=== PATIENT | male | born 1965 | race Caucasian/White ===

== ENCOUNTER 2023-06-19 05:18 | Inpatient (IN) | payer OTHER ==
[2023-06-19 06:19] LABS: Basophils # (A) 0.1 k/uL (0-0.2); Basophils % (A) 1 %; Eosinophils # (A) 0.1 k/uL (0-0.7); Eosinophils % (A) 1 %; HCT 43.7 % (39.0-53.0); HGB 14.2 gm/dL (13.0-17.5); Lymphocytes # (A) 1.7 k/uL (1.0-4.8); Lymphocytes % (A) 19 %; MCH 30.6 pg (25.0-35.0); MCHC 32.6 g/dL (31.0-37.0); MCV 93.9 fL (80.0-100.0); Mean Platelet Volume 7.1; Monocytes # (A) 0.6 k/uL (0-1.0); Monocytes % (A) 6 %; Neutrophils # (A) 6.3 k/uL (1.3-7.7); Neutrophils % (A) 71 %; Platelet Count 381 k/uL (150-450); RBC 4.66 m/uL (4.30-5.90); RDW 14.1 % (11.5-15.5); WBC 8.9 k/uL (3.8-10.6)
[2023-06-19 06:34] LABS: ALT 24 U/L (4-49); AST 30 U/L (17-59); African American GFR (CKD) >90 (>60 ml/min/1.73 sqM); Albumin 4.6 g/dL (3.5-5.0); Alkaline Phosphatase 67 U/L (38-126); Anion Gap 10 mmol/L; Blood Urea Nitrogen 15 mg/dL (9-20); Calcium 9.3 mg/dL (8.4-10.2); Carbon Dioxide 24 mmol/L (22-30); Chloride 105 mmol/L (98-107); Glucose 98 mg/dL (74-99); Non-African American GFR(CKD) >90 (>60 ml/min/1.73 sqM); Sodium 139 mmol/L (137-145); Total Bilirubin 0.5 mg/dL (0.2-1.3); Total Protein 7.9 g/dL (6.3-8.2)
--- NOTE | 2023-06-19 07:33 | ED ---
Chest Pain HPI - General Chief Complaint: Chest Pain Stated Complaint: N Stemy Time Seen by Provider: 06/19/23 05:25 Source: patient, EMS Mode of arrival: EMS Limitations: no limitations - History of Present Illness Initial Comments: 58-year-old male who presents emergency department as a transfer from [facility]. He originally went in there for chest pain which has been going on for greater than a week. EKG was performed which demonstrated Q waves in the inferior leads. Troponin level was elevated. Patient was given a dose of Lovenox and transferred to our facility for cardiology evaluation. Troponin went from 76 to 172. D-dimer was normal. BNP was 1449. Patient was given a dose of Lovenox 120 mg and 40 mg of Lasix. They then wanted to transfer the patient to our facility - Related Data Home Medications Medication Instructions Recorded Confirmed Pvobbol-Xbsd-Dleh [id number] 2 tab PO Q4H PRN 06/19/23 06/19/23 [Excedrin] Ibuprofen [Motrin Ib] 400 mg PO Q4H PRN 06/19/23 06/19/23 Allergies Allergy/AdvReac Type Severity Reaction Status Date / Time No Known Allergies Allergy Verified 06/19/23 08:27 Review of Systems ROS Statement: Those systems with pertinent positive or pertinent negative responses have been documented in the HPI. ROS Other: All systems not noted in ROS Statement are negative. Past Medical History Past Medical History: Hypertension Additional Past Medical History / Comment(s): kidney stones History of Any Multi-Drug Resistant Organisms: None Reported Past Surgical History: Cholecystectomy Past Psychological History: Anxiety Smoking Status: Never smoker Past Alcohol Use History: None Reported Past Drug Use History: Marijuana - Past Family History Mother Family Medical History: Cancer, Coronary Artery Disease (CAD) Additional Family Medical History / Comment(s): Breast CA Father Family Medical History: Cancer Additional Family Medical History / Comment(s): Leukemia General Exam Limitations: no limitations General appearance: alert, in no apparent distress Head exam: Present: atraumatic, normocephalic, normal inspection Eye exam: Present: normal appearance, PERRL, EOMI. Absent: scleral icterus, conjunctival injection, periorbital swelling ENT exam: Present: normal exam, mucous membranes moist Neck exam: Present: normal inspection. Absent: tenderness, meningismus, lymphadenopathy Respiratory exam: Present: normal lung sounds bilaterally. Absent: respiratory distress, wheezes, rales, rhonchi, stridor Cardiovascular Exam: Present: regular rate, normal rhythm, normal heart sounds. Absent: systolic murmur, diastolic murmur, rubs, gallop, clicks GI/Abdominal exam: Present: soft, normal bowel sounds. Absent: distended, tenderness, guarding, rebound, rigid Extremities exam: Present: normal inspection, full ROM, normal capillary refill. Absent: tenderness, pedal edema, joint swelling, calf tenderness Back exam: Present: normal inspection Neurological exam: Present: alert, oriented X3, CN II-XII intact Psychiatric exam: Present: normal affect, normal mood Skin exam: Present: warm, dry, intact, normal color. Absent: rash Course Vital Signs 06/19/23 06/19/23 06/19/23 05:20 07:18 09:13 Temperature 98.1 F Pulse Rate 101 H 99 103 H Respiratory 20 18 18 Rate Blood Pressure 160/95 154/104 154/103 O2 Sat by Pulse 93 L 97 91 L Oximetry 06/19/23 06/19/23 06/19/23 11:00 14:00 15:00 Temperature Pulse Rate 80 88 90 Respiratory 16 20 20 Rate Blood Pressure 120/78 101/62 110/60 O2 Sat by Pulse 94 L 90 L 98 Oximetry 06/19/23 06/19/23 16:00 17:59 Temperature Pulse Rate 86 65 Respiratory 20 16 Rate Blood Pressure 106/60 125/68 O2 Sat by Pulse 98 98 Oximetry Chest Pain MDM - MDM Was pt. sent in by a medical professional or institution (, PA, [employer], urgent care, hospital, or chcf...) When possible be specific @ -[facility] Did you speak to anyone other than the patient for history (EMS, parent, family, police, friend...)? What history was obtained from this source @ -Spoke with EMS and the transferring physician for history Did you review nursing and triage notes (agree or disagree)? Why? @ -I reviewed and agree with nursing and triage notes Were old charts reviewed (outside hosp., previous admission, EMS record, old EKG, old radiological studies, urgent care reports/EKG's, chcf records)? Report findings @ -I reviewed the patient's transfer paperwork from [facility] Differential Diagnosis (chest pain, altered mental status, abdominal pain women, abdominal pain men, vaginal bleeding, weakness, fever, dyspnea, syncope, headache, dizziness, GI bleed, back pain, seizure, CVA, palpatations, mental health, musculoskeletal)? @ -Differential Chest Pain: Stable Angina, Unstable Angina, STEMI, NSTEMI Aortic Dissection, Pneumothorax, Musculoskeletal, Esophageal Spasm GERD, Cholecystitis, Pancreatitis, Zoster, this is not meant to be an all-inclusive list. EKG interpreted by me (3pts min.). @ -Yes and demonstrates sinus rhythm with a rate of 94. IA interval 175. QRS 113. QTc of 419. Q wave in leads III and aVF. No acute ST segment elevation X-rays interpreted by me (1pt min.). @ -Not done CT interpreted by me (1pt min.). @ -None done U/S interpreted by me (1pt. min.). @ -None done What testing was considered but not performed or refused? (CT, X-rays, U/S, labs)? Why? @ -None What meds were considered but not given or refused? Why? @ -None Did you discuss the management of the patient with other professionals (professionals i.e. DrPatrice, PA, [employer], lab, RT, psych nurse, protective services social worker, anthropology department chair, teacher, promotions officer, hospice case manager)? Give summary @ -Spoke with Dr. Hunter for admission Was smoking cessation discussed for >3mins.? @ -No Was critical care preformed (if so, how long)? @ -Yes, for NSTEMI management Were there social determinants of health that impacted care today? How? (Homelessness, low income, unemployed, alcoholism, drug addiction, transport ation, low edu. Level, literacy, decrease access to med. care, fpc, rehab)? @ -No Was there de-escalation of care discussed even if they declined (Discuss DNR or withdrawal of care, Hospice)? DNR status @ -No What co-morbidities impacted this encounter? (DM, HTN, Smoking, COPD, CAD, Cancer, CVA, ARF, Chemo, Hep., AIDS, mental health diagnosis, sleep apnea, morbid obesity)? @ -None Was patient admitted / discharged? Hospital course, mention meds given and route, prescriptions, significant lab abnormalities, going to OR and other pertinent info. @ -Upon arrival patient was placed into room 27. Thorough history and physical exam was performed. Patient was a transfer from [facility]. He did receive a dose of Lovenox for treatment of NSTEMI. I did continue this. Patient was admitted to Dr. Brown with cardiology to consult Undiagnosed new problem with uncertain prognosis? @ -Yes Drug Therapy requiring intensive monitoring for toxicity (Heparin, Nitro, Insulin, Cardizem)? @ -No Were any procedures done? @ -No Diagnosis/symptom? @ -Acute chest pain, NSTEMI Acute, or Chronic, or Acute on Chronic? @ -Acute Uncomplicated (without systemic symptoms) or Complicated (systemic symptoms)? @ -Complicated Side effects of treatment? @ -Bleeding Exacerbation, Progression, or Severe Exacerbation? @ -No Poses a threat to life or bodily function? How? (Chest pain, [place], [place], pneumonia, PE, COPD, DKA, ARF, appy, cholecystitis, CVA, Diverticulitis, Homicidal, Suicidal, threat to staff... and all critical care pts) @ -Yes as patient has NSTEMI Disposition Clinical Impression: Chest pain, NSTEMI (non-ST elevated myocardial infarction) Disposition: ADMITTED IP TO THIS [facility] Condition: Serious Is patient prescribed a controlled substance at d/c from ED?: No Time of Disposition: 07:40 Decision to Admit Reason: Admit from EC Decision Date: 06/19/23 Decision Time: 07:40
[2023-06-19] MEDS: MORPHINE SULFATE 4 MG/ML SYRINGE IVP STA (07:37)
[2023-06-19] MEDS ORDERED: NALOXONE 0.4 MG/ML 1 ML VIAL IV PRN (07:40)
[2023-06-19] MEDS: LOSARTAN 25 MG TAB PO SCH (09:45)
[2023-06-19] MEDS: ASPIRIN 81 MG PO SCH (09:45)
[2023-06-19] MEDS: METOPROLOL SUCCINATE (ER) 25 MG TAB.ER.24H PO SCH (09:45)
[2023-06-19] MEDS: ATORVASTATIN 80 MG TAB PO SCH (09:45)
[2023-06-19] MEDS: HEPARIN SOD,PORK IN 0.45% NACL 25,000 UNIT in 0.45% NACL 1 250ML.BAG IV SCH (09:47)
[2023-06-19] MEDS: HEPARIN SODIUM 1,000 UN/ML (10ML VL) IV ONE (09:48)
[2023-06-19] MEDS: amLODIPine 5 MG TAB PO STA (09:54)
[2023-06-19] MEDS: LOSARTAN 25 MG TAB PO STA (09:54)
--- NOTE | 2023-06-19 11:18 | CT ---
EXAMINATION TYPE: CT angio chest CT DLP: 1375.9 mGycm, Automated exposure control for dose reduction was used. DATE OF EXAM: 06/19/2023 10:19 AM COMPARISON: Chest radiograph from same day. Multiple CTs of the chest with most recent on . CLINICAL INDICATION:Male, 58 years old with history of AORTIC aneurysm/dissection, PE; aorta aneurysm /dissection/PE TECHNIQUE/CONTRAST: CTA scan of the thorax is performed without and with IV Contrast, patient injected with 100ML mL of I sovue 370, MIP images are created and reviewed these are created on a separate workstation.. FINDINGS: Pulmonary Artery: There is no evidence for a filling defect within the pulmonary vasculature to sugge st acute pulmonary embolism. The pulmonary artery is of normal size. Lungs/Pleura: No evidence of focal consolidation, pleural effusion or pneumothorax. Airway: Large airways are patent. Heart: Heart is within normal limits for size. Vasculature: No evidence of aortic aneurysm. Mediastinum: No gross evidence of adenopathy. Musculoskeletal: No acute osseous abnormalities Soft Tissues: Unremarkable. Lower neck: No significant findings. Upper Abdomen: No significant findings. IMPRESSION: 1. No evidence of pulmonary embolism. 2. Peripheral , dependent groundglass pulmonary opacities consistent with atypical pulmonary infectio n such as COVID-19, other viral, or pulmonary venous congestion
[2023-06-19] MEDS: NITROGLYCERIN OINT 1 INCH/GM PACKET TOPICAL SCH (11:38)
[2023-06-19] MEDS: SODIUM CHLORIDE 0.9% 1,000 ML IV SCH (11:39)
[2023-06-19 13:08] LABS: Basophils # (A) 0.1 k/uL (0-0.2); Basophils % (A) 1 %; Eosinophils # (A) 0.2 k/uL (0-0.7); Eosinophils % (A) 2 %; HCT 43.9 % (39.0-53.0); HGB 13.9 gm/dL (13.0-17.5); Lymphocytes # (A) 1.6 k/uL (1.0-4.8); Lymphocytes % (A) 20 %; MCH 30.1 pg (25.0-35.0); MCHC 31.6 g/dL (31.0-37.0); MCV 95.3 fL (80.0-100.0); Mean Platelet Volume 6.9; Monocytes # (A) 0.6 k/uL (0-1.0); Monocytes % (A) 8 %; Neutrophils # (A) 5.3 k/uL (1.3-7.7); Neutrophils % (A) 66 %; Platelet Count 376 k/uL (150-450); RBC 4.61 m/uL (4.30-5.90); WBC 7.9 k/uL (3.8-10.6)
--- NOTE | 2023-06-19 13:08 | P.CRDCN ---
History of Present Illness Consult date: 06/19/23 Consult reason: chest pain (Non-ST elevated [place]) History of present illness: History of present illness: This is a 58-year-old male does not follow with a PCP. Patient has a known history of hypertension since 2020 but has not sought treatment for this. He underwent cholecystectomy at that time found to have high blood pressure and was given medications for short time and never had these refilled. We have been asked to evaluate the patient for acute chest pain and non-ST elevated myocardial infarction. Patient gives history that he has had pain starting in his mid upper back with any exertion is a pressure type that goes down into the chest area all across his chest with left arm pain that is sharp. No radiation to his neck or jaw. He also experiences shortness of breath with this. He usually sits down for about 15 to 20 minutes and he did see it and then he feels better. He states he is unable to walk over 100 feet and has symptomatic dyspnea on exertion and the chest pain/back pain. This has been going on since he had his gallbladder out in 2020. He states he is unable to rake leaves or go grocery shopping. Patient states that he quit smoking in 2020 but on further questioning he is still smoking. He denies any alcohol use. He uses marijuana weekly for anxiety. Patient initially presented to [facility] by EMS due to nosebleed. He did not present for chest pain. Due to concern for coronary artery disease, patient was transferred from the ER at [facility] to [facility]. He did receive IV Lasix 40 mg at [facility] and he thinks his breathing is a bit better today. His initial blood pressure at [facility] was 159/100. Troponin was elevated. D-di jami was normal. Chest x-ray revealed CHF. Patient now has a blood pressure 154/101 and heart rate of 101. He denies having any chest pain at this time. EKG sinus rhythm with none specific ST changes. CTA of the chest reveals no evidence of pulmonary embolism. Peripheral, dependent ground glass pulmonary opacities consistent with atypical pulmonary infection such as COVID-19 or other viral or pulmonary venous congestion. CBC and CMP normal. Troponins 0.485 and 0.743. Home cardiac medications: None Review Of Systems: At the time of my exam: CONSTITUTIONAL: Denies fever or chills. HEENT: Denies blurred vision, vision changes, or eye pain. Denies hemoptysis CARDIOVASCULAR: Denies chest pain. Denies orthopnea. Denies PND. Denies palpitations RESPIRATORY: Denies shortness of breath. GASTROINTESTINAL: Denies abdominal pain. Denies nausea or vomiting. HEMATOLOGIC: Denies bleeding disorders. GENITOURINARY: Denies any blood in urine. SKIN: Denies pruitis. Denies rash. Physical examination: Gen: This is a 58-year-old male appears to be in no acute distress. VS: reviewed HEENT: Head is atraumatic, normocephalic. Pupils equal, round. Sclerae is anicteric. NECK: Supple. No JVD. LUNGS: A few scattered rhonchi with mild end expiratory wheeze. No intercostal retractions. HEART: Regular rate and rhythm. No murmur. ABDOMEN: Soft No tenderness. EXTREMITIES: No pedal edema. No calf tenderness. NEUROLOGICAL: Patient is awake, alert and oriented x3. Assessment: Non-ST elevated myocardial infarction Accelerated hypertension Tobacco use Marijuana use Plan: Start patient on aspirin 81 mg daily, Lipitor 80 mg daily, losartan 100 mg daily, Lopressor 50 mg twice daily 1 dose of amlodipine 5 mg today Start patient on heparin drip per protocol Start patient on IV fluids 0.9 normal saline at 75 cc/h Possible cardiac catheterization on Thursday or earlier depending on results of e chocardiogram Obtain 2-D echocardiogram and Doppler study to assess cardiac structure and function Further recommendations to follow based upon clinical course Thank you kindly for this consultation. Nurse practitioner note has been reviewed, I agree with documented findings and plan of care. Patient was seen and examined. Past Medical History Past Medical History: Hypertension Additional Past Medical History / Comment(s): kidney stones History of Any Multi-Drug Resistant Organisms: None Reported Past Surgical History: Cholecystectomy Past Psychological History: Anxiety Smoking Status: Never smoker Past Alcohol Use History: None Reported Past Drug Use History: Marijuana Medications and Allergies Home Medications Medication Instructions Recorded Confirmed Type Lbzppto-Khzq-Bgbk [id number] 2 tab PO Q4H PRN 06/19/23 06/19/23 History [Excedrin] Ibuprofen [Motrin Ib] 400 mg PO Q4H PRN 06/19/23 06/19/23 History Allergies Allergy/AdvReac Type Severity Reaction Status Date / Time No Known Allergies Allergy Verified 06/19/23 08:27 Physical Exam Vitals: Vital Signs Temp Pulse Resp BP Pulse Ox 06/19/23 07:18 98.1 F 99 18 154/104 97 06/19/23 05:20 101 H 20 160/95 93 L Intake and Output 06/18/23 06/19/23 06/19/23 22:59 06:59 14:59 Other: Weight 120.202 kg Results 06/19/23 06:01 06/19/23 06:01 Cardiac Enzymes 06/19/23 06/19/23 Range/Units 06:01 06:01 AST 30 (17-59) U/L Troponin I 0.485 H* (0.000-0.034) ng/mL CBC 06/19/23 Range/Units 06:01 WBC 8.9 (3.8-10.6) k/uL RBC 4.66 (4.30-5.90) m/uL Hgb 14.2 (13.0-17.5) gm/dL Hct 43.7 (39.0-53.0) % Plt Count 381 (150-450) k/uL Comprehensive Metabolic Panel 06/19/23 Range/Units 06:01 Sodium 139 (137-145) mmol/L Potassium 4.0 (3.5-5.1) mmol/L Chloride 105 (98-107) mmol/L Carbon Dioxide 24 (22-30) mmol/L BUN 15 (9-20) mg/dL Creatinine 0.90 (0.66-1.25) mg/dL Glucose 98 (74-99) mg/dL Calcium 9.3 (8.4-10.2) mg/dL AST 30 (17-59) U/L ALT 24 (4-49) U/L Alkaline Phosphatase 67 (38-126) U/L Total Protein 7.9 (6.3-8.2) g/dL Albumin 4.6 (3.5-5.0) g/dL Current Medications Generic Name Dose Route Start Last Admin Trade Name Freq PRN Reason Stop Dose Admin Enoxaparin Sodium 120 mg 06/19/23 15:00 Enoxaparin 120 Mg/0.8 Ml Syringe SQ Q12H [facility] Morphine Sulfate 4 mg 06/19/23 07:40 Morphine Sulfate 4 Mg/Ml Syringe IV Q4HR PRN Severe Pain (Scale 7 to 10) Naloxone HCl 0.2 mg 06/19/23 07:40 Naloxone 0.4 Mg/Ml 1 Ml Vial IV Q2M PRN Opioid Reversal Intake and Output 06/18/23 06/19/23 06/19/23 22:59 06:59 14:59 Other: Weight 120.202 kg 06/19/23 06:01 06/19/23 06:01
[2023-06-19 13:14] LABS: Partial Thromboplastin Time 39.6 sec (22.0-30.0); Prothrombin Time 10.8 sec (10.0-12.5)
[2023-06-19] MEDS ORDERED: ENOXAPARIN 120 MG/0.8 ML SYRINGE SQ SCH (15:00)
[2023-06-19] MEDS: MORPHINE SULFATE 4 MG/ML SYRINGE IV PRN (16:17)
[2023-06-19 16:44] LABS: Partial Thromboplastin Time 37.7 sec (22.0-30.0); Prothrombin Time 10.7 sec (10.0-12.5)
--- NOTE | 2023-06-19 17:19 | P.HPIM ---
History of Present Illness H&P Date: 06/19/23 Chief Complaint: Chest pain 58-year-old male who presents emergency department as a transfer from [facility]. He originally went in there for chest pain which has been going on for greater than a week. EKG was performed which demonstrated Q waves in the inferior leads. Troponin level was elevated. Patient was given a dose of Lovenox and transferred to our facility for cardiology evaluation. Troponin went from 76 to 172. D-dimer was normal. BNP was 1449. Patient was given a dose of Lovenox 120 mg and 40 mg of Lasix. Patient initially presented to [facility] by EMS due to nosebleed. He did not present for chest pain. Due to concern for coronary artery disease, patient was transferred from the ER at [facility] to [facility]. He did receive IV Lasix 40 mg at [facility] and he thinks his breathing is a bit better today. His initial blood pressure at [facility] was 159/100. Troponin was elevated. D-dimer was normal. Chest x-ray revealed CHF. Patient now has a blood pressure 154/101 and heart rate of 101. He denies having any chest pain at this time. EKG sinus rhythm with none specific ST changes. CTA of the chest reveals no evidence of pulmonary embolism. Peripheral, dependent ground glass pulmonary opacities consistent with atypical pulmonary infection such as COVID-19 or other viral or pulmonary venous congestion. CBC and CMP normal. Troponins 0.485 and 0.743. Review of Systems REVIEW OF SYSTEMS: CONSTITUTIONAL: No fever, no malaise, no fatigue. HEENT: No recent visual problems or hearing problems. Denied any sore throat. CARDIOVASCULAR: No chest pain, orthopnea, PND, no palpitations, no syncope. PULMONARY: No shortness of breath, no cough, no hemoptysis. GASTROINTESTINAL: No diarrhea, no nausea, no vomiting, no abdominal pain. NEUROLOGICAL: No headaches, no weakness, no numbness. HEMATOLOGICAL: Denies any bleeding or petechiae. GENITOURINARY: Denies any burning micturition, frequency, or urgency. MUSCULOSKELETAL/RHEUMATOLOGICAL: Denies any joint pain, swelling, or any muscle pain. ENDOCRINE: Denies any polyuria or polydipsia. The rest of the 14-point review of systems is negative. Past Medical History Past Medical History: Hypertension Additional Past Medical History / Comment(s): kidney stones History of Any Multi-Drug Resistant Organisms: None Reported Past Surgical History: Cholecystectomy Past Psychological History: Anxiety Smoking Status: Never smoker Past Alcohol Use History: None Reported Past Drug Use History: Marijuana Medications and Allergies Home Medications Medication Instructions Recorded Confirmed Type Anchdlz-Rjat-Lpiv [id number] 2 tab PO Q4H PRN 06/19/23 06/19/23 History [Excedrin] Ibuprofen [Motrin Ib] 400 mg PO Q4H PRN 06/19/23 06/19/23 History Allergies Allergy/AdvReac Type Severity Reaction Status Date / Time No Known Allergies Allergy Verified 06/19/23 08:27 Physical Exam Vitals: Vital Signs Temp Pulse Resp BP Pulse Ox 06/19/23 11:00 80 16 120/78 94 L 06/19/23 09:13 103 H 18 154/103 91 L 06/19/23 07:18 98.1 F 99 18 154/104 97 06/19/23 05:20 101 H 20 160/95 93 L Intake and Output 06/18/23 06/19/23 06/19/23 22:59 06:59 14:59 Other: Weight 120.202 kg HEENT: Head is atraumatic, normocephalic. Pupils equal, round. Sclerae is anicteric. NECK: Supple. No JVD. LUNGS: A few scattered rhonchi with mild end expiratory wheeze. No intercostal retractions. HEART: Regular rate and rhythm. No murmur. ABDOMEN: Soft No tenderness. EXTREMITIES: No pedal edema. No calf tenderness. NEUROLOGICAL: Patient is awake, alert and oriented x3. Results CBC & Chem 7: 06/19/23 12:29 06/19/23 06:01 Labs: Abnormal Lab Results - Last 24 Hours (Table) 06/19/23 06/19/23 Range/Units 06:01 08:49 Troponin I 0.485 H* 0.743 H* (0.000-0.034) ng/mL Assessment and Plan Assessment: 1. Non-ST elevation MS -- Patient is admitted to telemetry; monitor EKG and trend troponin -- Cardiology has evaluated patient and recommending to start patient on aspirin 81 mg daily, Lipitor 80 mg daily, Lopressor 50 mg twice daily and losartan 100 mg daily -- Patient remains on IV heparin infusion per protocol -- Obtain 2D echo to further assess cardiac structure and function -- Possible cardiac catheterization on Thursday 2. Accelerated hypertension; patient has been placed on losartan 100 mg daily, Lopressor 50 mg twice daily and Norvasc 5 mg daily -We will monitor blood pressure closely and make further adjustments as needed 3. Substance abuse; patient has longstanding history of tobacco and marijuana use; counseling done for cessation DVT prophylaxis; SCDs/IV heparin CODE STATUS; full code
[2023-06-19] MEDS: HEPARIN SODIUM 1,000 UN/ML (10ML VL) IV PRN (17:58)
[2023-06-19] MEDS: METOPROLOL TARTRATE 50 MG TAB PO SCH (21:16)
[2023-06-20] MEDS: LOSARTAN 50 MG TAB PO SCH (08:18)
[2023-06-20 11:37] LABS: Basophils # (A) 0.1 k/uL (0-0.2); Basophils % (A) 2 %; Eosinophils # (A) 0.2 k/uL (0-0.7); Eosinophils % (A) 3 %; HGB 13.2 gm/dL (13.0-17.5); Lymphocytes % (A) 27 %; MCH 30.5 pg (25.0-35.0); MCHC 31.4 g/dL (31.0-37.0); Monocytes # (A) 0.6 k/uL (0-1.0); Monocytes % (A) 9 %; Neutrophils # (A) 4.4 k/uL (1.3-7.7); Neutrophils % (A) 58 %; Platelet Count 336 k/uL (150-450); RBC 4.33 m/uL (4.30-5.90); RDW 13.9 % (11.5-15.5); WBC 7.6 k/uL (3.8-10.6)
[2023-06-20 11:43] LABS: INR 0.9 (<1.2); Partial Thromboplastin Time 38.6 sec (22.0-30.0); Prothrombin Time 10.5 sec (10.0-12.5)
[2023-06-20 11:56] LABS: African American GFR (CKD) >90 (>60 ml/min/1.73 sqM); Anion Gap 8 mmol/L; Blood Urea Nitrogen 18 mg/dL (9-20); Carbon Dioxide 28 mmol/L (22-30); Chloride 104 mmol/L (98-107); Glucose 95 mg/dL (74-99); Non-African American GFR(CKD) 81 (>60 ml/min/1.73 sqM); Potassium 4.5 mmol/L (3.5-5.1); Sodium 140 mmol/L (137-145)
[2023-06-20] MEDS: HEPARIN SODIUM 1,000 UN/ML (10ML VL) IV PRN (12:49)
--- NOTE | 2023-06-20 16:42 | P.PN ---
Subjective Progress Note Date: 06/20/23 58-year-old male who presents emergency department as a transfer from [facility]. He originally went in there for chest pain which has been going on for greater than a week. EKG was performed which demonstrated Q waves in the inferior leads. Troponin level was elevated. Patient was given a dose of Lovenox and transferred to our facility for cardiology evaluation. Troponin went from 76 to 172. D-dimer was normal. BNP was 1449. Patient was given a dose of Lovenox 120 mg and 40 mg of Lasix. Patient initially presented to [facility] by EMS due to nosebleed. He did not present for chest pain. Due to concern for coronary artery disease, patient was transferred from the ER at [facility] to [facility]. He did receive IV Lasix 40 mg at [facility] and he thinks his breathing is a bit better today. His initial blood pressure at [facility] was 159/100. Troponin was elevated. D-dimer was normal. Chest x-ray revealed CHF. Patient now has a blood pressure 154/101 and heart rate of 101. He denies having any chest pain at this time. EKG sinus rhythm with none specific ST changes. CTA of the chest reveals no evidence of pulmonary embolism. Peripheral, dependent ground glass pulmonary opacities consistent with atypical pulmonary infection such as COVID-19 or other viral or pulmonary venous congestion. CBC and CMP normal. Troponins 0.485 and 0.743. Objective - Vital Signs Vital signs: Vital Signs Temp 97.7 F 06/20/23 08:00 Pulse 89 06/20/23 08:00 Resp 16 06/20/23 08:00 BP 123/74 06/20/23 08:00 Pulse Ox 95 06/20/23 08:00 FiO2 Intake & Output 06/19/23 06/20/23 06/20/23 18:59 06:59 18:59 Intake Total 81 169.000 Balance 81 169.000 Weight 120.202 kg Intake: Intake, IV Titration 81 169.000 Amount Heparin Sod,Pork in 0.45% 81 169.000 NaCl 25,000 unit In 0.45 % NaCl 1 250ml.bag @ 8. 319 UNITS/KG/HR 10 mls/hr IV .Q24H [facility] Rx#: [id number] Other: Voiding Method Toilet Toilet # Voids 2 1 - Exam HEENT: Head is atraumatic, normocephalic. Pupils equal, round. Sclerae is anicteric. NECK: Supple. No JVD. LUNGS: A few scattered rhonchi with mild end expiratory wheeze. No intercostal retractions. HEART: Regular rate and rhythm. No murmur. ABDOMEN: Soft No tenderness. EXTREMITIES: No pedal edema. No calf tenderness. NEUROLOGICAL: Patient is awake, alert and oriented x3. - Labs CBC & Chem 7: 06/20/23 11:05 06/20/23 11:05 Labs: Abnormal Lab Results - Last 24 Hours (Table) 06/19/23 06/19/23 06/19/23 Range/Units 12:29 12:29 15:01 APTT 39.6 H 38.0 H (22.0-30.0) sec Troponin I 0.475 H* (0.000-0.034) ng/mL 06/19/23 06/19/23 Range/Units 16:22 23:55 APTT 37.7 H 39.2 H (22.0-30.0) sec Troponin I (0.000-0.034) ng/mL Assessment and Plan Assessment: 1. Non-ST elevation AR -- Patient is admitted to telemetry; monitor EKG and trend troponin -- Cardiology has evaluated patient and recommending to start patient on aspirin 81 mg daily, Lipitor 80 mg daily, Lopressor 50 mg twice daily and losartan 100 mg daily -- Patient remains on IV heparin infusion per protocol -- Obtain 2D echo to further assess cardiac structure and function -- Possible cardiac catheterization on Thursday 2. Accelerated hypertension; patient has been placed on losartan 100 mg daily, Lopressor 50 mg twice daily and Norvasc 5 mg daily -We will monitor blood pressure closely and make further adjustments as needed 3. Substance abuse; patient has longstanding history of tobacco and marijuana use; counseling done for cessation DVT prophylaxis; SCDs/IV heparin CODE STATUS; full code
--- NOTE | 2023-06-20 19:06 | P.PN ---
Subjective Progress Note Date: 06/20/23 History of present illness: This is a 58-year-old male does not follow with a PCP. Patient has a known hi story of hypertension since 2020 but has not sought treatment for this. He underwent cholecystectomy at that time found to have high blood pressure and was given medications for short time and never had these refilled. We have been asked to evaluate the patient for acute chest pain and non-ST elevated myocardial infarction. Patient gives history that he has had pain starting in his mid upper back with any exertion is a pressure type that goes down into the chest area all across his chest with left arm pain that is sharp. No radiation to his neck or jaw. He also experiences shortness of breath with this. He usually sits down for about 15 to 20 minutes and he did see it and then he feels better. He states he is unable to walk over 100 feet and has symptomatic dyspnea on exertion and the chest pain/back pain. This has been going on since he had his gallbladder out in 2020. He states he is unable to rake leaves or go grocery shopping. Patient states that he quit smoking in 2020 but on further questioning he is still smoking. He denies any alcohol use. He uses marijuana weekly for anxiety. Patient initially presented to [facility] by EMS due to nosebleed. He did not present for chest pain. Due to concern for coronary artery disease, patient was transferred from the ER at [facility] to [facility]. He did receive IV Lasix 40 mg at [facility] and he thinks his breathing is a bit better today. His initial blood pressure at [facility] was 159/100. Troponin was elevated. D- dimer was normal. Chest x-ray revealed CHF. Patient now has a blood pressure 154/101 and heart rate of 101. He denies having any chest pain at this time. EKG sinus rhythm with none specific ST changes. CTA of the chest reveals no evidence of pulmonary embolism. Peripheral, dependent ground glass pulmonary opacities consistent with atypical pulmonary infection such as COVID-19 or other viral or pulmonary venous congestion. CBC and CMP normal. Troponins 0.485 and 0.743. Home cardiac medications: None Progress note June 20, 2023 Seen and examined at bedside this a.m. Plan discussed with patient's son sitting at bedside. Patient does not have any active chest pain chest pressure or shortness of breath. His blood pressure is better controlled today. Physical examination: Gen: This is a 58-year-old male appears to be in no acute distress. VS: reviewed HEENT: Head is atraumatic, normocephalic. Pupils equal, round. Sclerae is anicteric. NECK: Supple. No JVD. LUNGS: A few scattered rhonchi with mild end expiratory wheeze. No intercostal retractions. HEART: Regular rate and rhythm. No murmur. ABDOMEN: Soft No tenderness. EXTREMITIES: No pedal edema. No calf tenderness. NEUROLOGICAL: Patient is awake, alert and oriented x3. Assessment: Non-ST elevated myocardial infarction Accelerated hypertension Tobacco use Marijuana use Plan: Start patient on aspirin 81 mg daily, Lipitor 80 mg daily, losartan 100 mg da ash, Lopressor 50 mg twice daily Start patient on heparin drip per protocol Discontinue IV fluids Plan for cardiac catheterization on Thursday Objective - Vital Signs Vital signs: Vital Signs Temp 97.7 F 06/20/23 08:00 Pulse 83 06/20/23 16:00 Resp 16 06/20/23 16:00 BP 120/75 06/20/23 16:00 Pulse Ox 95 06/20/23 16:00 FiO2 Intake & Output 06/20/23 06/20/23 06/21/23 06:59 18:59 06:59 Intake Total 169.000 443.393 Balance 169.000 443.393 Intake: Intake, IV Titration 169.000 85.393 Amount Heparin Sod,Pork in 0.45% 169.000 85.393 NaCl 25,000 unit In 0.45 % NaCl 1 250ml.bag @ 8. 319 UNITS/KG/HR 10 mls/hr IV .Q24H [facility] Rx#: [id number] Oral 358 Other: Voiding Method Toilet Toilet # Voids 2 2 - Labs CBC & Chem 7: 06/20/23 11:05 06/20/23 11:05 Labs: Abnormal Lab Results - Last 24 Hours (Table) 06/19/23 06/20/23 Range/Units 23:55 11:05 APTT 39.2 H 38.6 H (22.0-30.0) sec
--- NOTE | 2023-06-20 19:33 | CA ---
Transthoracic Echo Report Name: Phoebe Martinez Age: 58 Gender: M : 1965 Exam Date: 06/19/2023 11:17 Exam Location: [place] [facility] Ht (in): 71 Wt (lb): 265 Ordering Physician: Cyndee Lay Attending/Referring Phys: [id number], Alireza [employer] Professional Natalie Reyes, LOGAN Procedure CPT: Indications: LVF Cardiac Hx: Technical Quality: Technically difficult study Contrast 1: Definity Total Dose (mL): 2 Contrast 2: Total Dose (mL): MEASUREMENTS (Male / Female) Normal Values 2D ECHO LV Diastolic Diameter PLAX 5.8 cm 4.2 - 5.9 / 3.9 - 5.3 cm LV Systolic Diameter PLAX 4.9 cm IVS Diastolic Thickness 1.5 cm 0.6 - 1.0 / 0.6 - 0.9 cm LVPW Diastolic Thickness 1.5 cm 0.6 - 1.0 / 0.6 - 0.9 cm LV Relative Wall Thickness 0.5 RV Internal Dim ED PLAX 3.9 cm LA Systolic Diameter LX 5.2 cm 3.0 - 4.0 / 2.7 - 3.8 cm LA Volume 90.2 cm??? 18 - 58 / 22 - 52 cm??? LA Volume Index 36.1 cm???/m??? 16 - 28 cm???/m??? M-MODE Aortic Root Diameter MM 3.7 cm MV E Point Septal Separation 1.6 cm DOPPLER AV Peak Velocity 167.4 cm/s AV Peak Gradient 11.2 mmHg MV Area PHT 5.5 cm??? Mitral E Point Velocity 107.9 cm/s Mitral A Point Velocity 75.5 cm/s Mitral E to A Ratio 1.4 MV Deceleration Time 137.7 ms LV E' Lateral Velocity 8.2 cm/s Mitral E to LV E' Lateral Ratio 13.1 LV E' Septal Velocity 3.8 cm/s Mitral E to LV E' Septal Ratio 28.5 TR Peak Velocity 265.8 cm/s TR Peak Gradient 28.3 mmHg Right Ventricular Systolic Press 33.3 mmHg FINDINGS Left Ventricle Left ventricular ejection fraction is estimated at 35-40 %. Left ventricular cavity size normal. Moderate concentric left ventricular hypertrophy. Moderately reduced global left ventricular systolic function. Right Ventricle Moderate right ventricular dilatation. Right ventricular systolic pressure within normal limits. Right Atrium Mild right atrial dilatation. Left Atrium Moderate LA dilatation Mitral Valve Structurally normal mitral valve. Trace to mild mitral regurgitation. Aortic Valve Trileaflet aortic valve. Thickened aortic valve without stenosis. Tricuspid Valve Structurally normal tricuspid valve. Mild tricuspid regurgitation. Pulmonic Valve Structurally normal pulmonic valve. No pulmonic regurgitation. Pericardium No pericardial effusion. Aorta Normal size aortic root and proximal ascending aorta. CONCLUSIONS Left ventricular ejection fraction is estimated at 35-40 %. Moderate concentric left ventricular hypertrophy. Globally reduced LVEF. No obvious regional wall motion abnormality Moderate LA dilatation. Previewed by: Dr Andrew Wooten (Electronically Signed) Final Date: 20 June 2023 19:33
--- NOTE | 2023-06-21 10:34 | P.PN ---
Subjective Progress Note Date: 06/21/23 History of present illness: This is a 58-year-old male does not follow with a PCP. Patient has a known hi story of hypertension since 2020 but has not sought treatment for this. He underwent cholecystectomy at that time found to have high blood pressure and was given medications for short time and never had these refilled. We have been asked to evaluate the patient for acute chest pain and non-ST elevated myocardial infarction. Patient gives history that he has had pain starting in his mid upper back with any exertion is a pressure type that goes down into the chest area all across his chest with left arm pain that is sharp. No radiation to his neck or jaw. He also experiences shortness of breath with this. He usually sits down for about 15 to 20 minutes and he did see it and then he feels better. He states he is unable to walk over 100 feet and has symptomatic dyspnea on exertion and the chest pain/back pain. This has been going on since he had his gallbladder out in 2020. He states he is unable to rake leaves or go grocery shopping. Patient states that he quit smoking in 2020 but on further questioning he is still smoking. He denies any alcohol use. He uses marijuana weekly for anxiety. Patient initially presented to [facility] by EMS due to nosebleed. He did not present for chest pain. Due to concern for coronary artery disease, patient was transferred from the ER at [facility] to [facility]. He did receive IV Lasix 40 mg at [facility] and he thinks his breathing is a bit better today. His initial blood pressure at [facility] was 159/100. Troponin was elevated. D- dimer was normal. Chest x-ray revealed CHF. Patient now has a blood pressure 154/101 and heart rate of 101. He denies having any chest pain at this time. EKG sinus rhythm with none specific ST changes. CTA of the chest reveals no evidence of pulmonary embolism. Peripheral, dependent ground glass pulmonary opacities consistent with atypical pulmonary infection such as COVID-19 or other viral or pulmonary venous congestion. CBC and CMP normal. Troponins 0.485 and 0.743. Home cardiac medications: None Progress note June 20, 2023 Seen and examined at bedside this a.m. Plan discussed with patient's son sitting at bedside. Patient does not have any active chest pain chest pressure or shortness of breath. His blood pressure is better controlled today. June 21 2023 Seen and examined at bedside this a.m. Still complaining of back pain between the mid shoulders. I will prescribe a lidocaine patch for this to him. His bl ood pressure is well-controlled on current regimen. No reported lightheadedness or dizziness. Tolerating IV heparin with no concerns of bleeding. Physical examination: Gen: This is a 58-year-old male appears to be in no acute distress. VS: reviewed HEENT: Head is atraumatic, normocephalic. Pupils equal, round. Sclerae is anicteric. NECK: Supple. No JVD. LUNGS: A few scattered rhonchi with mild end expiratory wheeze. No intercostal retractions. HEART: Regular rate and rhythm. No murmur. ABDOMEN: Soft No tenderness. EXTREMITIES: No pedal edema. No calf tenderness. NEUROLOGICAL: Patient is awake, alert and oriented x3. Assessment: Non-ST elevated myocardial infarction Accelerated hypertension, controlled now Tobacco use Marijuana use Morbid obesity Negative CTA for aortic dissection. Is a good right radial pulse. No reported allergies to IV contrast. No prior strokes or cancers or bleeding diathesis Plan: aspirin 81 mg daily, Lipitor 80 mg daily, losartan 100 mg daily, Lopressor 50 mg twice daily heparin drip per protocol Plan for cardiac catheterization on Thursday Lidocaine patch for back pain Objective - Vital Signs Vital signs: Vital Signs Temp 98.1 F 06/20/23 20:00 Pulse 83 06/21/23 04:00 Resp 18 06/21/23 04:00 BP 134/83 06/21/23 04:00 Pulse Ox 95 06/21/23 04:00 FiO2 Intake & Output 06/20/23 06/21/23 06/21/23 18:59 06:59 18:59 Intake Total 443.393 127.943 240 Output Total 0 Balance 443.393 127.943 240 Intake: Intake, IV Titration 85.393 127.943 Amount Heparin Sod,Pork in 0.45% 85.393 127.943 NaCl 25,000 unit In 0.45 % NaCl 1 250ml.bag @ 8. 319 UNITS/KG/HR 10 mls/hr IV .Q24H [facility] Rx#: [id number] Oral 358 240 Output: Gastric Drainage 0 Urine 0 Stool 0 Urine/Stool Mix 0 Emesis 0 Oral Regurgitation 0 Other 0 Other: Voiding Method Toilet Toilet # Voids 2 1 0 # Bowel Movements 0 - Labs CBC & Chem 7: 06/20/23 11:05 06/20/23 11:05 Labs: Abnormal Lab Results - Last 24 Hours (Table) 06/20/23 06/20/23 Range/Units 11:05 18:53 APTT 38.6 H 53.0 H (22.0-30.0) sec
[2023-06-21] MEDS: LIDOCAINE 4% PATCH TOPICAL ONE (12:36)
[2023-06-21 12:43] LABS: African American GFR (CKD) >90 (>60 ml/min/1.73 sqM); Anion Gap 7 mmol/L; Blood Urea Nitrogen 15 mg/dL (9-20); Carbon Dioxide 26 mmol/L (22-30); Chloride 106 mmol/L (98-107); Glucose 100 mg/dL (74-99); Non-African American GFR(CKD) >90 (>60 ml/min/1.73 sqM); Sodium 139 mmol/L (137-145)
--- NOTE | 2023-06-21 15:13 | P.PN ---
Subjective Progress Note Date: 06/21/23 58-year-old male who presents emergency department as a transfer from [facility]. He originally went in there for chest pain which has been going on for greater than a week. EKG was performed which demonstrated Q waves in the inferior leads. Troponin level was elevated. Patient was given a dose of Lovenox and transferred to our facility for cardiology evaluation. Troponin went from 76 to 172. D-dimer was normal. BNP was 1449. Patient was given a dose of Lovenox 120 mg and 40 mg of Lasix. Patient initially presented to [facility] by EMS due to nosebleed. He did not present for chest pain. Due to concern for coronary artery disease, patient was transferred from the ER at [facility] to [facility]. He did receive IV Lasix 40 mg at [facility] and he thinks his breathing is a bit better today. His initial blood pressure at [facility] was 159/100. Troponin was elevated. D-dimer was normal. Chest x-ray revealed CHF. Patient now has a blood pressure 154/101 and heart rate of 101. He denies having any chest pain at this time. EKG sinus rhythm with none specific ST changes. CTA of the chest reveals no evidence of pulmonary embolism. Peripheral, dependent ground glass pulmonary opacities consistent with atypical pulmonary infection such as COVID-19 or other viral or pulmonary venous congestion. CBC and CMP normal. Troponins 0.485 and 0.743. 06/21/2023 Patient is seen and evaluated sitting up in bed; no complaint of chest pain or shortness of breath; anxious to go home Vital signs are reviewed and remained stable Patient is currently on IV heparin per protocol, aspirin 81 mg daily, Lipitor 80 mg daily and Lopressor 50 mg twice daily Cardiology on board with plans for cardiac catheterization tomorrow morning Objective - Vital Signs Vital signs: Vital Signs Temp 97.5 F L 06/21/23 09:45 Pulse 94 06/21/23 09:45 Resp 18 06/21/23 09:45 BP 132/85 06/21/23 09:45 Pulse Ox 96 06/21/23 09:45 FiO2 Intake & Output 06/20/23 06/21/23 06/21/23 18:59 06:59 18:59 Intake Total 443.393 127.943 240 Output Total 0 Balance 443.393 127.943 240 Intake: Intake, IV Titration 85.393 127.943 Amount Heparin Sod,Pork in 0.45% 85.393 127.943 NaCl 25,000 unit In 0.45 % NaCl 1 250ml.bag @ 8. 319 UNITS/KG/HR 10 mls/hr IV .Q24H [facility] Rx#: [id number] Oral 358 240 Output: Gastric Drainage 0 Urine 0 Stool 0 Urine/Stool Mix 0 Emesis 0 Oral Regurgitation 0 Other 0 Other: Voiding Method Toilet Toilet Toilet # Voids 2 1 0 # Bowel Movements 0 - Exam HEENT: Head is atraumatic, normocephalic. Pupils equal, round. Sclerae is anic teric. NECK: Supple. No JVD. LUNGS: A few scattered rhonchi with mild end expiratory wheeze. No intercostal retractions. HEART: Regular rate and rhythm. No murmur. ABDOMEN: Soft No tenderness. EXTREMITIES: No pedal edema. No calf tenderness. NEUROLOGICAL: Patient is awake, alert and oriented x3. - Labs CBC & Chem 7: 06/20/23 11:05 06/21/23 09:14 Labs: Abnormal Lab Results - Last 24 Hours (Table) 06/20/23 06/20/23 06/21/23 Range/Units 11:05 18:53 09:14 APTT 38.6 H 53.0 H 43.5 H (22.0-30.0) sec Assessment and Plan Assessment: 1. Non-ST elevation OR -- Patient is admitted to telemetry; monitor EKG and trend troponin -- Cardiology has evaluated patient and recommending to start patient on aspirin 81 mg daily, Lipitor 80 mg daily, Lopressor 50 mg twice daily and losartan 100 mg daily -- Patient remains on IV heparin infusion per protocol -- Obtain 2D echo to further assess cardiac structure and function -- Possible cardiac catheterization on Thursday 2. Accelerated hypertension; patient has been placed on losartan 100 mg daily, Lopressor 50 mg twice daily and Norvasc 5 mg daily -We will monitor blood pressure closely and make further adjustments as needed 3. Substance abuse; patient has longstanding history of tobacco and marijuana use; counseling done for cessation DVT prophylaxis; SCDs/IV heparin CODE STATUS; full code
[2023-06-21] MEDS: ALPRAZolam 0.25 MG TAB PO PRN (21:01)
[2023-06-22] MEDS ORDERED: VERAPAMIL 2.5 MG/ML 2 ML AMP ONE ×3 (08:16→09:28)
[2023-06-22] MEDS ORDERED: LIDOCAINE 1% INJ 10MG/ML (20 ML MDV) ONE (08:16)
[2023-06-22] MEDS: ASPIRIN 81 MG PO STA (08:19)
[2023-06-22] MEDS ORDERED: fentaNYL (PF) 50 MCG/ML 2 ML AMP ONE (08:35)
[2023-06-22] MEDS ORDERED: HEPARIN SODIUM 1,000 UN/ML (10ML VL) ONE (08:35)
[2023-06-22] MEDS: IV FLUID CONTINUATION 1,000 ML IV ONE (08:55)
[2023-06-22] MEDS: fentaNYL (PF) 50 MCG/ML 2 ML AMP IVP ONE (08:58)
[2023-06-22] MEDS: MIDAZOLAM 2 MG/2 ML VIAL IVP ONE ×2 (08:58)
[2023-06-22] MEDS: LIDOCAINE 1% INJ 10MG/ML (20 ML MDV) SQ ONE (08:59)
[2023-06-22] MEDS: VERAPAMIL 2.5 MG/ML 2 ML AMP INTRAARTER ONE ×3 (09:00→09:37)
[2023-06-22] MEDS: HEPARIN SODIUM 1,000 UN/ML (10ML VL) IV ONE (09:11)
[2023-06-22] MEDS: IOPAMIDOL-370 100ML BTL INJ ONE (09:51)
[2023-06-22] MEDS ORDERED: RX INFO: IV CONTRAST WAS GIVEN 1 EACH MISC MISCELLANE PRN (10:04)
--- NOTE | 2023-06-22 10:12 | P.CARDCATH ---
Date of Procedure: 06/22/23 Description of Procedure: DIAGNOSTIC CORONARY ANGIOGRAPHY and LEFT HEART CATH REPORT PROCEDURES PERFORMED: Left heart catheterization Selective coronary angiography Moderate conscious sedation 51 mins [Ultrasound assisted] Right radial access Ultrasound assisted left radial access INDICATION: Cardiomyopathy, NSTEMI 58-year-old presented to [facility] with elevated blood pressure back pain. CTA chest was negative for any dissections. He also had elevated troponins and echo showed cardiomyopathy with a EF 35%. For this he was scheduled for a heart catheterization procedure. CONSENT: I have explained the procedural steps of above-mentioned procedures in layman's terms to the patient. I discussed the risks (including but not limited to stroke, emergent vascular or cardiac surgery or ), benefits and alternative therapies for the above-mentioned procedure. I discussed the risks of sedation/analgesia and blood product administration (if indicated). The patient has indicated understanding and acceptance of these risks. Conscious Sedation: Patient's ECG, heart rate, blood pressure, pulse oximetry were monitored throughout the duration of procedure under my direct supervision. 2 mg Versed and 75 mg Fentanyl were used for induction of moderate conscious sedation. Total duration of moderate concious sedation 51 minutes. PROCEDURE: After explaining the risks, benefits and alternatives of the above mentioned procedures in detail to the patient, informed consent was obtained. Patient was taken to the catheterization lab, prepped and draped in usual sterile fashion using universal precuations. Barbow and james test were performed to confirm adequate perfusion to fingers. Ultrasound was used to identify the radial artery. 1% lidocaine was infiltrated over the right radial artery. A 6-Tajik sheath was placed and secured in the right radial artery using modified Seldinger technique. The sheath was flushed and 5 mg verapamil was administered intra-arterially. J tipped wire was advanced under fluoroscopic guidance. Once the wire tip reached aortic root [5000] units of IV heparin was given. Over the wire JR4 diagnostic catheter was advanced. The wire in place the catheter was manipulated to cross the aortic valve and entered into LV under fluoroscopy guidance. The wire was removed and the catheter was flushed. LV pressures were obtained and pullback was performed under fluoroscopy. Catheter was manipulated to selectively engage the right coronary ostium but was unsuccessful because the catheter could not be torqued because of tortuosity in the right subclavian artery. This catheter was exchanged for a 6 Tajik JR4 diagnostic catheter which could not be advanced in the ascending aorta from the right subclavian artery. The JR4 diagnostic catheter was exchanged for a JL 4 diagnostic catheter over the J-wire. The wire was removed, catheter was flushed and manipulated under fluoroscopy to selectively engaged the left coronary ostium. Left coronary angioplasty was performed in different angiographic projections. Left radial artery was prepped. Under ultrasound guidance and using modified Seldinger technique, left radial access was obtained. A wire was advanced through the sheath and over the wire JR4 diagnostic catheter 5 Tajik was advanced and right coronary angiogram was performed. Catheter was removed over the wire. Both radial sheath was flushed. The right radial sheath was removed and a TR band was placed with excellent patent hemostasis was achieved. The patient tolerated the procedure well. Patient was transported back to the post catheterization holding area in stable condition. Angiographic images were reviewed in detail. HEMODYNAMICS: Aortic Pressure: 140/80 mmHg. LV pressure: 150/15 mmHg. LVEDP 30 mmHg. There was no significant gradient across the aortic valve. SELECTIVE CORONARY ARTERIOGRAPHY: LEFT MAIN: The left main is a large caliber vessel which tribifurcates into the LAD, Ramus and circumflex. Distal left main has 40% disease. LEFT ANTERIOR DESCENDING CORONARY ARTERY: LAD is a large caliber vessel which wraps around to the apex. Proximal LAD is diffusely diseased 40%. After giving diagonal 1 branch before giving septal branch, it has 90% calcific diffuse diseased. RAMUS: Ramus is medium caliber vessel, diffusely diseased 90% calcific. LEFT CIRCUMFLEX CORONARY ARTERY: LCx appears to be the dominant vessel. In the proximal portion LCx is 100% occluded and then through bridging collaterals reconstitutes in the distal midportion supplying the PDA and PL branches. RIGHT CORONARY ARTERY: Seems like nondominant. Proximal RCA appears to have 100% chronic total occlusion. 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 Uptitrate if needed. Add Imdur 30 mg daily. Uptitrate if needed Continue losartan 100 mg daily Aspirin, high intensity statin Start Lasix 40 mg p.o. daily from tonight 75 cc/h for 4 hours normal saline Optimize heart failure and blood pressure Cardiothoracic surgery consult for CABG evaluation Performing Physician Andrew Wooten MD, FACC, RPVI Thank you for allowing [facility] to participate in this patient's care. Feel free to reach out in case of any followup questions.
[2023-06-22] MEDS: SODIUM CHLORIDE 0.9% 1,000 ML IV SCH (12:05)
[2023-06-22] MEDS: ISOSORBIDE MONONITRATE ER 30 MG TAB.ER.24H PO SCH (12:05)
--- NOTE | 2023-06-22 12:50 | P.GSCN ---
History of Present Illness Consult date: 06/22/23 Reason for Consult: Triple-vessel coronary artery disease Requesting physician: Andrew Wooten History of present illness: This is a 58-year-old obese gentleman who does not follow with a primary care physician on a regular basis. He has a previous medical history of hypertension, previous tobacco dependence, previous EtOH use, occasional marijuana use, kidney stones, and family history of cancer. He does not take any medications at home. This gentleman states he has had intermittent chest pain and progressive shortness of breath over the previous few months. He endorses the symptoms mostly with activity however he has not sought medical attention. He states he is having a harder time being able to do what he wants to do and is considering applying for Social Security. He developed a significant nosebleed a few days ago and so he presented to [facility] for evaluation and treatment. He was found to be hypertensive with a blood pressure of 159/100. Troponins and BNP were elevated, he was given IV Lasix and transferred to [facility] for further evaluation and treatment. EKG demonstrated sinus rhythm nonspecific ST changes. Chest CTA demonstrated no pulmonary embolism, however there were groundglass pulmonary opacities consistent with atypical pulmonary infection. Lab work was unremarkable except for elevated troponins. The patient was admitted for evaluation and treatment. Echocardiogram was completed demonstrating moderately reduced global left ventricular systolic function with EF 35 to 40%, trace to mild mitral regurgitation, and mild tricuspid regurgitation. He was recommended to undergo heart catheterization which was completed today and which demonstr ated significant triple-vessel coronary artery disease with VOICE TEACHER of the proximal RCA, VOICE TEACHER of the proximal left circumflex with collaterals feeding the left PDA and PL branches, 90% proximal LAD disease, and 90% diffuse ramus disease. Due to these findings consultation was placed to cardiothoracic surgery for surgical revascularization recommendations. Review of Systems Review of systems was completed and was negative except as noted - EENT EENT Comment(s): Nosebleed - Cardiovascular Reports as per HPI, Reports chest pain, Reports leg edema, Reports shortness of breath Past Medical History Past Medical History: Coronary Artery Disease (CAD), Hypertension, Myocardial Infarction ([place]) Additional Past Medical History / Comment(s): kidney stones History of Any Multi-Drug Resistant Organisms: None Reported Past Surgical History: Cholecystectomy Past Anesthesia/Blood Transfusion Reactions: No Reported Reaction Past Psychological History: Anxiety Smoking Status: Former smoker Past Alcohol Use History: None Reported Additional Past Alcohol Use History / Comment(s): Quit drinking in 2020 Past Drug Use History: Marijuana - Past Family History Mother Family Medical History: Cancer, Coronary Artery Disease (CAD) Additional Family Medical History / Comment(s): Breast CA Father Family Medical History: Cancer Additional Family Medical History / Comment(s): Leukemia Medications and Allergies Home Medications Medication Instructions Recorded Confirmed Type [id number] 2 tab PO Q4H PRN 06/19/23 06/19/23 History [Excedrin] Ibuprofen [Motrin Ib] 400 mg PO Q4H PRN 06/19/23 06/19/23 History Allergies Allergy/AdvReac Type Severity Reaction Status Date / Time No Known Allergies Allergy Verified 06/19/23 08:27 Surgical - Exam Vital Signs Pulse Resp BP Pulse Ox 101 H 20 160/95 93 L 06/19/23 05:20 06/19/23 05:20 06/19/23 05:20 06/19/23 05:20 CONSTITUTIONAL: Awake and alert, appears comfortable, cooperative, well-developed, well-nourished, no pain, no acute distress EYES: Pupils equal, round, reactive to light, normal ocular movement ENT: Moist mucous membranes without oral lesions present NECK: No masses, no bruits, trachea midline RESPIRATORY: Lungs sounds diminished in the bases. Respirations even, nonlabored. Currently on room air with oxygen saturation 96%. Strong cough. No chest wall deformities. No clubbing or cyanosis present CARDIOVASCULAR: S1, S2 present. Regular rate and rhythm, sinus rhythm on telemetry. Palpable peripheral pulses bilaterally. Trace bilateral lower extremity edema present. No calf pain or tenderness noted. Tiny spider veins present to lower extremities. GASTROINTESTINAL: Abdomen soft, nontender, nondistended, obese without masses or organomegaly noted. There is no rebound or guarding present. Active bowel sounds present 4 quadrants. GENITOURINARY: Deferred INTEGUMENTARY: Skin is warm and dry, bilateral radial artery heart catheter sites with T band's in place NEUROLOGIC: Cranial nerves II through XII intact, normal coordination, no obvious motor or sensory deficits, speech is normal MUSKULOSKELETAL: Able to move all extremities, strength equal bilaterally, normal posture PSYCHIATRIC: Alert and oriented to person place and time, appropriate affect, intact judgment and insight Results - Labs 06/22/23 14:35 06/22/23 14:35 Abnormal Lab Results - Last 24 Hours (Table) 06/21/23 06/21/23 Range/Units 09:14 16:54 APTT 54.3 H (22.0-30.0) sec Glucose 100 H (74-99) mg/dL Diabetes panel 06/21/23 Range/Units 09:14 Sodium 139 (137-145) mmol/L Potassium 4.0 (3.5-5.1) mmol/L Chloride 106 (98-107) mmol/L Carbon Dioxide 26 (22-30) mmol/L BUN 15 (9-20) mg/dL Creatinine 0.93 (0.66-1.25) mg/dL Glucose 100 H (74-99) mg/dL Calcium 9.0 (8.4-10.2) mg/dL Calcium panel 06/21/23 Range/Units 09:14 Calcium 9.0 (8.4-10.2) mg/dL Pituitary panel 06/21/23 Range/Units 09:14 Sodium 139 (137-145) mmol/L Potassium 4.0 (3.5-5.1) mmol/L Chloride 106 (98-107) mmol/L Carbon Dioxide 26 (22-30) mmol/L BUN 15 (9-20) mg/dL Creatinine 0.93 (0.66-1.25) mg/dL Glucose 100 H (74-99) mg/dL Calcium 9.0 (8.4-10.2) mg/dL Adrenal panel 06/21/23 Range/Units 09:14 Sodium 139 (137-145) mmol/L Potassium 4.0 (3.5-5.1) mmol/L Chloride 106 (98-107) mmol/L Carbon Dioxide 26 (22-30) mmol/L BUN 15 (9-20) mg/dL Creatinine 0.93 (0.66-1.25) mg/dL Glucose 100 H (74-99) mg/dL Calcium 9.0 (8.4-10.2) mg/dL - Imaging CT scan - chest: report reviewed, image reviewed EKG: image reviewed Assessment and Plan Assessment: Triple-vessel coronary artery disease, non-STEMI this admission Acute heart failure with reduced ejection fraction Epistaxis Shortness of breath, chest pain secondary to above Hypertension Previous tobacco dependence Previous EtOH use Occasional marijuana use History of kidney stones Obesity Family history of cancer Plan: The patient was seen and examined sitting up in bed on the cardiac stepdown unit in no acute distress. Son was present. Chart/diagnostics reviewed. The case to be discussed in detail with Dr. Aly. The usual perioperative course of open-heart surgery was discussed in detail with the patient and his son, risks and benefits were reviewed, all questions were answered. The patient states he is willing to consider surgery although he would prefer to go home and think about it first. Preoperative testing was initiated, once completed we will calculate STS risk score and discuss with the patient. Clinical Frailty Score 5, mildly frail. Recommend continuing to maximize medical therapy with aspirin, statin, beta-mari therapy. Discussed risk factor management. Increase activity as tolerated. Counseled regarding compliance with medications. Medical management of other comorbidities per internal medicine, cardiology. Thank you Dr. Wooten for this consult, more recommendations forthcoming. I have personally seen and examined the patient, performed the documentation and the assessment and plan as written. Number of minutes spent on the visit: 30. ZUNILDA Colon Attending Addendum: Pt seen and evaluated with BUSINESS DEAN above. Agree with her assessment and plan. This is a 58 y/o M who presents with NSTEMI and CHF. Angio reveals CAD. Will plan for CABG. Timing to surgery to be determined. I spent 45 minutes reviewing the data and discussing plan of care with the team and patient. Time with Patient: Greater than 30
--- NOTE | 2023-06-22 14:35 | US ---
EXAMINATION TYPE: US carotid duplex BILAT DATE OF EXAM: 06/22/2023 COMPARISON: NONE CLINICAL INDICATION: Male, 58 years old with history of preop cardiac surgery; Open Heart Patient TECHNIQUE: Carotid duplex ultrasound examination. Indirect Doppler criteria was utilized. FINDINGS: EXAM MEASUREMENTS: RIGHT: Peak Systolic Velocity (PSV) cm/sec ----- Right CCA: 87.1 ----- Right ICA: 95.6 ----- Right ECA: 133.8 ICA/CCA ratio: 1.1 RIGHT: End Diastole cm/sec ----- Right CCA: 9.5 ----- Right ICA: 19.3 ----- Right ECA: 0.0 LEFT: Peak Systolic Velocity (PSV) cm/sec ----- Left CCA: 83.8 ----- Left ICA: 129.1 ----- Left ECA: 106.4 ICA/CCA ratio: 1.5 LEFT: End Diastole cm/sec ----- Left CCA: 17.6 ----- Left ICA: 38.6 ----- Left ECA: 6.3 VERTEBRALS (direction of flow): Right Vertebral: Antegrade Left Vertebral: Antegrade Rhythm: Normal AUTOMOTIVE WINDOW TINTER NOTES: Slightly limited due to high bifurcation and tortuosity of vessels. Mildly felisha vated velocities right ECA and left ICA. Mild levels of plaque seen in bilateral bulbs. IMPRESSION: 1. Intimal thickening with mild plaquing. Moderate narrowing between 50 and 69% of the left internal carotid artery is present. Correlate with the patient's symptoms Criteria for Assigning % of Stenosis / Diameter reduction (Estimation based on the indirect measurements of the internal carotid artery velocities (ICA PSV). 1. Normal (no stenosis)=ICA PSV < 125 cm/s: ratio < 2.0: ICA EDV<40 cm/s. 2. Less than 50% stenosis=ICA PSV < 125 cm/s: ratio < 2.0: ICA EDV<40 cm/s. 3. 50 to 69% stenosis=ICA PSV of 125 to 230 cm/s: ration 2.0 ? 4.0: ICA EDV 40-100 cm/s. 4. Greater than 70% stenosis to near occlusion= ICA PSV > 230 cm/s: ratio > 4.0: ICA EDV > 100 cm/s. 5. Near occlusion= ICA PSV velocities may be low or undetectable: variable ratio and ICA EDV. 6. Total occlusion=unable to detect flow.
[2023-06-22 15:01] LABS: Basophils # (A) 0.1 k/uL (0-0.2); Basophils % (A) 1 %; Eosinophils # (A) 0.2 k/uL (0-0.7); Eosinophils % (A) 2 %; HCT 41.4 % (39.0-53.0); HGB 13.1 gm/dL (13.0-17.5); Lymphocytes # (A) 1.5 k/uL (1.0-4.8); Lymphocytes % (A) 18 %; MCH 30.5 pg (25.0-35.0); MCHC 31.7 g/dL (31.0-37.0); MCV 96.2 fL (80.0-100.0); Mean Platelet Volume 7.3; Monocytes # (A) 0.6 k/uL (0-1.0); Monocytes % (A) 7 %; Neutrophils # (A) 5.9 k/uL (1.3-7.7); Neutrophils % (A) 70 %; Platelet Count 349 k/uL (150-450); RBC 4.31 m/uL (4.30-5.90); WBC 8.4 k/uL (3.8-10.6)
[2023-06-22 15:11] LABS: African American GFR (CKD) >90 (>60 ml/min/1.73 sqM); Anion Gap 11 mmol/L; Blood Urea Nitrogen 12 mg/dL (9-20); Calcium 8.9 mg/dL (8.4-10.2); Carbon Dioxide 21 mmol/L (22-30); Chloride 109 mmol/L (98-107); Glucose 110 mg/dL (74-99); Non-African American GFR(CKD) >90 (>60 ml/min/1.73 sqM); Potassium 4.2 mmol/L (3.5-5.1); Sodium 141 mmol/L (137-145)
--- NOTE | 2023-06-22 15:17 | US ---
EXAMINATION TYPE: US vein mapping BILAT DATE OF EXAM: 06/22/2023 1:52 PM COMPARISON: NONE CLINICAL INDICATION: Male, 58 years old with history of preop cardiac surgery; PREOP open heart SIDE PERFORMED: Bilateral TECHNIQUE: Lower extremity saphenous vein is examined and measured utilizing real time linear array sonography. DUPLEX FINDINGS: Greater Saphenous: Color flow seen Measurements in mm: Right Greater Saphenous: Groin: 8.1 x 8.4 mm High Thigh: 6.9 x 5.8 mm Mid Thigh: 6.0 x 5.8 mm Above Knee: 6.8 x 5.3 mm Knee: 7.6 x 5.7 mm Below Knee: 6.3 x 5.8 mm Mid Calf: 6.0 x 5.1 mm At Ankle: 6.4 x 6.5 mm Left Greater Saphenous: Groin: 7.0 x 6.9 mm High Thigh: 7.3 x 6.6 mm Mid Thigh: 5.4 x 4.9 mm Above Knee: 5.9 x 4.4 mm Knee: 4.8 x 5.0 mm Below Knee: 5.7 x 4.4 mm Mid Calf: 5.1 x 3.2 mm At Ankle: 6.3 x 5.2 mm IMPRESSION: 1. Bilateral GSV measurements listed above. 2. Performing surgeon to determine viability as conduit.
--- NOTE | 2023-06-22 15:42 | US ---
EXAMINATION TYPE: Pre-Operative Non-Invasive Evaluation of the hand for Potential Radial Artery Tabitha , Measurements only DATE OF EXAM: 06/22/2023 1:52 PM CLINICAL INDICATION: Male, 58 years old with history of measurements only; OPEN HEART PREOP SIDE PERFORMED: Left TECHNIQUE: Radial artery is measured utilizing real time linear array sonography. Duplex Findings: Radial Artery: Color flow seen Measurements in mm, transverse view: Left Radial: Proximal: 3.9 x 3.7 mm Mid: 3.8 x 4.1 mm Distal: 3.4 x 3.2 Slightly limited due to IV site pressure bandage at wrist from recent heart cath. IMPRESSION: 1. Left radial measurements listed above. 2. Performing surgeon to determine viability as conduit.
[2023-06-22] MEDS: FUROSEMIDE 40 MG TAB PO SCH (15:48)
[2023-06-22] MEDS: carvediloL 12.5 MG TAB PO SCH (17:53)
[2023-06-22 18:37] LABS: Hepatitis A Antibody IgM Nonreactive (Nonreactive); Hepatitis B Core IgM Nonreactive (Nonreactive); Hepatitis B Surface Antigen Nonreactive (Nonreactive); Hepatitis C IgG Antibody Nonreactive (Nonreactive)
--- NOTE | 2023-06-22 22:46 | P.PN ---
Subjective 58-year-old male who presents emergency department as a transfer from [facility]. He originally went in there for chest pain which has been going on for greater than a week. EKG was performed which demonstrated Q waves in the inferior leads. Troponin level was elevated. Patient was given a dose of Lovenox and transferred to our facility for cardiology evaluation. Troponin went from 76 to 172. D-dimer was normal. BNP was 1449. Patient was given a dose of Lovenox 120 mg and 40 mg of Lasix. Patient initially presented to [facility] by EMS due to nosebleed. He did not present for chest pain. Due to concern for coronary artery disease, patient was transferred from the ER at [facility] to [facility]. He did receive IV Lasix 40 mg at [facility] and he thinks his breathing is a bit better today. His initial blood pressure at [facility] was 159/100. Troponin was elevated. D-dimer was normal. Chest x-ray revealed CHF. Patient now has a blood pressure 154/101 and heart rate of 101. He denies having any chest pain at this time. EKG sinus rhythm with none specific ST changes. CTA of the chest reveals no evidence of pulmonary embolism. Peripheral, dependent ground glass pulmonary opacities consistent with atypical pulmonary infection such as COVID-19 or other viral or pulmonary venous congestion. CBC and CMP normal. Troponins 0.485 and 0.743. 06/21/2023 Patient is seen and evaluated sitting up in bed; no complaint of chest pain or shortness of breath; anxious to go home Vital signs are reviewed and remained stable Patient is currently on IV heparin per protocol, aspirin 81 mg daily, Lipitor 80 mg daily and Lopressor 50 mg twice daily Cardiology on board with plans for cardiac catheterization tomorrow morning 06/22/2023 Patient s/p cardiac cath showing severe triple-vessel coronary artery disease. Showing 100% occluded RCA and left circumflex artery and 90% left coronary anterior descending coronary artery After cardiac cath patient was walking in the room with no difficulty. Patient wants to be discharged Cardiothoracic surgery team evaluated the patient however patient wants to follow-up as an outpatient Currently denies chest pain or dyspnea or any other complaint Patient remains on aspirin statin metoprolol switched to Coreg, and Imdur Echocardiogram showing ejection fraction 35 to 40% Objective - Vital Signs Vital signs: Vital Signs Temp 97.9 F 06/22/23 16:00 Pulse 82 06/22/23 16:00 Resp 18 06/22/23 16:00 BP 132/79 06/22/23 16:00 Pulse Ox 95 06/22/23 16:00 FiO2 Intake & Output 06/22/23 06/22/23 06/23/23 06:59 18:59 06:59 Intake Total 1020 Output Total 0 Balance 1020 Intake: IV 600 Oral 420 Output: Stool 0 Other: Voiding Method Toilet Toilet Urinal # Voids 4 1 - Exam GENERAL: The patient is alert and oriented x3, not in any acute distress. Well developed, well nourished. HEENT: Pupils are round and equally reacting to light. EOMI. No scleral icterus. No conjunctival pallor. Normocephalic, atraumatic. No pharyngeal erythema. No thyromegaly. CARDIOVASCULAR: S1 and S2 present. No murmurs, rubs, or gallops. PULMONARY: Chest is clear to auscultation, no wheezing , no crackles. ABDOMEN: Soft, nontender, nondistended, normoactive bowel sounds. No palpable organomegaly. MUSCULOSKELETAL: No joint swelling or deformity. EXTREMITIES: No cyanosis, clubbing, or pedal edema. NEUROLOGICAL: Gross neurological examination did not reveal any focal deficits. SKIN: No rashes. no petechiae. - Labs CBC & Chem 7: 06/22/23 14:35 06/22/23 14:35 Labs: Abnormal Lab Results - Last 24 Hours (Table) 06/22/23 Range/Units 14:35 Chloride 109 H (98-107) mmol/L Carbon Dioxide 21 L (22-30) mmol/L Glucose 110 H (74-99) mg/dL Assessment and Plan Assessment: Non-STEMI with cardiac cath Showing 100% occluded RCA and left circumflex artery and 90% left coronary anterior descending coronary artery Ischemic cardiomyopathy with ejection fraction 35 to 40% Hypertension Obesity with BMI of 37 Hyperlipidemia Plan: Continue with aspirin Continue the statin Continue with Coreg and Imdur Cardiology team on the case Cardiothoracic surgery recommending bypass procedure however patient wants to go home and follow-up outpatient for the procedure DVT prophylaxis: Subcutaneous heparin GI prophylaxis Prognosis guarded
[2023-06-23 01:59] LABS: Chol/HDL Ratio 3.61 Ratio; LDL Cholesterol,Calculated 36.7 mg/dL (0.0-131.0)
--- NOTE | 2023-06-23 10:14 | P.PN ---
Subjective 58-year-old male who presents emergency department as a transfer from [facility]. He originally went in there for chest pain which has been going on for greater than a week. EKG was performed which demonstrated Q waves in the inferior leads. Troponin level was elevated. Patient was given a dose of Lovenox and transferred to our facility for cardiology evaluation. Troponin went from 76 to 172. D-dimer was normal. BNP was 1449. Patient was given a dose of Lovenox 120 mg and 40 mg of Lasix. Patient initially presented to [facility] by EMS due to nosebleed. He did not present for chest pain. Due to concern for coronary artery disease, patient was transferred from the ER at [facility] to [facility]. He did receive IV Lasix 40 mg at [facility] and he thinks his breathing is a bit better today. His initial blood pressure at [facility] was 159/100. Troponin was elevated. D-dimer was normal. Chest x-ray revealed CHF. Patient now has a blood pressure 154/101 and heart rate of 101. He denies having any chest pain at this time. EKG sinus rhythm with none specific ST changes. CTA of the chest reveals no evidence of pulmonary embolism. Peripheral, dependent ground glass pulmonary opacities consistent with atypical pulmonary infection such as COVID-19 or other viral or pulmonary venous congestion. CBC and CMP normal. Troponins 0.485 and 0.743. 06/21/2023 Patient is seen and evaluated sitting up in bed; no complaint of chest pain or shortness of breath; anxious to go home Vital signs are reviewed and remained stable Patient is currently on IV heparin per protocol, aspirin 81 mg daily, Lipitor 80 mg daily and Lopressor 50 mg twice daily Cardiology on board with plans for cardiac catheterization tomorrow morning 06/22/2023 Patient s/p cardiac cath showing severe triple-vessel coronary artery disease. Showing 100% occluded RCA and left circumflex artery and 90% left coronary anterior descending coronary artery After cardiac cath patient was walking in the room with no difficulty. Patient wants to be discharged Cardiothoracic surgery team evaluated the patient however patient wants to follow-up as an outpatient Currently denies chest pain or dyspnea or any other complaint Patient remains on aspirin statin metoprolol switched to Coreg, and Imdur Echocardiogram showing ejection fraction 35 to 40% 06/23/2023 pt is with No chest pain no dyspnea No other new complaints Hemodynamically stable He finished his heparin drip treatment. Currently his Aspirin 81 Mg and Coreg 25 Mg Also He Is on Losartan 100 Mg and Lasix Once Daily Patient Is Aware about the Result of Severe Triple-Vessel Coronary Artery Disease and His Been Followed by Cardiothoracic Surgery Team for Possible Bypass Procedure, patient is considering inpatient versus outpatient management for now Objective - Vital Signs Vital signs: Vital Signs Temp 98.4 F 06/23/23 08:00 Pulse 78 06/23/23 08:00 Resp 18 06/23/23 08:00 BP 116/69 06/23/23 08:00 Pulse Ox 96 06/23/23 04:00 FiO2 Intake & Output 06/22/23 06/23/23 06/23/23 18:59 06:59 18:59 Intake Total 1020 1298 Output Total 0 0 Balance 1020 0 1298 Intake: IV 600 Oral 420 1298 Output: Stool 0 0 Other: Voiding Method Toilet Toilet Urinal Urinal # Voids 1 - Exam GENERAL: The patient is alert and oriented x3, not in any acute distress. Well developed, well nourished. HEENT: Pupils are round and equally reacting to light. EOMI. No scleral icterus. No conjunctival pallor. Normocephalic, atraumatic. No pharyngeal erythema. No thyromegaly. CARDIOVASCULAR: S1 and S2 present. No murmurs, rubs, or gallops. PULMONARY: Chest is clear to auscultation, no wheezing , no crackles. ABDOMEN: Soft, nontender, nondistended, normoactive bowel sounds. No palpable organomegaly. MUSCULOSKELETAL: No joint swelling or deformity. EXTREMITIES: No cyanosis, clubbing, or pedal edema. NEUROLOGICAL: Gross neurological examination did not reveal any focal deficits. SKIN: No rashes. no petechiae. - Labs CBC & Chem 7: 06/22/23 14:35 06/22/23 14:35 Labs: Abnormal Lab Results - Last 24 Hours (Table) 06/22/23 Range/Units 14:35 Chloride 109 H (98-107) mmol/L Carbon Dioxide 21 L (22-30) mmol/L Glucose 110 H (74-99) mg/dL Triglycerides 196.00 H (0.00-149.00) mg/dL HDL Cholesterol 29.10 L (40.00-60.00) mg/dL Assessment and Plan Assessment: Non-STEMI with cardiac cath Showing 100% occluded RCA and left circumflex artery and 90% left coronary anterior descending coronary artery Ischemic cardiomyopathy with ejection fraction 35 to 40% Hypertension Obesity with BMI of 37 Hyperlipidemia Plan: Continue with aspirin Continue the statin Continue with Coreg and Imdur Cardiology team on the case Cardiothoracic surgery recommending bypass procedure however patient wants to go home and follow-up outpatient for the procedure. DVT prophylaxis: Subcutaneous heparin GI prophylaxis Prognosis guarded
--- NOTE | 2023-06-23 10:23 | P.PN ---
Subjective Progress Note Date: 06/23/23 Principal diagnosis: Triple-vessel coronary artery disease, non-STEMI this admission, acute heart failure with reduced ejection fraction, epistaxis. History of hypertension with noncompliance with treatment, previous tobacco dependence, previous EtOH use, occasional marijuana use, history of kidney stones, obesity, and family history of cancer The patient was seen and examined this morning with Dr. Aly. He was sitting up in bed in no acute distress on the cardiac stepdown unit. Denies any current pain or shortness of breath. This gentleman underwent heart catheterization yesterday revealing triple-vessel coronary artery disease, we were consulted for open heart surgery. Our recommendation is for coronary artery bypass surgery this admission. We did discuss this with the patient, he did express concerns that he is not sure he wants to have surgery this admission versus going home to think about it and coming back. We did impress upon him that due to the degree of his coronary artery disease our recommendation would be for surgery this admission, we will tentatively plan for Thursday assuming the patient will agree. Preoperative testing has been completed, bedside spirometry not optimal as patient gave poor effort and wouldn't try more than 3 times. Preoperative teaching continues. Objective - Vital Signs Vital signs: Vital Signs Temp 98.4 F 06/23/23 08:00 Pulse 78 06/23/23 08:00 Resp 18 06/23/23 08:00 BP 116/69 06/23/23 08:00 Pulse Ox 96 06/23/23 04:00 FiO2 Intake & Output 06/22/23 06/23/23 06/23/23 18:59 06:59 18:59 Intake Total 1020 1298 Output Total 0 0 Balance 1020 0 1298 Intake: IV 600 Oral 420 1298 Output: Stool 0 0 Other: Voiding Method Toilet Toilet Urinal Urinal # Voids 1 - Exam CONSTITUTIONAL: Appears comfortable, cooperative, no acute distress RESPIRATORY: Lungs sounds diminished bilaterally. Respirations even, nonlabored. Currently on room air with oxygen saturation 96%. Strong cough. CARDIOVASCULAR: S1, S2 present. Regular rate and rhythm, sinus rhythm on telemetry. Palpable peripheral pulses bilaterally. Trace bilateral lower extremity edema present. No calf pain or tenderness noted GASTROINTESTINAL: Abdomen soft, nontender, nondistended. Active bowel sounds present 4 quadrants. Tolerating diet. GENITOURINARY: Continues to void INTEGUMENTARY: Skin is warm and dry NEUROLOGIC: Cranial nerves II through XII intact MUSKULOSKELETAL: Able to move all extremities, strength equal bilaterally, gait normal PSYCHIATRIC: Alert and oriented to person place and time, appropriate affect, intact judgment and insight - Allied health notes Allied health notes reviewed: nursing - Labs CBC & Chem 7: 06/22/23 14:35 06/22/23 14:35 Labs: Abnormal Lab Results - Last 24 Hours (Table) 06/22/23 Range/Units 14:35 Chloride 109 H (98-107) mmol/L Carbon Dioxide 21 L (22-30) mmol/L Glucose 110 H (74-99) mg/dL Triglycerides 196.00 H (0.00-149.00) mg/dL HDL Cholesterol 29.10 L (40.00-60.00) mg/dL Assessment and Plan Assessment: Triple-vessel coronary artery disease, non-STEMI this admission Acute heart failure with reduced ejection fraction 35-40%, mild MR and TR Epistaxis Shortness of breath, chest pain secondary to above Hypertension Left internal carotid artery stenosis 50 to 69% Previous tobacco dependence Previous EtOH use Occasional marijuana use History of kidney stones Obesity Family history of cancer Plan: Continue to maximize medical therapy with aspirin, statin, beta-mari, ARB Increase activity, ambulate as tolerated Encourage incentive spirometry use Will calculate STS risk were discussed with the patient, will perform 5 m walk test Pulmonology consulted for clearance Tentatively we are planning on surgical myocardial revascularization with bilateral internal mammary artery and left radial artery harvest, ligation of the left atrial appendage by Dr. Aly on Monday, June 26, 2023 assuming patient is agreeable Continue preoperative teaching Encourage risk factor modification Counseled regarding compliance with medications Medical management of other comorbidities per internal medicine, cardiology. More recommendations to follow
--- NOTE | 2023-06-23 11:25 | US ---
EXAMINATION TYPE: US arterial LE single level DATE OF EXAM: 06/23/2023 10:59 AM CLINICAL INDICATION: Male, 58 years old with history of Ankle Brachial Index (FADY); pre op cardiac luu rgery History of: Smoker: previous Hypertension: no Diabetic: no Hyperlipidemia: no TIA/CVA: no Previous Vascular Surgery: no WA: no Vascular Ulcers: no Claudication: no Gangrene: no Doppler Waveforms: Right: Multiphasic Left: Multiphasic Pulse Volume Recording: Pressure Gradients: Right Brachial Pressure: 147 Left Brachial Pressure: 144 Ankle-Brachial Indices: Right: 1.18 Left: 1.25 (Vessel hardening > 1.4; Normal 0.9 - 1.4, Moderate 0.7 - 0.9, Severe 0.5-0.7) IMPRESSION: Normal ankle-brachial indices bilaterally.
--- NOTE | 2023-06-23 12:55 | P.PN ---
Subjective HISTORY OF PRESENT ILLNESS: This is a 58-year-old male does not follow with a PCP. Patient has a known history of hypertension since 2020 but has not sought treatment for this. He underwent cholecystectomy at that time found to have high blood pressure and was given medications for short time and never had these refilled. We have been asked to evaluate the patient for acute chest pain and non-ST elevated myocardial infarction. Patient gives history that he has had pain starting in his mid upper back with any exertion is a pressure type that goes down into the chest area all across his chest with left arm pain that is sharp. No radiation to his neck or jaw. He also experiences shortness of breath with this. He usually sits down for about 15 to 20 minutes and he did see it and then he feels better. He states he is unable to walk over 100 feet and has symptomatic dyspnea on exertion and the chest pain/back pain. This has been going on since he had his gallbladder out in 2020. He states he is unable to rake leaves or go grocery shopping. Patient states that he quit smoking in 2020 but on further questioning he is still smoking. He denies any alcohol use. He uses marijuana weekly for anxiety. Patient initially presented to [facility] by EMS due to nosebleed. He did not present for chest pain. Due to concern for coronary artery disease, patient was transferred from the ER at [facility] to [facility]. He did receive IV Lasix 40 mg at [facility] and he thinks his breathing is a bit better today. His initial blood pressure at [facility] was 159/100. Troponin was elevated. D- dimer was normal. Chest x-ray revealed CHF. Patient now has a blood pressure 154/101 and heart rate of 101. He denies having any chest pain at this time. EKG sinus rhythm with none specific ST changes. CTA of the chest reveals no evidence of pulmonary embolism. Peripheral, dependent ground glass pulmonary opacities consistent with atypical pulmonary infection such as COVID-19 or other viral or pulmonary venous congestion. CBC and CMP normal. Troponins 0.485 and 0.743. Home cardiac medications: None Progress note June 20, 2023 Seen and examined at bedside this a.m. Plan discussed with patient's son sitting at bedside. Patient does not have any active chest pain chest pressure or shortness of breath. His blood pressure is better controlled today. June 21 2023 Seen and examined at bedside this a.m. Still complaining of back pain between the mid shoulders. I will prescribe a lidocaine patch for this to him. His blood pressure is well-controlled on current regimen. No reported lightheadedness or dizziness. Tolerating IV heparin with no concerns of bl eeding. 06/23/2023 Patient examined this morning at the bedside. Patient is status postcardiac catheterization revealing LABOR AND DELIVERY NURSE of the proximal RCA, LABOR AND DELIVERY NURSE of the left circumflex which reconstitutes distally to left PDA and PLV branches, 90% proximal LAD, 90% diffuse ramus disease, and severely elevated LVEDP of 30 mmHg. Patient currently denies any chest pain or pressure. He denies any shortness of breath. Vital signs are stable. PHYSICAL EXAM: VITAL SIGNS: Reviewed. GENERAL: Well-developed in no acute distress. NECK: Supple. No JVD or thyromegaly LUNGS: Respirations even and unlabored. Lungs essentially clear to auscultation bilaterally. HEART: Regular rate and rhythm. S1 and S2 heard. EXTREMITIES: Normal range of motion. No clubbing or cyanosis. Peripheral pulses intact. No lower extremity edema ASSESSMENT: Non-STEMI Triple-vessel coronary artery disease Elevated LVEDP on cardiac catheterization, on oral diuretics Accelerated hypertension, controlled now Left internal carotid artery stenosis, 50 to 69% Nicotine dependence Marijuana use Morbid obesity PLAN: Continue current cardiac medications CT surgery consulted. Patient is tentatively scheduled for surgery on Monday, June 26, 2023 However, patient states he is still thinking about surgery and if he wishes to proceed with CABG this week Continue telemetry monitoring Continue to monitor blood pressure Further recommendations pending patient course Nurse practitioner note has been reviewed by physician. Signing provider agrees with the documented findings, assessment, and plan of care documented by [employer] SAL[employer]OCIATE as a scribe. Objective - Vital Signs Vital signs: Vital Signs Temp 97.8 F 06/23/23 11:26 Pulse 79 06/23/23 11:26 Resp 18 06/23/23 11:26 BP 145/81 06/23/23 11:26 Pulse Ox 96 06/23/23 04:00 FiO2 Intake & Output 06/22/23 06/23/23 06/23/23 18:59 06:59 18:59 Intake Total 1020 1298 Output Total 0 0 300 Balance 1020 0 998 Intake: IV 600 Oral 420 1298 Output: Urine 300 Stool 0 0 0 Other: Voiding Method Toilet Toilet Toilet Urinal Urinal Urinal # Voids 1 - Labs CBC & Chem 7: 06/22/23 14:35 06/22/23 14:35 Labs: Abnormal Lab Results - Last 24 Hours (Table) 06/22/23 Range/Units 14:35 Chloride 109 H (98-107) mmol/L Carbon Dioxide 21 L (22-30) mmol/L Glucose 110 H (74-99) mg/dL Triglycerides 196.00 H (0.00-149.00) mg/dL HDL Cholesterol 29.10 L (40.00-60.00) mg/dL
[2023-06-24] MEDS ORDERED: IPRATROPIUM-ALBUTEROL 3 ML NEB INHALATION PRN (01:16)
--- NOTE | 2023-06-24 01:51 | P.CNPUL ---
History of Present Illness Consult date: 06/24/23 Requesting physician: Abril Shepherd Reason for consult: other (Preoperative pulmonary clearance) Chief complaint: Chest pain History of present illness: Patient is a 58-year-old white male with past medical history significant for hypertension, coronary artery disease, previous tobacco dependence and current marijuana use, alcoholism, and anxiety. He does not currently follow with a primary care provider. Over the last couple months, the patient has had intermittent chest pain that radiates to his back and is associated with some left arm numbness. There is associated shortness of breath. His usually last for 15 minutes, and subsides with rest. The symptoms have significantly limited his activity level, he can no longer do activities such as go to the grocery store without symptoms. He went to [facility] earlier in the week, actually for a nosebleed. He was found to be hypertensive. He had some abnormal labs including an elevated troponins. He was diagnosed with a non-ST elevation WA. For this reason he was transferred to [facility] for further evaluation and treatment on 06/19/2023. He did have a heart catheterization on 06/22/2023 which showed severe multivessel coronary artery disease including 100% proximal RCA stenosis, 100% LCx stenosis, 90% proximal LAD stenosis, and 90% diffuse ramus disease. There was recommendation for surgical revascularization, and cardiothoracic services were consulted. He is currently undergoing an extensive preoperative workup. Echocardiogram done this admission shows a reduced left ventricular ejection fraction of 35 to 40% along with some moderate concentric LVH. No observed significant valvular disease. He did have a preoperative bedside spirometry, at that time he had just learned some test results, he was anxious and uncooperative. His FEV1 was 1.58 L or 41%. Likely not best result and of limited value. He does have a significant smoking history, smoking 1.5 packs/day for many years. Quit smoking in 2020. Continues to recreationally smoke marijuana weekly. He denies ever being diagnosed with any kind of lung disease such as COPD or asthma. He is currently sitting up in bed, on room air, in no acute distress. We are asked to see this patient for preoperative pulmonary clearance for possible surgical revascularization. Chest CTA done at our facility did not show any evidence of pulmonary embolism. There was peripheral dependent groundglass opacities concerning for pulmonary venous congestion, atypical pneumonia was an alternative differential. Most recent CBC and BMP from 2 days ago were unremarkable. He was previously on a heparin drip, which has since been discontinued. Patient currently denies any chest pain. Denies any shortness of breath, coughing, sputum production. Afebrile. Incentive spirometer is at bedside. Patient was initially hesitant to undergo o pen heart, however, is leaning towards surgery. Patient continues to undergo extensive preoperative workup. STS score is being calculated. Review of Systems REVIEW OF SYSTEMS: CONSTITUTIONAL: Denies any recent significant weight loss or weight gain. EYES: Denies change in vision. EARS, NOSE, MOUTH, THROAT: Denies headaches, denies sore throat. Admits epistaxis, resolved CARDIOVASCULAR: Admits chest pain as described in HPI. Denies palpitations, syncopal episodes, or lower extremity swelling. RESPIRATORY: See HPI GASTROINTESTINAL: Denies change in appetite, abdominal pain, nausea and vomiting, or diarrhea GENITOURINARY: Denies hematuria, denies infections. MUSKULOSKELETAL: Denies pain, denies swelling. INTEGUMENTARY: Denies rash, denies eczema. NEUROLOGICAL: Denies recent memory loss, no recent seizure activity. PSYCHIATRIC: Denies anxiety, denies depression. HEMATOLOGIC/LYMPHATIC: Denies anemia, denies enlarged lymph node Past Medical History Past Medical History: Coronary Artery Disease (CAD), Hypertension, Myocardial Infarction (WA) Additional Past Medical History / Comment(s): kidney stones History of Any Multi-Drug Resistant Organisms: None Reported Past Surgical History: Cholecystectomy Past Anesthesia/Blood Transfusion Reactions: No Reported Reaction Past Psychological History: Anxiety Smoking Status: Former smoker Past Alcohol Use History: None Reported Additional Past Alcohol Use History / Comment(s): Quit drinking in 2020 Past Drug Use History: Marijuana - Past Family History Mother Family Medical History: Cancer, Coronary Artery Disease (CAD) Additional Family Medical History / Comment(s): Breast CA Father Family Medical History: Cancer Additional Family Medical History / Comment(s): Leukemia Medications and Allergies Home Medications Medication Instructions Recorded Confirmed Type [id number] 2 tab PO Q4H PRN 06/19/23 06/19/23 History [Excedrin] Ibuprofen [Motrin Ib] 400 mg PO Q4H PRN 06/19/23 06/19/23 History Allergies Allergy/AdvReac Type Severity Reaction Status Date / Time No Known Allergies Allergy Verified 06/19/23 08:27 Physical Exam Vitals: Vital Signs Temp Pulse Resp BP Pulse Ox 06/23/23 23:33 98.4 F 82 18 133/80 94 L 06/23/23 20:00 98.3 F 76 16 113/63 96 06/23/23 16:24 17 06/23/23 16:00 98.0 F 74 17 129/67 96 06/23/23 14:00 79 18 06/23/23 11:26 97.8 F 79 18 145/81 06/23/23 08:10 18 06/23/23 08:00 98.4 F 78 18 116/69 06/23/23 04:00 97.8 F 105 H 18 159/89 96 06/23/23 02:00 80 18 Intake and Output 06/23/23 06/23/23 06/24/23 14:59 22:59 06:59 Intake Total 1298 236 Output Total 300 Balance 998 236 Intake: Oral 1298 236 Output: Urine 300 Stool 0 Other: Voiding Method Toilet Toilet Urinal Urinal GENERAL EXAM: Alert, 58-year-old white male, comfortable in no apparent distr ess. HEAD: Normocephalic and atraumatic EYES: Normal reaction of pupils, equal size. NOSE: Clear with pink turbinates. THROAT: No erythema or exudates. NECK: No masses, no JVD. CHEST: No chest wall deformity. LUNGS: Equal air entry with no crackles, wheeze, rhonchi or dullness. On room air. No conversational dyspnea or accessory muscle use.. CVS: S1 and S2 normal with no audible murmur, regular rhythm. No extra heart sounds ABDOMEN: No hepatosplenomegaly, active bowel sounds, no guarding or rigidity. SPINE: No scoliosis or deformity SKIN: No rashes CENTRAL NERVOUS SYSTEM: No focal deficits, tone is normal in all 4 extremities. EXTREMITIES: There is no peripheral edema, clubbing, or cyanosis. Peripheral pulses are intact. Results - Laboratory Findings CBC and BMP: 06/22/23 14:35 06/22/23 14:35 PT/INR, D-dimer PT 10.5 sec (10.0-12.5) 06/20/23 11:05 INR 0.9 (<1.2) 06/20/23 11:05 Abnormal lab findings: Abnormal Labs 06/19/23 06/19/23 06/19/23 06:01 08:49 12:29 APTT Chloride Carbon Dioxide Glucose Troponin I 0.485 H* 0.743 H* 0.475 H* Triglycerides HDL Cholesterol 06/19/23 06/19/23 06/19/23 12:29 15:01 16:22 APTT 39.6 H 38.0 H 37.7 H Chloride Carbon Dioxide Glucose Troponin I Triglycerides HDL Cholesterol 06/19/23 06/20/23 06/20/23 23:55 11:05 18:53 APTT 39.2 H 38.6 H 53.0 H Chloride Carbon Dioxide Glucose Troponin I Triglycerides HDL Cholesterol 06/21/23 06/21/23 06/21/23 09:14 09:14 16:54 APTT 43.5 H 54.3 H Chloride Carbon Dioxide Glucose 100 H Troponin I Triglycerides HDL Cholesterol 06/22/23 14:35 APTT Chloride 109 H Carbon Dioxide 21 L Glucose 110 H Troponin I Triglycerides 196.00 H HDL Cholesterol 29.10 L - Diagnostic Findings CT scan - chest: image reviewed Assessment and Plan Assessment: Non-ST elevation WA Severe multivessel coronary artery disease, heart catheterization on 06/22/2023 which showed severe multivessel coronary artery disease including 100% proximal RCA stenosis, 100% LCx stenosis, 90% LAD stenosis, and 90% diffuse ramus disease. There was recommendation for surgical revascularization, and the patient is currently undergoing an extensive preoperative workup Acute dyspnea, likely secondary to above Possible underlying chronic obstructive pulmonary disease, patient has an extensive smoking history. Bedside spirometry was technically a poor study, as the patient was anxious and uncooperative at that time. Likely not good effort. FEV1 was 1.58 L or 41% of predicted. Former tobacco dependence, over [id number] history, quitting in 2020 Current marijuana use, weekly Left internal carotid artery stenosis, estimated at 50 to 69% Epistaxis, resolved Anxiety History of alcoholism Hypertension Obesity, with a BMI of 37 kg/m Plan: Patient's medications, labs, imaging reviewed Currently on room air As needed bronchodilators added Incentive spirometer is at bedside Patient may have some underlying undiagnosed COPD. Bedside spirometry results are of limited value, as the patient was uncooperative and anxious at that time, likely not good effort. FEV1 1.58 L or 41% of predicted. ARISCAT score would place the patient at intermediate to high risk for postoperative pulmonary complications including postoperative atelectasis, pulmonary infections, pleural effusion, pneumothorax, bronchospasms, exacerbation of chronic lung disease, among other things. Patient was initially hesitant undergo surgery, however, is leaning toward surgery this hospital admission. If patient is discharged, however, would consider follow-up in the pulmonary office for full PFT. Otherwise, will clear patient for surgery from a pulmonary standpoint. Dr. Emilie ramirez follow up with this patient later today with additional recommendations. Patient is currently asymptomatic and on room air. STS score is being calculated. I have personally seen and examined the patient, performed the documentation and the assessment and plan as written. Number of minutes spent on the visit:20 Time with Patient: Greater than 30
--- NOTE | 2023-06-24 09:39 | P.PN ---
Subjective 58-year-old male who presents emergency department as a transfer from [facility]. He originally went in there for chest pain which has been going on for greater than a week. EKG was performed which demonstrated Q waves in the inferior leads. Troponin level was elevated. Patient was given a dose of Lovenox and transferred to our facility for cardiology evaluation. Troponin went from 76 to 172. D-dimer was normal. BNP was 1449. Patient was given a dose of Lovenox 120 mg and 40 mg of Lasix. Patient initially presented to [facility] [place] by EMS due to nosebleed. He did not present for chest pain. Due to concern for coronary artery disease, patient was transferred from the ER at [facility] to [facility]. He did receive IV Lasix 40 mg at [facility] and he thinks his breathing is a bit better today. His initial blood pressure at [facility] was 159/100. Troponin was elevated. D-dimer was normal. Chest x-ray revealed CHF. Patient now has a blood pressure 154/101 and heart rate of 101. He denies having any chest pain at this time. EKG sinus rhythm with none specific ST changes. CTA of the chest reveals no evidence of pulmonary embolism. Peripheral, dependent ground glass pulmonary opacities consistent with atypical pulmonary infection such as COVID-19 or other viral or pulmonary venous congestion. CBC and CMP normal. Troponins 0.485 and 0.743. 06/21/2023 Patient is seen and evaluated sitting up in bed; no complaint of chest pain or shortness of breath; anxious to go home Vital signs are reviewed and remained stable Patient is currently on IV heparin per protocol, aspirin 81 mg daily, Lipitor 80 mg daily and Lopressor 50 mg twice daily Cardiology on board with plans for cardiac catheterization tomorrow morning 06/22/2023 Patient s/p cardiac cath showing severe triple-vessel coronary artery disease. Showing 100% occluded RCA and left circumflex artery and 90% left coronary anterior descending coronary artery After cardiac cath patient was walking in the room with no difficulty. Patient wants to be discharged Cardiothoracic surgery team evaluated the patient however patient wants to follow-up as an outpatient Currently denies chest pain or dyspnea or any other complaint Patient remains on aspirin statin metoprolol switched to Coreg, and Imdur Echocardiogram showing ejection fraction 35 to 40% 06/23/2023 pt is with No chest pain no dyspnea No other new complaints Hemodynamically stable He finished his heparin drip treatment. Currently his Aspirin 81 Mg and Coreg 25 Mg Also He Is on Losartan 100 Mg and Lasix Once Daily Patient Is Aware about the Result of Severe Triple-Vessel Coronary Artery Disease and His Been Followed by Cardiothoracic Surgery Team for Possible Bypass Procedure, patient is considering inpatient versus outpatient management for now 06/24/2023 Patient awake alert No chest pain or dyspnea Patient currently on aspirin 81 mg Patient planned to undergo cardiac bypass procedure on Sunday 06/25. Patient looks agreeable to this plan. Objective - Vital Signs Vital signs: Vital Signs Temp 98.5 F 06/24/23 08:35 Pulse 81 06/24/23 08:35 Resp 16 06/24/23 08:35 BP 100/64 06/24/23 08:35 Pulse Ox 97 06/24/23 08:35 FiO2 Intake & Output 06/23/23 06/24/23 06/24/23 18:59 06:59 18:59 Intake Total 1534 458 Output Total 300 Balance 1234 458 Intake: Oral 1534 458 Output: Urine 300 Stool 0 Other: Voiding Method Toilet Urinal - Exam GENERAL: The patient is alert and oriented x3, not in any acute distress. Well developed, well nourished. HEENT: Pupils are round and equally reacting to light. EOMI. No scleral icterus. No conjunctival pallor. Normocephalic, atraumatic. No pharyngeal erythema. No thyromegaly. CARDIOVASCULAR: S1 and S2 present. No murmurs, rubs, or gallops. PULMONARY: Chest is clear to auscultation, no wheezing , no crackles. ABDOMEN: Soft, nontender, nondistended, normoactive bowel sounds. No palpable organomegaly. MUSCULOSKELETAL: No joint swelling or deformity. EXTREMITIES: No cyanosis, clubbing, or pedal edema. NEUROLOGICAL: Gross neurological examination did not reveal any focal deficits. SKIN: No rashes. no petechiae. - Labs CBC & Chem 7: 06/22/23 14:35 06/22/23 14:35 Assessment and Plan Assessment: Non-STEMI with cardiac cath Showing 100% occluded RCA and left circumflex artery and 90% left coronary anterior descending coronary artery Ischemic cardiomyopathy with ejection fraction 35 to 40% Hypertension Obesity with BMI of 37 Hyperlipidemia Plan: Continue with aspirin Continue the statin Continue with Coreg and Imdur Cardiology team on the case Cardiothoracic surgery recommending bypass procedure however patient wants to go home and follow-up outpatient for the procedure. DVT prophylaxis: Subcutaneous heparin GI prophylaxis Prognosis guarded
--- NOTE | 2023-06-24 11:59 | P.PN ---
Subjective Progress Note Date: 06/24/23 Principal diagnosis: Triple-vessel coronary artery disease, non-STEMI this admission, acute heart failure with reduced ejection fraction, epistaxis. History of hypertension with noncompliance with treatment, previous tobacco dependence, previous EtOH use, occasional marijuana use, history of kidney stones, obesity, and family history of cancer The patient was seen and examined this morning sitting up in bed in no acute distress on the cardiac stepdown unit. Denies any current pain or shortness of breath. Remains in sinus rhythm, hemodynamically stable. Preoperative teaching continues, patient is agreeable to surgery Thursday. Preoperative testing has been completed and STS risk score was calculated and discussed with the patient. 5 m walk test was completed,#1 4.38 sec, #2 4.32 sec, #3 4.23 sec. No other new concerns. Objective - Vital Signs Vital signs: Vital Signs Temp 98.5 F 06/24/23 08:35 Pulse 81 06/24/23 08:35 Resp 16 06/24/23 08:35 BP 100/64 06/24/23 08:35 Pulse Ox 97 06/24/23 08:35 FiO2 Intake & Output 06/23/23 06/24/23 06/24/23 18:59 06:59 18:59 Intake Total 1534 458 Output Total 300 Balance 1234 458 Intake: Oral 1534 458 Output: Urine 300 Stool 0 Other: Voiding Method Toilet Urinal - Exam CONSTITUTIONAL: Appears comfortable, cooperative, no acute distress RESPIRATORY: Lungs sounds diminished bilaterally. Respirations even, nonlabored. Currently on room air with oxygen saturation 97%. Strong cough. CARDIOVASCULAR: S1, S2 present. Regular rate and rhythm, sinus rhythm on telemetry. Palpable peripheral pulses bilaterally. Trace bilateral lower extremity edema present. No calf pain or tenderness noted GASTROINTESTINAL: Abdomen soft, nontender, nondistended. Active bowel sounds present 4 quadrants. Tolerating diet. GENITOURINARY: Continues to void INTEGUMENTARY: Skin is warm and dry NEUROLOGIC: Cranial nerves II through XII intact MUSKULOSKELETAL: Able to move all extremities, strength equal bilaterally, gait normal PSYCHIATRIC: Alert and oriented to person place and time, appropriate affect, intact judgment and insight - Allied health notes Allied health notes reviewed: nursing - Labs CBC & Chem 7: 06/22/23 14:35 06/22/23 14:35 Assessment and Plan Assessment: Triple-vessel coronary artery disease, non-STEMI this admission Acute heart failure with reduced ejection fraction 35-40%, mild MR and TR Epistaxis Shortness of breath, chest pain secondary to above Hypertension Left internal carotid artery stenosis 50 to 69% Previous tobacco dependence Severe COPD with preoperative FEV1 41% of predicted although not the best effort Previous EtOH use Occasional marijuana use History of kidney stones Obesity Family history of cancer Plan: Continue to maximize medical therapy with aspirin, statin, beta-mari, ARB Increase activity, ambulate as tolerated Encourage incentive spirometry use Pulmonology consulted for clearance We are planning on surgical myocardial revascularization with bilateral internal mammary artery and left radial artery harvest, ligation of the left atrial appendage by Dr. Aly on Monday, June 26, 2023 Continue preoperative teaching Encourage risk factor modification Counseled regarding compliance with medications Medical management of other comorbidities per internal medicine, cardiology. More recommendations to follow
--- NOTE | 2023-06-24 12:01 | P.PN ---
Subjective HISTORY OF PRESENT ILLNESS: This is a 58-year-old male does not follow with a PCP. Patient has a known history of hypertension since 2020 but has not sought treatment for this. He underwent cholecystectomy at that time found to have high blood pressure and was given medications for short time and never had these refilled. We have been asked to evaluate the patient for acute chest pain and non-ST elevated myocardial infarction. Patient gives history that he has had pain starting in his mid upper back with any exertion is a pressure type that goes down into the chest area all across his chest with left arm pain that is sharp. No radiation to his neck or jaw. He also experiences shortness of breath with this. He usually sits down for about 15 to 20 minutes and he did see it and then he feels better. He states he is unable to walk over 100 feet and has symptomatic dyspnea on exertion and the chest pain/back pain. This has been going on since he had his gallbladder out in 2020. He states he is unable to rake leaves or go grocery shopping. Patient states that he quit smoking in 2020 but on further questioning he is still smoking. He denies any alcohol use. He uses marijuana weekly for anxiety. Patient initially presented to [facility] by EMS due to nosebleed. He did not present for chest pain. Due to concern for coronary artery disease, patient was transferred from the ER at [facility] to [facility]. He did receive IV Lasix 40 mg at [facility] and he thinks his breathing is a bit better today. His initial blood pressure at [facility] was 159/100. Troponin was elevated. D- dimer was normal. Chest x-ray revealed CHF. Patient now has a blood pressure 154/101 and heart rate of 101. He denies having any chest pain at this time. EKG sinus rhythm with none specific ST changes. CTA of the chest reveals no evidence of pulmonary embolism. Peripheral, dependent ground glass pulmonary opacities consistent with atypical pulmonary infection such as COVID-19 or other viral or pulmonary venous congestion. CBC and CMP normal. Troponins 0.485 and 0.743. Home cardiac medications: None Progress note June 20, 2023 Seen and examined at bedside this a.m. Plan discussed with patient's son sitting at bedside. Patient does not have any active chest pain chest pressure or shortness of breath. His blood pressure is better controlled today. June 21 2023 Seen and examined at bedside this a.m. Still complaining of back pain between the mid shoulders. I will prescribe a lidocaine patch for this to him. His blood pressure is well-controlled on current regimen. No reported lightheadedness or dizziness. Tolerating IV heparin with no concerns of bl eeding. 06/23/2023 Patient examined this morning at the bedside. Patient is status postcardiac catheterization revealing ATTORNEY [employer]YER of the proximal RCA, ATTORNEY LAWYER of the left circumflex which reconstitutes distally to left PDA and PLV branches, 90% proximal LAD, 90% diffuse ramus disease, and severely elevated LVEDP of 30 mmHg. Patient currently denies any chest pain or pressure. He denies any shortness of breath. Vital signs are stable. 06/24/2023 Patient examined this morning at the bedside. Patient denies any chest pain or pressure. He denies any shortness of breath. Vital signs are stable. Patient has made the decision to proceed with CABG which will be performed on Thursday. PHYSICAL EXAM: VITAL SIGNS: Reviewed. GENERAL: Well-developed in no acute distress. NECK: Supple. No JVD or thyromegaly LUNGS: Respirations even and unlabored. Lungs essentially clear to auscultation bilaterally. HEART: Regular rate and rhythm. S1 and S2 heard. EXTREMITIES: Normal range of motion. No clubbing or cyanosis. Peripheral pulses intact. No lower extremity edema ASSESSMENT: Non-STEMI Triple-vessel coronary artery disease Elevated LVEDP on cardiac catheterization, on oral diuretics Accelerated hypertension, controlled now Left internal carotid artery stenosis, 50 to 69% Nicotine dependence Marijuana use Morbid obesity PLAN: Continue current cardiac medications CT surgery following. Patient is tentatively scheduled for surgery on Thursday, June 26, 2023 Continue telemetry monitoring Continue to monitor blood pressure Further recommendations pending patient course Nurse practitioner note has been reviewed by physician. Signing provider agrees with the documented findings, assessment, and plan of care documented by [employer] EXEC[employer] as a scribe. Objective - Vital Signs Vital signs: Vital Signs Temp 98.5 F 06/24/23 08:35 Pulse 81 06/24/23 08:35 Resp 16 06/24/23 08:35 BP 100/64 06/24/23 08:35 Pulse Ox 97 06/24/23 08:35 FiO2 Intake & Output 06/23/23 06/24/2324 18:59 06:59 18:59 Intake Total 1534 458 Output Total 300 Balance 1234 458 Weight 120.202 kg Intake: Oral 1534 458 Output: Urine 300 Stool 0 Other: Voiding Method Toilet Urinal - Labs CBC & Chem 7: 06/22/23 14:35 06/22/23 14:35
[2023-06-24] MEDS: MUPIROCIN 2% OINT 22 GM TUBE NASAL SCH (21:33)
[2023-06-25] MEDS ORDERED: CLEVIDIPINE BUTYRATE 25 MG in EMPTY BAG 1 BAG IV ONE (05:00)
[2023-06-25] MEDS ORDERED: DILTIAZEM 125 MG in SODIUM CHLORIDE 0.9% 100 ML IV ONE (05:00)
[2023-06-25] MEDS ORDERED: INSULIN REGULAR 100 UNIT in SODIUM CHLORIDE 0.9% 100 ML IV ONE (06:00)
--- NOTE | 2023-06-25 08:38 | P.PN ---
Subjective 58-year-old male who presents emergency department as a transfer from [facility]. He originally went in there for chest pain which has been going on for greater than a week. EKG was performed which demonstrated Q waves in the inferior leads. Troponin level was elevated. Patient was given a dose of Lovenox and transferred to our facility for cardiology evaluation. Troponin went from 76 to 172. D-dimer was normal. BNP was 1449. Patient was given a dose of Lovenox 120 mg and 40 mg of Lasix. Patient initially presented to [facility] by EMS due to nosebleed. He did not present for chest pain. Due to concern for coronary artery disease, patient was transferred from the ER at [facility] to [facility]. He did receive IV Lasix 40 mg at [facility] and he thinks his breathing is a bit better today. His initial blood pressure at [facility] was 159/100. Troponin was elevated. D-dimer was normal. Chest x-ray revealed CHF. Patient now has a blood pressure 154/101 and heart rate of 101. He denies having any chest pain at this time. EKG sinus rhythm with none specific ST changes. CTA of the chest reveals no evidence of pulmonary embolism. Peripheral, dependent ground glass pulmonary opacities consistent with atypical pulmonary infection such as COVID-19 or other viral or pulmonary venous congestion. CBC and CMP normal. Troponins 0.485 and 0.743. 06/21/2023 Patient is seen and evaluated sitting up in bed; no complaint of chest pain or shortness of breath; anxious to go home Vital signs are reviewed and remained stable Patient is currently on IV heparin per protocol, aspirin 81 mg daily, Lipitor 80 mg daily and Lopressor 50 mg twice daily Cardiology on board with plans for cardiac catheterization tomorrow morning 06/22/2023 Patient s/p cardiac cath showing severe triple-vessel coronary artery disease. Showing 100% occluded RCA and left circumflex artery and 90% left coronary anterior descending coronary artery After cardiac cath patient was walking in the room with no difficulty. Patient wants to be discharged Cardiothoracic surgery team evaluated the patient however patient wants to follow-up as an outpatient Currently denies chest pain or dyspnea or any other complaint Patient remains on aspirin statin metoprolol switched to Coreg, and Imdur Echocardiogram showing ejection fraction 35 to 40% 06/23/2023 pt is with No chest pain no dyspnea No other new complaints Hemodynamically stable He finished his heparin drip treatment. Currently his Aspirin 81 Mg and Coreg 25 Mg Also He Is on Losartan 100 Mg and Lasix Once Daily Patient Is Aware about the Result of Severe Triple-Vessel Coronary Artery Disease and His Been Followed by Cardiothoracic Surgery Team for Possible Bypass Procedure, patient is considering inpatient versus outpatient management for now 06/24/2023 Patient awake alert No chest pain or dyspnea Patient currently on aspirin 81 mg Patient planned to undergo cardiac bypass procedure on Sunday 06/25. Patient looks agreeable to this plan. 06/25/2023 Patient awake alert looks comfortable No chest pain, no dyspnea No other new complaint Patient feels motivated to go for bypass surgery tomorrow with cardiothoracic surgery team Hemodynamically stable, labs reviewed, WBC is 8.4, hemoglobin 13.1, platelet count 349 Electrolytes are normal, creatinine 0.9, hemoglobin A1c 5.1%, TSH is 2.6. He has positive MRSA test and his nasal sample. Patient on aspirin 81 mg From medical perspective there is no contraindication to proceed with surgery Review of systems CONSTITUTIONAL: No fever, no malaise, no fatigue. HEENT: No recent visual problems or hearing problems. Denied any sore throat. CARDIOVASCULAR: No orthopnea, PND, no palpitations, no syncope. PULMONARY: No shortness of breath, no cough, no hemoptysis. GASTROINTESTINAL: No diarrhea, no nausea, no vomiting, no abdominal pain. Normoactive bowel sounds. NEUROLOGICAL: No headaches, no weakness, no numbness. HEMATOLOGICAL: Denies any bleeding or petechiae. GENITOURINARY: Denies any burning micturition, frequency, or urgency. MUSCULOSKELETAL/RHEUMATOLOGICAL: Denies any joint pain, swelling, or any muscle pain. ENDOCRINE: Denies any polyuria or polydipsia. Active Medications Generic Name Dose Route Start Last Admin Trade Name Freq PRN Reason Stop Dose Admin Albuterol/Ipratropium 3 ml 06/24/23 01:16 Ipratropium-Albuterol 3 Ml Neb INHALATION RT-QID PRN Shortness Of Breath Or Wheezing Alprazolam 0.25 mg 06/21/23 12:41 06/22/23 22:59 Alprazolam 0.25 Mg Tab PO 0.25 mg Q6HR PRN Administration Mild Anxiety Aspirin 81 mg 06/19/23 09:30 06/24/23 08:37 Aspirin 81 Mg PO 81 mg DAILY GERTRUDIS Administration Atorvastatin Calcium 80 mg 06/19/23 09:30 06/24/23 08:37 Atorvastatin 80 Mg Tab PO 80 mg DAILY GERTRUDIS Administration Carvedilol 25 mg 06/22/23 17:30 06/25/23 07:01 Carvedilol 12.5 Mg Tab PO 25 mg BID-W/MEALS GERTRUDIS Administration Furosemide 40 mg 06/22/23 16:15 06/24/23 08:37 Furosemide 40 Mg Tab PO 40 mg DAILY GERTRUDIS Administration Isosorbide Mononitrate 30 mg 06/22/23 10:15 06/24/23 08:37 Isosorbide Mononitrate Er 30 Mg Tab.Er.24h PO 30 mg DAILY GERTRUDIS Administration Losartan Potassium 100 mg 06/20/23 09:00 06/24/23 08:37 Losartan 50 Mg Tab PO 100 mg DAILY GERTRUDIS Administration Morphine Sulfate 4 mg 06/19/23 07:40 06/25/23 04:15 Morphine Sulfate 4 Mg/Ml Syringe IV 4 mg Q4HR PRN Administration Severe Pain (Scale 7 to 10) Mupirocin 1 applic 06/24/23 21:00 06/24/23 21:33 Mupirocin 2% Oint 22 Gm Tube NASAL 1 applic BID GERTRUDIS Administration Protocol Naloxone HCl 0.2 mg 06/19/23 07:40 Naloxone 0.4 Mg/Ml 1 Ml Vial IV Q2M PRN Opioid Reversal Objective - Vital Signs Vital signs: Vital Signs Temp 98.0 F 06/25/23 04:00 Pulse 79 06/25/23 04:00 Resp 18 06/25/23 04:00 BP 142/86 06/25/23 04:00 Pulse Ox 94 L 06/25/23 04:00 FiO2 Intake & Output 06/24/23 06/25/23 06/25/23 18:59 06:59 18:59 Intake Total 1137 Balance 1137 Weight 120.202 kg 122.8 kg Intake: Oral 1137 Other: Voiding Method Toilet - Exam GENERAL: The patient is alert and oriented x3, not in any acute distress. Well developed, well nourished. HEENT: Pupils are round and equally reacting to light. EOMI. No scleral icterus. No conjunctival pallor. Normocephalic, atraumatic. No pharyngeal erythema. No thyromegaly. CARDIOVASCULAR: S1 and S2 present. No murmurs, rubs, or gallops. PULMONARY: Chest is clear to auscultation, no wheezing , no crackles. ABDOMEN: Soft, nontender, nondistended, normoactive bowel sounds. No palpable organomegaly. MUSCULOSKELETAL: No joint swelling or deformity. EXTREMITIES: No cyanosis, clubbing, or pedal edema. NEUROLOGICAL: Gross neurological examination did not reveal any focal deficits. SKIN: No rashes. no petechiae. - Labs CBC & Chem 7: 06/22/23 14:35 06/22/23 14:35 Labs: Microbiology - Last 24 Hours (Table) 06/22/23 17:50 Nasal Screen MRSA/MSSA - Final Nasopharyngeal Swab Staphylococcus aureus,Not MRSA Assessment and Plan Assessment: Non-STEMI with cardiac cath Showing 100% occluded RCA and left circumflex artery and 90% left coronary anterior descending coronary artery Ischemic cardiomyopathy with ejection fraction 35 to 40% Hypertension Obesity with BMI of 37 Hyperlipidemia Plan: Continue with aspirin Continue the statin Continue with Coreg and Imdur Cardiology team on the case From medical perspective there is no contraindication to proceed with cardiac surgery, although there is risk but benefits more than the risk Cardiothoracic surgery recommending bypass procedure however patient wants to go home and follow-up outpatient for the procedure. DVT prophylaxis: Subcutaneous heparin GI prophylaxis Prognosis guarded
[2023-06-25 11:16] LABS: HCT 40.3 % (39.0-53.0); HGB 12.7 gm/dL (13.0-17.5); MCHC 31.5 g/dL (31.0-37.0); MCV 95.3 fL (80.0-100.0); Mean Platelet Volume 7.3; Platelet Count 305 k/uL (150-450); RBC 4.23 m/uL (4.30-5.90); RDW 13.9 % (11.5-15.5); WBC 10.3 k/uL (3.8-10.6)
[2023-06-25 11:30] LABS: Partial Thromboplastin Time 24.9 sec (22.0-30.0); Prothrombin Time 10.7 sec (10.0-12.5)
[2023-06-25 11:36] LABS: African American GFR (CKD) >90 (>60 ml/min/1.73 sqM); Anion Gap 9 mmol/L; Blood Urea Nitrogen 10 mg/dL (9-20); Calcium 9.4 mg/dL (8.4-10.2); Carbon Dioxide 25 mmol/L (22-30); Chloride 103 mmol/L (98-107); Glucose 95 mg/dL (74-99); Non-African American GFR(CKD) >90 (>60 ml/min/1.73 sqM); Potassium 4.1 mmol/L (3.5-5.1); Sodium 137 mmol/L (137-145)
--- NOTE | 2023-06-25 11:52 | P.PN ---
Subjective Progress Note Date: 06/25/23 Principal diagnosis: Coronary disease. Patient is a 58-year-old white male with past medical history significant for hypertension, coronary artery disease, previous tobacco dependence and current marijuana use, alcoholism, and anxiety. He does not currently follow with a primary care provider. Over the last couple months, the patient has had intermittent chest pain that radiates to his back and is associated with some left arm numbness. There is associated shortness of breath. His usually last for 15 minutes, and subsides with rest. The symptoms have significantly limited his activity level, he can no longer do activities such as go to the grocery store without symptoms. He went to [facility] earlier in the week, actually for a nosebleed. He was found to be hypertensive. He had some abnormal labs including an elevated troponins. He was diagnosed with a non-ST elevation HI. For this reason he was transferred to [facility] for further evaluation and treatment on 06/19/2023. He did have a heart catheterization on 06/22/2023 which showed severe multivessel coronary artery disease including 100% proximal RCA stenosis, 100% LCx stenosis, 90% proximal LAD stenosis, and 90% diffuse ramus disease. There was recommendation for surgical revascularization, and cardiothoracic services were consulted. He is currently undergoing an extensive preoperative workup. Echocardiogram done this admission shows a reduced left ventricular ejection fraction of 35 to 40% along with some moderate concentric LVH. No observed significant valvular disease. He did have a preoperative bedside spirometry, at that time he had just learned some test results, he was anxious and uncooperative. His FEV1 was 1.58 L or 41%. Likely not best result and of limited value. He does have a significant smoking history, smoking 1.5 packs/day for many years. Quit smoking in 2020. Continues to recreationally smoke marijuana weekly. He denies ever being diagnosed with any kind of lung disease such as COPD or asthma. He is currently sitting up in bed, on room air, in no acute distress. We are asked to see this patient for preoperative pulmonary clearance for possible surgical revascularization. Chest CTA done at our facility did not show any evidence of pulmonary embolism. There was peripheral dependent groundglass opacities concerning for pulmonary venous congestion, atypical pneumonia was an alternative differential. Most recent CBC and BMP from 2 days ago were unremarkable. He was previously on a heparin drip, which has since been discontinued. Patient currently denies any chest pain. Denies any shortness of breath, coughing, sputum production. Afebrile. Incentive spirometer is at bedside. Patient was initially hesitant to undergo open heart, however, is leaning towards surgery. Patient continues to undergo extensive preoperative workup. STS score is being calculated. There is note dated June 25, 2023. The patient was seen yesterday in consultation. He has a history of hypertension, coronary artery disease, previous tobacco dependence, alcoholism, anxiety, and marijuana use. The patient was recently evaluated, and found to have multivessel coronary disease, and is scheduled to have revascularization surgery tomorrow. The patient is practicing with his incentive spirometer. He is currently on room air. No IV fluids. Laboratory data includes a white count 10.3, hemoglobin 12.7, hematocrit 40.3, and a normal platelet count. Coagulation studies are normal. Sodium 137, potassium 4.1, chlorides 103, CO2 25, BUN 10, creatinine 0.83. Glucose is 95. Calcium is 9.4. Nasal screen was positive for Staph aureus, not MRSA. Objective - Vital Signs Vital signs: Vital Signs Temp 96.3 F L 06/25/23 08:20 Pulse 77 06/25/23 08:20 Resp 18 06/25/23 08:20 BP 116/66 06/25/23 08:20 Pulse Ox 94 L 06/25/23 08:20 FiO2 Intake & Output 06/24/23 06/25/23 06/25/23 18:59 06:59 18:59 Intake Total 1137 118 Output Total 0 Balance 1137 118 Weight 120.202 kg 122.8 kg Intake: Oral 1137 118 Output: Stool 0 Other: Voiding Method Toilet Toilet - Exam No acute distress, oriented 3. Room air saturation is 94%. HEENT examination is grossly unremarkable. Mucous membranes are moist. No oral lesions. Neck supple. Full range of motion. No adenopathy thyromegaly or neck vein distention. Cardiovascular examination reveals regular rhythm rate. S1-S2 normal. No S3 or S4. No discernible murmur noted. Heart rate is 77 bpm. Lungs reveal clear breath sounds. Breath sounds are equal bilaterally. No adventitious lung sounds including wheezes rhonchi or crackles. Abdomen soft bowel sounds are heard. No masses or tenderness. Extremities are intact. No cyanosis clubbing or edema. Skin is without rash or lesion. Neurologic examination is brief but nonfocal. - Labs CBC & Chem 7: 06/25/23 10:27 06/25/23 10:27 Labs: Abnormal Lab Results - Last 24 Hours (Table) 06/25/23 Range/Units 10:27 RBC 4.23 L (4.30-5.90) m/uL Hgb 12.7 L (13.0-17.5) gm/dL Microbiology - Last 24 Hours (Table) 06/22/23 17:50 Nasal Screen MRSA/MSSA - Final Nasopharyngeal Swab Staphylococcus aureus,Not MRSA Assessment and Plan Assessment: Non-ST elevation HI Severe multivessel coronary artery disease, heart catheterization on 06/22/2023 which showed severe multivessel coronary artery disease including 100% proximal RCA stenosis, 100% LCx stenosis, 90% LAD stenosis, and 90% diffuse ramus disease. Acute dyspnea, likely secondary to above. Possible underlying chronic obstructive pulmonary disease, patient has an extensive smoking history. Bedside spirometry was technically a poor study, as the patient was anxious and uncooperative at that time. Likely not good effort. FEV1 was 1.58 L or 41% of predicted. Former tobacco dependence, over 47-kpxt-naen history, quitting in 2020. Current marijuana use, weekly. Left internal carotid artery stenosis, estimated at 50 to 69%. Epistaxis, resolved. Anxiety . History of alcoholism. Hypertension. Obesity, with a BMI of 37 kg/m. Plan: Plan dated June 25, 2023. The patient is scheduled to have surgery, tomorrow. Our role in the process, was explained to the patient. The first thing, that we will attempt to do, is get the patient extubated as soon as possible. Next, we will see the patient on a daily basis, to encourage him to have excellent lung health, with deep b reathing, coughing, clearing of secretions, and hourly use of the incentive spirometer. Labs, x-rays, medications are reviewed. We will continue to follow. The patient is currently on room air. He is currently not receiving any IV fluids. Time with Patient: Less than 30
--- NOTE | 2023-06-25 11:53 | P.PN ---
Subjective Progress Note Date: 06/25/23 Principal diagnosis: Triple-vessel coronary artery disease, non-STEMI this admission, acute systolic heart failure with reduced ejection fraction 35 to 40%, epistaxis. Past medical history significant for hypertension with noncompliance with treatment, remote history of tobacco dependence, previous EtOH use, occasional marijuana use, history of kidney stones, obesity with a BMI of 37.8 kg/m, and family history of cancer. The patient was seen and examined in follow-up today June 25, 2023 at his bedside on the third floor cardiac stepdown unit. He is currently laying in b ed, is awake, alert, oriented x 3 and is in no acute apparent distress. Denies any complaints of pain or shortness of breath at this time. Remote telemetry is showing normal sinus rhythm heart rate 79 bpm. He has been afebrile in the last 24 hours. Oxygen saturations are 94% on room air and he is achieving 2250 mL on his incentive spirometry with encouragement. Preoperative teaching has been reinforced with the patient as he is scheduled for myocardial vascularization surgery tomorrow June 26, 2023 to be performed by Dr. Aly. His STS risk or has been calculated and discussed with the patient. A 5 m walk test was completed with him yesterday June 24, 2023. Laboratory results were reviewed. Objective - Vital Signs Vital signs: Vital Signs Temp 96.3 F L 06/25/23 08:20 Pulse 77 06/25/23 08:20 Resp 18 06/25/23 08:20 BP 116/66 06/25/23 08:20 Pulse Ox 94 L 06/25/23 08:20 FiO2 Intake & Output 06/24/23 06/25/23 06/25/23 18:59 06:59 18:59 Intake Total 1137 118 Output Total 0 Balance 1137 118 Weight 120.202 kg 122.8 kg Intake: Oral 1137 118 Output: Stool 0 Other: Voiding Method Toilet Toilet - Exam CONSTITUTIONAL: Appears comfortable, cooperative, no acute distress. RESPIRATORY: Lungs sounds diminished bilaterally. Respirations are symmetrical and nonlabored. Currently on room air with oxygen saturation 94% and he is achieving 2250 mL on his incentive spirometry with encouragement. Strong cough. CARDIOVASCULAR: S1, S2 present. Regular rate and rhythm, sinus rhythm on telemetry, heart rate 79 bpm. Palpable peripheral pulses bilaterally. Trace bilateral lower extremity edema present. No calf pain or tenderness noted GASTROINTESTINAL: Abdomen soft, nontender, nondistended. Active bowel sounds present 4 quadrants. Tolerating diet. No guarding or rigidity. GENITOURINARY: Continues to void. INTEGUMENTARY: Skin is warm and dry, no clubbing or cyanosis is present. NEUROLOGIC: Cranial nerves II through XII intact, no focal deficits. MUSKULOSKELETAL: Able to move all extremities, strength equal bilaterally, gait normal. PSYCHIATRIC: Alert and oriented to person place and time, appropriate affect, intact judgment and insight. - Allied health notes Allied health notes reviewed: nursing - Labs CBC & Chem 7: 06/25/23 10:27 06/25/23 10:27 Labs: Abnormal Lab Results - Last 24 Hours (Table) 06/25/23 Range/Units 10:27 RBC 4.23 L (4.30-5.90) m/uL Hgb 12.7 L (13.0-17.5) gm/dL Microbiology - Last 24 Hours (Table) 06/22/23 17:50 Nasal Screen MRSA/MSSA - Final Nasopharyngeal Swab Staphylococcus aureus,Not MRSA Assessment and Plan Assessment: Triple-vessel coronary artery disease, non-STEMI this admission Acute systolic heart failure with reduced ejection fraction 35-40%, mild mitral valve regurgitation and tricuspid valve regurgitation Epistaxis Shortness of breath, chest pain secondary to above Hypertension Left internal carotid artery stenosis 50 to 69% Remote history of tobacco dependence Severe COPD with preoperative FEV1 41% of predicted although not the best effort Previous EtOH use Occasional marijuana use History of kidney stones Obesity with BMI of 37.8 kg/m Family history of cancer Plan: Continue to maximize medical therapy with aspirin, statin, beta-mari, and ARB. Increase activity, ambulate as tolerated. Encourage incentive spirometry use 10 times every hour while awake. Pulmonology consult noted and appreciated. Patient is scheduled for surgical myocardial revascularization with bilateral internal mammary artery and left radial artery harvest, ligation of the left atrial appendage by Dr. Misbah Aly on Monday, June 26, 2023. Continue preoperative teaching. Encourage risk factor modification. Reinforced with the patient the importance of compliance with medications. Medical management of other comorbidities per internal medicine, cardiology. N.p.o. after midnight. More recommendations to follow based on patient's clinical course. Time with Patient: Greater than 30
--- NOTE | 2023-06-25 12:22 | P.PN ---
Subjective HISTORY OF PRESENT ILLNESS: This is a 58-year-old male does not follow with a PCP. Patient has a known history of hypertension since 2020 but has not sought treatment for this. He underwent cholecystectomy at that time found to have high blood pressure and was given medications for short time and never had these refilled. We have been asked to evaluate the patient for acute chest pain and non-ST elevated myocardial infarction. Patient gives history that he has had pain starting in his mid upper back with any exertion is a pressure type that goes down into the chest area all across his chest with left arm pain that is sharp. No radiation to his neck or jaw. He also experiences shortness of breath with this. He usually sits down for about 15 to 20 minutes and he did see it and then he feels better. He states he is unable to walk over 100 feet and has symptomatic dyspnea on exertion and the chest pain/back pain. This has been going on since he had his gallbladder out in 2020. He states he is unable to rake leaves or go grocery shopping. Patient states that he quit smoking in 2020 but on further questioning he is still smoking. He denies any alcohol use. He uses marijuana weekly for anxiety. Patient initially presented to [facility] by EMS due to nosebleed. He did not present for chest pain. Due to concern for coronary artery disease, patient was transferred from the ER at [facility] to [facility]. He did receive IV Lasix 40 mg at [facility] and he thinks his breathing is a bit better today. His initial blood pressure at [facility] was 159/100. Troponin was elevated. D- dimer was normal. Chest x-ray revealed CHF. Patient now has a blood pressure 154/101 and heart rate of 101. He denies having any chest pain at this time. EKG sinus rhythm with none specific ST changes. CTA of the chest reveals no evidence of pulmonary embolism. Peripheral, dependent ground glass pulmonary opacities consistent with atypical pulmonary infection such as COVID-19 or other viral or pulmonary venous congestion. CBC and CMP normal. Troponins 0.485 and 0.743. Home cardiac medications: None Progress note June 20, 2023 Seen and examined at bedside this a.m. Plan discussed with patient's son sitting at bedside. Patient does not have any active chest pain chest pressure or shortness of breath. His blood pressure is better controlled today. June 21 2023 Seen and examined at bedside this a.m. Still complaining of back pain between the mid shoulders. I will prescribe a lidocaine patch for this to him. His blood pressure is well-controlled on current regimen. No reported lightheadedness or dizziness. Tolerating IV heparin with no concerns of bl eeding. 06/23/2023 Patient examined this morning at the bedside. 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 Patient currently denies any chest pain or pressure. He denies any shortness of breath. Vital signs are stable. 06/24/2023 Patient examined this morning at the bedside. Patient denies any chest pain or pressure. He denies any shortness of breath. Vital signs are stable. Patient has made the decision to proceed with CABG which will be performed on Thursday. 06/25/2023 Patient examined this morning at bedside. Patient denies chest pain or pressure. He denies shortness of breath. Patient is anticipating CABG tomorrow. He has no questions or concerns at this time. PHYSICAL EXAM: VITAL SIGNS: Reviewed. GENERAL: Well-developed in no acute distress. NECK: Supple. No JVD or thyromegaly LUNGS: Respirations even and unlabored. Lungs essentially clear to auscultation bilaterally. HEART: Regular rate and rhythm. S1 and S2 heard. EXTREMITIES: Normal range of motion. No clubbing or cyanosis. Peripheral pulses intact. No lower extremity edema ASSESSMENT: Non-STEMI Triple-vessel coronary artery disease Elevated LVEDP on cardiac catheterization, on oral diuretics Accelerated hypertension, controlled now Left internal carotid artery stenosis, 50 to 69% Nicotine dependence Marijuana use Morbid obesity PLAN: Continue current cardiac medications CT surgery following. Patient is tentatively scheduled for surgery on Monday, June 26, 2023 Continue telemetry monitoring Continue to monitor blood pressure Further recommendations pending patient course Nurse practitioner note has been reviewed by physician. Signing provider agrees with the documented findings, assessment, and plan of care documented by MOTOR TRANSPORT INSPECTOR as a scribe. Objective - Vital Signs Vital signs: Vital Signs Temp 96.3 F L 06/25/23 08:20 Pulse 77 06/25/23 08:20 Resp 18 06/25/23 08:20 BP 116/66 06/25/23 08:20 Pulse Ox 94 L 06/25/23 08:20 FiO2 Intake & Output 06/24/23 06/25/23 06/25/23 18:59 06:59 18:59 Intake Total 1137 118 Output Total 0 Balance 1137 118 Weight 120.202 kg 122.8 kg Intake: Oral 1137 118 Output: Stool 0 Other: Voiding Method Toilet Toilet - Labs CBC & Chem 7: 06/25/23 10:27 06/25/23 10:27 Labs: Abnormal Lab Results - Last 24 Hours (Table) 06/25/23 Range/Units 10:27 RBC 4.23 L (4.30-5.90) m/uL Hgb 12.7 L (13.0-17.5) gm/dL Microbiology - Last 24 Hours (Table) 06/22/23 17:50 Nasal Screen MRSA/MSSA - Final Nasopharyngeal Swab Staphylococcus aureus,Not MRSA
[2023-06-26 04:31] LABS: Glucose,Whole Blood 101 mg/dL (70-110)
[2023-06-26] MEDS: ATORVASTATIN 10 MG TAB PO ONE (04:39)
[2023-06-26] MEDS: ASPIRIN 325 MG TAB PO ONE (04:39)
[2023-06-26] MEDS: METOPROLOL TARTRATE 12.5 MG TAB PO ONE (04:39)
[2023-06-26] MEDS ORDERED: HEPARIN SODIUM 1,000 UN/ML (10ML VL) IV ONE (05:00)
[2023-06-26] MEDS ORDERED: CLEVIDIPINE BUTYRATE 25 MG in EMPTY BAG 1 BAG IV ONE (05:00)
[2023-06-26] MEDS ORDERED: MANNITOL 25% 12.5 GM/50 ML VIAL IV ONE ×2 (05:00)
[2023-06-26] MEDS ORDERED: NITROGLYCERIN-D5W PMX 50 MG in DEXTROSE/WATER 1 250ML.BAG IV ONE (05:00)
[2023-06-26] MEDS ORDERED: CALCIUM CHLORIDE 100 MG/ML 10 ML SYRINGE IVP ONE (05:00)
[2023-06-26] MEDS ORDERED: PROTAMINE SULFATE 250 MG in EMPTY BAG 1 BAG IV ONE (05:00)
[2023-06-26] MEDS ORDERED: NITROGLYCERIN-D5W PMX 25 MG/250 ML BTL IV ONE (05:00)
[2023-06-26] MEDS ORDERED: TRANEXAMIC ACID 2,000 MG in SODIUM CHLORIDE 0.9% 80 ML IV ONE (05:00)
[2023-06-26] MEDS ORDERED: DILTIAZEM 125 MG in SODIUM CHLORIDE 0.9% 100 ML IV ONE (05:00)
[2023-06-26] MEDS ORDERED: NOREPINEPHRINE 4 MG in SODIUM CHLORIDE 0.9% 250 ML IV ONE (05:00)
[2023-06-26] MEDS ORDERED: INSULIN REGULAR 100 UNIT in SODIUM CHLORIDE 0.9% 100 ML IV ONE (05:00)
[2023-06-26] MEDS ORDERED: ALBUMIN HUMAN 25% 50 ML in EMPTY BAG 1 BAG IVPB ONE (05:00)
[2023-06-26] MEDS ORDERED: ALBUMIN HUMAN 5% 500 ML in EMPTY BAG 1 BAG IVPB ONE ×6 (05:00)
[2023-06-26] MEDS ORDERED: HEPARIN SODIUM,PORCINE (1 ML) 5,000 UNIT in SODIUM CHLORIDE 0.9% 500 ML 500 ML IV ONE (05:00)
[2023-06-26] MEDS ORDERED: MAGNESIUM SULFATE 16.24 MEQ in EMPTY SYRINGE 1 SYR IV ONE (05:00)
[2023-06-26] MEDS ORDERED: SODIUM BICARB 8.4% 50 ML SYR (1 MEQ/ML) IV ONE (05:00)
[2023-06-26] MEDS ORDERED: ceFAZolin 1,000 MG in SODIUM CHLORIDE 0.9% IRRIGATIO 1,000 ML IRRIGATION ONE (05:00)
[2023-06-26] MEDS ORDERED: PHENYLEPHRINE 40 MG in SODIUM CHLORIDE 0.9% 250 ML IV ONE (05:00)
[2023-06-26] MEDS ORDERED: PROTAMINE SULFATE 10 MG/ML 25 ML VIAL IV ONE ×2 (05:00→07:46)
[2023-06-26] MEDS ORDERED: PAPAVERINE 360 MG in SODIUM CHLORIDE 0.9% 90 ML IV ONE (05:00)
[2023-06-26] MEDS ORDERED: ceFAZolin 3 GM in SODIUM CHLORIDE 0.9% 100 ML IVPB ONE (05:00)
[2023-06-26] MEDS ORDERED: ELECTROLYTE-A SOLUTION 1,000 ML with POTASSIUM CHLORIDE 100 MEQ, MAGNESIUM SULFATE 16 M... IV ONE (06:00)
[2023-06-26] MEDS ORDERED: PHENYLEPHRINE 10 MG/ML VIAL IV ONE (06:00)
[2023-06-26] MEDS ORDERED: ELECTROLYTE-A SOLUTION 1,000 ML with POTASSIUM CHLORIDE 40 MEQ, MAGNESIUM SULFATE 16 ME... IV ONE (06:00)
[2023-06-26] MEDS: LACTATED RINGERS 1,000 ML IV ONE (06:21)
[2023-06-26] MEDS: CHLORHEXIDINE GLUCONATE 15 ML CUP MUCOUS MEM ONE (06:44)
[2023-06-26] MEDS ORDERED: MIDAZOLAM HCL 10 MG/10 ML VIAL ONE (07:46)
[2023-06-26] MEDS ORDERED: fentaNYL (PF) 50 MCG/ML 50 ML VIAL ONE (07:46)
[2023-06-26] MEDS ORDERED: SUCCINYLCHOLINE CHLORIDE 200 MG/10 ML VIAL IV ONE (07:46)
[2023-06-26] MEDS ORDERED: TRANEXAMIC 1,000 MG/100ML-NACL PREMIX BAG ONE (07:46)
[2023-06-26] MEDS ORDERED: HEPARIN SODIUM,PORCINE 10,000 UNIT/ML 1 ML VIAL ONE (07:46)
[2023-06-26] MEDS ORDERED: NOREPINEPHRINE 1 MG/ML 4 ML VIAL IV ONE (07:46)
[2023-06-26] MEDS ORDERED: VECURONIUM 10 MG VIAL IV ONE (07:46)
[2023-06-26] MEDS ORDERED: PROPOFOL 10 MG/ML 20 ML VIAL IV ONE (07:46)
[2023-06-26 09:07] LABS: ABG Base Excess -0.2 mmol/L; ABG Glucose Whole Blood 78 mg/dL (75-99); ABG HCO3 26 mmol/L (21-25); ABG Hematocrit 32 % (34.0-46.0); ABG Ionized Calcium 4.6 mg/dL (4.5-5.3); ABG Oxygen Saturation 64.7 % (94-97); ABG PCO2 45 mmHg (35-45); ABG PH 7.36 (7.35-7.45); ABG Potassium Whole Blood 3.9 mmol/L (3.4-4.5); ABG Sodium Whole Blood 136 mmol/L (135-146); Allen Test Performed? Yes
[2023-06-26 09:22] LABS: ABG Base Excess 0.8 mmol/L; ABG Glucose Whole Blood 106 mg/dL (75-99); ABG HCO3 26 mmol/L (21-25); ABG Hematocrit 36 % (34.0-46.0); ABG Ionized Calcium 4.7 mg/dL (4.5-5.3); ABG Lactic Acid Whole Blood 0.5 mmol/L (0.5-1.6); ABG Oxygen Saturation >99.4 % (94-97); ABG PCO2 41 mmHg (35-45); ABG PH 7.41 (7.35-7.45); ABG PO2 354 mmHg (83-108); ABG Potassium Whole Blood 4.1 mmol/L (3.4-4.5); ABG Sodium Whole Blood 138 mmol/L (135-146); Allen Test Performed? Yes
[2023-06-26] MEDS: SODIUM CHLORIDE 0.9% 500 ML 500 ML with HEPARIN SODIUM,PORCINE (1 ML) 5,000 UNIT IV ONE (09:59)
[2023-06-26] MEDS: PAPAVERINE 360 MG in SODIUM CHLORIDE 0.9% 90 ML IV ONE ×2 (09:59→14:36)
[2023-06-26] MEDS: ceFAZolin 1,000 MG in SODIUM CHLORIDE 0.9% 1,000 ML IRRIGATION ONE (09:59)
[2023-06-26 11:10] LABS: ABG Glucose Whole Blood 118 mg/dL (75-99); ABG HCO3 25 mmol/L (21-25); ABG Hematocrit 36 % (34.0-46.0); ABG Ionized Calcium 4.7 mg/dL (4.5-5.3); ABG Lactic Acid Whole Blood 0.6 mmol/L (0.5-1.6); ABG Oxygen Saturation 98.9 % (94-97); ABG PCO2 43 mmHg (35-45); ABG PH 7.38 (7.35-7.45); ABG PO2 137 mmHg (83-108); ABG Sodium Whole Blood 138 mmol/L (135-146); Allen Test Performed? Yes
[2023-06-26 11:45] LABS: ABG Base Excess 2.6 mmol/L; ABG Glucose Whole Blood 105 mg/dL (75-99); ABG HCO3 27 mmol/L (21-25); ABG Hematocrit 30 % (34.0-46.0); ABG Ionized Calcium 3.8 mg/dL (4.5-5.3); ABG Lactic Acid Whole Blood 0.7 mmol/L (0.5-1.6); ABG Oxygen Saturation >99.4 % (94-97); ABG PCO2 38 mmHg (35-45); ABG PH 7.45 (7.35-7.45); ABG PO2 395 mmHg (83-108); ABG Potassium Whole Blood 3.9 mmol/L (3.4-4.5); ABG Sodium Whole Blood 140 mmol/L (135-146); Allen Test Performed? Yes
[2023-06-26 12:19] LABS: ABG Base Excess 1.8 mmol/L; ABG Glucose Whole Blood 142 mg/dL (75-99); ABG HCO3 26 mmol/L (21-25); ABG Hematocrit 30 % (34.0-46.0); ABG Ionized Calcium 4.1 mg/dL (4.5-5.3); ABG Lactic Acid Whole Blood 0.9 mmol/L (0.5-1.6); ABG Oxygen Saturation >99.4 % (94-97); ABG PCO2 37 mmHg (35-45); ABG PH 7.45 (7.35-7.45); ABG Potassium Whole Blood 4.8 mmol/L (3.4-4.5); ABG Sodium Whole Blood 138 mmol/L (135-146); Allen Test Performed? Yes
[2023-06-26 12:50] LABS: ABG Base Excess 0.3 mmol/L; ABG Glucose Whole Blood 164 mg/dL (75-99); ABG HCO3 25 mmol/L (21-25); ABG Hematocrit 30 % (34.0-46.0); ABG Ionized Calcium 4.2 mg/dL (4.5-5.3); ABG Lactic Acid Whole Blood 0.9 mmol/L (0.5-1.6); ABG Oxygen Saturation >99.4 % (94-97); ABG PCO2 39 mmHg (35-45); ABG PH 7.42 (7.35-7.45); ABG Potassium Whole Blood 5.3 mmol/L (3.4-4.5); ABG Sodium Whole Blood 138 mmol/L (135-146); Allen Test Performed? Yes
[2023-06-26] MEDS: MD COMMUNICATION TO PHARMACY 1 EACH MISC PO ONE ×5 (13:12)
[2023-06-26] MEDS: ALBUMIN HUMAN 25% 50 ML in EMPTY BAG 1 BAG IVPB ONE (13:12)
[2023-06-26 13:19] LABS: ABG Base Excess -1.5 mmol/L; ABG Glucose Whole Blood 167 mg/dL (75-99); ABG HCO3 24 mmol/L (21-25); ABG Hematocrit 28 % (34.0-46.0); ABG Oxygen Saturation >99.4 % (94-97); ABG PCO2 42 mmHg (35-45); ABG PH 7.37 (7.35-7.45); ABG PO2 354 mmHg (83-108); ABG Potassium Whole Blood 5.4 mmol/L (3.4-4.5); ABG Sodium Whole Blood 137 mmol/L (135-146); Allen Test Performed? Yes
[2023-06-26 13:38] LABS: ABG Base Excess -0.7 mmol/L; ABG Glucose Whole Blood 168 mg/dL (75-99); ABG HCO3 23 mmol/L (21-25); ABG Hematocrit 28 % (34.0-46.0); ABG Ionized Calcium 4.1 mg/dL (4.5-5.3); ABG Lactic Acid Whole Blood 1.2 mmol/L (0.5-1.6); ABG Oxygen Saturation >99.4 % (94-97); ABG PCO2 34 mmHg (35-45); ABG PH 7.44 (7.35-7.45); ABG Potassium Whole Blood 5.2 mmol/L (3.4-4.5); ABG Sodium Whole Blood 137 mmol/L (135-146); Allen Test Performed? Yes
[2023-06-26 14:13] LABS: ABG PO2 35 mmHg (83-108)
[2023-06-26 14:16] LABS: ABG PO2 >420 mmHg (83-108)
[2023-06-26 14:17] LABS: ABG PO2 >420 mmHg (83-108)
[2023-06-26 14:18] LABS: ABG PO2 >420 mmHg (83-108)
[2023-06-26] MEDS ORDERED: CALCIUM GLUCONATE IN NACL 2 GM in SALINE 1 100ML.BAG IVPB PRN (14:47)
[2023-06-26] MEDS ORDERED: METOCLOPRAMIDE 5 MG/ML 2 ML VIAL IVP PRN (14:47)
[2023-06-26] MEDS ORDERED: DEXTROSE 50% SYRINGE 50 ML IVP PRN ×2 (14:47)
[2023-06-26] MEDS ORDERED: Magnesium Replacement Protocol 1 EACH MISC MISCELLANE PRN (14:47)
[2023-06-26] MEDS ORDERED: ONDANSETRON 4 MG/2 ML VIAL IVP PRN (14:47)
[2023-06-26] MEDS ORDERED: Potassium Replacement Protocol 1 EACH MISC MISCELLANE PRN (14:47)
[2023-06-26] MEDS ORDERED: hydrALAZINE HCL 20 MG/ML 1 ML VIAL IVP PRN (14:47)
[2023-06-26] MEDS ORDERED: IPRATROPIUM-ALBUTEROL 3 ML NEB INHALATION PRN (14:47)
[2023-06-26] MEDS ORDERED: BENZOCAINE/MENTHOL LOZENG 1 EACH LOZENGE MUCOUS MEM PRN (14:47)
[2023-06-26] MEDS: NITROGLYCERIN-D5W PMX 50 MG in DEXTROSE/WATER 1 250ML.BAG IV SCH (15:15)
[2023-06-26] MEDS: LACTATED RINGERS 1,000 ML IV SCH (15:15)
[2023-06-26 15:45] LABS: Glucose,Whole Blood 148 mg/dL (70-110)
[2023-06-26 15:55] LABS: ABG Base Excess 1.2 mmol/L; ABG HCO3 27 mmol/L (21-25); ABG Oxygen Saturation 94.7 % (94-97); ABG PCO2 54 mmHg (35-45); ABG PH 7.31 (7.35-7.45); ABG PO2 78 mmHg (83-108); ABG TCO2 29 mmol/L (19-24); Allen Test Performed? Yes
[2023-06-26] MEDS: HEPARIN SODIUM,PORCINE 5,000 UNIT/ML 1 ML VIAL SQ SCH (16:00)
[2023-06-26] MEDS: IPRATROPIUM-ALBUTEROL 3 ML NEB INHALATION SCH ×2 (16:00→20:04)
[2023-06-26 16:06] LABS: Basophils # (A) 0.1 k/uL (0-0.2); Basophils % (A) 1 %; Eosinophils # (A) 0.1 k/uL (0-0.7); Eosinophils % (A) 0 %; HCT 36.8 % (39.0-53.0); HGB 11.8 gm/dL (13.0-17.5); Lymphocytes % (A) 6 %; MCH 30.7 pg (25.0-35.0); MCHC 32.2 g/dL (31.0-37.0); MCV 95.3 fL (80.0-100.0); Mean Platelet Volume 7.3; Monocytes # (A) 0.8 k/uL (0-1.0); Monocytes % (A) 5 %; Neutrophils # (A) 14.4 k/uL (1.3-7.7); Neutrophils % (A) 87 %; Platelet Count 220 k/uL (150-450); RBC 3.86 m/uL (4.30-5.90); RDW 13.8 % (11.5-15.5); WBC 16.5 k/uL (3.8-10.6)
[2023-06-26 16:16] LABS: Ionized Calcium 4.6 mg/dL (4.5-5.3)
[2023-06-26] MEDS: MILRINONE-D5W PMX 20 MG in DEXTROSE/WATER 1 100ML.BAG IV SCH (16:22)
[2023-06-26] MEDS: INSULIN REGULAR 100 UNIT in SODIUM CHLORIDE 0.9% 100 ML IV SCH (16:23)
[2023-06-26 16:31] LABS: Glucose,Whole Blood 149 mg/dL (70-110)
--- NOTE | 2023-06-26 16:31 | XR ---
EXAMINATION TYPE: XR chest 1V portable DATE OF EXAM: 06/26/2023 HISTORY: Post Op CABG COMPARISON: NONE TECHNIQUE: Single view of the chest is submitted. FINDINGS: Endotracheal tube, NG tube, SG catheter, mediastianal drains and chest tubes are appropriately placed . Post operative changes of CABG. No sizeable pneumothorax. Scattered Pleural-parenchymal opacities may reflect atelectasis. The heart is not enlarged. IMPRESSION: 1. Post operative changes of CABG.
[2023-06-26 16:33] LABS: ABG Base Excess 0.3 mmol/L; ABG HCO3 27 mmol/L (21-25); ABG Oxygen Saturation 97.8 % (94-97); ABG PCO2 52 mmHg (35-45); ABG PH 7.32 (7.35-7.45); ABG PO2 99 mmHg (83-108); ABG TCO2 28 mmol/L (19-24); Allen Test Performed? Yes
[2023-06-26 16:38] LABS: INR 1.1 (<1.2); Partial Thromboplastin Time 25.9 sec (22.0-30.0); Prothrombin Time 11.5 sec (10.0-12.5)
[2023-06-26 16:40] LABS: ALT 26 U/L (4-49); AST 67 U/L (17-59); African American GFR (CKD) >90 (>60 ml/min/1.73 sqM); Albumin 2.9 g/dL (3.5-5.0); Alkaline Phosphatase 53 U/L (38-126); Anion Gap 5 mmol/L; Blood Urea Nitrogen 13 mg/dL (9-20); Calcium 7.6 mg/dL (8.4-10.2); Carbon Dioxide 23 mmol/L (22-30); Chloride 108 mmol/L (98-107); Glucose 145 mg/dL (74-99); Magnesium 2.4 mg/dL (1.6-2.3); Non-African American GFR(CKD) >90 (>60 ml/min/1.73 sqM); Sodium 136 mmol/L (137-145); Total Bilirubin 1.3 mg/dL (0.2-1.3); Total Protein 5.5 g/dL (6.3-8.2)
[2023-06-26 16:41] LABS: Potassium 4.5 mmol/L (3.5-5.1)
[2023-06-26] MEDS: ceFAZolin 3 GM in SODIUM CHLORIDE 0.9% 100 ML IVPB SCH (16:48)
[2023-06-26 17:26] LABS: Glucose,Whole Blood 140 mg/dL (70-110)
[2023-06-26 18:29] LABS: Glucose,Whole Blood 144 mg/dL (70-110)
[2023-06-26] MEDS: ACETAMINOPHEN IV (For NPO) 1,000 MG in EMPTY BAG 1 BAG IVPB SCH (18:33)
[2023-06-26] MEDS: KETOROLAC 15 MG/ML 1 ML VIAL IVP SCH (18:34)
[2023-06-26 18:40] LABS: Basophils # (A) 0.1 k/uL (0-0.2); Basophils % (A) 0 %; Eosinophils % (A) 0 %; HCT 38.7 % (39.0-53.0); HGB 12.4 gm/dL (13.0-17.5); Lymphocytes # (A) 0.7 k/uL (1.0-4.8); Lymphocytes % (A) 5 %; MCH 30.2 pg (25.0-35.0); MCHC 31.9 g/dL (31.0-37.0); MCV 94.5 fL (80.0-100.0); Mean Platelet Volume 7.3; Monocytes # (A) 0.9 k/uL (0-1.0); Monocytes % (A) 5 %; Neutrophils # (A) 13.8 k/uL (1.3-7.7); Neutrophils % (A) 88 %; Platelet Count 251 k/uL (150-450); RDW 13.8 % (11.5-15.5); WBC 15.7 k/uL (3.8-10.6)
[2023-06-26] MEDS: CLEVIDIPINE BUTYRATE 25 MG in EMPTY BAG 1 BAG IV SCH (19:00)
[2023-06-26] MEDS: DEXMEDETOMIDINE/0.9% NACL(PMX) 400 MCG in EMPTY BAG 1 BAG IV SCH (19:40)
[2023-06-26 20:10] LABS: Glucose,Whole Blood 130 mg/dL (70-110)
[2023-06-26] MEDS: NOREPINEPHRINE 4 MG in SODIUM CHLORIDE 0.9% 250 ML IV SCH (20:18)
[2023-06-26 20:52] LABS: Glucose,Whole Blood 132 mg/dL (70-110)
--- NOTE | 2023-06-26 21:01 | P.OP ---
Date of Procedure: 06/26/23 Preoperative Diagnosis: NSTEMI, 3v CAD HTN Postoperative Diagnosis: Same Procedure(s) Performed: 1. On Pump All Arterial Coronary Artery Bypass Grafting x 3. Left internal thoracic artery (in-situ) sequential to first diagonal artery and left anterior descending coronary artery. Free right internal thoracic artery from aorta to ramus intermedius coronary artery. 2. Left atrial appendage ligation using #35 AtriClip 3. Endoscopic left radial artery harvest 4. Graft flow measurements using the Medi-Stim Flow Meter System 5. Trans-esophageal echo 6. Insertion of right common femoral arterial line using ultrasound guided micropuncture technique. Implants: #35 AtriClip Anesthesia: GETA Surgeon: Misbah Aly Progress Worker #1: Juanjose Matos Progress Worker #2: Abril Shepherd Estimated Blood Loss (ml): 500 Urine output (ml): 600 Pathology: none sent Condition: critical Disposition: ICU Indications for Procedure: This patient is a 58 year-old M with a hx of HTN who presented to the hospital with chest pain. He was diagnosed with NSTEMI and coronary angiography revealed significant 3v CAD. His STS risk of morbidity and mortality was discussed with the patient and CABG was recommended. He was in agreement to proceed. Given paucity of conduit the decision was made to utilize bilateral mammary arteries and possibly left radial artery if necessary given that it had been instrumented for cardiac cath. Operative Findings: TIMMONS 1.75mm great conduit. 1st Diagonal 1.5mm good target. TIMMONS-DIAG Flow 28ml/min, P.I. 2.3 LAD diffusely diseased. Good target mid to distally measuring 1.5mm. UQXA-OBMI-CSR Flow 16ml/min, P.I. 3.0 RICK 1.75mm great conduit. Ramus 1.75mm good target. RICK-RAMUS Flow 35ml/min, P.I. 3.2 Description of Procedure: The patient underwent central line, arterial line, and [place] Chau catheter placement in the pre-operative suite by the anesthesia team. The patient was then brought to the operating room and placed in the supine position. General anesthesia was induced and the patient was prepped from the chin to the ankles in the usual sterile fashion. A time-out was performed and antibiotics were given. Ultrasound guided micro puncture was used to place a 5Fr arterial sheath in the right common femoral artery. A midline incision was made on the chest and carried down to bone. A median sternotomy was performed. Hemostasis on the bone was achieved using electrocautery.. The left pleura was entered and the left internal thoracic artery was harvested in a skeletonized fashion. Simultaneously a physician physical therapy assistant harvested the left radial artery in an endoscopic fashion. 3000 Units of heparin was given, and the TIMMONS was transected and placed in a papaverine jacuzzi. Next, the right pleura was opened, and the right internal mammary artery was harvested in a skeletonized fashion. It was doubly clipped and transected proximally and distally. The patient was systemically heparinized and bilateral chest tubes were placed. The pericardium was incised in a reverse T-fashion and a pericardial cradle was created. The patients aortic arch and right atrial appendage were cannulated for arterial and venous cannulation. Pledgets were used on the arch cannulation site. Antegrade and retrograde cannulas were placed. The conduit was examined, and they were excellent. Of note, bilateral radial arteries were recently instrumented for cardiac cath. Cardiopulmonary bypass was instituted once ACT >480. The targets were examined and the heart was arrested using 1L antegrade and 500cc retrograde cardioplegia. Retrograde cardioplegia was re-dosed every 15 minutes. Then, a 35mm AtriClip was placed on the left atrial appendage effectively ligating it. The ramus was exposed and arteriotomy was made. It was a good target. An end to side anastomosis between the free RICK and Ramus was sewn using a running 7-0 prolene suture. Next the first diagonal artery was exposed and arteriotomy was made. It was 1.5mm and a good target. A side to side anastomosis between the TIMMONS and the diagonal artery was constructed using a running 7-0 prolene. The second diagonal was too small for bypass. At this time, a soft area on the match-e-be-nash-she-wish band was identified and arteriotomy was made. It was 1.5mm and a good target here. It was diffusely calcified proximally. An end to side anastomosis between the TIMMONS and LAD was sewn using a running 7-0 prolene. The patient was placed in the Trendelenburg position and the clamp was removed. Graft flow measurements were taken using the Medi-Stim device and they were excellent. Ventricular wires were placed and all of the distals were checked for hemostasis. The patient was weaned off cardiopulmonary bypass and decannulated requiring mild pressors and inotropes. The pericardium was partially closed. A 32F chest tube was placed in the mediastinum and the sternum was re-approximated using cables. The fascia was closed with Ethibond and the subcutaneous tissues and skin, the sternum, and arm were closed in Vicryl layers. The patient was transported to the CICU in critical but stable condition. Post bypass JANIS revealed EF of about 45%. .
[2023-06-26 21:08] LABS: Basophils # (A) 0.1 k/uL (0-0.2); Basophils % (A) 0 %; Eosinophils % (A) 0 %; HCT 37.9 % (39.0-53.0); HGB 12.2 gm/dL (13.0-17.5); Lymphocytes # (A) 0.9 k/uL (1.0-4.8); Lymphocytes % (A) 6 %; MCH 30.5 pg (25.0-35.0); MCHC 32.2 g/dL (31.0-37.0); MCV 94.7 fL (80.0-100.0); Mean Platelet Volume 7.3; Monocytes # (A) 0.8 k/uL (0-1.0); Monocytes % (A) 6 %; Neutrophils # (A) 12.3 k/uL (1.3-7.7); Neutrophils % (A) 87 %; Platelet Count 275 k/uL (150-450); RDW 13.8 % (11.5-15.5); WBC 14.2 k/uL (3.8-10.6)
[2023-06-26] MEDS: SENNOSIDES-DOCUSATE SODIUM 1 EACH TAB PO SCH (21:35)
[2023-06-26 21:56] LABS: Glucose,Whole Blood 132 mg/dL (70-110)
[2023-06-26 21:57] LABS: ABG Base Excess 1.7 mmol/L; ABG HCO3 26 mmol/L (21-25); ABG PCO2 41 mmHg (35-45); ABG PH 7.41 (7.35-7.45); ABG PO2 100 mmHg (83-108); ABG TCO2 28 mmol/L (19-24); Allen Test Performed? Yes
[2023-06-26] MEDS: MUPIROCIN 2% OINT 22 GM TUBE NASAL SCH (22:31)
--- NOTE | 2023-06-26 22:45 | PN ---
PROGRESS NOTE SUBJECTIVE: This is a 58-year-old gentleman, who is admitted to hospital with non ST-segment elevation PR, underwent cardiac catheterization and was found to have severe three- vessel coronary artery disease and underwent bypass surgery today. He had a TIMMONS to diagonal LAD and a RICK. At the time of my evaluation, the patient just returned from surgery, intubated on vent and sedated. He is on a small dose of Milrinone. Remains in sinus rhythm and blood pressures are marginal. OBJECTIVE: CHEST: Reveals good air entry bilaterally. HEART: Reveals first and second heart sounds. No gallop. ABDOMEN: Soft. EXTREMITIES: Did not reveal any edema. Peripheral pulses are palpable. ASSESSMENT AND PLAN: Coronary artery disease, status post bypass surgery. PLAN: Continue with supportive care. BLAZE / VERONCIAN: [id number] /
[2023-06-26 22:52] LABS: Glucose,Whole Blood 136 mg/dL (70-110)
[2023-06-26 23:50] LABS: Glucose,Whole Blood 134 mg/dL (70-110)
[2023-06-27 00:51] LABS: Glucose,Whole Blood 130 mg/dL (70-110)
[2023-06-27 02:04] LABS: Glucose,Whole Blood 128 mg/dL (70-110)
[2023-06-27 02:56] LABS: Glucose,Whole Blood 122 mg/dL (70-110)
[2023-06-27 04:17] LABS: Glucose,Whole Blood 123 mg/dL (70-110)
[2023-06-27 04:57] LABS: Basophils # (A) 0.1 k/uL (0-0.2); Basophils % (A) 0 %; Eosinophils % (A) 0 %; HCT 35.5 % (39.0-53.0); HGB 11.4 gm/dL (13.0-17.5); Lymphocytes # (A) 1.1 k/uL (1.0-4.8); Lymphocytes % (A) 8 %; MCH 30.4 pg (25.0-35.0); MCV 95.1 fL (80.0-100.0); Monocytes % (A) 7 %; Neutrophils # (A) 11.3 k/uL (1.3-7.7); Neutrophils % (A) 83 %; Platelet Count 253 k/uL (150-450); RBC 3.73 m/uL (4.30-5.90); RDW 13.8 % (11.5-15.5); WBC 13.7 k/uL (3.8-10.6)
[2023-06-27 05:18] LABS: Ionized Calcium 4.6 mg/dL (4.5-5.3)
[2023-06-27 05:22] LABS: Glucose,Whole Blood 132 mg/dL (70-110)
[2023-06-27 05:36] LABS: ALT 25 U/L (4-49); AST 73 U/L (17-59); African American GFR (CKD) >90 (>60 ml/min/1.73 sqM); Albumin 2.9 g/dL (3.5-5.0); Alkaline Phosphatase 52 U/L (38-126); Anion Gap 4 mmol/L; Blood Urea Nitrogen 14 mg/dL (9-20); Calcium 7.8 mg/dL (8.4-10.2); Carbon Dioxide 26 mmol/L (22-30); Chloride 107 mmol/L (98-107); Glucose 116 mg/dL (74-99); Magnesium 2.3 mg/dL (1.6-2.3); Non-African American GFR(CKD) >90 (>60 ml/min/1.73 sqM); Potassium 4.4 mmol/L (3.5-5.1); Sodium 137 mmol/L (137-145); Total Bilirubin 0.6 mg/dL (0.2-1.3); Total Protein 5.5 g/dL (6.3-8.2)
[2023-06-27 06:18] LABS: Glucose,Whole Blood 129 mg/dL (70-110)
[2023-06-27] MEDS: ALBUMIN HUMAN 5% 250 ML in EMPTY BAG 1 BAG IVPB PRN (06:25)
[2023-06-27] MEDS: fentaNYL (PF) 50 MCG/ML 2 ML AMP IVP PRN (06:48)
[2023-06-27 06:56] LABS: Glucose,Whole Blood 117 mg/dL (70-110)
--- NOTE | 2023-06-27 07:45 | XR ---
EXAMINATION TYPE: XR chest 1V portable DATE OF EXAM: 06/27/2023 COMPARISON: 06/26/2023 HISTORY: post cardiac surgery FINDINGS: Endotracheal tube and NG tube been removed. [place]-Chau catheter remains in place as do the bilateral c hest tubes and mediastinal drains. No evidence for sizable pneumothorax. Scattered pleural parenchymal opacities persist but the perihilar and basilar regions. Stable appearance of the cardio-mediastinal structures at this time. Pleural effusion unchanged. IMPRESSION: 1. Stable portable chest. Clinical correlation and follow up until resolution is recommended.
[2023-06-27 07:55] LABS: Glucose,Whole Blood 127 mg/dL (70-110)
--- NOTE | 2023-06-27 08:31 | P.PN ---
Subjective Progress Note Date: 06/27/23 Principal diagnosis: Triple-vessel coronary artery disease, non-STEMI this admission, acute systolic heart failure with reduced ejection fraction 35 to 40%, epistaxis. Past medical history significant for hypertension with noncompliance with treatment, remote history of tobacco dependence, previous EtOH use, occasional marijuana use, history of kidney stones, obesity with a BMI of 37.8 kg/m, and family history of cancer. POD #1 On Pump All Arterial Coronary Artery Bypass Grafting x 3. Left internal thoracic artery (in-situ) sequential to first diagonal artery and left anterior descending coronary artery. Free right internal thoracic artery from aorta to ramus intermedius coronary artery, Left atrial appendage ligation using #35 AtriClip, Endoscopic left radial artery harvest, Graft flow measurements using the [employer] Flow Meter System, intraoperative transesophageal echocardiogram performed by anesthesia, insertion of right common femoral arterial line using ultrasound-guided micropuncture technique. Postoperative acute blood loss anemia, expected given hemodilution and cardiopulmonary bypass. The patient was seen and examined in follow-up today June 27, 2023 at his bedside in the intensive care unit. He was successfully extubated at 10:15 PM last evening, he is awake, alert, oriented x 3 and is in no acute apparent distress. He is sitting up to the bedside chair, is currently on 8 L high flow oxygen with oxygen saturations 95% and he is achieving 500 mL on his incentive spirometry with much encouragement. He denies any complaints of shortness of breath at this time, although is complaining of some surgical type pain, currently rating his pain 7 out of 10 on the pain scale. Bedside telemetry is showing normal sinus rhythm heart rate 91 bpm. He remains hemodynamically stable, is currently on Primacor drip at 0.25 mcg/kg/min. Right IJ cordis and [place]-Chau catheter remains in place with current hemodynamic showing a cardiac output of 7.6, cardiac index of 3.2, PA pressures 36/12 and a CVP of 8 mmHg. Mediastinal, left and right pleural chest tubes remain in place to low continuous wall suction -20 cm H2O. No air leak is present. Mediastinal chest tube drained 80 mL output in the last 8 hours and 280 mL output since surgery. Right/left pleural chest tubes remain in place draining thin serosanguineous drainage with 80 mL output in the last 8 hours and 360 mL output since surgery. Chest x-ray and laboratory results reviewed. Objective - Vital Signs Vital signs: Vital Signs Temp 99.0 F 06/27/23 04:00 Pulse 93 06/27/23 07:00 Resp 25 H 06/27/23 07:00 BP 73/38 06/27/23 01:45 Pulse Ox 95 06/27/23 07:00 FiO2 50 06/27/23 00:00 Intake & Output 06/26/23 06/27/23 06/27/23 18:59 06:59 18:59 Intake Total 310.443 991.925 111.65 Output Total 1690 1115 30 Balance -1379.557 -123.075 81.65 Weight 125.2 kg Intake: IV 91 678 59 0.9 pressure bag 27 108 9 0.9ns for CO/CI 60 570 50 Intake, IV Titration 219.443 158.925 2.65 Amount Clevidipine Butyrate 25 0.8 mg In Empty Bag 1 bag @ 1 MG/HR 2 mls/hr IV .Q24H [facility] Rx#:[id number] Dexmedetomidine/0.9% NaCl 10.722 (Pmx) 400 mcg In Empty Bag 1 bag @ Titrate IV . Q0M [facility] Rx#:[id number] Insulin Regular 100 unit 4.2 17.217 2.65 In Sodium Chloride 0.9% 100 ml @ Per Protocol IV .Q0M [facility] Rx#:[id number] Lactated Ringers 1,000 ml 150 50 @ 20 mls/hr IV .Q24H [facility] Rx#:[id number] Milrinone-D5w Pmx 20 mg 29.005 In Dextrose/Water 1 100ml .bag @ 0.25 MCG/KG/MIN 9. 233 mls/hr IV .[id number] [facility] Rx#:[id number] Nitroglycerin-D5w Pmx 50 7.875 mg In Dextrose/Water 1 250ml.bag @ 5 MCG/MIN 1.5 mls/hr IV .Q24H [facility] Rx#: [id number] Norepinephrine 4 mg In 27.672 Sodium Chloride 0.9% 250 ml @ 0.02 MCG/KG/MIN 9.38 mls/hr IV .Q24H [facility] Rx#: [id number] propofoL 1,000 mg In 65.243 15.634 Empty Bag 1 bag @ Titrate IV .Q0M [facility] Rx#: [id number] Oral 75 50 Tube Feeding 50 Other 30 Output: Chest Tube Drainage 260 380 Chest Tube Mediastinal 100 180 Pleural Catheter 160 200 Bilateral Gastric Drainage 150 Urine 930 585 30 Estimated Blood Loss 500 Other: Voiding Method Indwelling Catheter Indwelling Catheter ABP, PAP, CO, CI - Last Documented Arterial Blood Pressure 106/60 Pulmonary Artery Pressure 39/8 Cardiac Output 7.6 Cardiac Index 3.2 - Exam CONSTITUTIONAL: Sitting up to the bedside chair in the intensive care unit, appears comfortable, cooperative, no apparent acute distress. HEENT: Neck is supple, no JVD, no lymphadenopathy. Right IJ Cordis and [place]- Chau catheter in place and functioning. RESPIRATORY: Lungs sounds essentially clear throughout, diminished to his bilateral bases. Respirations are symmetrical and nonlabored. Currently on 8 L high flow nasal cannula with oxygen saturations 95%. Able to achieve 500 mL on his incentive spirometry with much encouragement. Weak cough. CARDIOVASCULAR: Regular rhythm and rate. S1 and S2 present, negative for S3, gallop or murmur. Sternum is stable. Palpable peripheral pulses bilaterally. No calf pain or tenderness noted. Heart hugger in place with patient demonstrating appropriate use. Knee-high SUNSHINE hose and sequential compression devices in place to his bilateral lower extremities. GASTROINTESTINAL: Abdomen soft, nontender, nondistended. Hypoactive bowel sounds present 4 quadrants. Tolerating diet. Passing flatus. No guarding or rigidity. GENITOURINARY: Wang present draining clear, yellow urine. Urine output 325 mL in the last 8 hours. INTEGUMENTARY: Skin is warm and dry with no evidence of clubbing or cyanosis. Midline sternal incision clean dry and well approximated, covered with dry intact dressing. Left arm radial artery harvest sites clean, dry and approximated. No drainage or redness is present. NEUROLOGIC: Cranial nerves II through XII intact. No focal deficits. MUSKULOSKELETAL: Able to move all extremities, strength equal bilaterally, generalized weakness. PSYCHIATRIC: Alert and oriented to person place and time, appropriate affect, intact judgment and insight. INVASIVE LINES AND TUBES: Mediastinal/left and right pleural chest tubes present and connected to low continuous wall suction, no air leaks present. Mediastinal tube with 80 mL of thin serosanguineous drainage overnight, 280 mL output in the last 24 hours. Left/right pleural chest tubes with 110 mL of thin serosanguineous drainage overnight, 360 mL output in the last 24 hours. Ventricular epicardial pacemaker wires present, connected to generator, VVI backup rate 50 bpm. Right internal jugular [place]/Cordis, right radial arterial line present. Last CO 7.6, CI 3.2, PA 36/12 and CVP 8 mmHg. - Allied health notes Allied health notes reviewed: nursing - Labs CBC & Chem 7: 06/27/23 05:00 06/27/23 04:15 Labs: Abnormal Lab Results - Last 24 Hours (Table) 06/25/23 06/26/23 06/26/23 Range/Units 10:27 09:07 09:21 WBC (3.8-10.6) k/uL RBC (4.30-5.90) m/uL Hgb (13.0-17.5) gm/dL Hct (39.0-53.0) % Neutrophils # (1.3-7.7) k/uL Lymphocytes # (1.0-4.8) k/uL ABG pH (7.35-7.45) ABG pCO2 (35-45) mmHg ABG pO2 35 L* 354 H (83-108) mmHg ABG HCO3 26 H 26 H (21-25) mmol/L ABG Total CO2 (19-24) mmol/L ABG O2 Saturation 64.7 L >99.4 H (94-97) % ABG Hematocrit 32 L (34.0-46.0) % ABG Potassium (3.4-4.5) mmol/L ABG Ionized Calcium (4.5-5.3) mg/dL ABG Glucose 106 H (75-99) mg/dL ABG Lactic Acid 3.0 H* (0.5-1.6) mmol/L Hemoglobin 10.5 L 11.7 L (13.0-17.5) gm/dL Sodium (137-145) mmol/L Chloride (98-107) mmol/L Glucose (74-99) mg/dL POC Glucose (mg/dL) (70-110) mg/dL Calcium (8.4-10.2) mg/dL Magnesium (1.6-2.3) mg/dL AST (17-59) U/L Total Protein (6.3-8.2) g/dL Albumin (3.5-5.0) g/dL Arterial Blood Potassium (3.4-4.5) mmol/L Arterial Blood Glucose 106 H (75-99) mg/dL Crossmatch See Detail 06/26/23 06/26/23 06/26/23 Range/Units 11:09 11:44 12:18 WBC (3.8-10.6) k/uL RBC (4.30-5.90) m/uL Hgb (13.0-17.5) gm/dL Hct (39.0-53.0) % Neutrophils # (1.3-7.7) k/uL Lymphocytes # (1.0-4.8) k/uL ABG pH (7.35-7.45) ABG pCO2 (35-45) mmHg ABG pO2 137 H 395 H >420 H (83-108) mmHg ABG HCO3 27 H 26 H (21-25) mmol/L ABG Total CO2 (19-24) mmol/L ABG O2 Saturation 98.9 H >99.4 H >99.4 H (94-97) % ABG Hematocrit 30 L 30 L (34.0-46.0) % ABG Potassium 4.8 H (3.4-4.5) mmol/L ABG Ionized Calcium 3.8 L 4.1 L (4.5-5.3) mg/dL ABG Glucose 118 H 105 H 142 H (75-99) mg/dL ABG Lactic Acid (0.5-1.6) mmol/L Hemoglobin 11.7 L 9.7 L 9.7 L (13.0-17.5) gm/dL Sodium (137-145) mmol/L Chloride (98-107) mmol/L Glucose (74-99) mg/dL POC Glucose (mg/dL) (70-110) mg/dL Calcium (8.4-10.2) mg/dL Magnesium (1.6-2.3) mg/dL AST (17-59) U/L Total Protein (6.3-8.2) g/dL Albumin (3.5-5.0) g/dL Arterial Blood Potassium 4.8 H (3.4-4.5) mmol/L Arterial Blood Glucose 118 H 105 H 142 H (75-99) mg/dL Crossmatch 06/26/23 06/26/23 06/26/23 Range/Units 12:50 13:18 13:37 WBC (3.8-10.6) k/uL RBC (4.30-5.90) m/uL Hgb (13.0-17.5) gm/dL Hct (39.0-53.0) % Neutrophils # (1.3-7.7) k/uL Lymphocytes # (1.0-4.8) k/uL ABG pH (7.35-7.45) ABG pCO2 34 L (35-45) mmHg ABG pO2 >420 H 354 H >420 H (83-108) mmHg ABG HCO3 (21-25) mmol/L ABG Total CO2 (19-24) mmol/L ABG O2 Saturation >99.4 H >99.4 H >99.4 H (94-97) % ABG Hematocrit 30 L 28 L 28 L (34.0-46.0) % ABG Potassium 5.3 H 5.4 H 5.2 H (3.4-4.5) mmol/L ABG Ionized Calcium 4.2 L 4.0 L 4.1 L (4.5-5.3) mg/dL ABG Glucose 164 H 167 H 168 H (75-99) mg/dL ABG Lactic Acid (0.5-1.6) mmol/L Hemoglobin 9.7 L 9.0 L 9.1 L (13.0-17.5) gm/dL Sodium (137-145) mmol/L Chloride (98-107) mmol/L Glucose (74-99) mg/dL POC Glucose (mg/dL) (70-110) mg/dL Calcium (8.4-10.2) mg/dL Magnesium (1.6-2.3) mg/dL AST (17-59) U/L Total Protein (6.3-8.2) g/dL Albumin (3.5-5.0) g/dL Arterial Blood Potassium 5.3 H 5.4 H 5.2 H (3.4-4.5) mmol/L Arterial Blood Glucose 164 H 167 H 168 H (75-99) mg/dL Crossmatch 06/26/23 06/26/23 06/26/23 Range/Units 15:44 15:45 15:45 WBC 16.5 H (3.8-10.6) k/uL RBC 3.86 L (4.30-5.90) m/uL Hgb 11.8 L (13.0-17.5) gm/dL Hct 36.8 L (39.0-53.0) % Neutrophils # 14.4 H (1.3-7.7) k/uL Lymphocytes # (1.0-4.8) k/uL ABG pH (7.35-7.45) ABG pCO2 (35-45) mmHg ABG pO2 (83-108) mmHg ABG HCO3 (21-25) mmol/L ABG Total CO2 (19-24) mmol/L ABG O2 Saturation (94-97) % ABG Hematocrit (34.0-46.0) % ABG Potassium (3.4-4.5) mmol/L ABG Ionized Calcium (4.5-5.3) mg/dL ABG Glucose (75-99) mg/dL ABG Lactic Acid (0.5-1.6) mmol/L Hemoglobin (13.0-17.5) gm/dL Sodium 136 L (137-145) mmol/L Chloride 108 H (98-107) mmol/L Glucose 145 H (74-99) mg/dL POC Glucose (mg/dL) 148 H (70-110) mg/dL Calcium 7.6 L (8.4-10.2) mg/dL Magnesium 2.4 H (1.6-2.3) mg/dL AST 67 H (17-59) U/L Total Protein 5.5 L (6.3-8.2) g/dL Albumin 2.9 L (3.5-5.0) g/dL Arterial Blood Potassium (3.4-4.5) mmol/L Arterial Blood Glucose (75-99) mg/dL Crossmatch 06/26/23 06/26/23 06/26/23 Range/Units 15:52 16:29 16:30 WBC (3.8-10.6) k/uL RBC (4.30-5.90) m/uL Hgb (13.0-17.5) gm/dL Hct (39.0-53.0) % Neutrophils # (1.3-7.7) k/uL Lymphocytes # (1.0-4.8) k/uL ABG pH 7.31 L 7.32 L (7.35-7.45) ABG pCO2 54 H 52 H (35-45) mmHg ABG pO2 78 L (83-108) mmHg ABG HCO3 27 H 27 H (21-25) mmol/L ABG Total CO2 29 H 28 H (19-24) mmol/L ABG O2 Saturation 97.8 H (94-97) % ABG Hematocrit (34.0-46.0) % ABG Potassium (3.4-4.5) mmol/L ABG Ionized Calcium (4.5-5.3) mg/dL ABG Glucose (75-99) mg/dL ABG Lactic Acid (0.5-1.6) mmol/L Hemoglobin (13.0-17.5) gm/dL Sodium (137-145) mmol/L Chloride (98-107) mmol/L Glucose (74-99) mg/dL POC Glucose (mg/dL) 149 H (70-110) mg/dL Calcium (8.4-10.2) mg/dL Magnesium (1.6-2.3) mg/dL AST (17-59) U/L Total Protein (6.3-8.2) g/dL Albumin (3.5-5.0) g/dL Arterial Blood Potassium (3.4-4.5) mmol/L Arterial Blood Glucose (75-99) mg/dL Crossmatch 06/26/23 06/26/23 06/26/23 Range/Units 17:25 18:27 18:27 WBC 15.7 H (3.8-10.6) k/uL RBC 4.10 L (4.30-5.90) m/uL Hgb 12.4 L (13.0-17.5) gm/dL Hct 38.7 L (39.0-53.0) % Neutrophils # 13.8 H (1.3-7.7) k/uL Lymphocytes # 0.7 L (1.0-4.8) k/uL ABG pH (7.35-7.45) ABG pCO2 (35-45) mmHg ABG pO2 (83-108) mmHg ABG HCO3 (21-25) mmol/L ABG Total CO2 (19-24) mmol/L ABG O2 Saturation (94-97) % ABG Hematocrit (34.0-46.0) % ABG Potassium (3.4-4.5) mmol/L ABG Ionized Calcium (4.5-5.3) mg/dL ABG Glucose (75-99) mg/dL ABG Lactic Acid (0.5-1.6) mmol/L Hemoglobin (13.0-17.5) gm/dL Sodium (137-145) mmol/L Chloride (98-107) mmol/L Glucose (74-99) mg/dL POC Glucose (mg/dL) 140 H 144 H (70-110) mg/dL Calcium (8.4-10.2) mg/dL Magnesium (1.6-2.3) mg/dL AST (17-59) U/L Total Protein (6.3-8.2) g/dL Albumin (3.5-5.0) g/dL Arterial Blood Potassium (3.4-4.5) mmol/L Arterial Blood Glucose (75-99) mg/dL Crossmatch 06/26/23 06/26/23 06/26/23 Range/Units 20:09 20:50 20:51 WBC 14.2 H (3.8-10.6) k/uL RBC 4.00 L (4.30-5.90) m/uL Hgb 12.2 L (13.0-17.5) gm/dL Hct 37.9 L (39.0-53.0) % Neutrophils # 12.3 H (1.3-7.7) k/uL Lymphocytes # 0.9 L (1.0-4.8) k/uL ABG pH (7.35-7.45) ABG pCO2 (35-45) mmHg ABG pO2 (83-108) mmHg ABG HCO3 (21-25) mmol/L ABG Total CO2 (19-24) mmol/L ABG O2 Saturation (94-97) % ABG Hematocrit (34.0-46.0) % ABG Potassium (3.4-4.5) mmol/L ABG Ionized Calcium (4.5-5.3) mg/dL ABG Glucose (75-99) mg/dL ABG Lactic Acid (0.5-1.6) mmol/L Hemoglobin (13.0-17.5) gm/dL Sodium (137-145) mmol/L Chloride (98-107) mmol/L Glucose (74-99) mg/dL POC Glucose (mg/dL) 130 H 132 H (70-110) mg/dL Calcium (8.4-10.2) mg/dL Magnesium (1.6-2.3) mg/dL AST (17-59) U/L Total Protein (6.3-8.2) g/dL Albumin (3.5-5.0) g/dL Arterial Blood Potassium (3.4-4.5) mmol/L Arterial Blood Glucose (75-99) mg/dL Crossmatch 06/26/23 06/26/23 06/26/23 Range/Units 21:52 21:55 22:51 WBC (3.8-10.6) k/uL RBC (4.30-5.90) m/uL Hgb (13.0-17.5) gm/dL Hct (39.0-53.0) % Neutrophils # (1.3-7.7) k/uL Lymphocytes # (1.0-4.8) k/uL ABG pH (7.35-7.45) ABG pCO2 (35-45) mmHg ABG pO2 (83-108) mmHg ABG HCO3 26 H (21-25) mmol/L ABG Total CO2 28 H (19-24) mmol/L ABG O2 Saturation 98.0 H (94-97) % ABG Hematocrit (34.0-46.0) % ABG Potassium (3.4-4.5) mmol/L ABG Ionized Calcium (4.5-5.3) mg/dL ABG Glucose (75-99) mg/dL ABG Lactic Acid (0.5-1.6) mmol/L Hemoglobin (13.0-17.5) gm/dL Sodium (137-145) mmol/L Chloride (98-107) mmol/L Glucose (74-99) mg/dL POC Glucose (mg/dL) 132 H 136 H (70-110) mg/dL Calcium (8.4-10.2) mg/dL Magnesium (1.6-2.3) mg/dL AST (17-59) U/L Total Protein (6.3-8.2) g/dL Albumin (3.5-5.0) g/dL Arterial Blood Potassium (3.4-4.5) mmol/L Arterial Blood Glucose (75-99) mg/dL Crossmatch 06/26/23 06/27/23 06/27/23 Range/Units 23:48 00:50 02:03 WBC (3.8-10.6) k/uL RBC (4.30-5.90) m/uL Hgb (13.0-17.5) gm/dL Hct (39.0-53.0) % Neutrophils # (1.3-7.7) k/uL Lymphocytes # (1.0-4.8) k/uL ABG pH (7.35-7.45) ABG pCO2 (35-45) mmHg ABG pO2 (83-108) mmHg ABG HCO3 (21-25) mmol/L ABG Total CO2 (19-24) mmol/L ABG O2 Saturation (94-97) % ABG Hematocrit (34.0-46.0) % ABG Potassium (3.4-4.5) mmol/L ABG Ionized Calcium (4.5-5.3) mg/dL ABG Glucose (75-99) mg/dL ABG Lactic Acid (0.5-1.6) mmol/L Hemoglobin (13.0-17.5) gm/dL Sodium (137-145) mmol/L Chloride (98-107) mmol/L Glucose (74-99) mg/dL POC Glucose (mg/dL) 134 H 130 H 128 H (70-110) mg/dL Calcium (8.4-10.2) mg/dL Magnesium (1.6-2.3) mg/dL AST (17-59) U/L Total Protein (6.3-8.2) g/dL Albumin (3.5-5.0) g/dL Arterial Blood Potassium (3.4-4.5) mmol/L Arterial Blood Glucose (75-99) mg/dL Crossmatch 06/27/23 06/27/23 06/27/23 Range/Units 02:55 04:13 04:15 WBC (3.8-10.6) k/uL RBC (4.30-5.90) m/uL Hgb (13.0-17.5) gm/dL Hct (39.0-53.0) % Neutrophils # (1.3-7.7) k/uL Lymphocytes # (1.0-4.8) k/uL ABG pH (7.35-7.45) ABG pCO2 (35-45) mmHg ABG pO2 (83-108) mmHg ABG HCO3 (21-25) mmol/L ABG Total CO2 (19-24) mmol/L ABG O2 Saturation (94-97) % ABG Hematocrit (34.0-46.0) % ABG Potassium (3.4-4.5) mmol/L ABG Ionized Calcium (4.5-5.3) mg/dL ABG Glucose (75-99) mg/dL ABG Lactic Acid (0.5-1.6) mmol/L Hemoglobin (13.0-17.5) gm/dL Sodium (137-145) mmol/L Chloride (98-107) mmol/L Glucose 116 H (74-99) mg/dL POC Glucose (mg/dL) 122 H 123 H (70-110) mg/dL Calcium 7.8 L (8.4-10.2) mg/dL Magnesium (1.6-2.3) mg/dL AST 73 H (17-59) U/L Total Protein 5.5 L (6.3-8.2) g/dL Albumin 2.9 L (3.5-5.0) g/dL Arterial Blood Potassium (3.4-4.5) mmol/L Arterial Blood Glucose (75-99) mg/dL Crossmatch 06/27/23 06/27/23 06/27/23 Range/Units 05:00 05:20 06:17 WBC 13.7 H (3.8-10.6) k/uL RBC 3.73 L (4.30-5.90) m/uL Hgb 11.4 L (13.0-17.5) gm/dL Hct 35.5 L (39.0-53.0) % Neutrophils # 11.3 H (1.3-7.7) k/uL Lymphocytes # (1.0-4.8) k/uL ABG pH (7.35-7.45) ABG pCO2 (35-45) mmHg ABG pO2 (83-108) mmHg ABG HCO3 (21-25) mmol/L ABG Total CO2 (19-24) mmol/L ABG O2 Saturation (94-97) % ABG Hematocrit (34.0-46.0) % ABG Potassium (3.4-4.5) mmol/L ABG Ionized Calcium (4.5-5.3) mg/dL ABG Glucose (75-99) mg/dL ABG Lactic Acid (0.5-1.6) mmol/L Hemoglobin (13.0-17.5) gm/dL Sodium (137-145) mmol/L Chloride (98-107) mmol/L Glucose (74-99) mg/dL POC Glucose (mg/dL) 132 H 129 H (70-110) mg/dL Calcium (8.4-10.2) mg/dL Magnesium (1.6-2.3) mg/dL AST (17-59) U/L Total Protein (6.3-8.2) g/dL Albumin (3.5-5.0) g/dL Arterial Blood Potassium (3.4-4.5) mmol/L Arterial Blood Glucose (75-99) mg/dL Crossmatch 06/27/23 06/27/23 Range/Units 06:55 07:53 WBC (3.8-10.6) k/uL RBC (4.30-5.90) m/uL Hgb (13.0-17.5) gm/dL Hct (39.0-53.0) % Neutrophils # (1.3-7.7) k/uL Lymphocytes # (1.0-4.8) k/uL ABG pH (7.35-7.45) ABG pCO2 (35-45) mmHg ABG pO2 (83-108) mmHg ABG HCO3 (21-25) mmol/L ABG Total CO2 (19-24) mmol/L ABG O2 Saturation (94-97) % ABG Hematocrit (34.0-46.0) % ABG Potassium (3.4-4.5) mmol/L ABG Ionized Calcium (4.5-5.3) mg/dL ABG Glucose (75-99) mg/dL ABG Lactic Acid (0.5-1.6) mmol/L Hemoglobin (13.0-17.5) gm/dL Sodium (137-145) mmol/L Chloride (98-107) mmol/L Glucose (74-99) mg/dL POC Glucose (mg/dL) 117 H 127 H (70-110) mg/dL Calcium (8.4-10.2) mg/dL Magnesium (1.6-2.3) mg/dL AST (17-59) U/L Total Protein (6.3-8.2) g/dL Albumin (3.5-5.0) g/dL Arterial Blood Potassium (3.4-4.5) mmol/L Arterial Blood Glucose (75-99) mg/dL Crossmatch - Imaging and Cardiology Chest x-ray: report reviewed, image reviewed Assessment and Plan Assessment: Triple-vessel coronary artery disease, non-STEMI this admission, status post three-vessel coronary artery bypass grafting surgery Acute systolic heart failure with reduced ejection fraction 35-40%, mild mitral valve regurgitation and tricuspid valve regurgitation Epistaxis, resolved Shortness of breath, chest pain secondary to above Hypertension Left internal carotid artery stenosis 50 to 69% Remote history of tobacco dependence Severe COPD with preoperative FEV1 41% of predicted although not the best effort Previous EtOH use Occasional marijuana use History of kidney stones Obesity with BMI of 37.8 kg/m Family history of cancer Postoperative acute blood loss anemia, expected given hemodilution and cardiopulmonary bypass Plan: Continue to maximize medical therapy with aspirin, statin, Plavix, and beta- mari. Will increase beta-mari therapy as tolerated. Discontinue IV nitroglycerin drip. Wean O2 as tolerated. Encourage incentive spirometry use 10 times every hour while awake. Bronchodilators per pulmonology. Start Symbicort 160-4.5 mcg inhalation twice daily. Increase activity, ambulate as tolerated. PT/OT/cardiac rehab consulted. Will monitor daily labs and chest x-rays. Electrolyte replacement per protocol. Insulin management per internal medicine. Please continue IV insulin for 48 hours postsurgery, then may transition to subcutaneous per protocol. Preoperative hemoglobin A1c 5.1%. Pain control with current medication regimen. Toradol 15 mg IV every 6 hours for additional pain control. GI/DVT prophylaxis. Continue Essex-Chau catheter and Cordis for another 24 hours while on Primacor. Decrease Primacor to 0.125 mcg/kg/min. Continue right/left pleural chest tubes for another 24 hours, monitor output. We will discontinue his mediastinal chest tube. Continue Wang catheter for another 24 hours for strict accurate intake and output. Daily weights. Start Flomax 0.4 mg p.o. daily More recommendations to follow based on patient's clinical course. Time with Patient: Greater than 30
[2023-06-27] MEDS ORDERED: ATORVASTATIN 80 MG TAB PO SCH (09:00)
[2023-06-27] MEDS ORDERED: bisacodyL 10 MG SUPP RECTAL PRN (09:00)
[2023-06-27] MEDS ORDERED: ASPIRIN 81 MG PO SCH (09:00)
[2023-06-27] MEDS ORDERED: MAGNESIUM HYDROXIDE 2,400 MG/30 ML CUP PO PRN (09:00)
[2023-06-27 09:09] LABS: Glucose,Whole Blood 107 mg/dL (70-110)
[2023-06-27] MEDS: ATORVASTATIN 40 MG TAB PO SCH (09:11)
[2023-06-27] MEDS: MULTIVITAMINS, THERA 1 EACH TAB PO SCH (09:11)
[2023-06-27] MEDS: CLOPIDOGREL 75 MG TAB PO SCH (09:12)
[2023-06-27] MEDS: PANTOPRAZOLE 40 MG/10 ML VIAL IVP SCH (09:12)
[2023-06-27] MEDS: FOLIC ACID 1 MG TAB PO SCH (09:12)
[2023-06-27] MEDS: ASPIRIN 325 MG TAB PO SCH (09:12)
[2023-06-27] MEDS: METOPROLOL TARTRATE 12.5 MG TAB PO SCH (09:12)
[2023-06-27] MEDS: TAMSULOSIN 0.4 MG CAP.ER.24H PO SCH (09:12)
[2023-06-27] MEDS: THIAMINE 100 MG TAB PO SCH (09:15)
[2023-06-27 10:28] LABS: Glucose,Whole Blood 123 mg/dL (70-110)
--- NOTE | 2023-06-27 11:36 | P.PN ---
Subjective Progress Note Date: 06/27/23 Principal diagnosis: Coronary disease. Patient is a 58-year-old white male with past medical history significant for hypertension, coronary artery disease, previous tobacco dependence and current marijuana use, alcoholism, and anxiety. He does not currently follow with a primary care provider. Over the last couple months, the patient has had intermittent chest pain that radiates to his back and is associated with some left arm numbness. There is associated shortness of breath. His usually last for 15 minutes, and subsides with rest. The symptoms have significantly limited his activity level, he can no longer do activities such as go to the grocery store without symptoms. He went to [facility] earlier in the week, actually for a nosebleed. He was found to be hypertensive. He had some abnormal labs including an elevated troponins. He was diagnosed with a non-ST elevation [place]. For this reason he was transferred to [facility] for further evaluation and treatment on 06/19/2023. He did have a heart catheterization on 06/22/2023 which showed severe multivessel coronary artery disease including 100% proximal RCA stenosis, 100% LCx stenosis, 90% proximal LAD stenosis, and 90% diffuse ramus disease. There was recommendation for surgical revascularization, and cardiothoracic services were consulted. He is currently undergoing an extensive preoperative workup. Echocardiogram done this admission shows a reduced left ventricular ejection fraction of 35 to 40% along with some moderate concentric LVH. No observed significant valvular disease. He did have a preoperative bedside spirometry, at that time he had just learned some test results, he was anxious and uncooperative. His FEV1 was 1.58 L or 41%. Likely not best result and of limited value. He does have a significant smoking history, smoking 1.5 packs/day for many years. Quit smoking in 2020. Continues to recreationally smoke marijuana weekly. He denies ever being diagnosed with any kind of lung disease such as COPD or asthma. He is currently sitting up in bed, on room air, in no acute distress. We are asked to see this patient for preoperative pulmonary clearance for possible surgical revascularization. Chest CTA done at our facility did not show any evidence of pulmonary embolism. There was peripheral dependent groundglass opacities concerning for pulmonary venous congestion, atypical pneumonia was an alternative differential. Most recent CBC and BMP from 2 days ago were unremarkable. He was previously on a heparin drip, which has since been discontinued. Patient currently denies any chest pain. Denies any shortness of breath, coughing, sputum production. Afebrile. Incentive spirometer is at bedside. Patient was initially hesitant to undergo open heart, however, is leaning towards surgery. Patient continues to undergo extensive preoperative workup. STS score is being calculated. Progress note dated June 25, 2023. The patient was seen yesterday in consultation. He has a history of hypertension, coronary artery disease, previous tobacco dependence, alcoholism, anxiety, and marijuana use. The patient was recently evaluated, and found to have multivessel coronary disease, and is scheduled to have revascularization surgery tomorrow. The patient is practicing with his incentive spirometer. He is currently on room air. No IV fluids. Laboratory data includes a white count 10.3, hemoglobin 12.7, hematocrit 40.3, and a normal platelet count. Coagulation studies are normal. Sodium 137, potassium 4.1, chlorides 103, CO2 25, BUN 10, creatinine 0.83. Glucose is 95. Calcium is 9.4. Nasal screen was positive for Staph aureus, not MRSA. Progress note dated June 27, 2023. 58-year-old male postop day #1, status post three-vessel bypass surgery. The patient was not seen yesterday as he was in the operating room. The patient was extubated on June 25. He is currently on 6 L nasal cannula. He is getting lactated Ringer's at 20 cc an hour. He is also on Primacor 0.125 mcg/kg/min. Insulin drip has been weaned off. The patient is not really taking deep breaths, and we encouraged him to deep breathe, cough, clear secretions, as well as using the incentive spirometer, every hour. Current labs include a white count of 13.7, hemoglobin 11.4, hematocrit 35.5, and a normal platelet count. Sodium 137, potassium 4.4, chlorides 107, CO2 26, BUN 14, creatinine 0.86. Glucose is 123. Calcium 7.8. Albumin 2.9. Chest x-ray shows some postsurgical changes, and some basilar atelectasis. Objective - Vital Signs Vital signs: Vital Signs Temp 99.0 F 06/27/23 04:00 Pulse 94 06/27/23 08:56 Resp 25 H 06/27/23 07:00 BP 73/38 06/27/23 01:45 Pulse Ox 95 06/27/23 07:00 FiO2 50 06/27/23 00:00 Intake & Output 06/26/23 06/27/23 06/27/23 18:59 06:59 18:59 Intake Total 310.443 991.925 214.283 Output Total 1690 1115 30 Balance -1379.557 -123.075 184.283 Weight 125.2 kg Intake: IV 91 678 59 0.9 pressure bag 27 108 9 0.9ns for CO/CI 60 570 50 Intake, IV Titration 219.443 158.925 105.283 Amount Clevidipine Butyrate 25 0.8 mg In Empty Bag 1 bag @ 1 MG/HR 2 mls/hr IV .Q24H [facility] Rx#:[id number] Dexmedetomidine/0.9% NaCl 10.722 (Pmx) 400 mcg In Empty Bag 1 bag @ Titrate IV . Q0M [facility]TR[facility]IS Rx#:[id number] Insulin Regular 100 unit 4.2 17.217 5.283 In Sodium Chloride 0.9% 100 ml @ Per Protocol IV .Q0M [facility]TRUDIS Rx#:[id number] Lactated Ringers 1,000 ml 150 50 @ 20 mls/hr IV .Q24H [facility]TR[facility] Rx#:[id number] Milrinone-D5w Pmx 20 mg 29.005 100 In Dextrose/Water 1 100ml .bag @ 0.25 MCG/KG/MIN 9. 233 mls/hr IV .[id number] [facility] Rx#:[id number] Nitroglycerin-D5w Pmx 50 7.875 mg In Dextrose/Water 1 250ml.bag @ 5 MCG/MIN 1.5 mls/hr IV .Q24H [facility]TRUD[facility] Rx#: [id number] Norepinephrine 4 mg In 27.672 Sodium Chloride 0.9% 250 ml @ 0.02 MCG/KG/MIN 9.38 mls/hr IV .Q24H [facility]TRUD[facility] Rx#: [id number] propofoL 1,000 mg In 65.243 15.634 Empty Bag 1 bag @ Titrate IV .Q0M GERTRUDIS Rx#: [id number] Oral 75 50 Tube Feeding 50 Other 30 Output: Chest Tube Drainage 260 380 Chest Tube Mediastinal 100 180 Pleural Catheter 160 200 Bilateral Gastric Drainage 150 Urine 930 585 30 Estimated Blood Loss 500 Other: Voiding Method Indwelling Catheter Indwelling Catheter ABP, PAP, CO, CI - Last Documented Arterial Blood Pressure 106/60 Pulmonary Artery Pressure 39/8 Cardiac Output 7.6 Cardiac Index 3.2 - Exam No acute distress, oriented 3. The patient is currently on 6 L nasal cannula. HEENT examination is grossly unremarkable. Mucous membranes are moist. No oral lesions. Neck supple. Full range of motion. No adenopathy thyromegaly or neck vein distention. Cardiovascular examination reveals regular rhythm rate. S1-S2 normal. No S3 or S4. No discernible murmur noted. Heart rate is 94 bpm. Lungs reveal bilateral rhonchi. No wheezes, or crackles. Saturations are 95%. Breath sounds are equal bilaterally. Abdomen soft bowel sounds are heard. No masses or tenderness. Extremities are intact. No cyanosis clubbing or edema. Skin is without rash or lesion. Neurologic examination is brief but nonfocal. - Labs CBC & Chem 7: 06/27/23 05:00 06/27/23 04:15 Labs: Abnormal Lab Results - Last 24 Hours (Table) 06/25/23 06/26/23 06/26/23 Range/Units 10:27 09:07 09:21 WBC (3.8-10.6) k/uL RBC (4.30-5.90) m/uL Hgb (13.0-17.5) gm/dL Hct (39.0-53.0) % Neutrophils # (1.3-7.7) k/uL Lymphocytes # (1.0-4.8) k/uL ABG pH (7.35-7.45) ABG pCO2 (35-45) mmHg ABG pO2 35 L* 354 H (83-108) mmHg ABG HCO3 26 H 26 H (21-25) mmol/L ABG Total CO2 (19-24) mmol/L ABG O2 Saturation 64.7 L >99.4 H (94-97) % ABG Hematocrit 32 L (34.0-46.0) % ABG Potassium (3.4-4.5) mmol/L ABG Ionized Calcium (4.5-5.3) mg/dL ABG Glucose 106 H (75-99) mg/dL ABG Lactic Acid 3.0 H* (0.5-1.6) mmol/L Hemoglobin 10.5 L 11.7 L (13.0-17.5) gm/dL Sodium (137-145) mmol/L Chloride (98-107) mmol/L Glucose (74-99) mg/dL POC Glucose (mg/dL) (70-110) mg/dL Calcium (8.4-10.2) mg/dL Magnesium (1.6-2.3) mg/dL AST (17-59) U/L Total Protein (6.3-8.2) g/dL Albumin (3.5-5.0) g/dL Arterial Blood Potassium (3.4-4.5) mmol/L Arterial Blood Glucose 106 H (75-99) mg/dL Crossmatch See Detail 06/26/23 06/26/23 06/26/23 Range/Units 11:09 11:44 12:18 WBC (3.8-10.6) k/uL RBC (4.30-5.90) m/uL Hgb (13.0-17.5) gm/dL Hct (39.0-53.0) % Neutrophils # (1.3-7.7) k/uL Lymphocytes # (1.0-4.8) k/uL ABG pH (7.35-7.45) ABG pCO2 (35-45) mmHg ABG pO2 137 H 395 H >420 H (83-108) mmHg ABG HCO3 27 H 26 H (21-25) mmol/L ABG Total CO2 (19-24) mmol/L ABG O2 Saturation 98.9 H >99.4 H >99.4 H (94-97) % ABG Hematocrit 30 L 30 L (34.0-46.0) % ABG Potassium 4.8 H (3.4-4.5) mmol/L ABG Ionized Calcium 3.8 L 4.1 L (4.5-5.3) mg/dL ABG Glucose 118 H 105 H 142 H (75-99) mg/dL ABG Lactic Acid (0.5-1.6) mmol/L Hemoglobin 11.7 L 9.7 L 9.7 L (13.0-17.5) gm/dL Sodium (137-145) mmol/L Chloride (98-107) mmol/L Glucose (74-99) mg/dL POC Glucose (mg/dL) (70-110) mg/dL Calcium (8.4-10.2) mg/dL Magnesium (1.6-2.3) mg/dL AST (17-59) U/L Total Protein (6.3-8.2) g/dL Albumin (3.5-5.0) g/dL Arterial Blood Potassium 4.8 H (3.4-4.5) mmol/L Arterial Blood Glucose 118 H 105 H 142 H (75-99) mg/dL Crossmatch 06/26/23 06/26/23 06/26/23 Range/Units 12:50 13:18 13:37 WBC (3.8-10.6) k/uL RBC (4.30-5.90) m/uL Hgb (13.0-17.5) gm/dL Hct (39.0-53.0) % Neutrophils # (1.3-7.7) k/uL Lymphocytes # (1.0-4.8) k/uL ABG pH (7.35-7.45) ABG pCO2 34 L (35-45) mmHg ABG pO2 >420 H 354 H >420 H (83-108) mmHg ABG HCO3 (21-25) mmol/L ABG Total CO2 (19-24) mmol/L ABG O2 Saturation >99.4 H >99.4 H >99.4 H (94-97) % ABG Hematocrit 30 L 28 L 28 L (34.0-46.0) % ABG Potassium 5.3 H 5.4 H 5.2 H (3.4-4.5) mmol/L ABG Ionized Calcium 4.2 L 4.0 L 4.1 L (4.5-5.3) mg/dL ABG Glucose 164 H 167 H 168 H (75-99) mg/dL ABG Lactic Acid (0.5-1.6) mmol/L Hemoglobin 9.7 L 9.0 L 9.1 L (13.0-17.5) gm/dL Sodium (137-145) mmol/L Chloride (98-107) mmol/L Glucose (74-99) mg/dL POC Glucose (mg/dL) (70-110) mg/dL Calcium (8.4-10.2) mg/dL Magnesium (1.6-2.3) mg/dL AST (17-59) U/L Total Protein (6.3-8.2) g/dL Albumin (3.5-5.0) g/dL Arterial Blood Potassium 5.3 H 5.4 H 5.2 H (3.4-4.5) mmol/L Arterial Blood Glucose 164 H 167 H 168 H (75-99) mg/dL Crossmatch 06/26/23 06/26/23 06/26/23 Range/Units 15:44 15:45 15:45 WBC 16.5 H (3.8-10.6) k/uL RBC 3.86 L (4.30-5.90) m/uL Hgb 11.8 L (13.0-17.5) gm/dL Hct 36.8 L (39.0-53.0) % Neutrophils # 14.4 H (1.3-7.7) k/uL Lymphocytes # (1.0-4.8) k/uL ABG pH (7.35-7.45) ABG pCO2 (35-45) mmHg ABG pO2 (83-108) mmHg ABG HCO3 (21-25) mmol/L ABG Total CO2 (19-24) mmol/L ABG O2 Saturation (94-97) % ABG Hematocrit (34.0-46.0) % ABG Potassium (3.4-4.5) mmol/L ABG Ionized Calcium (4.5-5.3) mg/dL ABG Glucose (75-99) mg/dL ABG Lactic Acid (0.5-1.6) mmol/L Hemoglobin (13.0-17.5) gm/dL Sodium 136 L (137-145) mmol/L Chloride 108 H (98-107) mmol/L Glucose 145 H (74-99) mg/dL POC Glucose (mg/dL) 148 H (70-110) mg/dL Calcium 7.6 L (8.4-10.2) mg/dL Magnesium 2.4 H (1.6-2.3) mg/dL AST 67 H (17-59) U/L Total Protein 5.5 L (6.3-8.2) g/dL Albumin 2.9 L (3.5-5.0) g/dL Arterial Blood Potassium (3.4-4.5) mmol/L Arterial Blood Glucose (75-99) mg/dL Crossmatch 06/26/23 06/26/23 06/26/23 Range/Units 15:52 16:29 16:30 WBC (3.8-10.6) k/uL RBC (4.30-5.90) m/uL Hgb (13.0-17.5) gm/dL Hct (39.0-53.0) % Neutrophils # (1.3-7.7) k/uL Lymphocytes # (1.0-4.8) k/uL ABG pH 7.31 L 7.32 L (7.35-7.45) ABG pCO2 54 H 52 H (35-45) mmHg ABG pO2 78 L (83-108) mmHg ABG HCO3 27 H 27 H (21-25) mmol/L ABG Total CO2 29 H 28 H (19-24) mmol/L ABG O2 Saturation 97.8 H (94-97) % ABG Hematocrit (34.0-46.0) % ABG Potassium (3.4-4.5) mmol/L ABG Ionized Calcium (4.5-5.3) mg/dL ABG Glucose (75-99) mg/dL ABG Lactic Acid (0.5-1.6) mmol/L Hemoglobin (13.0-17.5) gm/dL Sodium (137-145) mmol/L Chloride (98-107) mmol/L Glucose (74-99) mg/dL POC Glucose (mg/dL) 149 H (70-110) mg/dL Calcium (8.4-10.2) mg/dL Magnesium (1.6-2.3) mg/dL AST (17-59) U/L Total Protein (6.3-8.2) g/dL Albumin (3.5-5.0) g/dL Arterial Blood Potassium (3.4-4.5) mmol/L Arterial Blood Glucose (75-99) mg/dL Crossmatch 06/26/23 06/26/23 06/26/23 Range/Units 17:25 18:27 18:27 WBC 15.7 H (3.8-10.6) k/uL RBC 4.10 L (4.30-5.90) m/uL Hgb 12.4 L (13.0-17.5) gm/dL Hct 38.7 L (39.0-53.0) % Neutrophils # 13.8 H (1.3-7.7) k/uL Lymphocytes # 0.7 L (1.0-4.8) k/uL ABG pH (7.35-7.45) ABG pCO2 (35-45) mmHg ABG pO2 (83-108) mmHg ABG HCO3 (21-25) mmol/L ABG Total CO2 (19-24) mmol/L ABG O2 Saturation (94-97) % ABG Hematocrit (34.0-46.0) % ABG Potassium (3.4-4.5) mmol/L ABG Ionized Calcium (4.5-5.3) mg/dL ABG Glucose (75-99) mg/dL ABG Lactic Acid (0.5-1.6) mmol/L Hemoglobin (13.0-17.5) gm/dL Sodium (137-145) mmol/L Chloride (98-107) mmol/L Glucose (74-99) mg/dL POC Glucose (mg/dL) 140 H 144 H (70-110) mg/dL Calcium (8.4-10.2) mg/dL Magnesium (1.6-2.3) mg/dL AST (17-59) U/L Total Protein (6.3-8.2) g/dL Albumin (3.5-5.0) g/dL Arterial Blood Potassium (3.4-4.5) mmol/L Arterial Blood Glucose (75-99) mg/dL Crossmatch 06/26/23 06/26/23 06/26/23 Range/Units 20:09 20:50 20:51 WBC 14.2 H (3.8-10.6) k/uL RBC 4.00 L (4.30-5.90) m/uL Hgb 12.2 L (13.0-17.5) gm/dL Hct 37.9 L (39.0-53.0) % Neutrophils # 12.3 H (1.3-7.7) k/uL Lymphocytes # 0.9 L (1.0-4.8) k/uL ABG pH (7.35-7.45) ABG pCO2 (35-45) mmHg ABG pO2 (83-108) mmHg ABG HCO3 (21-25) mmol/L ABG Total CO2 (19-24) mmol/L ABG O2 Saturation (94-97) % ABG Hematocrit (34.0-46.0) % ABG Potassium (3.4-4.5) mmol/L ABG Ionized Calcium (4.5-5.3) mg/dL ABG Glucose (75-99) mg/dL ABG Lactic Acid (0.5-1.6) mmol/L Hemoglobin (13.0-17.5) gm/dL Sodium (137-145) mmol/L Chloride (98-107) mmol/L Glucose (74-99) mg/dL POC Glucose (mg/dL) 130 H 132 H (70-110) mg/dL Calcium (8.4-10.2) mg/dL Magnesium (1.6-2.3) mg/dL AST (17-59) U/L Total Protein (6.3-8.2) g/dL Albumin (3.5-5.0) g/dL Arterial Blood Potassium (3.4-4.5) mmol/L Arterial Blood Glucose (75-99) mg/dL Crossmatch 06/26/23 06/26/23 06/26/23 Range/Units 21:52 21:55 22:51 WBC (3.8-10.6) k/uL RBC (4.30-5.90) m/uL Hgb (13.0-17.5) gm/dL Hct (39.0-53.0) % Neutrophils # (1.3-7.7) k/uL Lymphocytes # (1.0-4.8) k/uL ABG pH (7.35-7.45) ABG pCO2 (35-45) mmHg ABG pO2 (83-108) mmHg ABG HCO3 26 H (21-25) mmol/L ABG Total CO2 28 H (19-24) mmol/L ABG O2 Saturation 98.0 H (94-97) % ABG Hematocrit (34.0-46.0) % ABG Potassium (3.4-4.5) mmol/L ABG Ionized Calcium (4.5-5.3) mg/dL ABG Glucose (75-99) mg/dL ABG Lactic Acid (0.5-1.6) mmol/L Hemoglobin (13.0-17.5) gm/dL Sodium (137-145) mmol/L Chloride (98-107) mmol/L Glucose (74-99) mg/dL POC Glucose (mg/dL) 132 H 136 H (70-110) mg/dL Calcium (8.4-10.2) mg/dL Magnesium (1.6-2.3) mg/dL AST (17-59) U/L Total Protein (6.3-8.2) g/dL Albumin (3.5-5.0) g/dL Arterial Blood Potassium (3.4-4.5) mmol/L Arterial Blood Glucose (75-99) mg/dL Crossmatch 06/26/23 06/27/23 06/27/23 Range/Units 23:48 00:50 02:03 WBC (3.8-10.6) k/uL RBC (4.30-5.90) m/uL Hgb (13.0-17.5) gm/dL Hct (39.0-53.0) % Neutrophils # (1.3-7.7) k/uL Lymphocytes # (1.0-4.8) k/uL ABG pH (7.35-7.45) ABG pCO2 (35-45) mmHg ABG pO2 (83-108) mmHg ABG HCO3 (21-25) mmol/L ABG Total CO2 (19-24) mmol/L ABG O2 Saturation (94-97) % ABG Hematocrit (34.0-46.0) % ABG Potassium (3.4-4.5) mmol/L ABG Ionized Calcium (4.5-5.3) mg/dL ABG Glucose (75-99) mg/dL ABG Lactic Acid (0.5-1.6) mmol/L Hemoglobin (13.0-17.5) gm/dL Sodium (137-145) mmol/L Chloride (98-107) mmol/L Glucose (74-99) mg/dL POC Glucose (mg/dL) 134 H 130 H 128 H (70-110) mg/dL Calcium (8.4-10.2) mg/dL Magnesium (1.6-2.3) mg/dL AST (17-59) U/L Total Protein (6.3-8.2) g/dL Albumin (3.5-5.0) g/dL Arterial Blood Potassium (3.4-4.5) mmol/L Arterial Blood Glucose (75-99) mg/dL Crossmatch 06/27/23 06/27/23 06/27/23 Range/Units 02:55 04:13 04:15 WBC (3.8-10.6) k/uL RBC (4.30-5.90) m/uL Hgb (13.0-17.5) gm/dL Hct (39.0-53.0) % Neutrophils # (1.3-7.7) k/uL Lymphocytes # (1.0-4.8) k/uL ABG pH (7.35-7.45) ABG pCO2 (35-45) mmHg ABG pO2 (83-108) mmHg ABG HCO3 (21-25) mmol/L ABG Total CO2 (19-24) mmol/L ABG O2 Saturation (94-97) % ABG Hematocrit (34.0-46.0) % ABG Potassium (3.4-4.5) mmol/L ABG Ionized Calcium (4.5-5.3) mg/dL ABG Glucose (75-99) mg/dL ABG Lactic Acid (0.5-1.6) mmol/L Hemoglobin (13.0-17.5) gm/dL Sodium (137-145) mmol/L Chloride (98-107) mmol/L Glucose 116 H (74-99) mg/dL POC Glucose (mg/dL) 122 H 123 H (70-110) mg/dL Calcium 7.8 L (8.4-10.2) mg/dL Magnesium (1.6-2.3) mg/dL AST 73 H (17-59) U/L Total Protein 5.5 L (6.3-8.2) g/dL Albumin 2.9 L (3.5-5.0) g/dL Arterial Blood Potassium (3.4-4.5) mmol/L Arterial Blood Glucose (75-99) mg/dL Crossmatch 06/27/23 06/27/23 06/27/23 Range/Units 05:00 05:20 06:17 WBC 13.7 H (3.8-10.6) k/uL RBC 3.73 L (4.30-5.90) m/uL Hgb 11.4 L (13.0-17.5) gm/dL Hct 35.5 L (39.0-53.0) % Neutrophils # 11.3 H (1.3-7.7) k/uL Lymphocytes # (1.0-4.8) k/uL ABG pH (7.35-7.45) ABG pCO2 (35-45) mmHg ABG pO2 (83-108) mmHg ABG HCO3 (21-25) mmol/L ABG Total CO2 (19-24) mmol/L ABG O2 Saturation (94-97) % ABG Hematocrit (34.0-46.0) % ABG Potassium (3.4-4.5) mmol/L ABG Ionized Calcium (4.5-5.3) mg/dL ABG Glucose (75-99) mg/dL ABG Lactic Acid (0.5-1.6) mmol/L Hemoglobin (13.0-17.5) gm/dL Sodium (137-145) mmol/L Chloride (98-107) mmol/L Glucose (74-99) mg/dL POC Glucose (mg/dL) 132 H 129 H (70-110) mg/dL Calcium (8.4-10.2) mg/dL Magnesium (1.6-2.3) mg/dL AST (17-59) U/L Total Protein (6.3-8.2) g/dL Albumin (3.5-5.0) g/dL Arterial Blood Potassium (3.4-4.5) mmol/L Arterial Blood Glucose (75-99) mg/dL Crossmatch 06/27/23 06/27/23 06/27/23 Range/Units 06:55 07:53 10:26 WBC (3.8-10.6) k/uL RBC (4.30-5.90) m/uL Hgb (13.0-17.5) gm/dL Hct (39.0-53.0) % Neutrophils # (1.3-7.7) k/uL Lymphocytes # (1.0-4.8) k/uL ABG pH (7.35-7.45) ABG pCO2 (35-45) mmHg ABG pO2 (83-108) mmHg ABG HCO3 (21-25) mmol/L ABG Total CO2 (19-24) mmol/L ABG O2 Saturation (94-97) % ABG Hematocrit (34.0-46.0) % ABG Potassium (3.4-4.5) mmol/L ABG Ionized Calcium (4.5-5.3) mg/dL ABG Glucose (75-99) mg/dL ABG Lactic Acid (0.5-1.6) mmol/L Hemoglobin (13.0-17.5) gm/dL Sodium (137-145) mmol/L Chloride (98-107) mmol/L Glucose (74-99) mg/dL POC Glucose (mg/dL) 117 H 127 H 123 H (70-110) mg/dL Calcium (8.4-10.2) mg/dL Magnesium (1.6-2.3) mg/dL AST (17-59) U/L Total Protein (6.3-8.2) g/dL Albumin (3.5-5.0) g/dL Arterial Blood Potassium (3.4-4.5) mmol/L Arterial Blood Glucose (75-99) mg/dL Crossmatch Assessment and Plan Assessment: Postop day #1, status post three-vessel bypass surgery. Routine postoperative ventilator management, with successful extubation on June 26, 2023. Non-ST elevation [place] Severe multivessel coronary artery disease, heart catheterization on 06/22/2023 which showed severe multivessel coronary artery disease including 100% proximal RCA stenosis, 100% LCx stenosis, 90% LAD stenosis, and 90% diffuse ramus disease. Acute dyspnea, likely secondary to above. Possible underlying chronic obstructive pulmonary disease, patient has an extensive smoking history. Bedside spirometry was technically a poor study, as the patient was anxious and uncooperative at that time. Likely not good effort. FEV1 was 1.58 L or 41% of predicted. Former tobacco dependence, over 59-audn-toly history, quitting in 2020. Current marijuana use, weekly. Left internal carotid artery stenosis, estimated at 50 to 69%. Epistaxis, resolved. Anxiety . History of alcoholism. Hypertension. Obesity, with a BMI of 37 kg/m. Plan: Plan dated June 25, 2023. The patient is scheduled to have surgery, tomorrow. Our role in the process, was explained to the patient. The first thing, that we will attempt to do, is get the patient extubated as soon as possible. Next, we will see the patient on a daily basis, to encourage him to have excellent lung health, with deep breathing, coughing, clearing of secretions, and hourly use of the incentive spirometer. Labs, x-rays, medications are reviewed. We will continue to fo llow. The patient is currently on room air. He is currently not receiving any IV fluids. Plan dated June 27, 2023. The patient is seen today in room 265. He is postop day #1, status post three-vessel bypass surgery. The patient was extubated on June 25. He is currently on oxygen by nasal cannula at 6 L. He is getting lactated Ringer's at 20 cc an hour. He continues on Primacor, 0.125 mcg/kg/min. Insulin drip has been weaned off. Labs, x-rays, and medications are reviewed. We will continue to follow make recommendations along the way. We encourage the patient to deep breathe, cough, and clear secretions. We also recommend hourly use of the incentive spirometer. Time with Patient: Greater than 30
[2023-06-27 12:20] LABS: Glucose,Whole Blood 121 mg/dL (70-110)
--- NOTE | 2023-06-27 13:16 | P.PN ---
Subjective Progress Note Date: 06/26/23 58-year-old male who presents emergency department as a transfer from [facility]. He originally went in there for chest pain which has been going on for greater than a week. EKG was performed which demonstrated Q waves in the inferior leads. Troponin level was elevated. Patient was given a dose of Lovenox and transferred to our facility for cardiology evaluation. Troponin went from 76 to 172. D-dimer was normal. BNP was 1449. Patient was given a dose of Lovenox 120 mg and 40 mg of Lasix. Patient initially presented to [facility] by EMS due to nosebleed. He did not present for chest pain. Due to concern for coronary artery disease, patient was transferred from the ER at [facility] to [facility]. He did receive IV Lasix 40 mg at [facility] and he thinks his breathing is a bit better today. His initial blood pressure at [facility] was 159/100. Troponin was elevated. D-dimer was normal. Chest x-ray revealed CHF. Patient now has a blood pressure 154/101 and heart rate of 101. He denies having any chest pain at this time. EKG sinus rhythm with none specific ST changes. CTA of the chest reveals no evidence of pulmonary embolism. Peripheral, dependent ground glass pulmonary opacities consistent with atypical pulmonary infection such as COVID-19 or other viral or pulmonary venous congestion. CBC and CMP normal. Troponins 0.485 and 0.743. 06/21/2023 Patient is seen and evaluated sitting up in bed; no complaint of chest pain or shortness of breath; anxious to go home Vital signs are reviewed and remained stable Patient is currently on IV heparin per protocol, aspirin 81 mg daily, Lipitor 80 mg daily and Lopressor 50 mg twice daily Cardiology on board with plans for cardiac catheterization tomorrow morning 06/22/2023 Patient s/p cardiac cath showing severe triple-vessel coronary artery disease. Showing 100% occluded RCA and left circumflex artery and 90% left coronary anterior descending coronary artery After cardiac cath patient was walking in the room with no difficulty. Patient wants to be discharged Cardiothoracic surgery team evaluated the patient however patient wants to follow-up as an outpatient Currently denies chest pain or dyspnea or any other complaint Patient remains on aspirin statin metoprolol switched to Coreg, and Imdur Echocardiogram showing ejection fraction 35 to 40% 06/23/2023 pt is with No chest pain no dyspnea No other new complaints Hemodynamically stable He finished his heparin drip treatment. Currently his Aspirin 81 Mg and Coreg 25 Mg Also He Is on Losartan 100 Mg and Lasix Once Daily Patient Is Aware about the Result of Severe Triple-Vessel Coronary Artery Disease and His Been Followed by Cardiothoracic Surgery Team for Possible Bypass Procedure, patient is considering inpatient versus outpatient management for now 06/24/2023 Patient awake alert No chest pain or dyspnea Patient currently on aspirin 81 mg Patient planned to undergo cardiac bypass procedure on Sunday 06/25. Patient looks agreeable to this plan. 06/25/2023 Patient awake alert looks comfortable No chest pain, no dyspnea No other new complaint Patient feels motivated to go for bypass surgery tomorrow with cardiothoracic surgery team Hemodynamically stable, labs reviewed, WBC is 8.4, hemoglobin 13.1, platelet count 349 Electrolytes are normal, creatinine 0.9, hemoglobin A1c 5.1%, TSH is 2.6. He has positive MRSA test and his nasal sample. Patient on aspirin 81 mg From medical perspective there is no contraindication to proceed with surgery 06/25. Patient seen and examined. Currently n.p.o., going for CABG today REVIEW OF SYSTEMS: CONSTITUTIONAL: No fever, no malaise,. CARDIOVASCULAR: No chest pain, no palpitations, no syncope. PULMONARY: No shortness of breath, no cough, GASTROINTESTINAL: No diarrhea, no nausea, no vomiting, no abdominal pain. NEUROLOGICAL: No headaches, no weakness, PHYSICAL EXAMINATION: GENERAL: The patient is alert and oriented x3, not in any acute distress. Well developed, well nourished. HEENT: Pupils are round and equally reacting to light. EOMI. No scleral icterus. No conjunctival pallor. Normocephalic, atraumatic. No pharyngeal erythema. No thyromegaly. CARDIOVASCULAR: S1 and S2 present. No murmurs, rubs, or gallops. PULMONARY: Chest is clear to auscultation, no wheezing or crackles. ABDOMEN: Soft, nontender, nondistended, normoactive bowel sounds. No palpable organomegaly. MUSCULOSKELETAL: No joint swelling or deformity. EXTREMITIES: No cyanosis, clubbing, or pedal edema. NEUROLOGICAL: Gross neurological examination did not reveal any focal deficits. SKIN: No rashes. Assessment and plan Non-STEMI with cardiac cath Showing 100% occluded RCA and left circumflex artery and 90% left coronary anterior descending coronary artery Ischemic cardiomyopathy with ejection fraction 35 to 40% Hypertension Obesity with BMI of 37 Hyperlipidemia Monitor vital signs Monitor CBC Monitor CMP Continue telemetry monitoring Continue with aspirin, statin Continue with Coreg and Imdur Patient currently n.p.o., going for CABG today Critical care following Labs and medication were reviewed.. Continue same treatment. Continue with symptomatic treatment. Resume home medication. Monitor labs and vitals. DVT and GI prophylaxis. Further recommendations as per clinical course of the patient Dictation was produced using [employer] dictation software. please excuse any grammatical, word or spelling errors. Objective - Vital Signs Vital signs: Vital Signs Temp 97.4 F L 06/26/23 06:22 Pulse 88 06/26/23 06:22 Resp 19 06/26/23 04:09 BP 129/66 06/26/23 06:22 Pulse Ox 95 06/26/23 06:22 FiO2 Intake & Output 06/25/23 06/26/23 06/26/23 18:59 06:59 18:59 Intake Total 118 100 Output Total 0 500 Balance 118 -400 Weight 123.1 kg Intake: IV 100 Oral 118 Output: Urine 500 Stool 0 Other: Voiding Method Toilet Toilet # Voids 2 - Labs CBC & Chem 7: 06/27/23 05:00 06/27/23 04:15 Labs: Abnormal Lab Results - Last 24 Hours (Table) 06/25/23 06/25/23 Range/Units 10:27 10:27 RBC 4.23 L (4.30-5.90) m/uL Hgb 12.7 L (13.0-17.5) gm/dL Crossmatch See Detail
--- NOTE | 2023-06-27 13:17 | P.PN ---
Subjective Progress Note Date: 06/27/23 58-year-old male who presents emergency department as a transfer from [facility]. He originally went in there for chest pain which has been going on for greater than a week. EKG was performed which demonstrated Q waves in the inferior leads. Troponin level was elevated. Patient was given a dose of Lovenox and transferred to our facility for cardiology evaluation. Troponin went from 76 to 172. D-dimer was normal. BNP was 1449. Patient was given a dose of Lovenox 120 mg and 40 mg of Lasix. Patient initially presented to [facility] by EMS due to nosebleed. He did not present for chest pain. Due to concern for coronary artery disease, patient was transferred from the ER at [facility] to [facility]. He did receive IV Lasix 40 mg at [facility] and he thinks his breathing is a bit better today. His initial blood pressure at [facility] was 159/100. Troponin was elevated. D-dimer was normal. Chest x-ray revealed CHF. Patient now has a blood pressure 154/101 and heart rate of 101. He denies having any chest pain at this time. EKG sinus rhythm with none specific ST changes. CTA of the chest reveals no evidence of pulmonary embolism. Peripheral, dependent ground glass pulmonary opacities consistent with atypical pulmonary infection such as COVID-19 or other viral or pulmonary venous congestion. CBC and CMP normal. Troponins 0.485 and 0.743. 06/21/2023 Patient is seen and evaluated sitting up in bed; no complaint of chest pain or shortness of breath; anxious to go home Vital signs are reviewed and remained stable Patient is currently on IV heparin per protocol, aspirin 81 mg daily, Lipitor 80 mg daily and Lopressor 50 mg twice daily Cardiology on board with plans for cardiac catheterization tomorrow morning 06/22/2023 Patient s/p cardiac cath showing severe triple-vessel coronary artery disease. Showing 100% occluded RCA and left circumflex artery and 90% left coronary anterior descending coronary artery After cardiac cath patient was walking in the room with no difficulty. Patient wants to be discharged Cardiothoracic surgery team evaluated the patient however patient wants to follow-up as an outpatient Currently denies chest pain or dyspnea or any other complaint Patient remains on aspirin statin metoprolol switched to Coreg, and Imdur Echocardiogram showing ejection fraction 35 to 40% 06/23/2023 pt is with No chest pain no dyspnea No other new complaints Hemodynamically stable He finished his heparin drip treatment. Currently his Aspirin 81 Mg and Coreg 25 Mg Also He Is on Losartan 100 Mg and Lasix Once Daily Patient Is Aware about the Result of Severe Triple-Vessel Coronary Artery Disease and His Been Followed by Cardiothoracic Surgery Team for Possible Bypass Procedure, patient is considering inpatient versus outpatient management for now 06/24/2023 Patient awake alert No chest pain or dyspnea Patient currently on aspirin 81 mg Patient planned to undergo cardiac bypass procedure on Sunday 06/25. Patient looks agreeable to this plan. 06/25/2023 Patient awake alert looks comfortable No chest pain, no dyspnea No other new complaint Patient feels motivated to go for bypass surgery tomorrow with cardiothoracic surgery team Hemodynamically stable, labs reviewed, WBC is 8.4, hemoglobin 13.1, platelet count 349 Electrolytes are normal, creatinine 0.9, hemoglobin A1c 5.1%, TSH is 2.6. He has positive MRSA test and his nasal sample. Patient on aspirin 81 mg From medical perspective there is no contraindication to proceed with surgery 06/25. Patient seen and examined. Patient was seen for CABG. Currently n.p.o. 06/26. Patient seen examined. Currently in ICU. Currently on 8 L of oxygen. Patient continues to be on Primacor drip. Patient also has chest tubes and Sharples-Chau catheter in place. States that he has poor appetite. States he is tired, wants to sleep. REVIEW OF SYSTEMS: CONSTITUTIONAL: No fever, no malaise,. CARDIOVASCULAR: no palpitations, no syncope. PULMONARY: No shortness of breath, no cough, GASTROINTESTINAL: No diarrhea, no nausea, no vomiting, no abdominal pain. NEUROLOGICAL: No headaches, no weakness, PHYSICAL EXAMINATION: GENERAL: The patient is alert and oriented x3, not in any acute distress. HEENT: Pupils are round and equally reacting to light. EOMI. No scleral icterus. No conjunctival pallor. Normocephalic, atraumatic. No pharyngeal erythema. No thyromegaly. CARDIOVASCULAR: S1 and S2 present. No murmurs, rubs, or gallops. PULMONARY: Diminished breath sounds at bases, no wheezing or crackles. Sternotomy surgical incision seen, chest tube seen ABDOMEN: Soft, nontender, nondistended, normoactive bowel sounds. No palpable organomegaly. MUSCULOSKELETAL: No joint swelling or deformity. EXTREMITIES: No cyanosis, clubbing, or pedal edema. NEUROLOGICAL: Gross neurological examination did not reveal any focal deficits. SKIN: No rashes. Assessment and plan Triple-vessel coronary artery disease, status post three-vessel coronary artery bypass grafting surgery Non-STEMI with cardiac cath Showing 100% occluded RCA and left circumflex artery and 90% left coronary anterior descending coronary artery Ischemic cardiomyopathy with ejection fraction 35 to 40% Hypertension Obesity with BMI of 37 Hyperlipidemia Shortness of breath, chest pain secondary to above Left internal carotid artery stenosis 50 to 69% Remote history of tobacco dependence Severe COPD with preoperative FEV1 41% of predicted although not the best effort Monitor vital signs Monitor CBC Monitor CMP Continue telemetry monitoring Continue postop CABG care per CT surgery Continue chest tube management per Ct surgery Continue Primacor drip per CT surgery Continue with aspirin, Plavix statin Continue with Coreg and Imdur CT surgery following Critical care following Labs and medication were reviewed.. Continue same treatment. Continue with symptomatic treatment. Resume home medication. Monitor labs and vitals. DVT and GI prophylaxis. Further recommendations as per clinical course of the patient Dictation was produced using [employer] dictation software. please excuse any grammatical, word or spelling errors. Objective - Vital Signs Vital signs: Vital Signs Temp 99.0 F 06/27/23 04:00 Pulse 94 06/27/23 08:56 Resp 25 H 06/27/23 07:00 BP 73/38 06/27/23 01:45 Pulse Ox 95 06/27/23 07:00 FiO2 50 06/27/23 00:00 Intake & Output 06/26/23 06/27/23 06/27/23 18:59 06:59 18:59 Intake Total 310.443 991.925 112.783 Output Total 1690 1115 30 Balance -1379.557 -123.075 82.783 Weight 125.2 kg Intake: IV 91 678 59 0.9 pressure bag 27 108 9 0.9ns for CO/CI 60 570 50 Intake, IV Titration 219.443 158.925 3.783 Amount Clevidipine Butyrate 25 0.8 mg In Empty Bag 1 bag @ 1 MG/HR 2 mls/hr IV .Q24H [facility] Rx#:[id number] Dexmedetomidine/0.9% NaCl 10.722 (Pmx) 400 mcg In Empty Bag 1 bag @ Titrate IV . Q0M [facility] Rx#:[id number] Insulin Regular 100 unit 4.2 17.217 3.783 In Sodium Chloride 0.9% 100 ml @ Per Protocol IV .Q0M [facility] Rx#:[id number] Lactated Ringers 1,000 ml 150 50 @ 20 mls/hr IV .Q24H [facility] Rx#:[id number] Milrinone-D5w Pmx 20 mg 29.005 In Dextrose/Water 1 100ml .bag @ 0.25 MCG/KG/MIN 9. 233 mls/hr IV .[id number] [facility] Rx#:[id number] Nitroglycerin-D5w Pmx 50 7.875 mg In Dextrose/Water 1 250ml.bag @ 5 MCG/MIN 1.5 mls/hr IV .Q24H [facility] Rx#: [id number] Norepinephrine 4 mg In 27.672 Sodium Chloride 0.9% 250 ml @ 0.02 MCG/KG/MIN 9.38 mls/hr IV .Q24H [facility] Rx#: [id number] propofoL 1,000 mg In 65.243 15.634 Empty Bag 1 bag @ Titrate IV .Q0M [facility] Rx#: [id number] Oral 75 50 Tube Feeding 50 Other 30 Output: Chest Tube Drainage 260 380 Chest Tube Mediastinal 100 180 Pleural Catheter 160 200 Bilateral Gastric Drainage 150 Urine 930 585 30 Estimated Blood Loss 500 Other: Voiding Method Indwelling Catheter Indwelling Catheter ABP, PAP, CO, CI - Last Documented Arterial Blood Pressure 106/60 Pulmonary Artery Pressure 39/8 Cardiac Output 7.6 Cardiac Index 3.2 - Labs CBC & Chem 7: 06/27/23 05:00 06/27/23 04:15 Labs: Abnormal Lab Results - Last 24 Hours (Table) 06/25/23 06/26/23 06/26/23 Range/Units 10:27 09:07 09:21 WBC (3.8-10.6) k/uL RBC (4.30-5.90) m/uL Hgb (13.0-17.5) gm/dL Hct (39.0-53.0) % Neutrophils # (1.3-7.7) k/uL Lymphocytes # (1.0-4.8) k/uL ABG pH (7.35-7.45) ABG pCO2 (35-45) mmHg ABG pO2 35 L* 354 H (83-108) mmHg ABG HCO3 26 H 26 H (21-25) mmol/L ABG Total CO2 (19-24) mmol/L ABG O2 Saturation 64.7 L >99.4 H (94-97) % ABG Hematocrit 32 L (34.0-46.0) % ABG Potassium (3.4-4.5) mmol/L ABG Ionized Calcium (4.5-5.3) mg/dL ABG Glucose 106 H (75-99) mg/dL ABG Lactic Acid 3.0 H* (0.5-1.6) mmol/L Hemoglobin 10.5 L 11.7 L (13.0-17.5) gm/dL Sodium (137-145) mmol/L Chloride (98-107) mmol/L Glucose (74-99) mg/dL POC Glucose (mg/dL) (70-110) mg/dL Calcium (8.4-10.2) mg/dL Magnesium (1.6-2.3) mg/dL AST (17-59) U/L Total Protein (6.3-8.2) g/dL Albumin (3.5-5.0) g/dL Arterial Blood Potassium (3.4-4.5) mmol/L Arterial Blood Glucose 106 H (75-99) mg/dL Crossmatch See Detail 06/26/23 06/26/23 06/26/23 Range/Units 11:09 11:44 12:18 WBC (3.8-10.6) k/uL RBC (4.30-5.90) m/uL Hgb (13.0-17.5) gm/dL Hct (39.0-53.0) % Neutrophils # (1.3-7.7) k/uL Lymphocytes # (1.0-4.8) k/uL ABG pH (7.35-7.45) ABG pCO2 (35-45) mmHg ABG pO2 137 H 395 H >420 H (83-108) mmHg ABG HCO3 27 H 26 H (21-25) mmol/L ABG Total CO2 (19-24) mmol/L ABG O2 Saturation 98.9 H >99.4 H >99.4 H (94-97) % ABG Hematocrit 30 L 30 L (34.0-46.0) % ABG Potassium 4.8 H (3.4-4.5) mmol/L ABG Ionized Calcium 3.8 L 4.1 L (4.5-5.3) mg/dL ABG Glucose 118 H 105 H 142 H (75-99) mg/dL ABG Lactic Acid (0.5-1.6) mmol/L Hemoglobin 11.7 L 9.7 L 9.7 L (13.0-17.5) gm/dL Sodium (137-145) mmol/L Chloride (98-107) mmol/L Glucose (74-99) mg/dL POC Glucose (mg/dL) (70-110) mg/dL Calcium (8.4-10.2) mg/dL Magnesium (1.6-2.3) mg/dL AST (17-59) U/L Total Protein (6.3-8.2) g/dL Albumin (3.5-5.0) g/dL Arterial Blood Potassium 4.8 H (3.4-4.5) mmol/L Arterial Blood Glucose 118 H 105 H 142 H (75-99) mg/dL Crossmatch 06/26/23 06/26/23 06/26/23 Range/Units 12:50 13:18 13:37 WBC (3.8-10.6) k/uL RBC (4.30-5.90) m/uL Hgb (13.0-17.5) gm/dL Hct (39.0-53.0) % Neutrophils # (1.3-7.7) k/uL Lymphocytes # (1.0-4.8) k/uL ABG pH (7.35-7.45) ABG pCO2 34 L (35-45) mmHg ABG pO2 >420 H 354 H >420 H (83-108) mmHg ABG HCO3 (21-25) mmol/L ABG Total CO2 (19-24) mmol/L ABG O2 Saturation >99.4 H >99.4 H >99.4 H (94-97) % ABG Hematocrit 30 L 28 L 28 L (34.0-46.0) % ABG Potassium 5.3 H 5.4 H 5.2 H (3.4-4.5) mmol/L ABG Ionized Calcium 4.2 L 4.0 L 4.1 L (4.5-5.3) mg/dL ABG Glucose 164 H 167 H 168 H (75-99) mg/dL ABG Lactic Acid (0.5-1.6) mmol/L Hemoglobin 9.7 L 9.0 L 9.1 L (13.0-17.5) gm/dL Sodium (137-145) mmol/L Chloride (98-107) mmol/L Glucose (74-99) mg/dL POC Glucose (mg/dL) (70-110) mg/dL Calcium (8.4-10.2) mg/dL Magnesium (1.6-2.3) mg/dL AST (17-59) U/L Total Protein (6.3-8.2) g/dL Albumin (3.5-5.0) g/dL Arterial Blood Potassium 5.3 H 5.4 H 5.2 H (3.4-4.5) mmol/L Arterial Blood Glucose 164 H 167 H 168 H (75-99) mg/dL Crossmatch 06/26/23 06/26/23 06/26/23 Range/Units 15:44 15:45 15:45 WBC 16.5 H (3.8-10.6) k/uL RBC 3.86 L (4.30-5.90) m/uL Hgb 11.8 L (13.0-17.5) gm/dL Hct 36.8 L (39.0-53.0) % Neutrophils # 14.4 H (1.3-7.7) k/uL Lymphocytes # (1.0-4.8) k/uL ABG pH (7.35-7.45) ABG pCO2 (35-45) mmHg ABG pO2 (83-108) mmHg ABG HCO3 (21-25) mmol/L ABG Total CO2 (19-24) mmol/L ABG O2 Saturation (94-97) % ABG Hematocrit (34.0-46.0) % ABG Potassium (3.4-4.5) mmol/L ABG Ionized Calcium (4.5-5.3) mg/dL ABG Glucose (75-99) mg/dL ABG Lactic Acid (0.5-1.6) mmol/L Hemoglobin (13.0-17.5) gm/dL Sodium 136 L (137-145) mmol/L Chloride 108 H (98-107) mmol/L Glucose 145 H (74-99) mg/dL POC Glucose (mg/dL) 148 H (70-110) mg/dL Calcium 7.6 L (8.4-10.2) mg/dL Magnesium 2.4 H (1.6-2.3) mg/dL AST 67 H (17-59) U/L Total Protein 5.5 L (6.3-8.2) g/dL Albumin 2.9 L (3.5-5.0) g/dL Arterial Blood Potassium (3.4-4.5) mmol/L Arterial Blood Glucose (75-99) mg/dL Crossmatch 06/26/23 06/26/23 06/26/23 Range/Units 15:52 16:29 16:30 WBC (3.8-10.6) k/uL RBC (4.30-5.90) m/uL Hgb (13.0-17.5) gm/dL Hct (39.0-53.0) % Neutrophils # (1.3-7.7) k/uL Lymphocytes # (1.0-4.8) k/uL ABG pH 7.31 L 7.32 L (7.35-7.45) ABG pCO2 54 H 52 H (35-45) mmHg ABG pO2 78 L (83-108) mmHg ABG HCO3 27 H 27 H (21-25) mmol/L ABG Total CO2 29 H 28 H (19-24) mmol/L ABG O2 Saturation 97.8 H (94-97) % ABG Hematocrit (34.0-46.0) % ABG Potassium (3.4-4.5) mmol/L ABG Ionized Calcium (4.5-5.3) mg/dL ABG Glucose (75-99) mg/dL ABG Lactic Acid (0.5-1.6) mmol/L Hemoglobin (13.0-17.5) gm/dL Sodium (137-145) mmol/L Chloride (98-107) mmol/L Glucose (74-99) mg/dL POC Glucose (mg/dL) 149 H (70-110) mg/dL Calcium (8.4-10.2) mg/dL Magnesium (1.6-2.3) mg/dL AST (17-59) U/L Total Protein (6.3-8.2) g/dL Albumin (3.5-5.0) g/dL Arterial Blood Potassium (3.4-4.5) mmol/L Arterial Blood Glucose (75-99) mg/dL Crossmatch 06/26/23 06/26/23 06/26/23 Range/Units 17:25 18:27 18:27 WBC 15.7 H (3.8-10.6) k/uL RBC 4.10 L (4.30-5.90) m/uL Hgb 12.4 L (13.0-17.5) gm/dL Hct 38.7 L (39.0-53.0) % Neutrophils # 13.8 H (1.3-7.7) k/uL Lymphocytes # 0.7 L (1.0-4.8) k/uL ABG pH (7.35-7.45) ABG pCO2 (35-45) mmHg ABG pO2 (83-108) mmHg ABG HCO3 (21-25) mmol/L ABG Total CO2 (19-24) mmol/L ABG O2 Saturation (94-97) % ABG Hematocrit (34.0-46.0) % ABG Potassium (3.4-4.5) mmol/L ABG Ionized Calcium (4.5-5.3) mg/dL ABG Glucose (75-99) mg/dL ABG Lactic Acid (0.5-1.6) mmol/L Hemoglobin (13.0-17.5) gm/dL Sodium (137-145) mmol/L Chloride (98-107) mmol/L Glucose (74-99) mg/dL POC Glucose (mg/dL) 140 H 144 H (70-110) mg/dL Calcium (8.4-10.2) mg/dL Magnesium (1.6-2.3) mg/dL AST (17-59) U/L Total Protein (6.3-8.2) g/dL Albumin (3.5-5.0) g/dL Arterial Blood Potassium (3.4-4.5) mmol/L Arterial Blood Glucose (75-99) mg/dL Crossmatch 06/26/23 06/26/23 06/26/23 Range/Units 20:09 20:50 20:51 WBC 14.2 H (3.8-10.6) k/uL RBC 4.00 L (4.30-5.90) m/uL Hgb 12.2 L (13.0-17.5) gm/dL Hct 37.9 L (39.0-53.0) % Neutrophils # 12.3 H (1.3-7.7) k/uL Lymphocytes # 0.9 L (1.0-4.8) k/uL ABG pH (7.35-7.45) ABG pCO2 (35-45) mmHg ABG pO2 (83-108) mmHg ABG HCO3 (21-25) mmol/L ABG Total CO2 (19-24) mmol/L ABG O2 Saturation (94-97) % ABG Hematocrit (34.0-46.0) % ABG Potassium (3.4-4.5) mmol/L ABG Ionized Calcium (4.5-5.3) mg/dL ABG Glucose (75-99) mg/dL ABG Lactic Acid (0.5-1.6) mmol/L Hemoglobin (13.0-17.5) gm/dL Sodium (137-145) mmol/L Chloride (98-107) mmol/L Glucose (74-99) mg/dL POC Glucose (mg/dL) 130 H 132 H (70-110) mg/dL Calcium (8.4-10.2) mg/dL Magnesium (1.6-2.3) mg/dL AST (17-59) U/L Total Protein (6.3-8.2) g/dL Albumin (3.5-5.0) g/dL Arterial Blood Potassium (3.4-4.5) mmol/L Arterial Blood Glucose (75-99) mg/dL Crossmatch 06/26/23 06/26/23 06/26/23 Range/Units 21:52 21:55 22:51 WBC (3.8-10.6) k/uL RBC (4.30-5.90) m/uL Hgb (13.0-17.5) gm/dL Hct (39.0-53.0) % Neutrophils # (1.3-7.7) k/uL Lymphocytes # (1.0-4.8) k/uL ABG pH (7.35-7.45) ABG pCO2 (35-45) mmHg ABG pO2 (83-108) mmHg ABG HCO3 26 H (21-25) mmol/L ABG Total CO2 28 H (19-24) mmol/L ABG O2 Saturation 98.0 H (94-97) % ABG Hematocrit (34.0-46.0) % ABG Potassium (3.4-4.5) mmol/L ABG Ionized Calcium (4.5-5.3) mg/dL ABG Glucose (75-99) mg/dL ABG Lactic Acid (0.5-1.6) mmol/L Hemoglobin (13.0-17.5) gm/dL Sodium (137-145) mmol/L Chloride (98-107) mmol/L Glucose (74-99) mg/dL POC Glucose (mg/dL) 132 H 136 H (70-110) mg/dL Calcium (8.4-10.2) mg/dL Magnesium (1.6-2.3) mg/dL AST (17-59) U/L Total Protein (6.3-8.2) g/dL Albumin (3.5-5.0) g/dL Arterial Blood Potassium (3.4-4.5) mmol/L Arterial Blood Glucose (75-99) mg/dL Crossmatch 06/26/23 06/27/23 06/27/23 Range/Units 23:48 00:50 02:03 WBC (3.8-10.6) k/uL RBC (4.30-5.90) m/uL Hgb (13.0-17.5) gm/dL Hct (39.0-53.0) % Neutrophils # (1.3-7.7) k/uL Lymphocytes # (1.0-4.8) k/uL ABG pH (7.35-7.45) ABG pCO2 (35-45) mmHg ABG pO2 (83-108) mmHg ABG HCO3 (21-25) mmol/L ABG Total CO2 (19-24) mmol/L ABG O2 Saturation (94-97) % ABG Hematocrit (34.0-46.0) % ABG Potassium (3.4-4.5) mmol/L ABG Ionized Calcium (4.5-5.3) mg/dL ABG Glucose (75-99) mg/dL ABG Lactic Acid (0.5-1.6) mmol/L Hemoglobin (13.0-17.5) gm/dL Sodium (137-145) mmol/L Chloride (98-107) mmol/L Glucose (74-99) mg/dL POC Glucose (mg/dL) 134 H 130 H 128 H (70-110) mg/dL Calcium (8.4-10.2) mg/dL Magnesium (1.6-2.3) mg/dL AST (17-59) U/L Total Protein (6.3-8.2) g/dL Albumin (3.5-5.0) g/dL Arterial Blood Potassium (3.4-4.5) mmol/L Arterial Blood Glucose (75-99) mg/dL Crossmatch 06/27/23 06/27/23 06/27/23 Range/Units 02:55 04:13 04:15 WBC (3.8-10.6) k/uL RBC (4.30-5.90) m/uL Hgb (13.0-17.5) gm/dL Hct (39.0-53.0) % Neutrophils # (1.3-7.7) k/uL Lymphocytes # (1.0-4.8) k/uL ABG pH (7.35-7.45) ABG pCO2 (35-45) mmHg ABG pO2 (83-108) mmHg ABG HCO3 (21-25) mmol/L ABG Total CO2 (19-24) mmol/L ABG O2 Saturation (94-97) % ABG Hematocrit (34.0-46.0) % ABG Potassium (3.4-4.5) mmol/L ABG Ionized Calcium (4.5-5.3) mg/dL ABG Glucose (75-99) mg/dL ABG Lactic Acid (0.5-1.6) mmol/L Hemoglobin (13.0-17.5) gm/dL Sodium (137-145) mmol/L Chloride (98-107) mmol/L Glucose 116 H (74-99) mg/dL POC Glucose (mg/dL) 122 H 123 H (70-110) mg/dL Calcium 7.8 L (8.4-10.2) mg/dL Magnesium (1.6-2.3) mg/dL AST 73 H (17-59) U/L Total Protein 5.5 L (6.3-8.2) g/dL Albumin 2.9 L (3.5-5.0) g/dL Arterial Blood Potassium (3.4-4.5) mmol/L Arterial Blood Glucose (75-99) mg/dL Crossmatch 06/27/23 06/27/23 06/27/23 Range/Units 05:00 05:20 06:17 WBC 13.7 H (3.8-10.6) k/uL RBC 3.73 L (4.30-5.90) m/uL Hgb 11.4 L (13.0-17.5) gm/dL Hct 35.5 L (39.0-53.0) % Neutrophils # 11.3 H (1.3-7.7) k/uL Lymphocytes # (1.0-4.8) k/uL ABG pH (7.35-7.45) ABG pCO2 (35-45) mmHg ABG pO2 (83-108) mmHg ABG HCO3 (21-25) mmol/L ABG Total CO2 (19-24) mmol/L ABG O2 Saturation (94-97) % ABG Hematocrit (34.0-46.0) % ABG Potassium (3.4-4.5) mmol/L ABG Ionized Calcium (4.5-5.3) mg/dL ABG Glucose (75-99) mg/dL ABG Lactic Acid (0.5-1.6) mmol/L Hemoglobin (13.0-17.5) gm/dL Sodium (137-145) mmol/L Chloride (98-107) mmol/L Glucose (74-99) mg/dL POC Glucose (mg/dL) 132 H 129 H (70-110) mg/dL Calcium (8.4-10.2) mg/dL Magnesium (1.6-2.3) mg/dL AST (17-59) U/L Total Protein (6.3-8.2) g/dL Albumin (3.5-5.0) g/dL Arterial Blood Potassium (3.4-4.5) mmol/L Arterial Blood Glucose (75-99) mg/dL Crossmatch 06/27/23 06/27/23 Range/Units 06:55 07:53 WBC (3.8-10.6) k/uL RBC (4.30-5.90) m/uL Hgb (13.0-17.5) gm/dL Hct (39.0-53.0) % Neutrophils # (1.3-7.7) k/uL Lymphocytes # (1.0-4.8) k/uL ABG pH (7.35-7.45) ABG pCO2 (35-45) mmHg ABG pO2 (83-108) mmHg ABG HCO3 (21-25) mmol/L ABG Total CO2 (19-24) mmol/L ABG O2 Saturation (94-97) % ABG Hematocrit (34.0-46.0) % ABG Potassium (3.4-4.5) mmol/L ABG Ionized Calcium (4.5-5.3) mg/dL ABG Glucose (75-99) mg/dL ABG Lactic Acid (0.5-1.6) mmol/L Hemoglobin (13.0-17.5) gm/dL Sodium (137-145) mmol/L Chloride (98-107) mmol/L Glucose (74-99) mg/dL POC Glucose (mg/dL) 117 H 127 H (70-110) mg/dL Calcium (8.4-10.2) mg/dL Magnesium (1.6-2.3) mg/dL AST (17-59) U/L Total Protein (6.3-8.2) g/dL Albumin (3.5-5.0) g/dL Arterial Blood Potassium (3.4-4.5) mmol/L Arterial Blood Glucose (75-99) mg/dL Crossmatch
[2023-06-27 14:07] LABS: Glucose,Whole Blood 128 mg/dL (70-110)
--- NOTE | 2023-06-27 15:12 | PN ---
PROGRESS NOTE SUBJECTIVE: This is a 58-year-old gentleman with coronary artery disease, who underwent bypass surgery yesterday. Today is postop day #1. He is extubated, remains in sinus rhythm and hemodynamically stable. LABORATORY DATA: His labs showed that the potassium is 4.4 and creatinine is 0.6. Hemoglobin is normal at 11.6 with a platelet count of 253. OBJECTIVE: VITAL SIGNS: Stable. CHEST: Reveals diminished air entry. HEART: Reveals first and second heart sounds. No gallop. EXTREMITIES: Reveal mild edema. Peripheral pulses are palpable. ASSESSMENT: Coronary artery disease, status post CABG. PLAN: The patient is doing well. Continue current medications including aspirin, Lipitor, Plavix, and Lopressor. MMODL / IJN: [id number] /
[2023-06-27 16:03] LABS: Glucose,Whole Blood 124 mg/dL (70-110)
[2023-06-27] MEDS: fentaNYL (PF) 50 MCG/ML 2 ML AMP IVP ONE (16:20)
[2023-06-27 18:18] LABS: Glucose,Whole Blood 132 mg/dL (70-110)
[2023-06-27] MEDS: SYMBICORT 160-4.5 MCG INHALER INHALATION SCH (20:56)
[2023-06-27] MEDS: HYDROmorphone 0.5 MG/0.5 ML SYRINGE IVP STA (21:11)
[2023-06-27] MEDS: METOPROLOL TARTRATE 12.5 MG TAB PO STA (21:11)
[2023-06-27 21:30] LABS: Glucose,Whole Blood 123 mg/dL (70-110)
[2023-06-27 23:00] LABS: Glucose,Whole Blood 155 mg/dL (70-110)
[2023-06-28 01:22] LABS: Glucose,Whole Blood 123 mg/dL (70-110)
[2023-06-28 02:53] LABS: Glucose,Whole Blood 117 mg/dL (70-110)
[2023-06-28 05:28] LABS: Glucose,Whole Blood 116 mg/dL (70-110)
[2023-06-28 05:54] LABS: ALT 21 U/L (4-49); AST 58 U/L (17-59); African American GFR (CKD) >90 (>60 ml/min/1.73 sqM); Albumin 3.4 g/dL (3.5-5.0); Alkaline Phosphatase 60 U/L (38-126); Anion Gap 11 mmol/L; Blood Urea Nitrogen 13 mg/dL (9-20); Calcium 8.3 mg/dL (8.4-10.2); Carbon Dioxide 21 mmol/L (22-30); Chloride 107 mmol/L (98-107); Glucose 127 mg/dL (74-99); Non-African American GFR(CKD) >90 (>60 ml/min/1.73 sqM); Potassium 4.5 mmol/L (3.5-5.1); Sodium 139 mmol/L (137-145); Total Bilirubin 0.5 mg/dL (0.2-1.3); Total Protein 6.5 g/dL (6.3-8.2)
[2023-06-28 06:06] LABS: Basophils % (A) 0 %; Eosinophils # (A) 0.1 k/uL (0-0.7); Eosinophils % (A) 1 %; HCT 34.2 % (39.0-53.0); HGB 11.1 gm/dL (13.0-17.5); Lymphocytes # (A) 1.1 k/uL (1.0-4.8); Lymphocytes % (A) 8 %; MCH 31.2 pg (25.0-35.0); MCHC 32.5 g/dL (31.0-37.0); MCV 95.9 fL (80.0-100.0); Mean Platelet Volume 7.3; Monocytes # (A) 1.1 k/uL (0-1.0); Monocytes % (A) 7 %; Neutrophils # (A) 12.1 k/uL (1.3-7.7); Neutrophils % (A) 82 %; Platelet Count 227 k/uL (150-450); RBC 3.57 m/uL (4.30-5.90); RDW 13.6 % (11.5-15.5); WBC 14.7 k/uL (3.8-10.6)
[2023-06-28] MEDS: METOPROLOL TARTRATE 25 MG TAB PO SCH (06:47)
[2023-06-28 07:07] LABS: Glucose,Whole Blood 125 mg/dL (70-110)
--- NOTE | 2023-06-28 07:52 | XR ---
EXAMINATION TYPE: XR chest 1V portable DATE OF EXAM: 06/28/2023 HISTORY: Post Operative Cardiac Surgery COMPARISON: 06/27/2023. TECHNIQUE: Single view of the chest is submitted. FINDINGS: Postoperative changes of CABG. Weston-Chau catheter remains in place as do bilateral chest tubes. Left atrial clip noted. Continued cardiomegaly with scattered pleural parenchymal opacity felt to reflect atelectasis. Chroni c elevation right hemidiaphragm. Hilar and mediastinal structures are within normal limits. Degenerative changes are seen of the dorsal spine. IMPRESSION: 1. Stable postoperative chest.
[2023-06-28] MEDS: FUROSEMIDE 10 MG/ML 4 ML VIAL IV STA (08:02)
[2023-06-28] MEDS: ACETAMINOPHEN TAB 500 MG TAB PO PRN (08:50)
--- NOTE | 2023-06-28 08:53 | P.PN ---
Subjective Progress Note Date: 06/28/23 Principal diagnosis: Triple-vessel coronary artery disease, non-STEMI this admission, acute systolic heart failure with reduced ejection fraction 35 to 40%, epistaxis. Past medical history significant for hypertension with noncompliance with treatment, remote history of tobacco dependence, previous EtOH use, occasional marijuana use, history of kidney stones, obesity with a BMI of 37.8 kg/m, and family history of cancer. POD #2 On Pump All Arterial Coronary Artery Bypass Grafting x 3. Left internal thoracic artery (in-situ) sequential to first diagonal artery and left anterior descending coronary artery. Free right internal thoracic artery from aorta to ramus intermedius coronary artery, Left atrial appendage ligation using #35 AtriClip, Endoscopic left radial artery harvest, Graft flow measurements using the Better Walk Flow Meter System, intraoperative transesophageal echocardiogram performed by anesthesia, insertion of right common femoral arterial line using ultrasound-guided micropuncture technique. Postoperative acute blood loss anemia, expected given hemodilution and cardiopulmonary bypass. The patient was seen and examined in follow-up today June 28, 2023 at his bedside in the intensive care unit. He is currently sitting up to the bedside chair, is awake, alert, oriented x 3 and is in no acute apparent distress. He denies any complaints of shortness of breath, and states that his pain is much better controlled today, currently rating his pain 5 out of 10 on the pain scale. Denies any nausea or vomiting. Tmax temperature was 100.6 F in the last 24 hours, he was encouraged to use his incentive spirometry 10 times every hour while awake. Oxygen saturations are 97% on 6 L high flow nasal cannula and he is achieving around 500 mL on his incentive spirometry with encouragement. Bedside telemetry is showing normal sinus rhythm heart rate 88 bpm. Right IJ cordis and [place]Chau catheter remains in place with current hemodynamics showing a cardiac output of 8.2, cardiac index of 3.4, PA pressures 32/13 and CVP 8 mmHg. He remains on Primacor drip at 0.125 mcg/kg/min. Right and left pleural chest tubes remain in place to low continuous wall suction -20 cm H2O. No air leak is present. Draining thin serosanguineous drainage. Left pleural chest tube drained 110 mL output in the last 24 hours. Right pleural chest tube drained 70 mL output in the last 24 hours. Chest x-ray and laboratory results reviewed. Objective - Vital Signs Vital signs: Vital Signs Temp 100.6 F H 06/28/23 04:00 Pulse 101 H 06/28/23 07:00 Resp 28 H 06/28/23 07:00 BP 123/71 06/28/23 07:00 Pulse Ox 95 06/28/23 07:00 FiO2 50 06/27/23 00:00 Intake & Output 06/27/23 06/28/23 06/28/23 18:59 06:59 18:59 Intake Total 1225.909 720.991 28.792 Output Total 660 554 86 Balance 565.909 166.991 -57.208 Weight 126.2 kg Intake: IV 286 292 26 0.9 pressure bag 96 72 6 0.9ns for CO/CI 190 220 20 Intake, IV Titration 529.909 28.991 2.792 Amount Insulin Regular 100 unit 9.909 8.991 2.792 In Sodium Chloride 0.9% 100 ml @ Per Protocol IV .Q0M GERTRUDIS Rx#:[id number] Lactated Ringers 1,000 ml 220 20 @ 20 mls/hr IV .Q24H GERTRUDIS Rx#:[id number] Milrinone-D5w Pmx 20 mg 100 In Dextrose/Water 1 100ml .bag @ 0.125 MCG/KG/MIN 4 .616 mls/hr IV .[id number] GERTRUDIS Rx#:[id number] ceFAZolin 3 gm In Sodium 200 Chloride 0.9% 100 ml @ 100 mls/hr IVPB Q8HR GERTRUDIS Rx#:[id number] Oral 410 400 Output: Chest Tube Drainage 140 69 56 Chest Tube Mediastinal [address] 50 56 44 Pleural Catheter [address] 40 13 12 Urine 520 485 30 Other: Voiding Method Indwelling Catheter Indwelling Catheter ABP, PAP, CO, CI - Last Documented Arterial Blood Pressure 112/99 Pulmonary Artery Pressure 32/13 Cardiac Output 8.2 Cardiac Index 3.4 - Exam CONSTITUTIONAL: Sitting up to the bedside chair in the intensive care unit, appears comfortable, cooperative, no apparent acute distress. HEENT: Neck is supple, no JVD, no lymphadenopathy. Right IJ Cordis and [place]au catheter in place and functioning. RESPIRATORY: Lungs sounds essentially clear throughout, diminished to his bilateral bases. Respirations are symmetrical and nonlabored. Currently on 6 L high flow nasal cannula with oxygen saturations 97%. Able to achieve 500 mL on his incentive spirometry with much encouragement. Weak cough. CARDIOVASCULAR: Regular rhythm and rate. S1 and S2 present, negative for S3, gallop or murmur. Sternum is stable. Palpable peripheral pulses bilaterally. No calf pain or tenderness noted. Heart hugger in place with patient demonstrating appropriate use. Knee-high SUNSHINE hose and sequential compression devices in place to his bilateral lower extremities. GASTROINTESTINAL: Abdomen soft, nontender, nondistended. Active bowel sounds present 4 quadrants. Tolerating diet. Passing flatus. No guarding or rigidity. GENITOURINARY: Wang present draining clear, yellow urine. Urine output 390 mL in the last 8 hours. INTEGUMENTARY: Skin is warm and dry with no evidence of clubbing or cyanosis. Midline sternal incision clean dry and well approximated, covered with dry intact dressing. Left arm radial artery harvest sites clean, dry and approximated. No drainage or redness is present. NEUROLOGIC: Cranial nerves II through XII intact. No focal deficits. MUSKULOSKELETAL: Able to move all extremities, strength equal bilaterally, generalized weakness. PSYCHIATRIC: Alert and oriented to person place and time, appropriate affect, intact judgment and insight. INVASIVE LINES AND TUBES: Left and right pleural chest tubes present and connected to low continuous wall suction, no air leaks present. Left pleural chest tube with 110 mL output in the last 24 hours. Right pleural chest tube with 70 mL output in the last 24 hours. Ventricular epicardial pacemaker wires present, connected to generator, VVI backup rate 50 bpm. Right internal jugular [place]/Cordis, right radial arterial line present. Last CO 8.2, CI 3.4, PA 32/13 and CVP 8 mmHg. - Allied health notes Allied health notes reviewed: nursing - Labs CBC & Chem 7: 06/28/23 05:45 06/28/23 04:30 Labs: Abnormal Lab Results - Last 24 Hours (Table) 06/27/23 06/27/23 06/27/23 Range/Units 10:26 12:18 14:06 WBC (3.8-10.6) k/uL RBC (4.30-5.90) m/uL Hgb (13.0-17.5) gm/dL Hct (39.0-53.0) % Neutrophils # (1.3-7.7) k/uL Monocytes # (0-1.0) k/uL Carbon Dioxide (22-30) mmol/L Glucose (74-99) mg/dL POC Glucose (mg/dL) 123 H 121 H 128 H (70-110) mg/dL Calcium (8.4-10.2) mg/dL Albumin (3.5-5.0) g/dL 06/27/23 06/27/23 06/27/23 Range/Units 15:56 18:14 21:29 WBC (3.8-10.6) k/uL RBC (4.30-5.90) m/uL Hgb (13.0-17.5) gm/dL Hct (39.0-53.0) % Neutrophils # (1.3-7.7) k/uL Monocytes # (0-1.0) k/uL Carbon Dioxide (22-30) mmol/L Glucose (74-99) mg/dL POC Glucose (mg/dL) 124 H 132 H 123 H (70-110) mg/dL Calcium (8.4-10.2) mg/dL Albumin (3.5-5.0) g/dL 06/27/23 06/28/23 06/28/23 Range/Units 22:58 01:21 02:52 WBC (3.8-10.6) k/uL RBC (4.30-5.90) m/uL Hgb (13.0-17.5) gm/dL Hct (39.0-53.0) % Neutrophils # (1.3-7.7) k/uL Monocytes # (0-1.0) k/uL Carbon Dioxide (22-30) mmol/L Glucose (74-99) mg/dL POC Glucose (mg/dL) 155 H 123 H 117 H (70-110) mg/dL Calcium (8.4-10.2) mg/dL Albumin (3.5-5.0) g/dL 06/28/23 06/28/23 06/28/23 Range/Units 04:30 05:26 05:45 WBC 14.7 H (3.8-10.6) k/uL RBC 3.57 L (4.30-5.90) m/uL Hgb 11.1 L (13.0-17.5) gm/dL Hct 34.2 L (39.0-53.0) % Neutrophils # 12.1 H (1.3-7.7) k/uL Monocytes # 1.1 H (0-1.0) k/uL Carbon Dioxide 21 L (22-30) mmol/L Glucose 127 H (74-99) mg/dL POC Glucose (mg/dL) 116 H (70-110) mg/dL Calcium 8.3 L (8.4-10.2) mg/dL Albumin 3.4 L (3.5-5.0) g/dL 06/28/23 Range/Units 07:06 WBC (3.8-10.6) k/uL RBC (4.30-5.90) m/uL Hgb (13.0-17.5) gm/dL Hct (39.0-53.0) % Neutrophils # (1.3-7.7) k/uL Monocytes # (0-1.0) k/uL Carbon Dioxide (22-30) mmol/L Glucose (74-99) mg/dL POC Glucose (mg/dL) 125 H (70-110) mg/dL Calcium (8.4-10.2) mg/dL Albumin (3.5-5.0) g/dL - Imaging and Cardiology Chest x-ray: report reviewed, image reviewed Assessment and Plan Assessment: Triple-vessel coronary artery disease, non-STEMI this admission, status post three-vessel coronary artery bypass grafting surgery Acute systolic heart failure with reduced ejection fraction 35-40%, mild mitral valve regurgitation and tricuspid valve regurgitation Epistaxis, resolved Shortness of breath, chest pain secondary to above Hypertension Left internal carotid artery stenosis 50 to 69% Remote history of tobacco dependence Severe COPD with preoperative FEV1 41% of predicted although not the best effort Previous EtOH use Occasional marijuana use History of kidney stones Obesity with BMI of 37.8 kg/m Family history of cancer Postoperative acute blood loss anemia, expected given hemodilution and cardiopulmonary bypass Plan: Continue to maximize medical therapy with aspirin, statin, Plavix, and beta- mari. Metoprolol tartrate increased to 25 mg p.o. twice daily. Discontinue Primacor drip. Wean O2 as tolerated. Encourage incentive spirometry use 10 times every hour while awake. Bronchodilators per pulmonology. Will monitor daily labs and chest x-rays. Electrolyte replacement per protocol. Insulin management per internal medicine. Please continue IV insulin for 48 hours postsurgery, then may transition to subcutaneous per protocol. Preoperative hemoglobin A1c 5.1%. Pain control with current medication regimen. Discontinue oxycodone. Continue to use acetaminophen and Toradol for pain control. GI/DVT prophylaxis. Remove right IJ [place]-Chau catheter and Cordis. We will remove his right/left pleural chest tubes for another 24 hours, monitor output. Discontinue Wang catheter, continue to record strict accurate intake and output. May bladder scan every 6 hours and as needed postvoid residual. If greater than or equal to 300 mL of urine may straight cath. Daily weights. Continue Flomax 0.4 mg p.o. daily Lasix 40 mg IV x 1 now. More recommendations to follow based on patient's clinical course. Time with Patient: Greater than 30
--- NOTE | 2023-06-28 10:21 | P.ANPRN ---
Procedure Note - Anesthesia - Invasive Line Right Central Line Time Out Performed: Yes Date of Procedure: 06/26/23 Time of Procedure: 07:38 Location of Patient: PreOp Preparation: Sterile Prep, Sterile Dressing Central Line Location: Internal Jugular Ultrasound Used: No Purpose - Visualization and Identification of Vasculature: No Image Stored and Saved: No Narrative: Invasive line placement per sterile protocol utilized.
--- NOTE | 2023-06-28 10:22 | P.ANPRN ---
Procedure Note - Anesthesia - Invasive Line Right [place] Chau Time Out Performed: Yes Date of Procedure: 06/26/23 Time of Procedure: 07:44 Location of Patient: PreOp Preparation: Sterile Prep, Sterile Dressing Central Line Location: Internal Jugular Ultrasound Used: No Purpose - Visualization and Identification of Vasculature: No Image Stored and Saved: No Narrative: Invasive line placement per sterile protocol utilized.
--- NOTE | 2023-06-28 10:53 | P.PN ---
Subjective Progress Note Date: 06/28/23 Principal diagnosis: Coronary disease. Patient is a 58-year-old white male with past medical history significant for hypertension, coronary artery disease, previous tobacco dependence and current marijuana use, alcoholism, and anxiety. He does not currently follow with a primary care provider. Over the last couple months, the patient has had intermittent chest pain that radiates to his back and is associated with some left arm numbness. There is associated shortness of breath. His usually last for 15 minutes, and subsides with rest. The symptoms have significantly limited his activity level, he can no longer do activities such as go to the grocery store without symptoms. He went to [facility] earlier in the week, actually for a nosebleed. He was found to be hypertensive. He had some abnormal labs including an elevated troponins. He was diagnosed with a non-ST elevation CA. For this reason he was transferred to [facility] for further evaluation and treatment on 06/19/2023. He did have a heart catheterization on 06/22/2023 which showed severe multivessel coronary artery disease including 100% proximal RCA stenosis, 100% LCx stenosis, 90% proximal LAD stenosis, and 90% diffuse ramus disease. There was recommendation for surgical revascularization, and cardiothoracic services were consulted. He is currently undergoing an extensive preoperative workup. Echocardiogram done this admission shows a reduced left ventricular ejection fraction of 35 to 40% along with some moderate concentric LVH. No observed significant valvular disease. He did have a preoperative bedside spirometry, at that time he had just learned some test results, he was anxious and uncooperative. His FEV1 was 1.58 L or 41%. Likely not best result and of limited value. He does have a significant smoking history, smoking 1.5 packs/day for many years. Quit smoking in 2020. Continues to recreationally smoke marijuana weekly. He denies ever being diagnosed with any kind of lung disease such as COPD or asthma. He is currently sitting up in bed, on room air, in no acute distress. We are asked to see this patient for preoperative pulmonary clearance for possible surgical revascularization. Chest CTA done at our facility did not show any evidence of pulmonary embolism. There was peripheral dependent groundglass opacities concerning for pulmonary venous congestion, atypical pneumonia was an alternative differential. Most recent CBC and BMP from 2 days ago were unremarkable. He was previously on a heparin drip, which has since been discontinued. Patient currently denies any chest pain. Denies any shortness of breath, coughing, sputum production. Afebrile. Incentive spirometer is at bedside. Patient was initially hesitant to undergo open heart, however, is leaning towards surgery. Patient continues to undergo extensive preoperative workup. STS score is being calculated. Progress note dated June 25, 2023. The patient was seen yesterday in consultation. He has a history of hypertension, coronary artery disease, previous tobacco dependence, alcoholism, anxiety, and marijuana use. The patient was recently evaluated, and found to have multivessel coronary disease, and is scheduled to have revascularization surgery tomorrow. The patient is practicing with his incentive spirometer. He is currently on room air. No IV fluids. Laboratory data includes a white count 10.3, hemoglobin 12.7, hematocrit 40.3, and a normal platelet count. Coagulation studies are normal. Sodium 137, potassium 4.1, chlorides 103, CO2 25, BUN 10, creatinine 0.83. Glucose is 95. Calcium is 9.4. Nasal screen was positive for Staph aureus, not MRSA. Progress note dated June 27, 2023. 58-year-old male postop day #1, status post three-vessel bypass surgery. The patient was not seen yesterday as he was in the operating room. The patient was extubated on June 25. He is currently on 6 L nasal cannula. He is getting lactated Ringer's at 20 cc an hour. He is also on Primacor 0.125 mcg/kg/min. Insulin drip has been weaned off. The patient is not really taking deep breaths, and we encouraged him to deep breathe, cough, clear secretions, as well as using the incentive spirometer, every hour. Current labs include a white count of 13.7, hemoglobin 11.4, hematocrit 35.5, and a normal platelet count. Sodium 137, potassium 4.4, chlorides 107, CO2 26, BUN 14, creatinine 0.86. Glucose is 123. Calcium 7.8. Albumin 2.9. Chest x-ray shows some postsurgical changes, and some basilar atelectasis. Progress note dated June 28, 2023. 58-year-old male, postop day #2, status post three-vessel bypass surgery. The patient is currently on oxygen at 6 L by nasal cannula. He is not receiving any IV fluids. The patient is getting 700 cc on his incentive spirometry. White count is 14.7, hemoglobin 11.1, hematocrit 34.2, platelet count 227,000. Sodium 139, potassium 4.5, chlorides 107, CO2 21, BUN 13, creatinine 0.83. Glucose is 125. Calcium is 8.3. The patient's nasopharyngeal swab was positive for oxacillin sensitive Staph aureus. The patient's chest x-ray showed cardiomegaly, and bilateral infiltrates, with small effusions. Objective - Vital Signs Vital signs: Vital Signs Temp 100.4 F H 06/28/23 08:00 Pulse 94 06/28/23 10:00 Resp 31 H 06/28/23 10:00 BP 145/91 06/28/23 10:00 Pulse Ox 97 06/28/23 10:00 FiO2 50 06/27/23 00:00 Intake & Output 06/27/23 06/28/23 06/28/23 18:59 06:59 18:59 Intake Total 1225.909 720.991 194.792 Output Total 660 554 456 Balance 565.909 166.991 -261.208 Weight 126.2 kg Intake: IV 286 292 52 0.9 pressure bag 96 72 12 0.9ns for CO/CI 190 220 40 Intake, IV Titration 529.909 28.991 22.792 Amount Insulin Regular 100 unit 9.909 8.991 2.792 In Sodium Chloride 0.9% 100 ml @ Per Protocol IV .Q0M GERTRUDIS Rx#:[id number] Lactated Ringers 1,000 ml 220 20 20 @ 20 mls/hr IV .Q24H GERTRUDIS Rx#:[id number] Milrinone-D5w Pmx 20 mg 100 In Dextrose/Water 1 100ml .bag @ 0.125 MCG/KG/MIN 4 .616 mls/hr IV .[id number] GERTRUDIS Rx#:[id number] ceFAZolin 3 gm In Sodium 200 Chloride 0.9% 100 ml @ 100 mls/hr IVPB Q8HR GERTRUDIS Rx#:[id number] Oral 410 400 120 Output: Chest Tube Drainage 140 69 56 Chest Tube Mediastinal [address] 50 56 44 Pleural Catheter [address] 40 13 12 Urine 520 485 400 Other: Voiding Method Indwelling Catheter Indwelling Catheter Indwelling Catheter ABP, PAP, CO, CI - Last Documented Arterial Blood Pressure 112/99 Pulmonary Artery Pressure 36/14 Cardiac Output 7.9 Cardiac Index 3.3 - Exam No acute distress, oriented 3. The patient is currently on 6 L nasal cannula. HEENT examination is grossly unremarkable. Mucous membranes are moist. No oral lesions. Neck supple. Full range of motion. No adenopathy thyromegaly or neck vein distention. Cardiovascular examination reveals regular rhythm rate. S1-S2 normal. No S3 or S4. No discernible murmur noted. Heart rate is 83 bpm. Lungs reveal bilateral rhonchi. No wheezes, or crackles. Saturations are 97 %. Breath sounds are equal bilaterally. Abdomen soft bowel sounds are heard. No masses or tenderness. Extremities are intact. No cyanosis clubbing or edema. Skin is without rash or lesion. Neurologic examination is brief but nonfocal. - Labs CBC & Chem 7: 06/28/23 05:45 06/28/23 04:30 Labs: Abnormal Lab Results - Last 24 Hours (Table) 06/27/23 06/27/23 06/27/23 Range/Units 12:18 14:06 15:56 WBC (3.8-10.6) k/uL RBC (4.30-5.90) m/uL Hgb (13.0-17.5) gm/dL Hct (39.0-53.0) % Neutrophils # (1.3-7.7) k/uL Monocytes # (0-1.0) k/uL Carbon Dioxide (22-30) mmol/L Glucose (74-99) mg/dL POC Glucose (mg/dL) 121 H 128 H 124 H (70-110) mg/dL Calcium (8.4-10.2) mg/dL Albumin (3.5-5.0) g/dL 06/27/23 06/27/23 06/27/23 Range/Units 18:14 21:29 22:58 WBC (3.8-10.6) k/uL RBC (4.30-5.90) m/uL Hgb (13.0-17.5) gm/dL Hct (39.0-53.0) % Neutrophils # (1.3-7.7) k/uL Monocytes # (0-1.0) k/uL Carbon Dioxide (22-30) mmol/L Glucose (74-99) mg/dL POC Glucose (mg/dL) 132 H 123 H 155 H (70-110) mg/dL Calcium (8.4-10.2) mg/dL Albumin (3.5-5.0) g/dL 06/28/23 06/28/23 06/28/23 Range/Units 01:21 02:52 04:30 WBC (3.8-10.6) k/uL RBC (4.30-5.90) m/uL Hgb (13.0-17.5) gm/dL Hct (39.0-53.0) % Neutrophils # (1.3-7.7) k/uL Monocytes # (0-1.0) k/uL Carbon Dioxide 21 L (22-30) mmol/L Glucose 127 H (74-99) mg/dL POC Glucose (mg/dL) 123 H 117 H (70-110) mg/dL Calcium 8.3 L (8.4-10.2) mg/dL Albumin 3.4 L (3.5-5.0) g/dL 06/28/23 06/28/23 06/28/23 Range/Units 05:26 05:45 07:06 WBC 14.7 H (3.8-10.6) k/uL RBC 3.57 L (4.30-5.90) m/uL Hgb 11.1 L (13.0-17.5) gm/dL Hct 34.2 L (39.0-53.0) % Neutrophils # 12.1 H (1.3-7.7) k/uL Monocytes # 1.1 H (0-1.0) k/uL Carbon Dioxide (22-30) mmol/L Glucose (74-99) mg/dL POC Glucose (mg/dL) 116 H 125 H (70-110) mg/dL Calcium (8.4-10.2) mg/dL Albumin (3.5-5.0) g/dL Assessment and Plan Assessment: Postop day #2, status post three-vessel bypass surgery. Routine postoperative ventilator management, with successful extubation on June 26, 2023. Non-ST elevation CA Severe multivessel coronary artery disease, heart catheterization on 06/22/2023 which showed severe multivessel coronary artery disease including 100% proximal RCA stenosis, 100% LCx stenosis, 90% LAD stenosis, and 90% diffuse ramus disease . Acute dyspnea, likely secondary to above. Possible underlying chronic obstructive pulmonary disease, patient has an extensive smoking history. Bedside spirometry was technically a poor study, as the patient was anxious and uncooperative at that time. Likely not good effort. FEV1 was 1.58 L or 41% of predicted. Former tobacco dependence, over 46-zxor-ovac history, quitting in 2020. Current marijuana use, weekly. Left internal carotid artery stenosis, estimated at 50 to 69%. Epistaxis, resolved. Anxiety . History of alcoholism. Hypertension. Obesity, with a BMI of 37 kg/m. Plan: Plan dated June 25, 2023. The patient is scheduled to have surgery, tomorrow. Our role in the process, was explained to the patient. The first thing, that we will attempt to do, is get the patient extubated as soon as possible. Next, we will see the patient on a daily basis, to encourage him to have excellent lung health, with deep breathing, coughing, clearing of secretions, and hourly use of the incentive spirometer. Labs, x-rays, medications are reviewed. We will continue to follow. The patient is currently on room air. He is currently not receiving any IV fluids. Plan dated June 27, 2023. The patient is seen today in room 265. He is postop day #1, status post three- vessel bypass surgery. The patient was extubated on June 25. He is currently on oxygen by nasal cannula at 6 L. He is getting lactated Ringer's at 20 cc an hour. He continues on Primacor, 0.125 mcg/kg/min. Insulin drip has been weaned off. Labs, x-rays, and medications are reviewed. We will continue to follow make recommendations along the way. We encourage the patient to deep breathe, cough, and clear secretions. We also recommend hourly use of the incentive spirometer. Plan dated June 28, 2023. The patient is seen today in room 265. He is postoperative day #2, status post three-vessel bypass surgery. The patient was extubated on June 25. Currently he is on nasal O2 at 6 L. He is not doing very well on his incentive spirometer. The patient is not receiving any IV fluids. Labs, x-rays, and medications are reviewed. We encourage deep breathing, coughing, and clearing of secretions. We also recommend hourly use of the incentive spirometer. We will continue to follow, make recommendations along the way. Labs, x-rays, and medications are reviewed. Time with Patient: Less than 30
[2023-06-28] MEDS ORDERED: DEXTROSE 50% SYRINGE 50 ML IVP PRN ×2 (11:55)
[2023-06-28 12:06] LABS: Glucose,Whole Blood 111 mg/dL (70-110)
[2023-06-28] MEDS: INSULIN ASPART (NovoLOG) 100 UNIT/ML VIAL SQ SCH (12:09)
--- NOTE | 2023-06-28 13:36 | P.PN ---
Subjective Progress Note Date: 06/28/23 58-year-old male who presents emergency department as a transfer from [facility]. He originally went in there for chest pain which has been going on for greater than a week. EKG was performed which demonstrated Q waves in the inferior leads. Troponin level was elevated. Patient was given a dose of Lovenox and transferred to our facility for cardiology evaluation. Troponin went from 76 to 172. D-dimer was normal. BNP was 1449. Patient was given a dose of Lovenox 120 mg and 40 mg of Lasix. Patient initially presented to [facility] by EMS due to nosebleed. He did not present for chest pain. Due to concern for coronary artery disease, patient was transferred from the ER at [facility] to [facility]. He did receive IV Lasix 40 mg at [facility] and he thinks his breathing is a bit better today. His initial blood pressure at [facility] was 159/100. Troponin was elevated. D-dimer was normal. Chest x-ray revealed CHF. Patient now has a blood pressure 154/101 and heart rate of 101. He denies having any chest pain at this time. EKG sinus rhythm with none specific ST changes. CTA of the chest reveals no evidence of pulmonary embolism. Peripheral, dependent ground glass pulmonary opacities consistent with atypical pulmonary infection such as COVID-19 or other viral or pulmonary venous congestion. CBC and CMP normal. Troponins 0.485 and 0.743. 06/21/2023 Patient is seen and evaluated sitting up in bed; no complaint of chest pain or shortness of breath; anxious to go home Vital signs are reviewed and remained stable Patient is currently on IV heparin per protocol, aspirin 81 mg daily, Lipitor 80 mg daily and Lopressor 50 mg twice daily Cardiology on board with plans for cardiac catheterization tomorrow morning 06/22/2023 Patient s/p cardiac cath showing severe triple-vessel coronary artery disease. Showing 100% occluded RCA and left circumflex artery and 90% left coronary anterior descending coronary artery After cardiac cath patient was walking in the room with no difficulty. Patient wants to be discharged Cardiothoracic surgery team evaluated the patient however patient wants to follow-up as an outpatient Currently denies chest pain or dyspnea or any other complaint Patient remains on aspirin statin metoprolol switched to Coreg, and Imdur Echocardiogram showing ejection fraction 35 to 40% 06/23/2023 pt is with No chest pain no dyspnea No other new complaints Hemodynamically stable He finished his heparin drip treatment. Currently his Aspirin 81 Mg and Coreg 25 Mg Also He Is on Losartan 100 Mg and Lasix Once Daily Patient Is Aware about the Result of Severe Triple-Vessel Coronary Artery Disease and His Been Followed by Cardiothoracic Surgery Team for Possible Bypass Procedure, patient is considering inpatient versus outpatient management for now 06/24/2023 Patient awake alert No chest pain or dyspnea Patient currently on aspirin 81 mg Patient planned to undergo cardiac bypass procedure on Sunday 06/25. Patient looks agreeable to this plan. 06/25/2023 Patient awake alert looks comfortable No chest pain, no dyspnea No other new complaint Patient feels motivated to go for bypass surgery tomorrow with cardiothoracic surgery team Hemodynamically stable, labs reviewed, WBC is 8.4, hemoglobin 13.1, platelet count 349 Electrolytes are normal, creatinine 0.9, hemoglobin A1c 5.1%, TSH is 2.6. He has positive MRSA test and his nasal sample. Patient on aspirin 81 mg From medical perspective there is no contraindication to proceed with surgery 06/25. Patient seen and examined. Patient was seen for CABG. Currently n.p.o. 06/26. Patient seen examined. Currently in ICU. Currently on 8 L of oxygen. Patient continues to be on Primacor drip. Patient also has chest tubes and [place]-Chau catheter in place. States that he has poor appetite. States he is tired, wants to sleep. 06/27. Patient seen and examined. Patient had chest tubes removed this morning. Primacor drip was discontinued. Patient ambulating with help of walker. Vital signs stable REVIEW OF SYSTEMS: CONSTITUTIONAL: No fever, no malaise,. CARDIOVASCULAR: no palpitations, no syncope. PULMONARY: No shortness of breath, no cough, GASTROINTESTINAL: No diarrhea, no nausea, no vomiting, no abdominal pain. NEUROLOGICAL: No headaches, no weakness, PHYSICAL EXAMINATION: GENERAL: The patient is alert and oriented x3, not in any acute distress. HEENT: Pupils are round and equally reacting to light. EOMI. No scleral icterus. No conjunctival pallor. Normocephalic, atraumatic. No pharyngeal erythema. No thyromegaly. CARDIOVASCULAR: S1 and S2 present. No murmurs, rubs, or gallops. PULMONARY: Diminished breath sounds at bases, no wheezing or crackles. Sternotomy surgical incision seen, ABDOMEN: Soft, nontender, nondistended, normoactive bowel sounds. No palpable organomegaly. MUSCULOSKELETAL: No joint swelling or deformity. EXTREMITIES: No cyanosis, clubbing, or pedal edema. NEUROLOGICAL: Gross neurological examination did not reveal any focal deficits. SKIN: No rashes. Assessment and plan Triple-vessel coronary artery disease, status post three-vessel coronary artery bypass grafting surgery Non-STEMI with cardiac cath Showing 100% occluded RCA and left circumflex artery and 90% left coronary anterior descending coronary artery Ischemic cardiomyopathy with ejection fraction 35 to 40% Hypertension Obesity with BMI of 37 Hyperlipidemia Shortness of breath, chest pain secondary to above Left internal carotid artery stenosis 50 to 69% Remote history of tobacco dependence Severe COPD with preoperative FEV1 41% of predicted although not the best effort Monitor vital signs Monitor CBC Monitor CMP Continue telemetry monitoring Continue postop CABG care per CT surgery Chest tubes were discontinued by CT surgery DC Primacor drip per CT surgery Continue with aspirin, Plavix statin Continue with Coreg and Imdur DC insulin drip, start low-dose sliding scale insulin CT surgery following Critical care following Labs and medication were reviewed.. Continue same treatment. Continue with symptomatic treatment. Resume home medication. Monitor labs and vitals. DVT and GI prophylaxis. Further recommendations as per clinical course of the patient Dictation was produced using [employer] dictation software. please excuse any grammatical, word or spelling errors. Objective - Vital Signs Vital signs: Vital Signs Temp 98.8 F 06/28/23 12:00 Pulse 102 H 06/28/23 13:00 Resp 32 H 06/28/23 13:00 BP 112/72 06/28/23 13:00 Pulse Ox 96 06/28/23 13:00 FiO2 50 06/27/23 00:00 Intake & Output 06/27/23 06/28/23 06/28/23 18:59 06:59 18:59 Intake Total 1225.909 720.991 314.792 Output Total 660 554 641 Balance 565.909 166.991 -326.208 Weight 126.2 kg Intake: IV 286 292 52 0.9 pressure bag 96 72 12 0.9ns for CO/CI 190 220 40 Intake, IV Titration 529.909 28.991 22.792 Amount Insulin Regular 100 unit 9.909 8.991 2.792 In Sodium Chloride 0.9% 100 ml @ Per Protocol IV .Q0M GERTRUDIS Rx#:[id number] Lactated Ringers 1,000 ml 220 20 20 @ 20 mls/hr IV .Q24H GERTRUDIS Rx#:[id number] Milrinone-D5w Pmx 20 mg 100 In Dextrose/Water 1 100ml .bag @ 0.125 MCG/KG/MIN 4 .616 mls/hr IV .[id number] GERTRUDIS Rx#:[id number] ceFAZolin 3 gm In Sodium 200 Chloride 0.9% 100 ml @ 100 mls/hr IVPB Q8HR GERTRUDIS Rx#:[id number] Oral 410 400 240 Output: Chest Tube Drainage 140 69 56 Chest Tube Mediastinal [address] 50 56 44 Pleural Catheter [address] 40 13 12 Urine 520 485 585 Other: Voiding Method Indwelling Catheter Indwelling Catheter Indwelling Catheter ABP, PAP, CO, CI - Last Documented Arterial Blood Pressure 112/99 Pulmonary Artery Pressure 36/14 Cardiac Output 7.9 Cardiac Index 3.3 - Labs CBC & Chem 7: 06/28/23 05:45 06/28/23 04:30 Labs: Abnormal Lab Results - Last 24 Hours (Table) 06/27/23 06/27/23 06/27/23 Range/Units 14:06 15:56 18:14 WBC (3.8-10.6) k/uL RBC (4.30-5.90) m/uL Hgb (13.0-17.5) gm/dL Hct (39.0-53.0) % Neutrophils # (1.3-7.7) k/uL Monocytes # (0-1.0) k/uL Carbon Dioxide (22-30) mmol/L Glucose (74-99) mg/dL POC Glucose (mg/dL) 128 H 124 H 132 H (70-110) mg/dL Calcium (8.4-10.2) mg/dL Albumin (3.5-5.0) g/dL 06/27/23 06/27/23 06/28/23 Range/Units 21:29 22:58 01:21 WBC (3.8-10.6) k/uL RBC (4.30-5.90) m/uL Hgb (13.0-17.5) gm/dL Hct (39.0-53.0) % Neutrophils # (1.3-7.7) k/uL Monocytes # (0-1.0) k/uL Carbon Dioxide (22-30) mmol/L Glucose (74-99) mg/dL POC Glucose (mg/dL) 123 H 155 H 123 H (70-110) mg/dL Calcium (8.4-10.2) mg/dL Albumin (3.5-5.0) g/dL 06/28/23 06/28/23 06/28/23 Range/Units 02:52 04:30 05:26 WBC (3.8-10.6) k/uL RBC (4.30-5.90) m/uL Hgb (13.0-17.5) gm/dL Hct (39.0-53.0) % Neutrophils # (1.3-7.7) k/uL Monocytes # (0-1.0) k/uL Carbon Dioxide 21 L (22-30) mmol/L Glucose 127 H (74-99) mg/dL POC Glucose (mg/dL) 117 H 116 H (70-110) mg/dL Calcium 8.3 L (8.4-10.2) mg/dL Albumin 3.4 L (3.5-5.0) g/dL 06/28/23 06/28/23 06/28/23 Range/Units 05:45 07:06 12:04 WBC 14.7 H (3.8-10.6) k/uL RBC 3.57 L (4.30-5.90) m/uL Hgb 11.1 L (13.0-17.5) gm/dL Hct 34.2 L (39.0-53.0) % Neutrophils # 12.1 H (1.3-7.7) k/uL Monocytes # 1.1 H (0-1.0) k/uL Carbon Dioxide (22-30) mmol/L Glucose (74-99) mg/dL POC Glucose (mg/dL) 125 H 111 H (70-110) mg/dL Calcium (8.4-10.2) mg/dL Albumin (3.5-5.0) g/dL
[2023-06-28 16:35] LABS: Glucose,Whole Blood 126 mg/dL (70-110)
[2023-06-28 20:21] LABS: Glucose,Whole Blood 138 mg/dL (70-110)
[2023-06-28] MEDS: DEXTROSE 5% IN WATER 100 ML with AMIODARONE 150 MG IV PRN (21:19)
[2023-06-28] MEDS: AMIODARONE 360 MG in DEXTROSE 5% IN WATER 200 ML IV PRN (21:36)
[2023-06-28 21:40] LABS: African American GFR (CKD) >90 (>60 ml/min/1.73 sqM); Anion Gap 3 mmol/L; Blood Urea Nitrogen 15 mg/dL (9-20); Calcium 7.9 mg/dL (8.4-10.2); Carbon Dioxide 28 mmol/L (22-30); Chloride 105 mmol/L (98-107); Glucose 134 mg/dL (74-99); Magnesium 2.5 mg/dL (1.6-2.3); Non-African American GFR(CKD) >90 (>60 ml/min/1.73 sqM); Potassium 3.9 mmol/L (3.5-5.1); Sodium 136 mmol/L (137-145)
--- NOTE | 2023-06-28 22:09 | PN ---
PROGRESS NOTE SUBJECTIVE: 58-year-old gentleman with coronary artery disease, status post bypass surgery, postop day #2. The patient is extubated, remains in sinus rhythm and hemodynamically stable. He is currently on aspirin, Lipitor, Plavix, Lopressor. OBJECTIVE: GENERA: Comfortable at rest. VITAL SIGNS: Stable. CHEST: Exam reveals diminished air entry at the bases. HEART: Exam reveals first and second heart sounds. No gallop. No murmur. ABDOMEN: Soft. EXTREMITIES: Reveals mild edema. Peripheral pulses are felt. ASSESSMENT AND PLAN: Coronary artery disease, status post coronary artery bypass graft. The patient is doing well. He will work on incentive spirometry, increase his activity. We should be able to move him out of ICU tomorrow. MMODL / IJN: [id number] /
[2023-06-28] MEDS: POTASSIUM CHLORIDE ER 20 MEQ TAB.ER PO SCH (23:07)
[2023-06-29] MEDS: AMIODARONE 450 MG in DEXTROSE 5% IN WATER 250 ML IV PRN (03:50)
[2023-06-29 04:23] LABS: Basophils # (A) 0.1 k/uL (0-0.2); Basophils % (A) 0 %; Eosinophils # (A) 0.3 k/uL (0-0.7); Eosinophils % (A) 3 %; HCT 34.6 % (39.0-53.0); HGB 10.8 gm/dL (13.0-17.5); Lymphocytes # (A) 0.9 k/uL (1.0-4.8); Lymphocytes % (A) 8 %; MCH 30.2 pg (25.0-35.0); MCHC 31.3 g/dL (31.0-37.0); MCV 96.6 fL (80.0-100.0); Mean Platelet Volume 8.1; Monocytes # (A) 0.8 k/uL (0-1.0); Monocytes % (A) 6 %; Neutrophils % (A) 81 %; Platelet Count 258 k/uL (150-450); RBC 3.59 m/uL (4.30-5.90); RDW 13.6 % (11.5-15.5); WBC 12.3 k/uL (3.8-10.6)
[2023-06-29 04:41] LABS: ALT 20 U/L (4-49); AST 46 U/L (17-59); African American GFR (CKD) >90 (>60 ml/min/1.73 sqM); Albumin 3.2 g/dL (3.5-5.0); Alkaline Phosphatase 82 U/L (38-126); Anion Gap 8 mmol/L; Blood Urea Nitrogen 16 mg/dL (9-20); Calcium 8.3 mg/dL (8.4-10.2); Carbon Dioxide 25 mmol/L (22-30); Chloride 105 mmol/L (98-107); Glucose 134 mg/dL (74-99); Magnesium 2.6 mg/dL (1.6-2.3); Non-African American GFR(CKD) >90 (>60 ml/min/1.73 sqM); Potassium 4.2 mmol/L (3.5-5.1); Sodium 138 mmol/L (137-145); Total Bilirubin 0.5 mg/dL (0.2-1.3); Total Protein 6.2 g/dL (6.3-8.2)
[2023-06-29 06:32] LABS: Glucose,Whole Blood 142 mg/dL (70-110)
[2023-06-29] MEDS: METOPROLOL TARTRATE 50 MG TAB PO SCH (08:13)
--- NOTE | 2023-06-29 08:24 | P.PN ---
Subjective Progress Note Date: 06/29/23 Principal diagnosis: Triple-vessel coronary artery disease, non-STEMI this admission, acute systolic heart failure with reduced ejection fraction 35 to 40%, epistaxis. Past medical history significant for hypertension with noncompliance with treatment, remote history of tobacco dependence, previous EtOH use, occasional marijuana use, history of kidney stones, obesity with a BMI of 37.8 kg/m, and family history of cancer. POD #3 On Pump All Arterial Coronary Artery Bypass Grafting x 3. Left internal thoracic artery (in-situ) sequential to first diagonal artery and left anterior descending coronary artery. Free right internal thoracic artery from aorta to ramus intermedius coronary artery, Left atrial appendage ligation using #35 AtriClip, Endoscopic left radial artery harvest, Graft flow measurements using the edenes-Guanghetang Flow Meter System, intraoperative transesophageal echocardiogram performed by anesthesia, insertion of right common femoral arterial line using ultrasound-guided micropuncture technique. Postoperative acute blood loss anemia, expected given hemodilution and cardiopulmonary bypass. Postoperative paroxysmal atrial fibrillation, a known, a current after cardiac surgery, not a complication The patient was seen and examined in follow-up today June 29, 2023 at his bedside in the intensive care unit. He is currently sitting up to the bedside c hair, is awake, alert, oriented x 3 and is in no acute apparent distress. Denies any complaints of pain at this time and denies any complaints of shortness of breath with rest, although is complaining of some shortness of breath episodes with ambulating. Oxygen saturations are 97% on 3 L nasal can nula and he is achieving 750 mL on his incentive spirometry with encouragement. Bedside telemetry is showing normal sinus rhythm heart rate 89, he did have an episode of paroxysmal atrial fibrillation and was subsequently started on the amiodarone drip protocol. He remains hemodynamically stable and is currently on no inotropic or pressor support. Ventricular epicardial pacemaker wires remain in place and are grounded. Chest x-ray and laboratory results reviewed. Objective - Vital Signs Vital signs: Vital Signs Temp 98.2 F 06/29/23 04:00 Pulse 83 06/29/23 07:00 Resp 30 H 06/29/23 07:00 BP 138/75 06/29/23 07:00 Pulse Ox 96 06/29/23 07:00 FiO2 50 06/27/23 00:00 Intake & Output 06/28/23 06/29/23 06/29/23 18:59 06:59 18:59 Intake Total 434.792 200 Output Total 701 416 Balance -266.208 -216 Weight 126.1 kg Intake: IV 52 0.9 pressure bag 12 0.9ns for CO/CI 40 Intake, IV Titration 22.792 Amount Insulin Regular 100 unit 2.792 In Sodium Chloride 0.9% 100 ml @ Per Protocol IV .Q0M GERTRUDIS Rx#:[id number] Lactated Ringers 1,000 ml 20 @ 20 mls/hr IV .Q24H GERTRUDIS Rx#:[id number] Oral 360 200 Output: Chest Tube Drainage [address] 12 Urine 645 415 Stool 1 Other: Voiding Method Indwelling Catheter Urinal # Voids 1 ABP, PAP, CO, CI - Last Documented Arterial Blood Pressure 112/99 Pulmonary Artery Pressure 36/14 Cardiac Output 7.9 Cardiac Index 3.3 - Exam CONSTITUTIONAL: Sitting up to the bedside chair in the intensive care unit, appears comfortable, cooperative, no apparent acute distress. HEENT: Neck is supple, no JVD, no lymphadenopathy. RESPIRATORY: Lungs sounds essentially clear throughout, diminished to his bilateral bases. Respirations are symmetrical and nonlabored. Currently on 3 L nasal cannula with oxygen saturations 97%. Able to achieve 750 mL on his incentive spirometry with much encouragement. Weak cough. CARDIOVASCULAR: Regular rhythm and rate. S1 and S2 present, negative for S3, gallop or murmur. Sternum is stable. Palpable peripheral pulses bilaterally. No calf pain or tenderness noted. Heart hugger in place with patient demonstrating appropriate use. Knee-high SUNSHINE hose and sequential compression devices in place to his bilateral lower extremities. GASTROINTESTINAL: Abdomen soft, nontender, nondistended. Active bowel sounds present 4 quadrants. Tolerating diet. Passing flatus. No guarding or rigidity. Bowel movement this morning June 29, 2023. GENITOURINARY: Continues to void, urine output 450 mL in the last 8 hours. INTEGUMENTARY: Skin is warm and dry with no evidence of clubbing or cyanosis. Midline sternal incision clean dry and well approximated, covered with dry intact dressing. Left arm radial artery harvest sites clean, dry and approximated. No drainage or redness is present. NEUROLOGIC: Cranial nerves II through XII intact. No focal deficits. MUSKULOSKELETAL: Able to move all extremities, strength equal bilaterally, generalized weakness. PSYCHIATRIC: Alert and oriented to person place and time, appropriate affect, intact judgment and insight. INVASIVE LINES AND TUBES: Ventricular epicardial pacemaker wires present, and are grounded. - Allied health notes Allied health notes reviewed: nursing - Labs CBC & Chem 7: 06/29/23 03:53 06/29/23 03:53 Labs: Abnormal Lab Results - Last 24 Hours (Table) 06/28/23 06/28/23 06/28/23 Range/Units 12:04 16:33 20:20 WBC (3.8-10.6) k/uL RBC (4.30-5.90) m/uL Hgb (13.0-17.5) gm/dL Hct (39.0-53.0) % Neutrophils # (1.3-7.7) k/uL Lymphocytes # (1.0-4.8) k/uL Sodium (137-145) mmol/L Glucose (74-99) mg/dL POC Glucose (mg/dL) 111 H 126 H 138 H (70-110) mg/dL Calcium (8.4-10.2) mg/dL Magnesium (1.6-2.3) mg/dL Total Protein (6.3-8.2) g/dL Albumin (3.5-5.0) g/dL 06/28/23 06/29/23 06/29/23 Range/Units 20:59 03:53 03:53 WBC 12.3 H (3.8-10.6) k/uL RBC 3.59 L (4.30-5.90) m/uL Hgb 10.8 L (13.0-17.5) gm/dL Hct 34.6 L (39.0-53.0) % Neutrophils # 10.0 H (1.3-7.7) k/uL Lymphocytes # 0.9 L (1.0-4.8) k/uL Sodium 136 L (137-145) mmol/L Glucose 134 H 134 H (74-99) mg/dL POC Glucose (mg/dL) (70-110) mg/dL Calcium 7.9 L 8.3 L (8.4-10.2) mg/dL Magnesium 2.5 H 2.6 H (1.6-2.3) mg/dL Total Protein 6.2 L (6.3-8.2) g/dL Albumin 3.2 L (3.5-5.0) g/dL 06/29/23 Range/Units 06:30 WBC (3.8-10.6) k/uL RBC (4.30-5.90) m/uL Hgb (13.0-17.5) gm/dL Hct (39.0-53.0) % Neutrophils # (1.3-7.7) k/uL Lymphocytes # (1.0-4.8) k/uL Sodium (137-145) mmol/L Glucose (74-99) mg/dL POC Glucose (mg/dL) 142 H (70-110) mg/dL Calcium (8.4-10.2) mg/dL Magnesium (1.6-2.3) mg/dL Total Protein (6.3-8.2) g/dL Albumin (3.5-5.0) g/dL - Imaging and Cardiology Chest x-ray: report reviewed, image reviewed Assessment and Plan Assessment: Triple-vessel coronary artery disease, non-STEMI this admission, status post three-vessel coronary artery bypass grafting surgery Acute systolic heart failure with reduced ejection fraction 35-40%, mild mitral valve regurgitation and tricuspid valve regurgitation Epistaxis, resolved Shortness of breath, chest pain secondary to above Hypertension Left internal carotid artery stenosis 50 to 69% Remote history of tobacco dependence Severe COPD with preoperative FEV1 41% of predicted although not the best effort Previous EtOH use Occasional marijuana use History of kidney stones Obesity with BMI of 37.8 kg/m Family history of cancer Postoperative acute blood loss anemia, expected given hemodilution and cardiopulmonary bypass Postoperative paroxysmal atrial fibrillation, a known, a current after cardiac surgery, not a complication, status post left atrial appendage exclusion using a 35mm atrial clip Plan: Continue to maximize medical therapy with aspirin, statin, Plavix, and beta- mari. Metoprolol tartrate increased to 50 mg p.o. twice daily. Lasix 40 mg IV x 1 now and potassium chloride ER 20 mill equivalents p.o. x 1 n ow. Wean O2 as tolerated. Encourage incentive spirometry use 10 times every hour while awake. Bronchodilators per pulmonology. Continue amiodarone drip per protocol until protocol has finished, we will transition to amiodarone 400 mg p.o. twice daily for atrial fibrillation prophylaxis. Will monitor daily labs and chest x-rays. Electrolyte replacement per protocol. Increase activity as tolerated. PT/OT and cardiac rehab following. Insulin management per internal medicine. Preoperative hemoglobin A1c 5.1%. Pain control with current medication regimen. GI/DVT prophylaxis. We will remove his ventricular epicardial pacemaker wires today, bedrest for 1 hour post pacemaker wire removal. Continue record strict accurate intake and output. May bladder scan every 6 hours and as needed postvoid residual. If greater than or equal to 300 mL of urine may straight cath. Daily weights. Shower daily Continue Flomax 0.4 mg p.o. daily Transfer orders will be placed to the third floor cardiac stepdown unit for further monitoring and rehabilitation. More recommendations to follow based on patient's clinical course. Time with Patient: Greater than 30
[2023-06-29] MEDS: AMIODARONE 200 MG TAB PO SCH (08:25)
[2023-06-29] MEDS: POTASSIUM CHLORIDE ER 20 MEQ TAB.ER PO STA (08:26)
[2023-06-29] MEDS: FUROSEMIDE 10 MG/ML 4 ML VIAL IV STA (08:26)
--- NOTE | 2023-06-29 09:02 | XR ---
EXAMINATION TYPE: XR chest 2V DATE OF EXAM: 06/29/2023 HISTORY: Postop CABG COMPARISON: 06/28/2023 TECHNIQUE: Single view of the chest is submitted. FINDINGS: [place]-Chau catheter is been removed as have the chest tubes. No evidence for pneumothorax. Scattered p leural-parenchymal opacities seen throughout both lung fajardo. Chronic elevation right hemidiaphragm noted. The heart is stable. Hilar and mediastinal structures are within normal limits. Degenerative changes are seen of the dorsal spine. IMPRESSION: 1. Postoperative CABG changes.
--- NOTE | 2023-06-29 11:08 | P.PN ---
Subjective Progress Note Date: 06/29/23 Patient is a 58-year-old white male with past medical history significant for hypertension, coronary artery disease, previous tobacco dependence and current marijuana use, alcoholism, and anxiety. He does not currently follow with a primary care provider. Over the last couple months, the patient has had intermittent chest pain that radiates to his back and is associated with some left arm numbness. There is associated shortness of breath. His usually last for 15 minutes, and subsides with rest. The symptoms have significantly limited his activity level, he can no longer do activities such as go to the grocery store without symptoms. He went to [facility] earlier in the week, actually for a nosebleed. He was found to be hypertensive. He had some abnormal labs including an elevated troponins. He was diagnosed with a non-ST elevation ID. For this reason he was transferred to [facility] for further evaluation and treatment on 06/19/2023. He did have a heart ca theterization on 06/22/2023 which showed severe multivessel coronary artery disease including 100% proximal RCA stenosis, 100% LCx stenosis, 90% proximal LAD stenosis, and 90% diffuse ramus disease. There was recommendation for surgical revascularization, and cardiothoracic services were consulted. He is currently undergoing an extensive preoperative workup. Echocardiogram done this admission shows a reduced left ventricular ejection fraction of 35 to 40% along with some moderate concentric LVH. No observed significant valvular disease. He did have a preoperative bedside spirometry, at that time he had just learned some test results, he was anxious and uncooperative. His FEV1 was 1.58 L or 41%. Likely not best result and of limited value. He does have a significant smoking history, smoking 1.5 packs/day for many years. Quit smoking in 2020. Continues to recreationally smoke marijuana weekly. He denies ever being diagnosed with any kind of lung disease such as COPD or asthma. He is currently sitting up in bed, on room air, in no acute distress. We are asked to see this patient for preoperative pulmonary clearance for possible surgical revascularization. Chest CTA done at our facility did not show any evidence of pulmonary embolism. There was peripheral dependent groundglass opacities concerning for pulmonary venous congestion, atypical pneumonia was an alternative differential. Most recent CBC and BMP from 2 days ago were unremarkable. He was previously on a heparin drip, which has since been discontinued. Patient currently denies any chest pain. Denies any shortness of breath, coughing, sputum production. Afebrile. Incentive spirometer is at bedside. Patient was initially hesitant to undergo open heart, however, is leaning towards surgery. Patient continues to undergo extensive preoperative workup. STS score is being calculated. Progress note dated June 25, 2023. The patient was seen yesterday in consultation. He has a history of hypertension, coronary artery disease, previous tobacco dependence, alcoholism, anxiety, and marijuana use. The patient was recently evaluated, and found to have multivessel coronary disease, and is scheduled to have revascularization surgery tomorrow. The patient is practicing with his incentive spirometer. He is currently on room air. No IV fluids. Laboratory data includes a white count 10.3, hemoglobin 12.7, hematocrit 40.3, and a normal platelet count. Coagulation studies are normal. Sodium 137, potassium 4.1, chlorides 103, CO2 25, BUN 10, creatinine 0.83. Glucose is 95. Calcium is 9.4. Nasal screen was positive for Staph aureus, not MRSA. Progress note dated June 27, 2023. 58-year-old male postop day #1, status post three-vessel bypass surgery. The patient was not seen yesterday as he was in the operating room. The patient was extubated on June 25. He is currently on 6 L nasal cannula. He is getting lactated Ringer's at 20 cc an hour. He is also on Primacor 0.125 mcg/kg/min. Insulin drip has been weaned off. The patient is not really taking deep breaths, and we encouraged him to deep breathe, cough, clear secretions, as well as using the incentive spirometer, every hour. Current labs include a white count of 13.7, hemoglobin 11.4, hematocrit 35.5, and a normal platelet count. Sodium 137, potassium 4.4, chlorides 107, CO2 26, BUN 14, creatinine 0.86. Glucose is 123. Calcium 7.8. Albumin 2.9. Chest x-ray shows some postsurgical changes, and some basilar atelectasis. Progress note dated June 28, 2023. 58-year-old male, postop day #2, status post three-vessel bypass surgery. The patient is currently on oxygen at 6 L by nasal cannula. He is not receiving any IV fluids. The patient is getting 700 cc on his incentive spirometry. White count is 14.7, hemoglobin 11.1, hematocrit 34.2, platelet count 227,000. Sodium 139, potassium 4.5, chlorides 107, CO2 21, BUN 13, creatinine 0.83. Glucose is 125. Calcium is 8.3. The patient's nasopharyngeal swab was positive for oxacillin sensitive Staph aureus. The patient's chest x-ray showed cardiomegaly, and bilateral infiltrates, with small effusions. On today's evaluation on 06/29/2023, the patient is being seen for a follow-up. The patient is calm and comfortable. The patient remains on 3 days of oxygen by nasal cannula. Using incentive spirometer and pulling approximately 750 on his incentive spirometer. Cardiac rhythm is sinus. No hemodynamic instability. No chest pain. Surgical wound site is dry clean and intact. The patient had an episode of atrial fibrillation overnight and the patient subsequently was given IV amiodarone bolus and drip and he converted to normal sinus rhythm and the patient is currently being transitioned to oral amiodarone. Monitor coagulations have been utilized. Chest x-ray is noted bilateral pleural effusion. On today's blood work, the white cell count of 12.3 with a hemoglobin 10.8 and a platelet count of 258. BUN is at 16 with a creatinine of 0.8 and a sodium level is at 138 with a potassium level of 4.2. Awake and alert and communicating. No altered mentation. The patient is postop day #4 and the patient underwent three-vessel bypass surgery. The patient has systolic heart failure with reduced ejection fraction of 35 to 40% preoperatively. He has hypertension and is post acute non-ST segment elevation myocardial infarction due to his underlying coronary artery disease. Objective - Vital Signs Vital signs: Vital Signs Temp 97.8 F 06/29/23 08:00 Pulse 74 06/29/23 09:23 Resp 33 H 06/29/23 09:00 BP 160/100 06/29/23 09:00 Pulse Ox 96 06/29/23 09:09 FiO2 50 06/27/23 00:00 Intake & Output 06/28/23 06/29/23 06/29/23 18:59 06:59 18:59 Intake Total 434.792 200 Output Total 701 416 Balance -266.208 -216 Weight 126.1 kg Intake: IV 52 0.9 pressure bag 12 0.9ns for CO/CI 40 Intake, IV Titration 22.792 Amount Insulin Regular 100 unit 2.792 In Sodium Chloride 0.9% 100 ml @ Per Protocol IV .Q0M GERTRUDIS Rx#:[id number] Lactated Ringers 1,000 ml 20 @ 20 mls/hr IV .Q24H GERTRUDIS Rx#:[id number] Oral 360 200 Output: Chest Tube Drainage [address] 12 Urine [id number] 415 Stool 1 Other: Voiding Method Indwelling Catheter Urinal Urinal # Voids 1 ABP, PAP, CO, CI - Last Documented Arterial Blood Pressure 112/99 Pulmonary Artery Pressure 36/14 Cardiac Output 7.9 Cardiac Index 3.3 - Exam CONSTITUTIONAL: Sitting up to the bedside chair in the intensive care unit, appears comfortable, cooperative, no apparent acute distress. HEENT: Neck is supple, no JVD, no lymphadenopathy. RESPIRATORY: Lungs sounds essentially clear throughout, diminished to his bilateral bases. Respirations are symmetrical and nonlabored. Currently on 3 L nasal cannula with oxygen saturations 97%. Able to achieve 750 mL on his incentive spirometry with much encouragement. Weak cough. CARDIOVASCULAR: Regular rhythm and rate. S1 and S2 present, negative for S3, gallop or murmur. Sternum is stable. Palpable peripheral pulses bilaterally. No calf pain or tenderness noted. Heart hugger in place with patient demonstra ting appropriate use. Knee-high SUNSHINE hose and sequential compression devices in place to his bilateral lower extremities. GASTROINTESTINAL: Abdomen soft, nontender, nondistended. Active bowel sounds present 4 quadrants. Tolerating diet. Passing flatus. No guarding or rigidity. Bowel movement this morning June 29, 2023. GENITOURINARY: Continues to void, urine output 450 mL in the last 8 hours. INTEGUMENTARY: Skin is warm and dry with no evidence of clubbing or cyanosis. Midline sternal incision clean dry and well approximated, covered with dry intact dressing. Left arm radial artery harvest sites clean, dry and approximated. No drainage or redness is present. NEUROLOGIC: Cranial nerves II through XII intact. No focal deficits. MUSKULOSKELETAL: Able to move all extremities, strength equal bilaterally, generalized weakness. PSYCHIATRIC: Alert and oriented to person place and time, appropriate affect, intact judgment and insight. INVASIVE LINES AND TUBES: Ventricular epicardial pacemaker wires present, and are grounded. - Labs CBC & Chem 7: 06/29/23 03:53 06/29/23 03:53 Labs: Abnormal Lab Results - Last 24 Hours (Table) 06/28/23 06/28/23 06/28/23 Range/Units 12:04 16:33 20:20 WBC (3.8-10.6) k/uL RBC (4.30-5.90) m/uL Hgb (13.0-17.5) gm/dL Hct (39.0-53.0) % Neutrophils # (1.3-7.7) k/uL Lymphocytes # (1.0-4.8) k/uL Sodium (137-145) mmol/L Glucose (74-99) mg/dL POC Glucose (mg/dL) 111 H 126 H 138 H (70-110) mg/dL Calcium (8.4-10.2) mg/dL Magnesium (1.6-2.3) mg/dL Total Protein (6.3-8.2) g/dL Albumin (3.5-5.0) g/dL 06/28/23 06/29/23 06/29/23 Range/Units 20:59 03:53 03:53 WBC 12.3 H (3.8-10.6) k/uL RBC 3.59 L (4.30-5.90) m/uL Hgb 10.8 L (13.0-17.5) gm/dL Hct 34.6 L (39.0-53.0) % Neutrophils # 10.0 H (1.3-7.7) k/uL Lymphocytes # 0.9 L (1.0-4.8) k/uL Sodium 136 L (137-145) mmol/L Glucose 134 H 134 H (74-99) mg/dL POC Glucose (mg/dL) (70-110) mg/dL Calcium 7.9 L 8.3 L (8.4-10.2) mg/dL Magnesium 2.5 H 2.6 H (1.6-2.3) mg/dL Total Protein 6.2 L (6.3-8.2) g/dL Albumin 3.2 L (3.5-5.0) g/dL 06/29/23 Range/Units 06:30 WBC (3.8-10.6) k/uL RBC (4.30-5.90) m/uL Hgb (13.0-17.5) gm/dL Hct (39.0-53.0) % Neutrophils # (1.3-7.7) k/uL Lymphocytes # (1.0-4.8) k/uL Sodium (137-145) mmol/L Glucose (74-99) mg/dL POC Glucose (mg/dL) 142 H (70-110) mg/dL Calcium (8.4-10.2) mg/dL Magnesium (1.6-2.3) mg/dL Total Protein (6.3-8.2) g/dL Albumin (3.5-5.0) g/dL Assessment and Plan Plan: Postop day #3, status post three-vessel bypass surgery. Postthoracotomy, the patient's chest tubes are removed and the patient has small bilateral pleural effusion on today's chest x-ray. Acute hypoxic stephanie failure, expected outcome of surgery and the patient is currently on 3 L of O2 nasal cannula New onset atrial fibrillation converted to normal sinus rhythm treated with amiodarone. Currently in sinus rhythm and the patient is hemodynamically stable Multivessel coronary artery disease and the patient is status post Non-ST elevation ID Severe multivessel coronary artery disease, heart catheterization on 06/22/2023 which showed severe multivessel coronary artery disease including 100% proximal RCA stenosis, 100% LCx stenosis, 90% LAD stenosis, and 90% diffuse ramus disease. chronic obstructive pulmonary disease, patient has an extensive smoking history. Bedside spirometry was technically a poor study, as the patient was anxious and uncooperative at that time. Likely not good effort. FEV1 was 1.58 L or 41% of predicted. Former tobacco dependence, over 25-vdwm-owve history, quitting in 2020. Current marijuana use, weekly. Left internal carotid artery stenosis, estimated at 50 to 69%. Epistaxis, resolved. Anxiety . History of alcoholism. Hypertension. Obesity, with a BMI of 37 kg/m. Plan: Encouraged use of incentive spirometer The patient will have increase mobility Current cardiac rhythm is sinus and the patient will be started on metoprolol 50 mg twice a day and dose has been modified. The patient will be also given amiodarone maintenance 400 mg p.o. twice a day for A-fib prophylaxis. No need for anticoagulants at this point in time. Lasix 40 mg IV push x 1 The epicardial pacemaker wires will be removed today Continue rest of the supportive care and the patient can be ultimately transferred out of the intensive care unit. Will coordinate this with the surgical team Wean down FiO2 as tolerated currently on 3 L.
[2023-06-29 11:38] VITALS: BMI 38.7
--- NOTE | 2023-06-29 11:43 | P.PN ---
Subjective Progress Note Date: 06/29/23 58-year-old male who presents emergency department as a transfer from [facility]. He originally went in there for chest pain which has been going on for greater than a week. EKG was performed which demonstrated Q waves in the inferior leads. Troponin level was elevated. Patient was given a dose of Lovenox and transferred to our facility for cardiology evaluation. Troponin went from 76 to 172. D-dimer was normal. BNP was 1449. Patient was given a dose of Lovenox 120 mg and 40 mg of Lasix. Patient initially presented to [facility] by EMS due to nosebleed. He did not present for chest pain. Due to concern for coronary artery disease, patient was transferred from the ER at [facility] to [facility]. He did receive IV Lasix 40 mg at [facility] and he thinks his breathing is a bit better today. His initial blood pressure at [facility] was 159/100. Troponin was elevated. D-dimer was normal. Chest x-ray revealed CHF. Patient now has a blood pressure 154/101 and heart rate of 101. He denies having any chest pain at this time. EKG sinus rhythm with none specific ST changes. CTA of the chest reveals no evidence of pulmonary embolism. Peripheral, dependent ground glass pulmonary opacities consistent with atypical pulmonary infection such as COVID-19 or other viral or pulmonary venous congestion. CBC and CMP normal. Troponins 0.485 and 0.743. 06/21/2023 Patient is seen and evaluated sitting up in bed; no complaint of chest pain or shortness of breath; anxious to go home Vital signs are reviewed and remained stable Patient is currently on IV heparin per protocol, aspirin 81 mg daily, Lipitor 80 mg daily and Lopressor 50 mg twice daily Cardiology on board with plans for cardiac catheterization tomorrow morning 06/22/2023 Patient s/p cardiac cath showing severe triple-vessel coronary artery disease. Showing 100% occluded RCA and left circumflex artery and 90% left coronary anterior descending coronary artery After cardiac cath patient was walking in the room with no difficulty. Patient wants to be discharged Cardiothoracic surgery team evaluated the patient however patient wants to follow-up as an outpatient Currently denies chest pain or dyspnea or any other complaint Patient remains on aspirin statin metoprolol switched to Coreg, and Imdur Echocardiogram showing ejection fraction 35 to 40% 06/23/2023 pt is with No chest pain no dyspnea No other new complaints Hemodynamically stable He finished his heparin drip treatment. Currently his Aspirin 81 Mg and Coreg 25 Mg Also He Is on Losartan 100 Mg and Lasix Once Daily Patient Is Aware about the Result of Severe Triple-Vessel Coronary Artery Disease and His Been Followed by Cardiothoracic Surgery Team for Possible Bypass Procedure, patient is considering inpatient versus outpatient management for now 06/24/2023 Patient awake alert No chest pain or dyspnea Patient currently on aspirin 81 mg Patient planned to undergo cardiac bypass procedure on Sunday 06/25. Patient looks agreeable to this plan. 06/25/2023 Patient awake alert looks comfortable No chest pain, no dyspnea No other new complaint Patient feels motivated to go for bypass surgery tomorrow with cardiothoracic surgery team Hemodynamically stable, labs reviewed, WBC is 8.4, hemoglobin 13.1, platelet count 349 Electrolytes are normal, creatinine 0.9, hemoglobin A1c 5.1%, TSH is 2.6. He has positive MRSA test and his nasal sample. Patient on aspirin 81 mg From medical perspective there is no contraindication to proceed with surgery 06/25. Patient seen and examined. Patient was seen for CABG. Currently n.p.o. 06/26. Patient seen examined. Currently in ICU. Currently on 8 L of oxygen. Patient continues to be on Primacor drip. Patient also has chest tubes and [place] catheter in place. States that he has poor appetite. States he is tired, wants to sleep. 06/27. Patient seen and examined. Patient had chest tubes removed this morning. Primacor drip was discontinued. Patient ambulating with help of walker. Vital signs stable 06/28. Patient seen and examined. Vital signs on this morning temperature 99.8, heart rate 83, respiration 33, blood pressure 151/79, currently on 3 L of oxygen. Complaining of shortness of breath, slightly tachypneic. Denies any cough. REVIEW OF SYSTEMS: CONSTITUTIONAL: No fever, no malaise,. CARDIOVASCULAR: no palpitations, no syncope. PULMONARY: As mentioned above GASTROINTESTINAL: No diarrhea, no nausea, no vomiting, no abdominal pain. NEUROLOGICAL: No headaches, no weakness, PHYSICAL EXAMINATION: GENERAL: The patient is alert and oriented x3, not in any acute distress. HEENT: Pupils are round and equally reacting to light. EOMI. No scleral icterus. No conjunctival pallor. Normocephalic, atraumatic. No pharyngeal erythema. No thyromegaly. CARDIOVASCULAR: S1 and S2 present. No murmurs, rubs, or gallops. PULMONARY: Diminished breath sounds at bases, no wheezing or crackles. Sternotomy surgical incision seen, ABDOMEN: Soft, nontender, nondistended, normoactive bowel sounds. No palpable organomegaly. MUSCULOSKELETAL: No joint swelling or deformity. EXTREMITIES: No cyanosis, clubbing, or pedal edema. NEUROLOGICAL: Gross neurological examination did not reveal any focal deficits. SKIN: No rashes. Assessment and plan Triple-vessel coronary artery disease, status post three-vessel coronary artery bypass grafting surgery Non-STEMI with cardiac cath Showing 100% occluded RCA and left circumflex artery and 90% left coronary anterior descending coronary artery Ischemic cardiomyopathy with ejection fraction 35 to 40% Hypertension Obesity with BMI of 37 Hyperlipidemia Shortness of breath, chest pain secondary to above Left internal carotid artery stenosis 50 to 69% Remote history of tobacco dependence Severe COPD with preoperative FEV1 41% of predicted although not the best effort Monitor vital signs Monitor CBC Monitor CMP Continue telemetry monitoring Continue postop CABG care per CT surgery Aggressive bronchopulmonary hygiene Encourage use of I-S Continue with aspirin, Plavix statin Continue with Lopressor , Amiodarone Continue low-dose sliding scale insulin CT surgery following Critical care following Labs and medication were reviewed.. Continue same treatment. Continue with symptomatic treatment. Resume home medication. Monitor labs and vitals. DVT and GI prophylaxis. Further recommendations as per clinical course of the patient Dictation was produced using [employer] dictation software. please excuse any grammatical, word or spelling errors. Objective - Vital Signs Vital signs: Vital Signs Temp 97.8 F 06/29/23 08:00 Pulse 74 06/29/23 09:23 Resp 33 H 06/29/23 09:00 BP 160/100 06/29/23 09:00 Pulse Ox 96 06/29/23 09:09 FiO2 50 06/27/23 00:00 Intake & Output 06/28/23 06/29/23 06/29/23 18:59 06:59 18:59 Intake Total 434.792 200 Output Total 701 416 Balance -266.208 -216 Weight 126.1 kg 126.1 kg Intake: IV 52 0.9 pressure bag 12 0.9ns for CO/CI 40 Intake, IV Titration 22.792 Amount Insulin Regular 100 unit 2.792 In Sodium Chloride 0.9% 100 ml @ Per Protocol IV .Q0M GERTRUDIS Rx#:[id number] Lactated Ringers 1,000 ml 20 @ 20 mls/hr IV .Q24H GERTRUDIS Rx#:[id number] Oral 360 200 Output: Chest Tube Drainage [address] 12 Urine [id number] 415 Stool 1 Other: Voiding Method Indwelling Catheter Urinal Urinal # Voids 1 ABP, PAP, CO, CI - Last Documented Arterial Blood Pressure 112/99 Pulmonary Artery Pressure 36/14 Cardiac Output 7.9 Cardiac Index 3.3 - Labs CBC & Chem 7: 06/29/23 03:53 06/29/23 03:53 Labs: Abnormal Lab Results - Last 24 Hours (Table) 06/28/23 06/28/23 06/28/23 Range/Units 12:04 16:33 20:20 WBC (3.8-10.6) k/uL RBC (4.30-5.90) m/uL Hgb (13.0-17.5) gm/dL Hct (39.0-53.0) % Neutrophils # (1.3-7.7) k/uL Lymphocytes # (1.0-4.8) k/uL Sodium (137-145) mmol/L Glucose (74-99) mg/dL POC Glucose (mg/dL) 111 H 126 H 138 H (70-110) mg/dL Calcium (8.4-10.2) mg/dL Magnesium (1.6-2.3) mg/dL Total Protein (6.3-8.2) g/dL Albumin (3.5-5.0) g/dL 06/28/23 06/29/23 06/29/23 Range/Units 20:59 03:53 03:53 WBC 12.3 H (3.8-10.6) k/uL RBC 3.59 L (4.30-5.90) m/uL Hgb 10.8 L (13.0-17.5) gm/dL Hct 34.6 L (39.0-53.0) % Neutrophils # 10.0 H (1.3-7.7) k/uL Lymphocytes # 0.9 L (1.0-4.8) k/uL Sodium 136 L (137-145) mmol/L Glucose 134 H 134 H (74-99) mg/dL POC Glucose (mg/dL) (70-110) mg/dL Calcium 7.9 L 8.3 L (8.4-10.2) mg/dL Magnesium 2.5 H 2.6 H (1.6-2.3) mg/dL Total Protein 6.2 L (6.3-8.2) g/dL Albumin 3.2 L (3.5-5.0) g/dL 06/29/23 Range/Units 06:30 WBC (3.8-10.6) k/uL RBC (4.30-5.90) m/uL Hgb (13.0-17.5) gm/dL Hct (39.0-53.0) % Neutrophils # (1.3-7.7) k/uL Lymphocytes # (1.0-4.8) k/uL Sodium (137-145) mmol/L Glucose (74-99) mg/dL POC Glucose (mg/dL) 142 H (70-110) mg/dL Calcium (8.4-10.2) mg/dL Magnesium (1.6-2.3) mg/dL Total Protein (6.3-8.2) g/dL Albumin (3.5-5.0) g/dL
[2023-06-29 12:04] LABS: Glucose,Whole Blood 147 mg/dL (70-110)
--- NOTE | 2023-06-29 14:56 | P.PN ---
Subjective Progress Note Date: 06/29/23 the patient is a 58-year-old male who is currently admitted with non-ST elevated myocardial infarction. The patient was found to have triple-vessel coronary artery disease and underwent bypass surgery. Today is postop day 3. He is currently on an amiodarone drip per protocol for postoperative atrial fib rillation. The patient was interviewed and examined resting comfortably in the recliner chair. He states he does have some generalized pain, close to his sternum site. No difficulty breathing. No dizziness or lightheadedness upon ambulation. GENERAL: Well-appearing, well-nourished and in no acute distress. NECK: Supple without JVD or thyromegaly. LUNGS: Breath sounds diminished to auscultation bilaterally. Respiration equal and unlabored. No wheezes, rales or rhonchi. HEART: Regular rate and rhythm without murmurs, rubs or gallops. S1 and S2 heard.heart however in place. Wound VAC on sternal site EXTREMITIES: Normal range of motion, no edema. No clubbing or cyanosis. Peripheral pulses intact and strong. TELEMETRY: currently in sinus rhythm IMPRESSION: triple-vessel coronary artery disease Status post on pump coronary bypass Ischemic cardiomyopathy, EF 35-40% Postoperative atrial fibrillation Hypertension Dyslipidemia PLAN: continue supportive treatment Aggressive pulmonary hygiene Encourage ambulation downgrade to 3 south when cleared by CV surgery I am dictating on behalf of Dr Andi Alfaro's history/physical and assessment/plan. Objective - Vital Signs Vital signs: Vital Signs Temp 97.8 F 06/29/23 08:00 Pulse 74 06/29/23 09:23 Resp 33 H 06/29/23 09:00 BP 160/100 06/29/23 09:00 Pulse Ox 96 06/29/23 09:09 FiO2 50 06/27/23 00:00 Intake & Output 06/28/23 06/29/23 06/29/23 18:59 06:59 18:59 Intake Total 434.792 200 Output Total 701 416 Balance -266.208 -216 Weight 126.1 kg Intake: IV 52 0.9 pressure bag 12 0.9ns for CO/CI 40 Intake, IV Titration 22.792 Amount Insulin Regular 100 unit 2.792 In Sodium Chloride 0.9% 100 ml @ Per Protocol IV .Q0M [facility] Rx#:[id number] Lactated Ringers 1,000 ml 20 @ 20 mls/hr IV .Q24H [facility] Rx#:[id number] Oral 360 200 Output: Chest Tube Drainage [address] 12 Urine 645 415 Stool 1 Other: Voiding Method Indwelling Catheter Urinal Urinal # Voids 1 ABP, PAP, CO, CI - Last Documented Arterial Blood Pressure 112/99 Pulmonary Artery Pressure 36/14 Cardiac Output 7.9 Cardiac Index 3.3 - Labs CBC & Chem 7: 06/29/23 03:53 06/29/23 03:53 Labs: Abnormal Lab Results - Last 24 Hours (Table) 06/28/23 06/28/23 06/28/23 Range/Units 12:04 16:33 20:20 WBC (3.8-10.6) k/uL RBC (4.30-5.90) m/uL Hgb (13.0-17.5) gm/dL Hct (39.0-53.0) % Neutrophils # (1.3-7.7) k/uL Lymphocytes # (1.0-4.8) k/uL Sodium (137-145) mmol/L Glucose (74-99) mg/dL POC Glucose (mg/dL) 111 H 126 H 138 H (70-110) mg/dL Calcium (8.4-10.2) mg/dL Magnesium (1.6-2.3) mg/dL Total Protein (6.3-8.2) g/dL Albumin (3.5-5.0) g/dL 06/28/23 06/29/23 06/29/23 Range/Units 20:59 03:53 03:53 WBC 12.3 H (3.8-10.6) k/uL RBC 3.59 L (4.30-5.90) m/uL Hgb 10.8 L (13.0-17.5) gm/dL Hct 34.6 L (39.0-53.0) % Neutrophils # 10.0 H (1.3-7.7) k/uL Lymphocytes # 0.9 L (1.0-4.8) k/uL Sodium 136 L (137-145) mmol/L Glucose 134 H 134 H (74-99) mg/dL POC Glucose (mg/dL) (70-110) mg/dL Calcium 7.9 L 8.3 L (8.4-10.2) mg/dL Magnesium 2.5 H 2.6 H (1.6-2.3) mg/dL Total Protein 6.2 L (6.3-8.2) g/dL Albumin 3.2 L (3.5-5.0) g/dL 06/29/23 Range/Units 06:30 WBC (3.8-10.6) k/uL RBC (4.30-5.90) m/uL Hgb (13.0-17.5) gm/dL Hct (39.0-53.0) % Neutrophils # (1.3-7.7) k/uL Lymphocytes # (1.0-4.8) k/uL Sodium (137-145) mmol/L Glucose (74-99) mg/dL POC Glucose (mg/dL) 142 H (70-110) mg/dL Calcium (8.4-10.2) mg/dL Magnesium (1.6-2.3) mg/dL Total Protein (6.3-8.2) g/dL Albumin (3.5-5.0) g/dL
[2023-06-29 18:08] LABS: Glucose,Whole Blood 132 mg/dL (70-110)
[2023-06-29] MEDS: ALPRAZolam 0.25 MG TAB PO PRN (19:49)
[2023-06-29 19:53] LABS: Glucose,Whole Blood 138 mg/dL (70-110)
[2023-06-30 05:13] LABS: HCT 35.6 % (39.0-53.0); Hypochromasia Slight; MCH 29.8 pg (25.0-35.0); MCHC 30.9 g/dL (31.0-37.0); MCV 96.7 fL (80.0-100.0); Mean Platelet Volume 7.4; Platelet Count 340 k/uL (150-450); RBC 3.68 m/uL (4.30-5.90); RDW 13.5 % (11.5-15.5)
[2023-06-30 05:27] LABS: African American GFR (CKD) >90 (>60 ml/min/1.73 sqM); Anion Gap 6 mmol/L; Blood Urea Nitrogen 19 mg/dL (9-20); Calcium 8.2 mg/dL (8.4-10.2); Carbon Dioxide 27 mmol/L (22-30); Chloride 106 mmol/L (98-107); Glucose 113 mg/dL (74-99); Non-African American GFR(CKD) >90 (>60 ml/min/1.73 sqM); Potassium 4.8 mmol/L (3.5-5.1); Sodium 139 mmol/L (137-145)
[2023-06-30 06:37] LABS: Glucose,Whole Blood 114 mg/dL (70-110)
--- NOTE | 2023-06-30 07:40 | XR ---
EXAMINATION TYPE: XR chest 1V portable DATE OF EXAM: 06/30/2023 HISTORY: Shortness of breath. COMPARISON: 06/29/2023 TECHNIQUE: Single view of the chest is submitted. FINDINGS: Demonstrated are scattered senescent parenchymal change. No pneumothorax seen. Scattered infiltrates and/or atelectasis are noted mid and lower lung zones. Suspect tiny effusions a s well. Changes of median sternotomy and CABG. The heart is stable. Hilar and mediastinal structures are within normal limits. Degenerative changes are seen of the dorsal spine. IMPRESSION: 1. Scattered infiltrates and/or atelectasis are noted mid and lower lung zones. Suspect tiny effusio ns as well. Changes of median sternotomy and CABG.
[2023-06-30] MEDS ORDERED: carvediloL 6.25 MG TAB PO SCH (08:00)
[2023-06-30] MEDS ORDERED: carvediloL 12.5 MG TAB PO SCH ×2 (08:00→17:30)
--- NOTE | 2023-06-30 08:06 | P.PN ---
Subjective Progress Note Date: 06/30/23 Principal diagnosis: Triple-vessel coronary artery disease, non-STEMI this admission, acute systolic heart failure with reduced ejection fraction 35 to 40%, epistaxis. Past medical history significant for hypertension with noncompliance with treatment, remote history of tobacco dependence, previous EtOH use, occasional marijuana use, history of kidney stones, obesity with a BMI of 37.8 kg/m, and family history of cancer. POD #5 On Pump All Arterial Coronary Artery Bypass Grafting x 3. Left internal thoracic artery (in-situ) sequential to first diagonal artery and left anterior descending coronary artery. Free right internal thoracic artery from aorta to ramus intermedius coronary artery, Left atrial appendage ligation using #35 AtriClip, Endoscopic left radial artery harvest, Graft flow measurements using the [id number] Flow Meter System, intraoperative transesophageal echocardiogram performed by anesthesia, insertion of right common femoral arterial line using ultrasound-guided micropuncture technique. Postoperative acute blood loss anemia, expected given hemodilution and cardiopulmonary bypass. Postoperative paroxysmal atrial fibrillation, a known, a current after cardiac surgery, not a complication, currently in normal sinus rhythm The patient was seen and examined in follow-up today June 30, 2023 at his bedside in the intensive care unit. Currently he is sitting up to the bedside chair, is awake, alert, oriented x 3 and is in no acute apparent distress. He denies any complaints of pain this a.m., although is complaining of some shortness of breath and is slightly tachypneic. Oxygen saturations are 95% on 2 L nasal cannula and he is achieving 1000 mL on his incentive spirometry with much encouragement. The patient reports he is feeling fairly anxious which is chronic in nature for him. He was started on Xanax yesterday, and the patient reports he slept well throughout the night. Bedside telemetry is showing normal sinus rhythm heart rate 81 bpm, no further episodes of atrial fibrillation have been reported. He continues on amiodarone 400 mg p.o. twice daily for atrial fibrillation prophylaxis. He reports he has been ambulating in the intensive care unit hallway with standby assistance from nursing and therapy staff and tolerating well, states he does still get slightly short winded while ambulating. Ventricular epicardial pacemaker wires remain in place and are grounded. He remains hemodynamically stable and is currently on no inotropic or pressor support. Chest x-ray and laboratory results were reviewed. Objective - Vital Signs Vital signs: Vital Signs Temp 98.4 F 06/30/23 04:00 Pulse 86 06/30/23 04:00 Resp 28 H 06/30/23 04:00 BP 183/119 06/30/23 04:00 Pulse Ox 97 06/30/23 04:00 FiO2 50 06/27/23 00:00 Intake & Output 06/29/23 06/30/23 06/30/23 18:59 06:59 18:59 Intake Total 300 Output Total 450 490 Balance -150 -490 Weight 126.1 kg 125.464 kg Intake: Oral 300 Output: Urine 450 490 Other: Voiding Method Urinal Urinal ABP, PAP, CO, CI - Last Documented Arterial Blood Pressure 112/99 Pulmonary Artery Pressure 36/14 Cardiac Output 7.9 Cardiac Index 3.3 - Exam CONSTITUTIONAL: Sitting up to the bedside chair in the intensive care unit, appears comfortable, cooperative, no apparent acute distress. HEENT: Neck is supple, no JVD, no lymphadenopathy. RESPIRATORY: Lungs sounds essentially clear throughout with few scattered expiratory wheezes, diminished to his bilateral bases. Respirations slightly tachypneic, symmetrical and nonlabored. Currently on 2 L nasal cannula with oxygen saturations 97%. Able to achieve 1000 mL on his incentive spirometry with much encouragement. Weak cough. CARDIOVASCULAR: Regular rhythm and rate. S1 and S2 present, negative for S3, gallop or murmur. Sternum is stable. Palpable peripheral pulses bilaterally. No calf pain or tenderness noted. Heart hugger in place with patient demonstrating appropriate use. Knee-high SUNSHINE hose and sequential compression devices in place to his bilateral lower extremities. GASTROINTESTINAL: Abdomen soft, nontender, nondistended. Active bowel sounds present 4 quadrants. Tolerating diet. Passing flatus. No guarding or rigidity. Bowel movement June 29, 2023. GENITOURINARY: Continues to void, urine output 490 mL in the last 8 hours. INTEGUMENTARY: Skin is warm and dry with no evidence of clubbing or cyanosis. Midline sternal incision clean dry and well approximated, covered with dry intact dressing. Left arm radial artery harvest sites clean, dry and approximated. No drainage or redness is present. NEUROLOGIC: Cranial nerves II through XII intact. No focal deficits. MUSKULOSKELETAL: Able to move all extremities, strength equal bilaterally, generalized weakness. PSYCHIATRIC: Alert and oriented to person place and time, appropriate affect, intact judgment and insight. INVASIVE LINES AND TUBES: Ventricular epicardial pacemaker wires present, and are grounded. - Allied health notes Allied health notes reviewed: nursing - Labs CBC & Chem 7: 06/30/23 04:52 06/30/23 04:52 Labs: Abnormal Lab Results - Last 24 Hours (Table) 06/29/23 06/29/23 06/29/23 Range/Units 12:02 18:06 19:52 WBC (3.8-10.6) k/uL RBC (4.30-5.90) m/uL Hgb (13.0-17.5) gm/dL Hct (39.0-53.0) % MCHC (31.0-37.0) g/dL Glucose (74-99) mg/dL POC Glucose (mg/dL) 147 H 132 H 138 H (70-110) mg/dL Calcium (8.4-10.2) mg/dL 06/30/23 06/30/23 06/30/23 Range/Units 04:52 04:52 06:36 WBC 14.0 H (3.8-10.6) k/uL RBC 3.68 L (4.30-5.90) m/uL Hgb 11.0 L (13.0-17.5) gm/dL Hct 35.6 L (39.0-53.0) % MCHC 30.9 L (31.0-37.0) g/dL Glucose 113 H (74-99) mg/dL POC Glucose (mg/dL) 114 H (70-110) mg/dL Calcium 8.2 L (8.4-10.2) mg/dL - Imaging and Cardiology Chest x-ray: report reviewed, image reviewed Assessment and Plan Assessment: Triple-vessel coronary artery disease, non-STEMI this admission, status post three-vessel coronary artery bypass grafting surgery Acute systolic heart failure with reduced ejection fraction 35-40%, mild mitral valve regurgitation and tricuspid valve regurgitation Epistaxis, resolved Shortness of breath, chest pain secondary to above Hypertension Left internal carotid artery stenosis 50 to 69% Remote history of tobacco dependence Severe COPD with preoperative FEV1 41% of predicted although not the best effort Previous EtOH use Occasional marijuana use History of kidney stones Obesity with BMI of 37.8 kg/m Family history of cancer Postoperative acute blood loss anemia, expected given hemodilution and cardiopulmonary bypass Postoperative paroxysmal atrial fibrillation, a known, a current after cardiac surgery, not a complication, status post left atrial appendage exclusion using a 35mm atrial clip Plan: Continue to maximize medical therapy with aspirin, statin, Plavix, and beta- mari. Metoprolol tartrate discontinued, Coreg 12.5 mg p.o. twice daily with hold parameters. Lasix 40 mg IV x 1 now. Losartan 25 mg p.o. daily for afterload reduction started today with hold parameters. Wean O2 as tolerated. Encourage incentive spirometry use 10 times every hour while awake. Bronchodilators per pulmonology. Continue amiodarone 400 mg p.o. twice daily for atrial fibrillation prophylaxis. Currently in normal sinus rhythm. Will monitor daily labs and chest x-rays. Electrolyte replacement per protocol. Increase activity as tolerated. PT/OT and cardiac rehab following. Insulin management per internal medicine. Preoperative hemoglobin A1c 5.1%. Pain control with current medication regimen. GI/DVT prophylaxis. We will remove his ventricular epicardial pacemaker wires today, bedrest for 1 hour post pacemaker wire removal. Continue record strict accurate intake and output. May bladder scan every 6 hours and as needed postvoid residual. If greater than or equal to 300 mL of urine may straight cath. Daily weights. Shower daily. Continue Flomax 0.4 mg p.o. daily. Transfer orders will be placed to the third floor cardiac stepdown unit for further monitoring and rehabilitation. More recommendations to follow based on patient's clinical course. Time with Patient: Greater than 30
[2023-06-30] MEDS: FUROSEMIDE 10 MG/ML 4 ML VIAL IV STA (08:12)
[2023-06-30] MEDS: carvediloL 12.5 MG TAB PO SCH (08:12)
[2023-06-30] MEDS ORDERED: LOSARTAN 25 MG TAB PO SCH (09:00)
[2023-06-30] MEDS ORDERED: METOPROLOL TARTRATE 25 MG TAB PO SCH (09:00)
[2023-06-30] MEDS: methylPREDNISolone SOD SUCCI 125 MG/2 ML VIAL IV SCH (09:48)
--- NOTE | 2023-06-30 09:48 | P.PN ---
Subjective Progress Note Date: 06/30/23 The patient is a 58-year-old male who is currently admitted with non-ST elevated myocardial infarction. The patient was found to have triple-vessel coronary artery disease and underwent bypass surgery. Today is postop day 4. The patient has been hypertensive. He states that this is due to his anxiety. The patient was interviewed and examined in the recliner chair. The patient states he is suffering from anxiety this morning. He has more rapid shallow breathing, however denies any actual shortness of breath. No dizziness or lightheadedness upon ambulation. GENERAL: Ill-appearing, well-nourished. Labored, shallow breathing NECK: Supple without JVD or thyromegaly. LUNGS: Breath sounds diminished to auscultation bilaterally. Respiration equal. No wheezes, rales or rhonchi. HEART: Regular rate and rhythm without murmurs, rubs or gallops. S1 and S2 heard.heart however in place. Wound VAC on sternal site EXTREMITIES: Normal range of motion, mild edema. No clubbing or cyanosis. Peripheral pulses intact and strong. TELEMETRY: currently in sinus rhythm IMPRESSION: triple-vessel coronary artery disease Status post on pump coronary bypass Ischemic cardiomyopathy, EF 35-40% Postoperative atrial fibrillation Hypertension Dyslipidemia PLAN: Continue supportive treatment Aggressive pulmonary hygiene Encourage ambulation Anxiety management I am dictating on behalf of Dr Andi Alfaro's history/physical and assessment/plan. Objective - Vital Signs Vital signs: Vital Signs Temp 98.4 F 06/30/23 04:00 Pulse 86 06/30/23 04:00 Resp 28 H 06/30/23 04:00 BP 183/119 06/30/23 04:00 Pulse Ox 97 06/30/23 04:00 FiO2 50 06/27/23 00:00 Intake & Output 06/29/23 06/30/23 06/30/23 18:59 06:59 18:59 Intake Total 300 Output Total 450 490 Balance -150 -490 Weight 126.1 kg 125.464 kg Intake: Oral 300 Output: Urine 450 490 Other: Voiding Method Urinal Urinal ABP, PAP, CO, CI - Last Documented Arterial Blood Pressure 112/99 Pulmonary Artery Pressure 36/14 Cardiac Output 7.9 Cardiac Index 3.3 - Labs CBC & Chem 7: 06/30/23 04:52 06/30/23 04:52 Labs: Abnormal Lab Results - Last 24 Hours (Table) 06/29/23 06/29/23 06/29/23 Range/Units 12:02 18:06 19:52 WBC (3.8-10.6) k/uL RBC (4.30-5.90) m/uL Hgb (13.0-17.5) gm/dL Hct (39.0-53.0) % MCHC (31.0-37.0) g/dL Glucose (74-99) mg/dL POC Glucose (mg/dL) 147 H 132 H 138 H (70-110) mg/dL Calcium (8.4-10.2) mg/dL 06/30/23 06/30/23 06/30/23 Range/Units 04:52 04:52 06:36 WBC 14.0 H (3.8-10.6) k/uL RBC 3.68 L (4.30-5.90) m/uL Hgb 11.0 L (13.0-17.5) gm/dL Hct 35.6 L (39.0-53.0) % MCHC 30.9 L (31.0-37.0) g/dL Glucose 113 H (74-99) mg/dL POC Glucose (mg/dL) 114 H (70-110) mg/dL Calcium 8.2 L (8.4-10.2) mg/dL
[2023-06-30] MEDS: metOLazone 5 MG TAB PO ONE (11:40)
[2023-06-30 11:45] LABS: Glucose,Whole Blood 135 mg/dL (70-110)
[2023-06-30] MEDS: LOSARTAN 25 MG TAB PO SCH (11:46)
[2023-06-30] MEDS: LOSARTAN 25 MG TAB PO STA (13:21)
--- NOTE | 2023-06-30 13:33 | P.PN ---
Subjective Progress Note Date: 06/30/23 Patient is a 58-year-old white male with past medical history significant for hypertension, coronary artery disease, previous tobacco dependence and current marijuana use, alcoholism, and anxiety. He does not currently follow with a primary care provider. Over the last couple months, the patient has had intermittent chest pain that radiates to his back and is associated with some left arm numbness. There is associated shortness of breath. His usually last for 15 minutes, and subsides with rest. The symptoms have significantly limited his activity level, he can no longer do activities such as go to the grocery store without symptoms. He went to [facility] earlier in the week, actually for a nosebleed. He was found to be hypertensive. He had some abnormal labs including an elevated troponins. He was diagnosed with a non-ST elevation ME. For this reason he was transferred to [facility] for further evaluation and treatment on 06/19/2023. He did have a heart ca theterization on 06/22/2023 which showed severe multivessel coronary artery disease including 100% proximal RCA stenosis, 100% LCx stenosis, 90% proximal LAD stenosis, and 90% diffuse ramus disease. There was recommendation for surgical revascularization, and cardiothoracic services were consulted. He is currently undergoing an extensive preoperative workup. Echocardiogram done this admission shows a reduced left ventricular ejection fraction of 35 to 40% along with some moderate concentric LVH. No observed significant valvular disease. He did have a preoperative bedside spirometry, at that time he had just learned some test results, he was anxious and uncooperative. His FEV1 was 1.58 L or 41%. Likely not best result and of limited value. He does have a significant smoking history, smoking 1.5 packs/day for many years. Quit smoking in 2020. Continues to recreationally smoke marijuana weekly. He denies ever being diagnosed with any kind of lung disease such as COPD or asthma. He is currently sitting up in bed, on room air, in no acute distress. We are asked to see this patient for preoperative pulmonary clearance for possible surgical revascularization. Chest CTA done at our facility did not show any evidence of pulmonary embolism. There was peripheral dependent groundglass opacities concerning for pulmonary venous congestion, atypical pneumonia was an alternative differential. Most recent CBC and BMP from 2 days ago were unremarkable. He was previously on a heparin drip, which has since been discontinued. Patient currently denies any chest pain. Denies any shortness of breath, coughing, sputum production. Afebrile. Incentive spirometer is at bedside. Patient was initially hesitant to undergo open heart, however, is leaning towards surgery. Patient continues to undergo extensive preoperative workup. STS score is being calculated. Progress note dated June 25, 2023. The patient was seen yesterday in consultation. He has a history of hypertension, coronary artery disease, previous tobacco dependence, alcoholism, anxiety, and marijuana use. The patient was recently evaluated, and found to have multivessel coronary disease, and is scheduled to have revascularization surgery tomorrow. The patient is practicing with his incentive spirometer. He is currently on room air. No IV fluids. Laboratory data includes a white count 10.3, hemoglobin 12.7, hematocrit 40.3, and a normal platelet count. Coagulation studies are normal. Sodium 137, potassium 4.1, chlorides 103, CO2 25, BUN 10, creatinine 0.83. Glucose is 95. Calcium is 9.4. Nasal screen was positive for Staph aureus, not MRSA. Progress note dated June 27, 2023. 58-year-old male postop day #1, status post three-vessel bypass surgery. The patient was not seen yesterday as he was in the operating room. The patient was extubated on June 25. He is currently on 6 L nasal cannula. He is getting lactated Ringer's at 20 cc an hour. He is also on Primacor 0.125 mcg/kg/min. Insulin drip has been weaned off. The patient is not really taking deep breaths, and we encouraged him to deep breathe, cough, clear secretions, as well as using the incentive spirometer, every hour. Current labs include a white count of 13.7, hemoglobin 11.4, hematocrit 35.5, and a normal platelet count. Sodium 137, potassium 4.4, chlorides 107, CO2 26, BUN 14, creatinine 0.86. Glucose is 123. Calcium 7.8. Albumin 2.9. Chest x-ray shows some postsurgical changes, and some basilar atelectasis. Progress note dated June 28, 2023. 58-year-old male, postop day #2, status post three-vessel bypass surgery. The patient is currently on oxygen at 6 L by nasal cannula. He is not receiving any IV fluids. The patient is getting 700 cc on his incentive spirometry. White count is 14.7, hemoglobin 11.1, hematocrit 34.2, platelet count 227,000. Sodium 139, potassium 4.5, chlorides 107, CO2 21, BUN 13, creatinine 0.83. Glucose is 125. Calcium is 8.3. The patient's nasopharyngeal swab was positive for oxacillin sensitive Staph aureus. The patient's chest x-ray showed cardiomegaly, and bilateral infiltrates, with small effusions. On today's evaluation on 06/29/2023, the patient is being seen for a follow-up. The patient is calm and comfortable. The patient remains on 3 days of oxygen by nasal cannula. Using incentive spirometer and pulling approximately 750 on his incentive spirometer. Cardiac rhythm is sinus. No hemodynamic instability. No chest pain. Surgical wound site is dry clean and intact. The patient had an episode of atrial fibrillation overnight and the patient subsequently was given IV amiodarone bolus and drip and he converted to normal sinus rhythm and the patient is currently being transitioned to oral amiodarone. Monitor coagulations have been utilized. Chest x-ray is noted bilateral pleural effusion. On today's blood work, the white cell count of 12.3 with a hemoglobin 10.8 and a platelet count of 258. BUN is at 16 with a creatinine of 0.8 and a sodium level is at 138 with a potassium level of 4.2. Awake and alert and communicating. No altered mentation. The patient is postop day #4 and the patient underwent three-vessel bypass surgery. The patient has systolic heart failure with reduced ejection fraction of 35 to 40% preoperatively. He has hypertension and is post acute non-ST segment elevation myocardial infarction due to his underlying coronary artery disease. 06/30/2023, I am seeing the patient for a follow-up. It was noted that the patient is experiencing some increased shortness of breath. Based on that, the patient was given a dose of Lasix by the cardiothoracic team. Cardiac rhythm remains sinus and the patient remains on oxygen on 2 L with a pulse ox of 99 to 100%. Follow-up chest x-ray from this morning shows scattered infiltrates/atelectatic change in lower lung fajardo bilaterally. The patient also has postthoracotomy changes. Remains on bronchodilators. He was noted to have some increased bronchospasm wheezing and based on that the patient will be started on IV Solu-Medrol 60 mg every 12 hours. The labs from today shows a WBC of S 14, hemoglobin is 11 with a platelet count of 314. BUN is 19 with a creatinine of 0.8 and sodium levels at 139. Awake and alert. Ambulating. Neurologically intact. No other significant events overnight. The patient is currently postop day #5 and the patient underwent a three-vessel bypass surgery. He had a impaired LV function with an ejection fraction of 35 to 40% preoperatively. Objective - Vital Signs Vital signs: Vital Signs Temp 98.4 F 06/30/23 04:00 Pulse 86 06/30/23 04:00 Resp 28 H 06/30/23 04:00 BP 183/119 06/30/23 04:00 Pulse Ox 97 06/30/23 04:00 FiO2 50 06/27/23 00:00 Intake & Output 06/29/23 06/30/23 06/30/23 18:59 06:59 18:59 Intake Total 300 Output Total 450 490 Balance -150 -490 Weight 126.1 kg 125.464 kg Intake: Oral 300 Output: Urine 450 490 Other: Voiding Method Urinal Urinal ABP, PAP, CO, CI - Last Documented Arterial Blood Pressure 112/99 Pulmonary Artery Pressure 36/14 Cardiac Output 7.9 Cardiac Index 3.3 - Exam CONSTITUTIONAL: Sitting up to the bedside chair in the intensive care unit, appears comfortable, cooperative, no apparent acute distress. HEENT: Neck is supple, no JVD, no lymphadenopathy. RESPIRATORY: Lungs sounds essentially clear throughout, diminished to his bilateral bases. Respirations are symmetrical and nonlabored. Currently on 3 L nasal cannula with oxygen saturations 97%. Able to achieve 750 mL on his incentive spirometry with much encouragement. Weak cough. CARDIOVASCULAR: Regular rhythm and rate. S1 and S2 present, negative for S3, gallop or murmur. Sternum is stable. Palpable peripheral pulses bilaterally. No calf pain or tenderness noted. Heart hugger in place with patient demonstrating appropriate use. Knee-high SUNSHINE hose and sequential compression devices in place to his bilateral lower extremities. GASTROINTESTINAL: Abdomen soft, nontender, nondistended. Active bowel sounds present 4 quadrants. Tolerating diet. Passing flatus. No guarding or rigidity. Bowel movement this morning June 29, 2023. GENITOURINARY: Continues to void, urine output 450 mL in the last 8 hours. INTEGUMENTARY: Skin is warm and dry with no evidence of clubbing or cyanosis. Midline sternal incision clean dry and well approximated, covered with dry intact dressing. Left arm radial artery harvest sites clean, dry and approximated. No drainage or redness is present. NEUROLOGIC: Cranial nerves II through XII intact. No focal deficits. MUSKULOSKELETAL: Able to move all extremities, strength equal bilaterally, generalized weakness. PSYCHIATRIC: Alert and oriented to person place and time, appropriate affect, intact judgment and insight. INVASIVE LINES AND TUBES: Ventricular epicardial pacemaker wires present, and are grounded. - Labs CBC & Chem 7: 06/30/23 04:52 06/30/23 04:52 Labs: Abnormal Lab Results - Last 24 Hours (Table) 06/29/23 06/29/23 06/29/23 Range/Units 12:02 18:06 19:52 WBC (3.8-10.6) k/uL RBC (4.30-5.90) m/uL Hgb (13.0-17.5) gm/dL Hct (39.0-53.0) % MCHC (31.0-37.0) g/dL Glucose (74-99) mg/dL POC Glucose (mg/dL) 147 H 132 H 138 H (70-110) mg/dL Calcium (8.4-10.2) mg/dL 06/30/23 06/30/23 06/30/23 Range/Units 04:52 04:52 06:36 WBC 14.0 H (3.8-10.6) k/uL RBC 3.68 L (4.30-5.90) m/uL Hgb 11.0 L (13.0-17.5) gm/dL Hct 35.6 L (39.0-53.0) % MCHC 30.9 L (31.0-37.0) g/dL Glucose 113 H (74-99) mg/dL POC Glucose (mg/dL) 114 H (70-110) mg/dL Calcium 8.2 L (8.4-10.2) mg/dL Assessment and Plan Plan: Postop day # 4, status post three-vessel bypass surgery. Postthoracotomy, the patient's chest tubes are removed and the patient has small bilateral pleural effusion on today's chest x-ray. Acute hypoxic respiratory failure, expected outcome of surgery and the patient is currently on 3 L of O2 nasal cannula, the patient is experiencing some increased shortness of breath. He is also noted to be somewhat bronchospastic and wheezy on today's evaluation. New onset atrial fibrillation converted to normal sinus rhythm treated with amiodarone. Currently in sinus rhythm and the patient is hemodynamically stable Multivessel coronary artery disease and the patient is status post Non-ST elevation ME Severe multivessel coronary artery disease, heart catheterization on 06/22/2023 which showed severe multivessel coronary artery disease including 100% proximal RCA stenosis, 100% LCx stenosis, 90% LAD stenosis, and 90% diffuse ramus disease. chronic obstructive pulmonary disease, patient has an extensive smoking history. Bedside spirometry was technically a poor study, as the patient was anxious and uncooperative at that time. Likely not good effort. FEV1 was 1.58 L or 41% of predicted. Former tobacco dependence, over [id number] history, quitting in 2020. Current marijuana use, weekly. Left internal carotid artery stenosis, estimated at 50 to 69%. Epistaxis, resolved. Anxiety . History of alcoholism. Hypertension. Obesity, with a BMI of 37 kg/m. Plan: Encouraged use of incentive spirometer The patient will have increase mobility Started patient on Solu-Medrol 60 mg every 12 hours Diuretics per cardiothoracic surgery Current cardiac rhythm is sinus and the patient will be started on metoprolol 50 mg twice a day and dose has been modified. The patient will be also given amiodarone maintenance 400 mg p.o. twice a day for A-fib prophylaxis. No need for anticoagulants at this point in time. Lasix 40 mg IV push x 1 The epicardial pacemaker wires were removed Continue rest of the supportive care and the patient can be ultimately transferr ed out of the intensive care unit. Will coordinate this with the surgical team Wean down FiO2 as tolerated currently on 3 L.
[2023-06-30 15:11] LABS: ABG Base Excess 4.3 mmol/L; ABG HCO3 30 mmol/L (21-25); ABG PCO2 55 mmHg (35-45); ABG PH 7.35 (7.35-7.45); ABG PO2 67 mmHg (83-108); ABG TCO2 32 mmol/L (19-24); Allen Test Performed? Yes
[2023-06-30 15:12] LABS: ABG Oxygen Saturation 91.4 % (94-97)
[2023-06-30] MEDS: CLEVIDIPINE BUTYRATE 25 MG in EMPTY BAG 1 BAG IV SCH (15:14)
[2023-06-30 17:54] LABS: Glucose,Whole Blood 139 mg/dL (70-110)
[2023-06-30 20:03] LABS: Glucose,Whole Blood 164 mg/dL (70-110)
[2023-06-30] MEDS: METOPROLOL TARTRATE 25 MG TAB PO SCH (20:26)
--- NOTE | 2023-06-30 21:12 | P.PN ---
Subjective 58-year-old male who presents emergency department as a transfer from [facility]. He originally went in there for chest pain which has been going on for greater than a week. EKG was performed which demonstrated Q waves in the inferior leads. Troponin level was elevated. Patient was given a dose of Lovenox and transferred to our facility for cardiology evaluation. Troponin went from 76 to 172. D-dimer was normal. BNP was 1449. Patient was given a dose of Lovenox 120 mg and 40 mg of Lasix. Patient initially presented to [facility] by EMS due to nosebleed. He did not present for chest pain. Due to concern for coronary artery disease, patient was transferred from the ER at [facility] to [facility]. He did receive IV Lasix 40 mg at [facility] and he thinks his breathing is a bit better today. His initial blood pressure at [facility] was 159/100. Troponin was elevated. D-dimer was normal. Chest x-ray revealed CHF. Patient now has a blood pressure 154/101 and heart rate of 101. He denies having any chest pain at this time. EKG sinus rhythm with none specific ST changes. CTA of the chest reveals no evidence of pulmonary embolism. Peripheral, dependent ground glass pulmonary opacities consistent with atypical pulmonary infection such as COVID-19 or other viral or pulmonary venous congestion. CBC and CMP normal. Troponins 0.485 and 0.743. 06/21/2023 Patient is seen and evaluated sitting up in bed; no complaint of chest pain or shortness of breath; anxious to go home Vital signs are reviewed and remained stable Patient is currently on IV heparin per protocol, aspirin 81 mg daily, Lipitor 80 mg daily and Lopressor 50 mg twice daily Cardiology on board with plans for cardiac catheterization tomorrow morning 06/22/2023 Patient s/p cardiac cath showing severe triple-vessel coronary artery disease. Showing 100% occluded RCA and left circumflex artery and 90% left coronary anterior descending coronary artery After cardiac cath patient was walking in the room with no difficulty. Patient wants to be discharged Cardiothoracic surgery team evaluated the patient however patient wants to follow-up as an outpatient Currently denies chest pain or dyspnea or any other complaint Patient remains on aspirin statin metoprolol switched to Coreg, and Imdur Echocardiogram showing ejection fraction 35 to 40% 06/23/2023 pt is with No chest pain no dyspnea No other new complaints Hemodynamically stable He finished his heparin drip treatment. Currently his Aspirin 81 Mg and Coreg 25 Mg Also He Is on Losartan 100 Mg and Lasix Once Daily Patient Is Aware about the Result of Severe Triple-Vessel Coronary Artery Disease and His Been Followed by Cardiothoracic Surgery Team for Possible Bypass Procedure, patient is considering inpatient versus outpatient management for now 06/24/2023 Patient awake alert No chest pain or dyspnea Patient currently on aspirin 81 mg Patient planned to undergo cardiac bypass procedure on Sunday 06/25. Patient looks agreeable to this plan. 06/25/2023 Patient awake alert looks comfortable No chest pain, no dyspnea No other new complaint Patient feels motivated to go for bypass surgery tomorrow with cardiothoracic surgery team Hemodynamically stable, labs reviewed, WBC is 8.4, hemoglobin 13.1, platelet count 349 Electrolytes are normal, creatinine 0.9, hemoglobin A1c 5.1%, TSH is 2.6. He has positive MRSA test and his nasal sample. Patient on aspirin 81 mg From medical perspective there is no contraindication to proceed with surgery I am resuming the care of the patient on 06/30/2023 Patient awake and alert but looks tachypneic and tired. He denies chest pain. He is afebrile about breathing at 31 breaths/min Patient is s/p triple-vessel coronary artery bypass graft on 06/27. His course is complicated by new onset A-fib and currently he is on metoprolol and amiodarone. No anticoagulation per cardiology team Also he is on IV Solu-Medrol for bronchospasm and possible COPD Objective - Vital Signs Vital signs: Vital Signs Temp 98.4 F 06/30/23 04:00 Pulse 86 06/30/23 04:00 Resp 28 H 06/30/23 04:00 BP 183/119 06/30/23 04:00 Pulse Ox 97 06/30/23 04:00 FiO2 50 06/27/23 00:00 Intake & Output 06/29/23 06/30/23 06/30/23 18:59 06:59 18:59 Intake Total 300 Output Total 450 490 Balance -150 -490 Weight 126.1 kg 125.464 kg Intake: Oral 300 Output: Urine 450 490 Other: Voiding Method Urinal Urinal ABP, PAP, CO, CI - Last Documented Arterial Blood Pressure 112/99 Pulmonary Artery Pressure 36/14 Cardiac Output 7.9 Cardiac Index 3.3 - Exam GENERAL: The patient is alert and oriented x3, not in any acute distress. Well developed, well nourished. HEENT: Pupils are round and equally reacting to light. EOMI. No scleral icterus. No conjunctival pallor. Normocephalic, atraumatic. No pharyngeal erythema. No thyromegaly. CARDIOVASCULAR: S1 and S2 present. No murmurs, rubs, or gallops. PULMONARY: Chest is clear to auscultation, no wheezing , no crackles. ABDOMEN: Soft, nontender, nondistended, normoactive bowel sounds. No palpable organomegaly. MUSCULOSKELETAL: No joint swelling or deformity. EXTREMITIES: No cyanosis, clubbing, or pedal edema. NEUROLOGICAL: Gross neurological examination did not reveal any focal deficits. SKIN: No rashes. no petechiae. - Labs CBC & Chem 7: 06/30/23 04:52 06/30/23 04:52 Labs: Abnormal Lab Results - Last 24 Hours (Table) 06/29/23 06/29/23 06/29/23 Range/Units 12:02 18:06 19:52 WBC (3.8-10.6) k/uL RBC (4.30-5.90) m/uL Hgb (13.0-17.5) gm/dL Hct (39.0-53.0) % MCHC (31.0-37.0) g/dL Glucose (74-99) mg/dL POC Glucose (mg/dL) 147 H 132 H 138 H (70-110) mg/dL Calcium (8.4-10.2) mg/dL 06/30/23 06/30/23 06/30/23 Range/Units 04:52 04:52 06:36 WBC 14.0 H (3.8-10.6) k/uL RBC 3.68 L (4.30-5.90) m/uL Hgb 11.0 L (13.0-17.5) gm/dL Hct 35.6 L (39.0-53.0) % MCHC 30.9 L (31.0-37.0) g/dL Glucose 113 H (74-99) mg/dL POC Glucose (mg/dL) 114 H (70-110) mg/dL Calcium 8.2 L (8.4-10.2) mg/dL Assessment and Plan Assessment: Non-STEMI with cardiac cath Showing 100% occluded RCA and left circumflex artery and 90% left coronary anterior descending coronary artery. S/p triple- vessel coronary artery bypass grafting new onset A-fib and RVR Acute COPD exacerbation Ischemic cardiomyopathy with ejection fraction 35 to 40% Left ICA stenosis 50-69% Hypertension Obesity with BMI of 37 Hyperlipidemia Plan: Continue with aspirin and Plavix Continue the statin Continue with C metoprolol Patient is on IV Solu-Medrol 40 mg Cardiology and pulmonary team on the case Cardiology team on the case Cardiothoracic surgery recommending bypass procedure however patient wants to go home and follow-up outpatient for the procedure. DVT prophylaxis: Subcutaneous heparin GI prophylaxis Prognosis guarded
[2023-07-01 05:35] LABS: Glucose,Whole Blood 129 mg/dL (70-110)
[2023-07-01 06:51] LABS: ALT 109 U/L (4-49); AST 72 U/L (17-59); African American GFR (CKD) >90 (>60 ml/min/1.73 sqM); Albumin 3.6 g/dL (3.5-5.0); Alkaline Phosphatase 115 U/L (38-126); Anion Gap 8 mmol/L; Blood Urea Nitrogen 24 mg/dL (9-20); Calcium 8.6 mg/dL (8.4-10.2); Carbon Dioxide 28 mmol/L (22-30); Chloride 103 mmol/L (98-107); Glucose 126 mg/dL (74-99); Non-African American GFR(CKD) >90 (>60 ml/min/1.73 sqM); Sodium 139 mmol/L (137-145); Total Bilirubin 0.5 mg/dL (0.2-1.3); Total Protein 6.9 g/dL (6.3-8.2)
--- NOTE | 2023-07-01 07:00 | P.PN ---
Subjective Progress Note Date: 07/01/23 Principal diagnosis: Triple-vessel coronary artery disease, non-STEMI this admission, acute systolic heart failure with reduced ejection fraction 35 to 40%, epistaxis. Past medical history significant for hypertension with noncompliance with treatment, remote history of tobacco dependence, previous EtOH use, occasional marijuana use, history of kidney stones, obesity with a BMI of 37.8 kg/m, and family history of cancer. POD #5 On Pump All Arterial Coronary Artery Bypass Grafting x 3. Left internal thoracic artery (in-situ) sequential to first diagonal artery and left anterior descending coronary artery. Free right internal thoracic artery from aorta to ramus intermedius coronary artery, Left atrial appendage ligation using #35 AtriClip, Endoscopic left radial artery harvest, Graft flow measurements using the [employer] Flow Meter System, intraoperative transesophageal echocardiogram performed by anesthesia, insertion of right common femoral arterial line using ultrasound-guided micropuncture technique. Postoperative acute blood loss anemia, expected given hemodilution and cardiopulmonary bypass. Postoperative paroxysmal atrial fibrillation, a known, a current after cardiac surgery, not a complication, currently in normal sinus rhythm The patient was seen and examined in follow-up today July 01, 2023 at his bedside in the intensive care unit. He is currently sitting up to the bedside chair, is awake, alert, and is in no acute apparent distress. Denies any complaints of pain or shortness of breath at this time. The patient had an episode of shortness of breath with tachypnea yesterday afternoon. An arterial blood gas was completed which showed a pH of 7.35, pCO2 55, pO2 67, HCO3 30 and an oxygen saturation of 91.4% on 28% FiO2. Subsequently he was placed on BiPAP 02/24 with FiO2 40%. The patient also had an episode of hypotension yesterday requiring a Cleviprex drip for blood pressure management. He has been off the Cleviprex drip since around 9 PM last evening. Oxygen saturations are 97% on 2 L nasal cannula and he is achieving 1000 mL on his incentive spirometry with encouragement. The patient reports he feels much improved this morning, although is having episodes of anxiety. Bedside telemetry is showing normal sinus rhythm heart rate 84 bpm. He remains hemodynamically stable and is currently on no inotropic or pressor support. The patient patient was bronchospastic yesterday and was started on Solu-Medrol 60 mg IV every 12 hours by pulmonary critical care medicine. Ventricular epicardial pacemaker wires were removed yesterday without incident. Chest x-ray and laboratory results were reviewed. Objective - Vital Signs Vital signs: Vital Signs Temp 98.1 F 07/01/23 06:00 Pulse 82 07/01/23 06:00 Resp 38 H 07/01/23 06:00 BP 150/107 07/01/23 06:00 Pulse Ox 96 07/01/23 06:00 FiO2 40 07/01/23 03:00 Intake & Output 06/30/23 06/30/23 07/01/23 06:59 18:59 06:59 Intake Total 11.700 257 Output Total 523 871 9444 Balance -490 -688.300 -1043 Weight 125.464 kg 123.3 kg Intake: Intake, IV Titration 11.700 17 Amount Clevidipine Butyrate 25 11.700 17 mg In Empty Bag 1 bag @ 1 MG/HR 2 mls/hr IV .Q24H [facility] Rx#:[id number] Oral 240 Output: Urine 938 034 6424 Other: Voiding Method Urinal Urinal Urinal # Bowel Movements 0 ABP, PAP, CO, CI - Last Documented Arterial Blood Pressure 112/99 Pulmonary Artery Pressure 36/14 Cardiac Output 7.9 Cardiac Index 3.3 - Exam CONSTITUTIONAL: Sitting up to the bedside chair in the intensive care unit, appears comfortable, cooperative, no apparent acute distress. HEENT: Neck is supple, no JVD, no lymphadenopathy. RESPIRATORY: Lungs sounds essentially clear throughout, diminished to his bilateral bases. Respirations symmetrical and nonlabored. Currently on 2 L nasal cannula with oxygen saturations 97%. Able to achieve 1000 mL on his incentive spirometry with much encouragement. Weak cough. CARDIOVASCULAR: Regular rhythm and rate. S1 and S2 present, negative for S3, gallop or murmur. Sternum is stable. Palpable peripheral pulses bilaterally. No calf pain or tenderness noted. Heart hugger in place with patient demons trating appropriate use. Knee-high SUNSHINE hose and sequential compression devices in place to his bilateral lower extremities. GASTROINTESTINAL: Abdomen soft, nontender, nondistended. Active bowel sounds present 4 quadrants. Tolerating diet. Passing flatus. No guarding or rigidity. Bowel movement June 29, 2023. GENITOURINARY: Continues to void, urine output 700 in the last 8 hours. INTEGUMENTARY: Skin is warm and dry with no evidence of clubbing or cyanosis. Midline sternal incision clean dry and well approximated, covered with dry intact dressing. Left arm radial artery harvest sites clean, dry and approximated. No drainage or redness is present. NEUROLOGIC: Cranial nerves II through XII intact. No focal deficits. MUSKULOSKELETAL: Able to move all extremities, strength equal bilaterally, generalized weakness. PSYCHIATRIC: Alert and oriented to person place and time, appropriate affect, intact judgment and insight. - Allied health notes Allied health notes reviewed: nursing - Labs CBC & Chem 7: 06/30/23 04:52 06/30/23 04:52 Labs: Abnormal Lab Results - Last 24 Hours (Table) 06/30/23 06/30/23 06/30/23 Range/Units 11:43 15:01 17:53 ABG pCO2 55 H (35-45) mmHg ABG pO2 67 L (83-108) mmHg ABG HCO3 30 H (21-25) mmol/L ABG Total CO2 32 H (19-24) mmol/L ABG O2 Saturation 91.4 L (94-97) % POC Glucose (mg/dL) 135 H 139 H (70-110) mg/dL 06/30/23 07/01/23 Range/Units 20:01 05:33 ABG pCO2 (35-45) mmHg ABG pO2 (83-108) mmHg ABG HCO3 (21-25) mmol/L ABG Total CO2 (19-24) mmol/L ABG O2 Saturation (94-97) % POC Glucose (mg/dL) 164 H 129 H (70-110) mg/dL - Imaging and Cardiology Chest x-ray: report reviewed, image reviewed Assessment and Plan Assessment: Triple-vessel coronary artery disease, non-STEMI this admission, status post three-vessel coronary artery bypass grafting surgery Acute systolic heart failure with reduced ejection fraction 35-40%, mild mitral valve regurgitation and tricuspid valve regurgitation Epistaxis, resolved Shortness of breath, chest pain secondary to above Hypertension Left internal carotid artery stenosis 50 to 69% Remote history of tobacco dependence Severe COPD with preoperative FEV1 41% of predicted although not the best effort Previous EtOH use Occasional marijuana use History of kidney stones Obesity with BMI of 37.8 kg/m Family history of cancer Postoperative acute blood loss anemia, expected given hemodilution and cardiopulmonary bypass Postoperative paroxysmal atrial fibrillation, a known, a current after cardiac surgery, not a complication, status post left atrial appendage exclusion using a 35mm atrial clip Plan: Continue to maximize medical therapy with aspirin, statin, Plavix, and beta- mari. Metoprolol tartrate was increased to 75 mg p.o. twice daily with hold parameters yesterday June 30, 2023. Increase losartan 50 mg p.o. daily for afterload reduction started today with hold parameters. Wean O2 as tolerated. Encourage incentive spirometry use 10 times every hour while awake. Bronchodilators per pulmonology. Continue amiodarone 400 mg p.o. twice daily for atrial fibrillation prophylaxis. Currently in normal sinus rhythm. Will monitor daily labs and chest x-rays. Electrolyte replacement per protocol. Increase activity as tolerated. PT/OT and cardiac rehab following. Insulin management per internal medicine. Preoperative hemoglobin A1c 5.1%. Pain control with current medication regimen. GI/DVT prophylaxis. Continue record strict accurate intake and output. May bladder scan every 6 hours and as needed postvoid residual. If greater than or equal to 300 mL of urine may straight cath. Daily weights. Shower daily. Continue Flomax 0.4 mg p.o. daily. Transfer orders will be placed to the third floor cardiac stepdown unit for further monitoring and rehabilitation. Discharge planning is in place, anticipate discharge home within the next 48 hours with home health care. More recommendations to follow based on patient's clinical course. Time with Patient: Greater than 30
[2023-07-01 07:38] LABS: Basophils % (A) 0 %; Eosinophils % (A) 0 %; HCT 36.3 % (39.0-53.0); HGB 11.4 gm/dL (13.0-17.5); Hypochromasia Slight; Lymphocytes # (A) 0.9 k/uL (1.0-4.8); Lymphocytes % (A) 6 %; MCH 30.3 pg (25.0-35.0); MCHC 31.4 g/dL (31.0-37.0); MCV 96.6 fL (80.0-100.0); Mean Platelet Volume 9.3; Monocytes # (A) 0.8 k/uL (0-1.0); Monocytes % (A) 5 %; Neutrophils # (A) 13.8 k/uL (1.3-7.7); Neutrophils % (A) 88 %; Platelet Count 500 k/uL (150-450); RBC 3.76 m/uL (4.30-5.90); RDW 13.8 % (11.5-15.5); WBC 15.6 k/uL (3.8-10.6)
--- NOTE | 2023-07-01 07:40 | XR ---
EXAMINATION TYPE: XR chest 2V DATE OF EXAM: 07/01/2023 HISTORY: Postop CABG COMPARISON: 06/30/2023 TECHNIQUE: Single view of the chest is submitted. FINDINGS: Demonstrated are scattered senescent parenchymal change. No evidence for pneumothorax. Scattered infiltrates and/or atelectasis are noted mid and lower lung zones. Suspect tiny effusions a s well. Changes of median sternotomy and CABG. The heart is stable. Hilar and mediastinal structures are within normal limits. Degenerative changes are seen of the dorsal spine. IMPRESSION: 1. Stable postoperative chest.
--- NOTE | 2023-07-01 09:47 | P.PN ---
Subjective Progress Note Date: 07/01/23 The patient is a 58-year-old male who is currently admitted with non-ST elevated myocardial infarction. The patient was found to have triple-vessel coronary artery disease and underwent bypass surgery. Today is postop day 5 with his anxiety and blood pressure improving over the last 24 hours The patient was interviewed and examined in the recliner chair. He states he is feeling much better today. His anxiety is significantly reduced and he no longer has labored breathing. He denies any chest pain or pressure. No dizziness or lightheadedness upon ambulation. GENERAL: Ill-appearing, well-nourished and in no distress NECK: Supple without JVD or thyromegaly. LUNGS: Breath sounds diminished to auscultation bilaterally. Respiration equal. No wheezes, rales or rhonchi. HEART: Regular rate and rhythm without murmurs, rubs or gallops. S1 and S2 heard. Heart hugger in place EXTREMITIES: Normal range of motion, no edema. No clubbing or cyanosis. Peripheral pulses intact and strong. TELEMETRY: Sinus rhythm overnight. Average heart rate in the 70s to 80s IMPRESSION: triple-vessel coronary artery disease Status post on pump coronary bypass Ischemic cardiomyopathy, EF 35-40% Postoperative atrial fibrillation Hypertension Dyslipidemia PLAN: Continue supportive treatment Aggressive pulmonary hygiene Encourage ambulation Anxiety management Patient to be discharged tomorrow for outpatient follow-up with primary doll dresser I am dictating on behalf of Dr Andi Alfaro's history/physical and assessment/plan. Objective - Vital Signs Vital signs: Vital Signs Temp 97.5 F L 07/01/23 08:00 Pulse 73 07/01/23 09:00 Resp 32 H 07/01/23 09:00 BP 138/72 07/01/23 09:00 Pulse Ox 95 07/01/23 09:00 FiO2 40 07/01/23 03:00 Intake & Output 06/30/23 07/01/23 07/01/23 18:59 06:59 18:59 Intake Total 11.700 257 480 Output Total 700 1300 0 Balance -688.300 -1043 480 Weight 123.3 kg Intake: Intake, IV Titration 11.700 17 Amount Clevidipine Butyrate 25 11.700 17 mg In Empty Bag 1 bag @ 1 MG/HR 2 mls/hr IV .Q24H [facility] Rx#:[id number] Oral 240 Tube Feeding 480 Output: Urine 700 1300 0 Other: Voiding Method Urinal Urinal Urinal # Bowel Movements 0 ABP, PAP, CO, CI - Last Documented Arterial Blood Pressure 112/99 Pulmonary Artery Pressure 36/14 Cardiac Output 7.9 Cardiac Index 3.3 - Labs CBC & Chem 7: 07/01/23 05:26 07/01/23 05:26 Labs: Abnormal Lab Results - Last 24 Hours (Table) 06/30/23 06/30/23 06/30/23 Range/Units 11:43 15:01 17:53 WBC (3.8-10.6) k/uL RBC (4.30-5.90) m/uL Hgb (13.0-17.5) gm/dL Hct (39.0-53.0) % Plt Count (150-450) k/uL Neutrophils # (1.3-7.7) k/uL Lymphocytes # (1.0-4.8) k/uL ABG pCO2 55 H (35-45) mmHg ABG pO2 67 L (83-108) mmHg ABG HCO3 30 H (21-25) mmol/L ABG Total CO2 32 H (19-24) mmol/L ABG O2 Saturation 91.4 L (94-97) % BUN (9-20) mg/dL Glucose (74-99) mg/dL POC Glucose (mg/dL) 135 H 139 H (70-110) mg/dL AST (17-59) U/L ALT (4-49) U/L 06/30/23 07/01/23 07/01/23 Range/Units 20:01 05:26 05:26 WBC 15.6 H (3.8-10.6) k/uL RBC 3.76 L (4.30-5.90) m/uL Hgb 11.4 L (13.0-17.5) gm/dL Hct 36.3 L (39.0-53.0) % Plt Count 500 H (150-450) k/uL Neutrophils # 13.8 H (1.3-7.7) k/uL Lymphocytes # 0.9 L (1.0-4.8) k/uL ABG pCO2 (35-45) mmHg ABG pO2 (83-108) mmHg ABG HCO3 (21-25) mmol/L ABG Total CO2 (19-24) mmol/L ABG O2 Saturation (94-97) % BUN 24 H (9-20) mg/dL Glucose 126 H (74-99) mg/dL POC Glucose (mg/dL) 164 H (70-110) mg/dL AST 72 H (17-59) U/L ALT 109 H (4-49) U/L 07/01/23 Range/Units 05:33 WBC (3.8-10.6) k/uL RBC (4.30-5.90) m/uL Hgb (13.0-17.5) gm/dL Hct (39.0-53.0) % Plt Count (150-450) k/uL Neutrophils # (1.3-7.7) k/uL Lymphocytes # (1.0-4.8) k/uL ABG pCO2 (35-45) mmHg ABG pO2 (83-108) mmHg ABG HCO3 (21-25) mmol/L ABG Total CO2 (19-24) mmol/L ABG O2 Saturation (94-97) % BUN (9-20) mg/dL Glucose (74-99) mg/dL POC Glucose (mg/dL) 129 H (70-110) mg/dL AST (17-59) U/L ALT (4-49) U/L
--- NOTE | 2023-07-01 10:56 | P.PN ---
Subjective Progress Note Date: 07/01/23 Patient is a 58-year-old white male with past medical history significant for hypertension, coronary artery disease, previous tobacco dependence and current marijuana use, alcoholism, and anxiety. He does not currently follow with a primary care provider. Over the last couple months, the patient has had intermittent chest pain that radiates to his back and is associated with some left arm numbness. There is associated shortness of breath. His usually last for 15 minutes, and subsides with rest. The symptoms have significantly limited his activity level, he can no longer do activities such as go to the grocery store without symptoms. He went to [facility] earlier in the week, actually for a nosebleed. He was found to be hypertensive. He had some abnormal labs including an elevated troponins. He was diagnosed with a non-ST elevation MN. For this reason he was transferred to [facility] for further evaluation and treatment on 06/19/2023. He did have a heart ca theterization on 06/22/2023 which showed severe multivessel coronary artery disease including 100% proximal RCA stenosis, 100% LCx stenosis, 90% proximal LAD stenosis, and 90% diffuse ramus disease. There was recommendation for surgical revascularization, and cardiothoracic services were consulted. He is currently undergoing an extensive preoperative workup. Echocardiogram done this admission shows a reduced left ventricular ejection fraction of 35 to 40% along with some moderate concentric LVH. No observed significant valvular disease. He did have a preoperative bedside spirometry, at that time he had just learned some test results, he was anxious and uncooperative. His FEV1 was 1.58 L or 41%. Likely not best result and of limited value. He does have a significant smoking history, smoking 1.5 packs/day for many years. Quit smoking in 2020. Continues to recreationally smoke marijuana weekly. He denies ever being diagnosed with any kind of lung disease such as COPD or asthma. He is currently sitting up in bed, on room air, in no acute distress. We are asked to see this patient for preoperative pulmonary clearance for possible surgical revascularization. Chest CTA done at our facility did not show any evidence of pulmonary embolism. There was peripheral dependent groundglass opacities concerning for pulmonary venous congestion, atypical pneumonia was an alternative differential. Most recent CBC and BMP from 2 days ago were unremarkable. He was previously on a heparin drip, which has since been discontinued. Patient currently denies any chest pain. Denies any shortness of breath, coughing, sputum production. Afebrile. Incentive spirometer is at bedside. Patient was initially hesitant to undergo open heart, however, is leaning towards surgery. Patient continues to undergo extensive preoperative workup. STS score is being calculated. Progress note dated June 25, 2023. The patient was seen yesterday in consultation. He has a history of hypertension, coronary artery disease, previous tobacco dependence, alcoholism, anxiety, and marijuana use. The patient was recently evaluated, and found to have multivessel coronary disease, and is scheduled to have revascularization surgery tomorrow. The patient is practicing with his incentive spirometer. He is currently on room air. No IV fluids. Laboratory data includes a white count 10.3, hemoglobin 12.7, hematocrit 40.3, and a normal platelet count. Coagulation studies are normal. Sodium 137, potassium 4.1, chlorides 103, CO2 25, BUN 10, creatinine 0.83. Glucose is 95. Calcium is 9.4. Nasal screen was positive for Staph aureus, not MRSA. Progress note dated June 27, 2023. 58-year-old male postop day #1, status post three-vessel bypass surgery. The patient was not seen yesterday as he was in the operating room. The patient was extubated on June 25. He is currently on 6 L nasal cannula. He is getting lactated Ringer's at 20 cc an hour. He is also on Primacor 0.125 mcg/kg/min. Insulin drip has been weaned off. The patient is not really taking deep breaths, and we encouraged him to deep breathe, cough, clear secretions, as well as using the incentive spirometer, every hour. Current labs include a white count of 13.7, hemoglobin 11.4, hematocrit 35.5, and a normal platelet count. Sodium 137, potassium 4.4, chlorides 107, CO2 26, BUN 14, creatinine 0.86. Glucose is 123. Calcium 7.8. Albumin 2.9. Chest x-ray shows some postsurgical changes, and some basilar atelectasis. Progress note dated June 28, 2023. 58-year-old male, postop day #2, status post three-vessel bypass surgery. The patient is currently on oxygen at 6 L by nasal cannula. He is not receiving any IV fluids. The patient is getting 700 cc on his incentive spirometry. White count is 14.7, hemoglobin 11.1, hematocrit 34.2, platelet count 227,000. Sodium 139, potassium 4.5, chlorides 107, CO2 21, BUN 13, creatinine 0.83. Glucose is 125. Calcium is 8.3. The patient's nasopharyngeal swab was positive for oxacillin sensitive Staph aureus. The patient's chest x-ray showed cardiomegaly, and bilateral infiltrates, with small effusions. On today's evaluation on 06/29/2023, the patient is being seen for a follow-up. The patient is calm and comfortable. The patient remains on 3 days of oxygen by nasal cannula. Using incentive spirometer and pulling approximately 750 on his incentive spirometer. Cardiac rhythm is sinus. No hemodynamic instability. No chest pain. Surgical wound site is dry clean and intact. The patient had an episode of atrial fibrillation overnight and the patient subsequently was given IV amiodarone bolus and drip and he converted to normal sinus rhythm and the patient is currently being transitioned to oral amiodarone. Monitor coagulations have been utilized. Chest x-ray is noted bilateral pleural effusion. On today's blood work, the white cell count of 12.3 with a hemoglobin 10.8 and a platelet count of 258. BUN is at 16 with a creatinine of 0.8 and a sodium level is at 138 with a potassium level of 4.2. Awake and alert and communicating. No altered mentation. The patient is postop day #4 and the patient underwent three-vessel bypass surgery. The patient has systolic heart failure with reduced ejection fraction of 35 to 40% preoperatively. He has hypertension and is post acute non-ST segment elevation myocardial infarction due to his underlying coronary artery disease. 06/30/2023, I am seeing the patient for a follow-up. It was noted that the patient is experiencing some increased shortness of breath. Based on that, the patient was given a dose of Lasix by the cardiothoracic team. Cardiac rhythm remains sinus and the patient remains on oxygen on 2 L with a pulse ox of 99 to 100%. Follow-up chest x-ray from this morning shows scattered infiltrates/atelectatic change in lower lung fajardo bilaterally. The patient also has postthoracotomy changes. Remains on bronchodilators. He was noted to have some increased bronchospasm wheezing and based on that the patient will be started on IV Solu-Medrol 60 mg every 12 hours. The labs from today shows a WBC of S 14, hemoglobin is 11 with a platelet count of 314. BUN is 19 with a creatinine of 0.8 and sodium levels at 139. Awake and alert. Ambulating. Neurologically intact. No other significant events overnight. The patient is currently postop day #5 and the patient underwent a three-vessel bypass surgery. He had a impaired LV function with an ejection fraction of 35 to 40% preoperatively. On 07/01/2023, the patient is feeling better compared to yesterday. Less bronchospastic and wheezing less shortness of breath. The patient is on 1 L of O2 nasal cannula. No chest pain. The repeat chest x-ray from today shows some small bilateral pleural effusion and some atelectatic change in lung base bilaterally and is consistent with postop changes. The patient remains on Symbicort. The patient remains on DuoNeb updrafts. The patient is on IV Solu- Medrol 60 mg every 12 hours. Diuretics are being managed by the cardiothoracic team and the patient is a negative fluid balance of at least 1.7 L over the past 24 hours. The white cell count is 15.6 with a hemoglobin of 11, platelet count is 500, BUN is 24 with a creatinine of 0.9 and a sodium levels at 139. Alert and awake. Ambulating. Cardiac rhythm is sinus. No other significant events otherwise for now. The patient remains on aspirin and Plavix. The patient is also on metoprolol 75 mg p.o. twice a day. The patient is on subcu heparin for DVT prophylaxis. The patient remains on Lipitor 40 mg p.o. daily. Patient is also on Cozaar 50 mg p.o. daily. Objective - Vital Signs Vital signs: Vital Signs Temp 98.1 F 07/01/23 07:00 Pulse 82 07/01/23 07:00 Resp 24 07/01/23 07:00 BP 120/84 07/01/23 07:00 Pulse Ox 93 L 07/01/23 07:00 FiO2 40 07/01/23 03:00 Intake & Output 06/30/23 07/01/23 07/01/23 18:59 06:59 18:59 Intake Total 11.700 257 240 Output Total 700 1300 0 Balance -688.300 -1043 240 Weight 123.3 kg Intake: Intake, IV Titration 11.700 17 Amount Clevidipine Butyrate 25 11.700 17 mg In Empty Bag 1 bag @ 1 MG/HR 2 mls/hr IV .Q24H [facility] Rx#:[id number] Oral 240 Tube Feeding 240 Output: Urine 700 1300 0 Other: Voiding Method Urinal Urinal # Bowel Movements 0 ABP, PAP, CO, CI - Last Documented Arterial Blood Pressure 112/99 Pulmonary Artery Pressure 36/14 Cardiac Output 7.9 Cardiac Index 3.3 - Exam CONSTITUTIONAL: Sitting up to the bedside chair in the intensive care unit, appears comfortable, cooperative, no apparent acute distress. HEENT: Neck is supple, no JVD, no lymphadenopathy. RESPIRATORY: Lungs sounds essentially clear throughout, diminished to his bilateral bases. Respirations symmetrical and nonlabored. Currently on 2 L nasal cannula with oxygen saturations 97%. Able to achieve 1000 mL on his incentive spirometry with much encouragement. Weak cough. CARDIOVASCULAR: Regular rhythm and rate. S1 and S2 present, negative for S3, gallop or murmur. Sternum is stable. Palpable peripheral pulses bilaterally. No calf pain or tenderness noted. Heart hugger in place with patient demonstrating appropriate use. Knee-high SUNSHINE hose and sequential compression devices in place to his bilateral lower extremities. GASTROINTESTINAL: Abdomen soft, nontender, nondistended. Active bowel sounds present 4 quadrants. Tolerating diet. Passing flatus. No guarding or rigidity. Bowel movement June 29, 2023. GENITOURINARY: Continues to void, urine output 700 in the last 8 hours. INTEGUMENTARY: Skin is warm and dry with no evidence of clubbing or cyanosis. Midline sternal incision clean dry and well approximated, covered with dry intact dressing. Left arm radial artery harvest sites clean, dry and ap proximated. No drainage or redness is present. NEUROLOGIC: Cranial nerves II through XII intact. No focal deficits. MUSKULOSKELETAL: Able to move all extremities, strength equal bilaterally, generalized weakness. PSYCHIATRIC: Alert and oriented to person place and time, appropriate affect, intact judgment and insight. - Labs CBC & Chem 7: 07/01/23 05:26 07/01/23 05:26 Labs: Abnormal Lab Results - Last 24 Hours (Table) 06/30/23 06/30/23 06/30/23 Range/Units 11:43 15:01 17:53 WBC (3.8-10.6) k/uL RBC (4.30-5.90) m/uL Hgb (13.0-17.5) gm/dL Hct (39.0-53.0) % Plt Count (150-450) k/uL Neutrophils # (1.3-7.7) k/uL Lymphocytes # (1.0-4.8) k/uL ABG pCO2 55 H (35-45) mmHg ABG pO2 67 L (83-108) mmHg ABG HCO3 30 H (21-25) mmol/L ABG Total CO2 32 H (19-24) mmol/L ABG O2 Saturation 91.4 L (94-97) % BUN (9-20) mg/dL Glucose (74-99) mg/dL POC Glucose (mg/dL) 135 H 139 H (70-110) mg/dL AST (17-59) U/L ALT (4-49) U/L 06/30/23 07/01/23 07/01/23 Range/Units 20:01 05:26 05:26 WBC 15.6 H (3.8-10.6) k/uL RBC 3.76 L (4.30-5.90) m/uL Hgb 11.4 L (13.0-17.5) gm/dL Hct 36.3 L (39.0-53.0) % Plt Count 500 H (150-450) k/uL Neutrophils # 13.8 H (1.3-7.7) k/uL Lymphocytes # 0.9 L (1.0-4.8) k/uL ABG pCO2 (35-45) mmHg ABG pO2 (83-108) mmHg ABG HCO3 (21-25) mmol/L ABG Total CO2 (19-24) mmol/L ABG O2 Saturation (94-97) % BUN 24 H (9-20) mg/dL Glucose 126 H (74-99) mg/dL POC Glucose (mg/dL) 164 H (70-110) mg/dL AST 72 H (17-59) U/L ALT 109 H (4-49) U/L 07/01/23 Range/Units 05:33 WBC (3.8-10.6) k/uL RBC (4.30-5.90) m/uL Hgb (13.0-17.5) gm/dL Hct (39.0-53.0) % Plt Count (150-450) k/uL Neutrophils # (1.3-7.7) k/uL Lymphocytes # (1.0-4.8) k/uL ABG pCO2 (35-45) mmHg ABG pO2 (83-108) mmHg ABG HCO3 (21-25) mmol/L ABG Total CO2 (19-24) mmol/L ABG O2 Saturation (94-97) % BUN (9-20) mg/dL Glucose (74-99) mg/dL POC Glucose (mg/dL) 129 H (70-110) mg/dL AST (17-59) U/L ALT (4-49) U/L Assessment and Plan Plan: Postop day # 5, status post three-vessel bypass surgery. Postthoracotomy, the patient's chest tubes are removed and the patient has postop changes with small atelectatic changes and small effusion lung base bi laterally Acute hypoxic respiratory failure, expected outcome of surgery and the patient is currently on 1-2 L of O2 nasal cannula, the patient is experiencing some increased shortness of breath. Significant improved and the patient is less bronchospastic and wheezy compared to yesterday. New onset atrial fibrillation converted to normal sinus rhythm treated with amiodarone. Currently in sinus rhythm and the patient is hemodynamically stable Multivessel coronary artery disease and the patient is status post Non-ST elevation MN Severe multivessel coronary artery disease, heart catheterization on 06/22/2023 which showed severe multivessel coronary artery disease including 100% proximal RCA stenosis, 100% LCx stenosis, 90% LAD stenosis, and 90% diffuse ramus disease. chronic obstructive pulmonary disease, patient has an extensive smoking history. Bedside spirometry was technically a poor study, as the patient was anxious and uncooperative at that time. Likely not good effort. FEV1 was 1.58 L or 41% of predicted. Former tobacco dependence, over [id number] history, quitting in 2020. Current marijuana use, weekly. Left internal carotid artery stenosis, estimated at 50 to 69%. Epistaxis, resolved. Anxiety . History of alcoholism. Hypertension. Obesity, with a BMI of 37 kg/m. Plan: Encouraged use of incentive spirometer The patient will have increase mobility Continue IV Solu-Medrol 60 mg every 12 hours Diuretics per cardiothoracic surgery, the patient is a negative fluid balance Current cardiac rhythm is sinus and the patient will be started on metoprolol 50 mg twice a day and dose has been modified. The patient will be also given amiodarone maintenance 400 mg p.o. twice a day for A-fib prophylaxis. No need for anticoagulants at this point in time. Continue metoprolol. Continue Cozaar. The epicardial pacemaker wires were removed Continue rest of the supportive care and the patient can be ultimately transferred out of the intensive care unit. Will coordinate this with the surgical team
--- NOTE | 2023-07-01 11:38 | CA ---
Transthoracic Echo Report Name: Phoebe Martinez Age: 58 Gender: M : 1965 Exam Date: 07/01/2023 09:04 Exam Location: [facility] Ht (in): 71 Wt (lb): 271 Ordering Physician: Juanjose Matos Attending/Referring Phys: Carlo GIORDANO [employer] Phoebe Mario RCS Procedure CPT: Indications: Assess LV Function Cardiac Hx: Technical Quality: Very technically difficult study Contrast 1: Total Dose (mL): Contrast 2: Total Dose (mL): MEASUREMENTS (Male / Female) Normal Values 2D ECHO LV Diastolic Diameter PLAX 5.7 cm 4.2 - 5.9 / 3.9 - 5.3 cm LV Systolic Diameter PLAX 4.8 cm IVS Diastolic Thickness 1.1 cm 0.6 - 1.0 / 0.6 - 0.9 cm LVPW Diastolic Thickness 1.9 cm 0.6 - 1.0 / 0.6 - 0.9 cm LV Relative Wall Thickness 0.5 RV Internal Dim ED PLAX 4.4 cm LV Diastolic Volume MOD BP 138.7 cm??? 67 - 155 / 56 - 104 cm??? LV Systolic Volume MOD BP 69.6 cm??? 22 - 58 / 19 - 49 cm??? LV Ejection Fraction MOD BP 49.8 % >= 55 % LV Cardiac Index MOD BP 2183.8 cm???/min???m??? LV Diastolic Volume MOD 4C 135.7 cm??? LV Systolic Volume MOD 4C 80.3 cm??? LV Ejection Fraction MOD 4C 40.9 % LV Cardiac Index MOD 4C 1754.6 cm???/min???m??? LV Diastolic Length 4C 9.0 cm LV Systolic Length 4C 8.1 cm LV Diastolic Volume MOD 2C 136.6 cm??? LV Systolic Volume MOD 2C 59.5 cm??? LV Ejection Fraction MOD 2C 56.5 % LV Cardiac Index MOD 2C 2438.5 cm???/min???m??? LV Diastolic Length 2C 9.4 cm LV Systolic Length 2C 8.0 cm FINDINGS Left Ventricle Left ventricular ejection fraction is estimated at 40 %. Mildly increased left ventricular systolic volume. Mildly decreased left ventricular ejection fraction. Global hypokinesis. Right Ventricle Moderate right ventricular dilatation. Right Atrium Right atrium not assessed. Left Atrium Left atrium not assesswell visualized. Mitral Valve Mitral valve not assessed. Aortic Valve Aortic valve not assessed. Tricuspid Valve Tricuspid valve not assessed. Pulmonic Valve Pulmonic valve not assessed. Pericardium No significant pericardial effusion. Aorta Aortic root and proximal ascending aorta not assessed. CONCLUSIONS Limited study. Echo contrast was used. Global decrease in contractility ejection fraction of about 40%. Previewed by: Dr. Gabriela Bonilla MD (Electronically Signed) Final Date: 01 July 2023 11:37
[2023-07-01 11:41] LABS: Glucose,Whole Blood 125 mg/dL (70-110)
[2023-07-01] MEDS: LOSARTAN 50 MG TAB PO SCH (11:42)
[2023-07-01] MEDS: ALPRAZolam 0.25 MG TAB PO STA (11:42)
[2023-07-01] MEDS: ALBUTEROL HFA INHALER INHALATION SCH (11:54)
[2023-07-01 16:21] LABS: Glucose,Whole Blood 136 mg/dL (70-110)
[2023-07-01 20:18] LABS: Glucose,Whole Blood 154 mg/dL (70-110)
--- NOTE | 2023-07-01 21:20 | P.PN ---
Subjective 58-year-old male who presents emergency department as a transfer from [facility]. He originally went in there for chest pain which has been going on for greater than a week. EKG was performed which demonstrated Q waves in the inferior leads. Troponin level was elevated. Patient was given a dose of Lovenox and transferred to our facility for cardiology evaluation. Troponin went from 76 to 172. D-dimer was normal. BNP was 1449. Patient was given a dose of Lovenox 120 mg and 40 mg of Lasix. Patient initially presented to [facility] by EMS due to nosebleed. He did not present for chest pain. Due to concern for coronary artery disease, patient was transferred from the ER at [facility] to [facility]. He did receive IV Lasix 40 mg at [facility] and he thinks his breathing is a bit better today. His initial blood pressure at [facility] was 159/100. Troponin was elevated. D-dimer was normal. Chest x-ray revealed CHF. Patient now has a blood pressure 154/101 and heart rate of 101. He denies having any chest pain at this time. EKG sinus rhythm with none specific ST changes. CTA of the chest reveals no evidence of pulmonary embolism. Peripheral, dependent ground glass pulmonary opacities consistent with atypical pulmonary infection such as COVID-19 or other viral or pulmonary venous congestion. CBC and CMP normal. Troponins 0.485 and 0.743. 06/21/2023 Patient is seen and evaluated sitting up in bed; no complaint of chest pain or shortness of breath; anxious to go home Vital signs are reviewed and remained stable Patient is currently on IV heparin per protocol, aspirin 81 mg daily, Lipitor 80 mg daily and Lopressor 50 mg twice daily Cardiology on board with plans for cardiac catheterization tomorrow morning 06/22/2023 Patient s/p cardiac cath showing severe triple-vessel coronary artery disease. Showing 100% occluded RCA and left circumflex artery and 90% left coronary anterior descending coronary artery After cardiac cath patient was walking in the room with no difficulty. Patient wants to be discharged Cardiothoracic surgery team evaluated the patient however patient wants to follow-up as an outpatient Currently denies chest pain or dyspnea or any other complaint Patient remains on aspirin statin metoprolol switched to Coreg, and Imdur Echocardiogram showing ejection fraction 35 to 40% 06/23/2023 pt is with No chest pain no dyspnea No other new complaints Hemodynamically stable He finished his heparin drip treatment. Currently his Aspirin 81 Mg and Coreg 25 Mg Also He Is on Losartan 100 Mg and Lasix Once Daily Patient Is Aware about the Result of Severe Triple-Vessel Coronary Artery Disease and His Been Followed by Cardiothoracic Surgery Team for Possible Bypass Procedure, patient is considering inpatient versus outpatient management for now 06/24/2023 Patient awake alert No chest pain or dyspnea Patient currently on aspirin 81 mg Patient planned to undergo cardiac bypass procedure on Sunday 06/25. Patient looks agreeable to this plan. 06/25/2023 Patient awake alert looks comfortable No chest pain, no dyspnea No other new complaint Patient feels motivated to go for bypass surgery tomorrow with cardiothoracic surgery team Hemodynamically stable, labs reviewed, WBC is 8.4, hemoglobin 13.1, platelet count 349 Electrolytes are normal, creatinine 0.9, hemoglobin A1c 5.1%, TSH is 2.6. He has positive MRSA test and his nasal sample. Patient on aspirin 81 mg From medical perspective there is no contraindication to proceed with surgery I am resuming the care of the patient on 06/30/2023 Patient awake and alert but looks tachypneic and tired. He denies chest pain. He is afebrile about breathing at 31 breaths/min Patient is s/p triple-vessel coronary artery bypass graft on 06/27. His course is complicated by new onset A-fib and currently he is on metoprolol and amiodarone. No anticoagulation per cardiology team Also he is on IV Solu-Medrol for bronchospasm and possible COPD 07/01/2023 Patient reports improvement. No chest pain, tachypnea is better. He feels much more relaxed Is a negative fluid balance Remains on aspirin and Plavix He is on IV Solu-Medrol 40 mg twice daily Possible discharge tomorrow Objective - Vital Signs Vital signs: Vital Signs Temp 97.5 F L 07/01/23 08:00 Pulse 87 07/01/23 12:00 Resp 36 H 07/01/23 12:00 BP 161/97 07/01/23 12:00 Pulse Ox 91 L 07/01/23 12:00 FiO2 40 07/01/23 03:00 Intake & Output 06/30/23 07/01/23 07/01/23 18:59 06:59 18:59 Intake Total 11.700 257 480 Output Total 700 1300 0 Balance -688.300 -1043 480 Weight 123.3 kg Intake: Intake, IV Titration 11.700 17 Amount Clevidipine Butyrate 25 11.700 17 mg In Empty Bag 1 bag @ 1 MG/HR 2 mls/hr IV .Q24H GERTRUDIS Rx#:[id number] Oral 240 Tube Feeding 480 Output: Urine 700 1300 0 Other: Voiding Method Urinal Urinal Urinal # Bowel Movements 0 ABP, PAP, CO, CI - Last Documented Arterial Blood Pressure 112/99 Pulmonary Artery Pressure 36/14 Cardiac Output 7.9 Cardiac Index 3.3 - Exam GENERAL: The patient is alert and oriented x3, not in any acute distress. Well developed, well nourished. HEENT: Pupils are round and equally reacting to light. EOMI. No scleral icterus. No conjunctival pallor. Normocephalic, atraumatic. No pharyngeal erythema. No thyromegaly. CARDIOVASCULAR: S1 and S2 present. No murmurs, rubs, or gallops. PULMONARY: Chest is clear to auscultation, no wheezing , no crackles. ABDOMEN: Soft, nontender, nondistended, normoactive bowel sounds. No palpable organomegaly. MUSCULOSKELETAL: No joint swelling or deformity. EXTREMITIES: No cyanosis, clubbing, or pedal edema. NEUROLOGICAL: Gross neurological examination did not reveal any focal deficits. SKIN: No rashes. no petechiae. - Labs CBC & Chem 7: 07/01/23 05:26 07/01/23 05:26 Labs: Abnormal Lab Results - Last 24 Hours (Table) 06/30/23 06/30/23 06/30/23 Range/Units 15:01 17:53 20:01 WBC (3.8-10.6) k/uL RBC (4.30-5.90) m/uL Hgb (13.0-17.5) gm/dL Hct (39.0-53.0) % Plt Count (150-450) k/uL Neutrophils # (1.3-7.7) k/uL Lymphocytes # (1.0-4.8) k/uL ABG pCO2 55 H (35-45) mmHg ABG pO2 67 L (83-108) mmHg ABG HCO3 30 H (21-25) mmol/L ABG Total CO2 32 H (19-24) mmol/L ABG O2 Saturation 91.4 L (94-97) % BUN (9-20) mg/dL Glucose (74-99) mg/dL POC Glucose (mg/dL) 139 H 164 H (70-110) mg/dL AST (17-59) U/L ALT (4-49) U/L 07/01/23 07/01/23 07/01/23 Range/Units 05:26 05:26 05:33 WBC 15.6 H (3.8-10.6) k/uL RBC 3.76 L (4.30-5.90) m/uL Hgb 11.4 L (13.0-17.5) gm/dL Hct 36.3 L (39.0-53.0) % Plt Count 500 H (150-450) k/uL Neutrophils # 13.8 H (1.3-7.7) k/uL Lymphocytes # 0.9 L (1.0-4.8) k/uL ABG pCO2 (35-45) mmHg ABG pO2 (83-108) mmHg ABG HCO3 (21-25) mmol/L ABG Total CO2 (19-24) mmol/L ABG O2 Saturation (94-97) % BUN 24 H (9-20) mg/dL Glucose 126 H (74-99) mg/dL POC Glucose (mg/dL) 129 H (70-110) mg/dL AST 72 H (17-59) U/L ALT 109 H (4-49) U/L 07/01/23 Range/Units 11:39 WBC (3.8-10.6) k/uL RBC (4.30-5.90) m/uL Hgb (13.0-17.5) gm/dL Hct (39.0-53.0) % Plt Count (150-450) k/uL Neutrophils # (1.3-7.7) k/uL Lymphocytes # (1.0-4.8) k/uL ABG pCO2 (35-45) mmHg ABG pO2 (83-108) mmHg ABG HCO3 (21-25) mmol/L ABG Total CO2 (19-24) mmol/L ABG O2 Saturation (94-97) % BUN (9-20) mg/dL Glucose (74-99) mg/dL POC Glucose (mg/dL) 125 H (70-110) mg/dL AST (17-59) U/L ALT (4-49) U/L Assessment and Plan Assessment: Non-STEMI with cardiac cath Showing 100% occluded RCA and left circumflex artery and 90% left coronary anterior descending coronary artery. S/p triple- vessel coronary artery bypass grafting new onset A-fib and RVR Acute COPD exacerbation Ischemic cardiomyopathy with ejection fraction 35 to 40% Left ICA stenosis 50-69% Hypertension Obesity with BMI of 37 Hyperlipidemia Plan: Continue with aspirin and Plavix Continue the statin Continue with C metoprolol Patient is on IV Solu-Medrol 40 mg Cardiology and pulmonary team on the case Cardiology team on the case Cardiothoracic surgery recommending bypass procedure however patient wants to go home and follow-up outpatient for the procedure. DVT prophylaxis: Subcutaneous heparin GI prophylaxis Prognosis guarded
[2023-07-02 06:39] LABS: Glucose,Whole Blood 146 mg/dL (70-110)
[2023-07-02 06:42] LABS: African American GFR (CKD) >90 (>60 ml/min/1.73 sqM); Anion Gap 7 mmol/L; Blood Urea Nitrogen 27 mg/dL (9-20); Calcium 8.9 mg/dL (8.4-10.2); Carbon Dioxide 30 mmol/L (22-30); Chloride 102 mmol/L (98-107); Glucose 134 mg/dL (74-99); Magnesium 2.7 mg/dL (1.6-2.3); Non-African American GFR(CKD) >90 (>60 ml/min/1.73 sqM); Potassium 5.1 mmol/L (3.5-5.1); Sodium 139 mmol/L (137-145)
[2023-07-02 08:04] LABS: HCT 36.6 % (39.0-53.0); HGB 11.3 gm/dL (13.0-17.5); Hypochromasia Slight; MCH 29.8 pg (25.0-35.0); MCHC 30.9 g/dL (31.0-37.0); MCV 96.2 fL (80.0-100.0); Mean Platelet Volume 7.7; Platelet Count 640 k/uL (150-450); RDW 13.8 % (11.5-15.5); WBC 18.7 k/uL (3.8-10.6)
--- NOTE | 2023-07-02 08:05 | XR ---
EXAMINATION TYPE: XR chest 2V DATE OF EXAM: 07/02/2023 COMPARISON: 07/01/2023 HISTORY: Shortness of breath TECHNIQUE: Frontal and lateral views of the chest are obtained. FINDINGS: Scattered senescent parenchymal changes noted. Hyperinflation compatible with COPD. Scattered pleural-parenchymal opacities continue to mildly improved. Chronic elevation right hemidiap hragm. Post operative changes of CABG. Heart size is stable. Mediastinal structures are stable and grossly unremarkable. No evidence for hilar prominence. Degenerative changes dorsal spine. IMPRESSION: 1. Scattered pleural-parenchymal opacities continue to mildly improved. Chronic elevation right hemid iaphragm. Post operative changes of CABG.
--- NOTE | 2023-07-02 09:51 | P.PN ---
Subjective Progress Note Date: 07/02/23 The patient is a 58-year-old male who is currently admitted with non-ST elevated myocardial infarction. The patient was found to have triple-vessel coronary artery disease and underwent bypass surgery. Postoperative echocardiogram shows EF of 40%. The patient was interviewed and examined in the recliner chair. He states he is beginning to feel better every day. He is eager to be discharged later today. He denies any chest pain or pressure. No dizziness or lightheadedness upon ambulation. GENERAL: Ill-appearing, well-nourished and in no distress NECK: Supple without JVD or thyromegaly. LUNGS: Breath sounds diminished to auscultation bilaterally. Respiration equal. No wheezes, rales or rhonchi. HEART: Regular rate and rhythm without murmurs, rubs or gallops. S1 and S2 heard. Heart hugger in place EXTREMITIES: Normal range of motion, no edema. No clubbing or cyanosis. Peripheral pulses intact and strong. TELEMETRY: Sinus rhythm overnight. Average heart rate in the 80-90's IMPRESSION: triple-vessel coronary artery disease Status post on pump coronary bypass Ischemic cardiomyopathy, EF 35-40% Postoperative atrial fibrillation Hypertension Dyslipidemia PLAN: Continue supportive treatment Aggressive pulmonary hygiene Patient to be discharged later today I am dictating on behalf of Dr Andi Alfaro's history/physical and assessment/plan. Objective - Vital Signs Vital signs: Vital Signs Temp 98 F 07/02/23 00:00 Pulse 87 07/02/23 07:00 Resp 27 H 07/02/23 07:00 BP 112/66 07/02/23 07:00 Pulse Ox 92 L 07/02/23 08:47 FiO2 40 07/02/23 04:03 Intake & Output 07/01/23 07/02/23 07/02/23 18:59 06:59 18:59 Intake Total 960 Output Total 950 876 Balance 10 -876 Weight 121.4 kg Intake: Tube Feeding 960 Output: Urine 950 875 Stool 1 Other: Voiding Method Urinal Urinal # Voids 1 ABP, PAP, CO, CI - Last Documented Arterial Blood Pressure 112/99 Pulmonary Artery Pressure 36/14 Cardiac Output 7.9 Cardiac Index 3.3 - Labs CBC & Chem 7: 07/02/23 07:37 07/02/23 06:09 Labs: Abnormal Lab Results - Last 24 Hours (Table) 07/01/23 07/01/23 07/01/23 Range/Units 11:39 16:19 20:06 WBC (3.8-10.6) k/uL RBC (4.30-5.90) m/uL Hgb (13.0-17.5) gm/dL Hct (39.0-53.0) % MCHC (31.0-37.0) g/dL Plt Count (150-450) k/uL BUN (9-20) mg/dL Glucose (74-99) mg/dL POC Glucose (mg/dL) 125 H 136 H 154 H (70-110) mg/dL Magnesium (1.6-2.3) mg/dL 07/02/23 07/02/23 07/02/23 Range/Units 06:09 06:37 07:37 WBC 18.7 H (3.8-10.6) k/uL RBC 3.80 L (4.30-5.90) m/uL Hgb 11.3 L (13.0-17.5) gm/dL Hct 36.6 L (39.0-53.0) % MCHC 30.9 L (31.0-37.0) g/dL Plt Count 640 H (150-450) k/uL BUN 27 H (9-20) mg/dL Glucose 134 H (74-99) mg/dL POC Glucose (mg/dL) 146 H (70-110) mg/dL Magnesium 2.7 H (1.6-2.3) mg/dL
[2023-07-02 11:43] LABS: Glucose,Whole Blood 115 mg/dL (70-110)
--- NOTE | 2023-07-02 12:56 | P.PN ---
Subjective Progress Note Date: 07/02/23 Patient is a 58-year-old white male with past medical history significant for hypertension, coronary artery disease, previous tobacco dependence and current marijuana use, alcoholism, and anxiety. He does not currently follow with a primary care provider. Over the last couple months, the patient has had intermittent chest pain that radiates to his back and is associated with some left arm numbness. There is associated shortness of breath. His usually last for 15 minutes, and subsides with rest. The symptoms have significantly limited his activity level, he can no longer do activities such as go to the grocery store without symptoms. He went to [facility] earlier in the week, actually for a nosebleed. He was found to be hypertensive. He had some abnormal labs including an elevated troponins. He was diagnosed with a non-ST elevation UT. For this reason he was transferred to [facility] for further evaluation and treatment on 06/19/2023. He did have a heart ca theterization on 06/22/2023 which showed severe multivessel coronary artery disease including 100% proximal RCA stenosis, 100% LCx stenosis, 90% proximal LAD stenosis, and 90% diffuse ramus disease. There was recommendation for surgical revascularization, and cardiothoracic services were consulted. He is currently undergoing an extensive preoperative workup. Echocardiogram done this admission shows a reduced left ventricular ejection fraction of 35 to 40% along with some moderate concentric LVH. No observed significant valvular disease. He did have a preoperative bedside spirometry, at that time he had just learned some test results, he was anxious and uncooperative. His FEV1 was 1.58 L or 41%. Likely not best result and of limited value. He does have a significant smoking history, smoking 1.5 packs/day for many years. Quit smoking in 2020. Continues to recreationally smoke marijuana weekly. He denies ever being diagnosed with any kind of lung disease such as COPD or asthma. He is currently sitting up in bed, on room air, in no acute distress. We are asked to see this patient for preoperative pulmonary clearance for possible surgical revascularization. Chest CTA done at our facility did not show any evidence of pulmonary embolism. There was peripheral dependent groundglass opacities concerning for pulmonary venous congestion, atypical pneumonia was an alternative differential. Most recent CBC and BMP from 2 days ago were unremarkable. He was previously on a heparin drip, which has since been discontinued. Patient currently denies any chest pain. Denies any shortness of breath, coughing, sputum production. Afebrile. Incentive spirometer is at bedside. Patient was initially hesitant to undergo open heart, however, is leaning towards surgery. Patient continues to undergo extensive preoperative workup. STS score is being calculated. Progress note dated June 25, 2023. The patient was seen yesterday in consultation. He has a history of hypertension, coronary artery disease, previous tobacco dependence, alcoholism, anxiety, and marijuana use. The patient was recently evaluated, and found to have multivessel coronary disease, and is scheduled to have revascularization surgery tomorrow. The patient is practicing with his incentive spirometer. He is currently on room air. No IV fluids. Laboratory data includes a white count 10.3, hemoglobin 12.7, hematocrit 40.3, and a normal platelet count. Coagulation studies are normal. Sodium 137, potassium 4.1, chlorides 103, CO2 25, BUN 10, creatinine 0.83. Glucose is 95. Calcium is 9.4. Nasal screen was positive for Staph aureus, not MRSA. Progress note dated June 27, 2023. 58-year-old male postop day #1, status post three-vessel bypass surgery. The patient was not seen yesterday as he was in the operating room. The patient was extubated on June 25. He is currently on 6 L nasal cannula. He is getting lactated Ringer's at 20 cc an hour. He is also on Primacor 0.125 mcg/kg/min. Insulin drip has been weaned off. The patient is not really taking deep breaths, and we encouraged him to deep breathe, cough, clear secretions, as well as using the incentive spirometer, every hour. Current labs include a white count of 13.7, hemoglobin 11.4, hematocrit 35.5, and a normal platelet count. Sodium 137, potassium 4.4, chlorides 107, CO2 26, BUN 14, creatinine 0.86. Glucose is 123. Calcium 7.8. Albumin 2.9. Chest x-ray shows some postsurgical changes, and some basilar atelectasis. Progress note dated June 28, 2023. 58-year-old male, postop day #2, status post three-vessel bypass surgery. The patient is currently on oxygen at 6 L by nasal cannula. He is not receiving any IV fluids. The patient is getting 700 cc on his incentive spirometry. White count is 14.7, hemoglobin 11.1, hematocrit 34.2, platelet count 227,000. Sodium 139, potassium 4.5, chlorides 107, CO2 21, BUN 13, creatinine 0.83. Glucose is 125. Calcium is 8.3. The patient's nasopharyngeal swab was positive for oxacillin sensitive Staph aureus. The patient's chest x-ray showed cardiomegaly, and bilateral infiltrates, with small effusions. On today's evaluation on 06/29/2023, the patient is being seen for a follow-up. The patient is calm and comfortable. The patient remains on 3 days of oxygen by nasal cannula. Using incentive spirometer and pulling approximately 750 on his incentive spirometer. Cardiac rhythm is sinus. No hemodynamic instability. No chest pain. Surgical wound site is dry clean and intact. The patient had an episode of atrial fibrillation overnight and the patient subsequently was given IV amiodarone bolus and drip and he converted to normal sinus rhythm and the patient is currently being transitioned to oral amiodarone. Monitor coagulations have been utilized. Chest x-ray is noted bilateral pleural effusion. On today's blood work, the white cell count of 12.3 with a hemoglobin 10.8 and a platelet count of 258. BUN is at 16 with a creatinine of 0.8 and a sodium level is at 138 with a potassium level of 4.2. Awake and alert and communicating. No altered mentation. The patient is postop day #4 and the patient underwent three-vessel bypass surgery. The patient has systolic heart failure with reduced ejection fraction of 35 to 40% preoperatively. He has hypertension and is post acute non-ST segment elevation myocardial infarction due to his underlying coronary artery disease. 06/30/2023, I am seeing the patient for a follow-up. It was noted that the patient is experiencing some increased shortness of breath. Based on that, the patient was given a dose of Lasix by the cardiothoracic team. Cardiac rhythm remains sinus and the patient remains on oxygen on 2 L with a pulse ox of 99 to 100%. Follow-up chest x-ray from this morning shows scattered infiltrates/atelectatic change in lower lung fajardo bilaterally. The patient also has postthoracotomy changes. Remains on bronchodilators. He was noted to have some increased bronchospasm wheezing and based on that the patient will be started on IV Solu-Medrol 60 mg every 12 hours. The labs from today shows a WBC of S 14, hemoglobin is 11 with a platelet count of 314. BUN is 19 with a creatinine of 0.8 and sodium levels at 139. Awake and alert. Ambulating. Neurologically intact. No other significant events overnight. The patient is currently postop day #5 and the patient underwent a three-vessel bypass surgery. He had a impaired LV function with an ejection fraction of 35 to 40% preoperatively. On 07/01/2023, the patient is feeling better compared to yesterday. Less bronchospastic and wheezing less shortness of breath. The patient is on 1 L of O2 nasal cannula. No chest pain. The repeat chest x-ray from today shows some small bilateral pleural effusion and some atelectatic change in lung base bilaterally and is consistent with postop changes. The patient remains on Symbicort. The patient remains on DuoNeb updrafts. The patient is on IV Solu- Medrol 60 mg every 12 hours. Diuretics are being managed by the cardiothoracic team and the patient is a negative fluid balance of at least 1.7 L over the past 24 hours. The white cell count is 15.6 with a hemoglobin of 11, platelet count is 500, BUN is 24 with a creatinine of 0.9 and a sodium levels at 139. Alert and awake. Ambulating. Cardiac rhythm is sinus. No other significant events otherwise for now. The patient remains on aspirin and Plavix. The patient is also on metoprolol 75 mg p.o. twice a day. The patient is on subcu heparin for DVT prophylaxis. The patient remains on Lipitor 40 mg p.o. daily. Patient is also on Cozaar 50 mg p.o. daily. On today's evaluation of 07/02/2023, the patient is being seen for a follow-up. No new complaints. Chest x-ray from today shows some atelectatic change in the right lung base and there may be some pleural effusion versus elevation of the right hemidiaphragm. Ultrasound of the chest is to be obtained. Meanwhile, the patient is using the incentive spirometer. He is currently on 1 L of O2 nasal cannula with a pulse ox of 92%. WBC count at 18.7 with a hemoglobin of 11.3, BUN is 27 with a creatinine of 0.7. Cardiac rhythm is sinus. Cardiac medications are essentially unchanged and the patient remains on aspirin and Plavix. The patient is also on metoprolol 75 mg p.o. twice a day. The patient is on losartan 50 mg p.o. daily. The patient is on oral amiodarone 4 mg p.o. twice a day. Cardiac rhythm is sinus. The patient is also on IV Solu-Medrol in combination with bronchodilators. Less bronchospastic and wheezy on today's evaluation. We should be able to gradually wean off his steroids. No other significant events overnight. Objective - Vital Signs Vital signs: Vital Signs Temp 98 F 07/02/23 00:00 Pulse 87 07/02/23 07:00 Resp 27 H 07/02/23 07:00 BP 112/66 07/02/23 07:00 Pulse Ox 92 L 07/02/23 08:47 FiO2 40 07/02/23 04:03 Intake & Output 07/01/23 07/02/23 07/02/23 18:59 06:59 18:59 Intake Total 960 Output Total 950 876 Balance 10 -876 Weight 121.4 kg Intake: Tube Feeding 960 Output: Urine 950 875 Stool 1 Other: Voiding Method Urinal Urinal # Voids 1 ABP, PAP, CO, CI - Last Documented Arterial Blood Pressure 112/99 Pulmonary Artery Pressure 36/14 Cardiac Output 7.9 Cardiac Index 3.3 - Exam CONSTITUTIONAL: Sitting up to the bedside chair in the intensive care unit, appears comfortable, cooperative, no apparent acute distress. HEENT: Neck is supple, no JVD, no lymphadenopathy. RESPIRATORY: Lungs sounds essentially clear throughout, diminished to his bilateral bases. Respirations symmetrical and nonlabored. Currently on 1 L L nasal cannula with oxygen saturations 97%. Able to achieve 1000 mL on his incentive spirometry with much encouragement. Weak cough. CARDIOVASCULAR: Regular rhythm and rate. S1 and S2 present, negative for S3, gallop or murmur. Sternum is stable. Palpable peripheral pulses bilaterally. No calf pain or tenderness noted. Heart hugger in place with patient demonstrating appropriate use. Knee-high SUNSHINE hose and sequential compression devices in place to his bilateral lower extremities. GASTROINTESTINAL: Abdomen soft, nontender, nondistended. Active bowel sounds present 4 quadrants. Tolerating diet. Passing flatus. No guarding or rigid ity. GENITOURINARY: Continues to void, urine output 700 in the last 8 hours. INTEGUMENTARY: Skin is warm and dry with no evidence of clubbing or cyanosis. Midline sternal incision clean dry and well approximated, covered with dry intact dressing. Left arm radial artery harvest sites clean, dry and approximated. No drainage or redness is present. NEUROLOGIC: Cranial nerves II through XII intact. No focal deficits. MUSKULOSKELETAL: Able to move all extremities, strength equal bilaterally, generalized weakness. PSYCHIATRIC: Alert and oriented to person place and time, appropriate affect, intact judgment and insight. - Labs CBC & Chem 7: 07/02/23 07:37 07/02/23 06:09 Labs: Abnormal Lab Results - Last 24 Hours (Table) 07/01/23 07/01/23 07/01/23 Range/Units 11:39 16:19 20:06 WBC (3.8-10.6) k/uL RBC (4.30-5.90) m/uL Hgb (13.0-17.5) gm/dL Hct (39.0-53.0) % MCHC (31.0-37.0) g/dL Plt Count (150-450) k/uL BUN (9-20) mg/dL Glucose (74-99) mg/dL POC Glucose (mg/dL) 125 H 136 H 154 H (70-110) mg/dL Magnesium (1.6-2.3) mg/dL 07/02/23 07/02/23 07/02/23 Range/Units 06:09 06:37 07:37 WBC 18.7 H (3.8-10.6) k/uL RBC 3.80 L (4.30-5.90) m/uL Hgb 11.3 L (13.0-17.5) gm/dL Hct 36.6 L (39.0-53.0) % MCHC 30.9 L (31.0-37.0) g/dL Plt Count 640 H (150-450) k/uL BUN 27 H (9-20) mg/dL Glucose 134 H (74-99) mg/dL POC Glucose (mg/dL) 146 H (70-110) mg/dL Magnesium 2.7 H (1.6-2.3) mg/dL Assessment and Plan Plan: Postop day # 6, status post three-vessel bypass surgery. Postthoracotomy, the patient's chest tubes are removed and the patient has postop changes with small atelectatic changes and small effusion lung base bilaterally Acute hypoxic respiratory failure, expected outcome of surgery and the patient is currently on 1-2 L of O2 nasal cannula, the patient is experiencing some increased shortness of breath. Significant improved and the patient is less bronchospastic and wheezy compared to yesterday. Chest x-ray showing elevation of the right hemidiaphragm. Cannot completely rule out the possibility of a right-sided pleural effusion. Will obtain ultrasound of the chest. New onset atrial fibrillation converted to normal sinus rhythm treated with amiodarone. Currently in sinus rhythm and the patient is hemodynamically stable Multivessel coronary artery disease and the patient is status post Non-ST elevation UT Severe multivessel coronary artery disease, heart catheterization on 06/22/2023 which showed severe multivessel coronary artery disease including 100% proximal RCA stenosis, 100% LCx stenosis, 90% LAD stenosis, and 90% diffuse ramus disease. chronic obstructive pulmonary disease, patient has an extensive smoking history. Bedside spirometry was technically a poor study, as the patient was anxious and uncooperative at that time. Likely not good effort. FEV1 was 1.58 L or 41% of predicted. Former tobacco dependence, over [id number] history, quitting in 2020. Current marijuana use, weekly. Left internal carotid artery stenosis, estimated at 50 to 69%. Epistaxis, resolved. Anxiety . History of alcoholism. Hypertension. Obesity, with a BMI of 37 kg/m. Plan: Encouraged use of incentive spirometer The patient will have increase mobility Discontinued IV Solu-Medrol and put the patient on prednisone 20 mg p.o. daily obtain ultrasound of the chest Diuretics per cardiothoracic surgery, the patient is a negative fluid balance Current cardiac rhythm is sinus and the patient will be started on metoprolol 50 mg twice a day and dose has been modified. The patient will be also given amiodarone maintenance 400 mg p.o. twice a day for A-fib prophylaxis. No need for anticoagulants at this point in time. Continue metoprolol. Continue Cozaar. The epicardial pacemaker wires were removed Continue rest of the supportive care and the patient can be ultimately transferred out of the intensive care unit. Will coordinate this with the surgical team
--- NOTE | 2023-07-02 15:16 | US ---
EXAMINATION TYPE: US chest DATE OF EXAM: 07/02/2023 COMPARISON: CXR CLINICAL INDICATION: Male, 58 years old with history of pleural effusions; Effusions post CABG TECHNIQUE: Targeted ultrasound of the posterior lower bilateral hemithoraces EXAM MEASUREMENTS: Right Pleural Effusion pocket size: 2.9 cm Right skin surface to fluid distance: 5.0 cm Left Pleural Effusion pocket size: 2.5 cm Left skin surface to fluid distance: 4.6 cm Right side NOT marked for possible thoracentesis outside the dept. Left side NOT marked for possible thoracentesis outside the dept. Pulmonologists are able to review the images in the patient?s EMR. IMPRESSIONS: As above
--- NOTE | 2023-07-02 15:50 | P.PN ---
Subjective Progress Note Date: 07/02/23 Principal diagnosis: Triple-vessel coronary artery disease, non-STEMI this admission, acute systolic heart failure with reduced ejection fraction 35 to 40%, epistaxis. Past medical history significant for hypertension with noncompliance with treatment, remote history of tobacco dependence, previous EtOH use, occasional marijuana use, history of kidney stones, obesity with a BMI of 37.8 kg/m, and family history of cancer. POD #6 On Pump All Arterial Coronary Artery Bypass Grafting x 3. Left internal thoracic artery (in-situ) sequential to first diagonal artery and left anterior descending coronary artery. Free right internal thoracic artery from aorta to ramus intermedius coronary artery, Left atrial appendage ligation using #35 AtriClip, Endoscopic left radial artery harvest, Graft flow measurements using the [employer] Flow Meter System, intraoperative transesophageal echocardiogram performed by anesthesia, insertion of right common femoral arterial line using ultrasound-guided micropuncture technique. Postoperative acute blood loss anemia, expected given hemodilution and cardiopulmonary bypass. Postoperative paroxysmal atrial fibrillation, a known, a current after cardiac surgery, not a complication, currently in normal sinus rhythm The patient was seen and examined in follow-up today July 02, 2023 at his bedside in the intensive care unit. He is currently sitting up to the bedside chair, is awake, alert, oriented x 3 and is in no acute apparent distress. Denies any complaints of pain or shortness of breath at this time, and states that he feels much improved today. Oxygen saturations are 93% on 1 L nasal cannula and he is achieving 1250 mL on his incentive spirometry with encouragement. Bedside telemetry is showing normal sinus rhythm heart rate 89 bpm. No further episodes of atrial fibrillation have been reported. He remains hemodynamically stable and is currently on no inotropic or pressor support. He had his first postoperative day shower yesterday and tolerated well. A limited 2D echocardiogram was completed yesterday which showed a left ventricular ejection fraction estimated at 40% with mildly increased left ventricular systolic volume. He has been ambulating in the intensive care unit hallway with standby assistance from nursing and therapy staff and tolerating well with minimal complaints of shortness of breath with activity. Chest x-ray and laboratory results were reviewed. Objective - Vital Signs Vital signs: Vital Signs Temp 98 F 07/02/23 00:00 Pulse 87 07/02/23 07:00 Resp 27 H 07/02/23 07:00 BP 112/66 04/11/24 07:00 Pulse Ox 93 L 07/02/23 07:00 FiO2 40 07/02/23 04:03 Intake & Output 07/01/23 07/02/23 07/02/23 18:59 06:59 18:59 Intake Total 960 Output Total 950 876 Balance 10 -876 Weight 121.4 kg Intake: Tube Feeding 960 Output: Urine 950 875 Stool 1 Other: Voiding Method Urinal Urinal # Voids 1 ABP, PAP, CO, CI - Last Documented Arterial Blood Pressure 112/99 Pulmonary Artery Pressure 36/14 Cardiac Output 7.9 Cardiac Index 3.3 - Exam CONSTITUTIONAL: Sitting up to the bedside chair in the intensive care unit, appears comfortable, cooperative, no apparent acute distress. HEENT: Neck is supple, no JVD, no lymphadenopathy. RESPIRATORY: Lungs sounds essentially clear throughout, diminished to his bilateral bases. Respirations symmetrical and nonlabored. Currently on 1 L nasal cannula with oxygen saturations 93%. Able to achieve 1250 mL on his incentive spirometry with much encouragement. Weak cough. CARDIOVASCULAR: Regular rhythm and rate. S1 and S2 present, negative for S3, gallop or murmur. Sternum is stable. Palpable peripheral pulses bilaterally. No calf pain or tenderness noted. Heart hugger in place with patient demonstrating appropriate use. Knee-high SUNSHINE hose and sequential compression devices in place to his bilateral lower extremities. GASTROINTESTINAL: Abdomen soft, nontender, nondistended. Active bowel sounds present 4 quadrants. Tolerating diet. Passing flatus. No guarding or rigidity. Bowel movement June 29, 2023. GENITOURINARY: Continues to void, urine output 475 in the last 8 hours. INTEGUMENTARY: Skin is warm and dry with no evidence of clubbing or cyanosis. Midline sternal incision clean dry and well approximated, covered with dry intact dressing, scant serous drainage from his midline sternal incision. Left arm radial artery harvest sites clean, dry and approximated. No drainage or redness is present. NEUROLOGIC: Cranial nerves II through XII intact. No focal deficits. MUSKULOSKELETAL: Able to move all extremities, strength equal bilaterally, generalized weakness. PSYCHIATRIC: Alert and oriented to person place and time, appropriate affect, intact judgment and insight. - Allied health notes Allied health notes reviewed: nursing - Labs CBC & Chem 7: 07/02/23 07:37 07/02/23 06:09 Labs: Abnormal Lab Results - Last 24 Hours (Table) 07/01/23 07/01/23 07/01/23 Range/Units 05:26 11:39 16:19 WBC 15.6 H (3.8-10.6) k/uL RBC 3.76 L (4.30-5.90) m/uL Hgb 11.4 L (13.0-17.5) gm/dL Hct 36.3 L (39.0-53.0) % Plt Count 500 H (150-450) k/uL Neutrophils # 13.8 H (1.3-7.7) k/uL Lymphocytes # 0.9 L (1.0-4.8) k/uL BUN (9-20) mg/dL Glucose (74-99) mg/dL POC Glucose (mg/dL) 125 H 136 H (70-110) mg/dL Magnesium (1.6-2.3) mg/dL 07/01/23 07/02/23 07/02/23 Range/Units 20:06 06:09 06:37 WBC (3.8-10.6) k/uL RBC (4.30-5.90) m/uL Hgb (13.0-17.5) gm/dL Hct (39.0-53.0) % Plt Count (150-450) k/uL Neutrophils # (1.3-7.7) k/uL Lymphocytes # (1.0-4.8) k/uL BUN 27 H (9-20) mg/dL Glucose 134 H (74-99) mg/dL POC Glucose (mg/dL) 154 H 146 H (70-110) mg/dL Magnesium 2.7 H (1.6-2.3) mg/dL - Imaging and Cardiology Chest x-ray: report reviewed, image reviewed Assessment and Plan Assessment: Triple-vessel coronary artery disease, non-STEMI this admission, status post three-vessel coronary artery bypass grafting surgery Acute systolic heart failure with reduced ejection fraction 35-40%, mild mitral valve regurgitation and tricuspid valve regurgitation Epistaxis, resolved Shortness of breath, chest pain secondary to above Hypertension Left internal carotid artery stenosis 50 to 69% Remote history of tobacco dependence Severe COPD with preoperative FEV1 41% of predicted although not the best effort Previous EtOH use Occasional marijuana use History of kidney stones Obesity with BMI of 37.8 kg/m Family history of cancer Postoperative acute blood loss anemia, expected given hemodilution and cardiopulmonary bypass Postoperative paroxysmal atrial fibrillation, a known, a current after cardiac surgery, not a complication, status post left atrial appendage exclusion using a 35mm atrial clip Plan: Continue to maximize medical therapy with aspirin, statin, Plavix, and beta- mari. We will increase his beta-mari as tolerated. Continue losartan 50 mg p.o. daily for afterload reduction started today with hold parameters. Wean O2 as tolerated. Encourage incentive spirometry use 10 times every hour while awake. Bronchodilators per pulmonology. Continue amiodarone 400 mg p.o. twice daily for atrial fibrillation prophylaxis. Currently in normal sinus rhythm. Will monitor daily labs and chest x-rays. Electrolyte replacement per protocol. Increase activity as tolerated. PT/OT and cardiac rehab following. Insulin management per internal medicine. Preoperative hemoglobin A1c 5.1%. Pain control with current medication regimen. GI/DVT prophylaxis. Continue record strict accurate intake and output. May bladder scan every 6 hours and as needed postvoid residual. If greater than or equal to 300 mL of urine may straight cath. Daily weights. Shower daily. Continue Flomax 0.4 mg p.o. daily. Lasix 40 mg IV x 1 now. Transfer to third floor cardiac stepdown unit when bed available. Discharge planning is in place, anticipate discharge home within the next 24 hours with home health care. More recommendations to follow based on patient's clinical course. Time with Patient: Greater than 30
[2023-07-02] MEDS: FUROSEMIDE 10 MG/ML 2 ML VIAL IV STA (16:01)
[2023-07-02 17:01] LABS: Glucose,Whole Blood 151 mg/dL (70-110)
[2023-07-02 20:18] LABS: Glucose,Whole Blood 161 mg/dL (70-110)
--- NOTE | 2023-07-03 00:21 | P.PN ---
Subjective 58-year-old male who presents emergency department as a transfer from [facility]. He originally went in there for chest pain which has been going on for greater than a week. EKG was performed which demonstrated Q waves in the inferior leads. Troponin level was elevated. Patient was given a dose of Lovenox and transferred to our facility for cardiology evaluation. Troponin went from 76 to 172. D-dimer was normal. BNP was 1449. Patient was given a dose of Lovenox 120 mg and 40 mg of Lasix. Patient initially presented to [facility] by EMS due to nosebleed. He did not present for chest pain. Due to concern for coronary artery disease, patient was transferred from the ER at [facility] to [facility]. He did receive IV Lasix 40 mg at [facility] and he thinks his breathing is a bit better today. His initial blood pressure at [facility] was 159/100. Troponin was elevated. D-dimer was normal. Chest x-ray revealed CHF. Patient now has a blood pressure 154/101 and heart rate of 101. He denies having any chest pain at this time. EKG sinus rhythm with none specific ST changes. CTA of the chest reveals no evidence of pulmonary embolism. Peripheral, dependent ground glass pulmonary opacities consistent with atypical pulmonary infection such as COVID-19 or other viral or pulmonary venous congestion. CBC and CMP normal. Troponins 0.485 and 0.743. 06/21/2023 Patient is seen and evaluated sitting up in bed; no complaint of chest pain or shortness of breath; anxious to go home Vital signs are reviewed and remained stable Patient is currently on IV heparin per protocol, aspirin 81 mg daily, Lipitor 80 mg daily and Lopressor 50 mg twice daily Cardiology on board with plans for cardiac catheterization tomorrow morning 06/22/2023 Patient s/p cardiac cath showing severe triple-vessel coronary artery disease. Showing 100% occluded RCA and left circumflex artery and 90% left coronary anterior descending coronary artery After cardiac cath patient was walking in the room with no difficulty. Patient wants to be discharged Cardiothoracic surgery team evaluated the patient however patient wants to follow-up as an outpatient Currently denies chest pain or dyspnea or any other complaint Patient remains on aspirin statin metoprolol switched to Coreg, and Imdur Echocardiogram showing ejection fraction 35 to 40% 06/23/2023 pt is with No chest pain no dyspnea No other new complaints Hemodynamically stable He finished his heparin drip treatment. Currently his Aspirin 81 Mg and Coreg 25 Mg Also He Is on Losartan 100 Mg and Lasix Once Daily Patient Is Aware about the Result of Severe Triple-Vessel Coronary Artery Disease and His Been Followed by Cardiothoracic Surgery Team for Possible Bypass Procedure, patient is considering inpatient versus outpatient management for now 06/24/2023 Patient awake alert No chest pain or dyspnea Patient currently on aspirin 81 mg Patient planned to undergo cardiac bypass procedure on Sunday 06/25. Patient looks agreeable to this plan. 06/25/2023 Patient awake alert looks comfortable No chest pain, no dyspnea No other new complaint Patient feels motivated to go for bypass surgery tomorrow with cardiothoracic surgery team Hemodynamically stable, labs reviewed, WBC is 8.4, hemoglobin 13.1, platelet count 349 Electrolytes are normal, creatinine 0.9, hemoglobin A1c 5.1%, TSH is 2.6. He has positive MRSA test and his nasal sample. Patient on aspirin 81 mg From medical perspective there is no contraindication to proceed with surgery I am resuming the care of the patient on 06/30/2023 Patient awake and alert but looks tachypneic and tired. He denies chest pain. He is afebrile about breathing at 31 breaths/min Patient is s/p triple-vessel coronary artery bypass graft on 06/27. His course is complicated by new onset A-fib and currently he is on metoprolol and amiodarone. No anticoagulation per cardiology team Also he is on IV Solu-Medrol for bronchospasm and possible COPD 07/01/2023 Patient reports improvement. No chest pain, tachypnea is better. He feels much more relaxed Is a negative fluid balance Remains on aspirin and Plavix He is on IV Solu-Medrol 40 mg twice daily Possible discharge tomorrow 07/02/2023 Patient awake looks comfortable but is respiratory rate is mildly elevated lab reports improvement every day. No chest pain. No specific complaint 8 with oxygen saturation Labs showing mild leukocytosis of 13,000 Secondary to steroid IV Solu-Medrol Which will be stopped and switched to prednisone 20 mg. Will continue to monitor and follow-up Objective - Vital Signs Vital signs: Vital Signs Temp 97.9 F 07/02/23 08:00 Pulse 91 07/02/23 08:00 Resp 18 04/11/24 08:00 BP 142/85 07/02/23 08:00 Pulse Ox 92 L 07/02/23 08:47 FiO2 40 07/02/23 04:03 Intake & Output 07/01/23 07/02/23 07/02/23 18:59 06:59 18:59 Intake Total 960 120 Output Total 950 876 775 Balance 10 -876 -655 Weight 121.4 kg Intake: Oral 120 Tube Feeding 960 Output: Urine 950 875 775 Stool 1 Other: Voiding Method Urinal Urinal Urinal # Voids 1 ABP, PAP, CO, CI - Last Documented Arterial Blood Pressure 112/99 Pulmonary Artery Pressure 36/14 Cardiac Output 7.9 Cardiac Index 3.3 - Exam GENERAL: The patient is alert and oriented x3, not in any acute distress. Well developed, well nourished. HEENT: Pupils are round and equally reacting to light. EOMI. No scleral icterus. No conjunctival pallor. Normocephalic, atraumatic. No pharyngeal erythema. No thyromegaly. CARDIOVASCULAR: S1 and S2 present. No murmurs, rubs, or gallops. PULMONARY: Chest is clear to auscultation, no wheezing , no crackles. ABDOMEN: Soft, nontender, nondistended, normoactive bowel sounds. No palpable organomegaly. MUSCULOSKELETAL: No joint swelling or deformity. EXTREMITIES: No cyanosis, clubbing, or pedal edema. NEUROLOGICAL: Gross neurological examination did not reveal any focal deficits. SKIN: No rashes. no petechiae. - Labs CBC & Chem 7: 07/02/23 07:37 07/02/23 06:09 Labs: Abnormal Lab Results - Last 24 Hours (Table) 07/01/23 07/01/23 07/02/23 Range/Units 16:19 20:06 06:09 WBC (3.8-10.6) k/uL RBC (4.30-5.90) m/uL Hgb (13.0-17.5) gm/dL Hct (39.0-53.0) % MCHC (31.0-37.0) g/dL Plt Count (150-450) k/uL BUN 27 H (9-20) mg/dL Glucose 134 H (74-99) mg/dL POC Glucose (mg/dL) 136 H 154 H (70-110) mg/dL Magnesium 2.7 H (1.6-2.3) mg/dL 07/02/23 07/02/23 07/02/23 Range/Units 06:37 07:37 11:41 WBC 18.7 H (3.8-10.6) k/uL RBC 3.80 L (4.30-5.90) m/uL Hgb 11.3 L (13.0-17.5) gm/dL Hct 36.6 L (39.0-53.0) % MCHC 30.9 L (31.0-37.0) g/dL Plt Count 640 H (150-450) k/uL BUN (9-20) mg/dL Glucose (74-99) mg/dL POC Glucose (mg/dL) 146 H 115 H (70-110) mg/dL Magnesium (1.6-2.3) mg/dL Assessment and Plan Assessment: Non-STEMI with cardiac cath Showing 100% occluded RCA and left circumflex artery and 90% left coronary anterior descending coronary artery. S/p triple- vessel coronary artery bypass grafting new onset A-fib and RVR Acute COPD exacerbation Ischemic cardiomyopathy with ejection fraction 35 to 40% Left ICA stenosis 50-69% Hypertension Obesity with BMI of 37 Hyperlipidemia Plan: Continue with aspirin and Plavix Continue the statin Continue with C metoprolol Patient is on IV Solu-Medrol 40 mg Cardiology and pulmonary team on the case Cardiology team on the case Cardiothoracic surgery recommending bypass procedure however patient wants to go home and follow-up outpatient for the procedure. DVT prophylaxis: Subcutaneous heparin GI prophylaxis Prognosis guarded
[2023-07-03 06:00] LABS: Glucose,Whole Blood 98 mg/dL (70-110)
[2023-07-03 07:43] LABS: African American GFR (CKD) >90 (>60 ml/min/1.73 sqM); Anion Gap 10 mmol/L; Blood Urea Nitrogen 25 mg/dL (9-20); Calcium 9.4 mg/dL (8.4-10.2); Carbon Dioxide 32 mmol/L (22-30); Chloride 97 mmol/L (98-107); Glucose 93 mg/dL (74-99); Non-African American GFR(CKD) 89 (>60 ml/min/1.73 sqM); Potassium 4.5 mmol/L (3.5-5.1); Sodium 139 mmol/L (137-145)
--- NOTE | 2023-07-03 07:44 | XR ---
EXAMINATION TYPE: XR chest 2V DATE OF EXAM: 07/03/2023 COMPARISON: 07/02/2023 HISTORY: Post cardiac surgery TECHNIQUE: Frontal and lateral views of the chest are obtained. FINDINGS: Scattered senescent parenchymal changes noted. Hyperinflation compatible with COPD. Scattered pleural-parenchymal opacities seen in chronic elevation right hemidiaphragm without signifi cant change. Postoperative changes of CABG. Heart size is stable. Mediastinal structures are stable and grossly unremarkable. No evidence for hilar prominence. Degenerative changes dorsal spine. IMPRESSION: 1. Scattered pleural-parenchymal opacities seen in chronic elevation right hemidiaphragm without sign ificant change. Postoperative changes of CABG.
[2023-07-03 07:57] LABS: HCT 40.4 % (39.0-53.0); HGB 12.8 gm/dL (13.0-17.5); Hypochromasia Slight; MCHC 31.6 g/dL (31.0-37.0); MCV 95.1 fL (80.0-100.0); Mean Platelet Volume 7.9; Platelet Count 772 k/uL (150-450); RBC 4.25 m/uL (4.30-5.90); RDW 13.9 % (11.5-15.5); WBC 21.4 k/uL (3.8-10.6)
--- NOTE | 2023-07-03 08:24 | P.PN ---
Subjective Progress Note Date: 07/03/23 Principal diagnosis: Triple-vessel coronary artery disease, non-STEMI this admission, acute heart failure with reduced ejection fraction, epistaxis. History of hypertension with noncompliance with treatment, previous tobacco dependence, previous EtOH use, occasional marijuana use, history of kidney stones, obesity, and family history of cancer POD #7 On Pump All Arterial Coronary Artery Bypass Grafting x 3. Left internal thoracic artery (in-situ) sequential to first diagonal artery and left anterior descending coronary artery. Free right internal thoracic artery from aorta to ramus intermedius coronary artery, Left atrial appendage ligation using #35 AtriClip, Endoscopic left radial artery harvest, Graft flow measurements using the Snipi-Stim Flow Meter System, intraoperative transesophageal echocardiogram performed by anesthesia, insertion of right common femoral arterial line using ultrasound-guided micropuncture technique. Postoperative acute blood loss anemia, expected given hemodilution and cardiopulmonary bypass. Postoperative paroxysmal atrial fibrillation, known common occurrence after cardiac surgery, not a complication, currently in normal sinus rhythm The patient was seen and examined sitting up in recliner eating breakfast on the cardiac stepdown unit in no acute distress. States pain is controlled with current medication regimen, denies shortness of breath. He has been ambulatory in the hallway without difficulty, shower daily. Remains stable, currently in sinus rhythm. Anticipates discharge to home with home care today, states he fe els ready to go. Objective - Vital Signs Vital signs: Vital Signs Temp 98.2 F 07/02/23 16:00 Pulse 86 07/03/23 02:00 Resp 22 07/03/23 02:00 BP 139/84 07/02/23 16:00 Pulse Ox 92 L 07/03/23 08:04 FiO2 40 07/02/23 04:03 Intake & Output 07/02/23 07/03/23 07/03/23 18:59 06:59 18:59 Intake Total 935 480 Output Total 1825 1451 Balance -890 -971 Weight 120.5 kg Intake: Oral 935 480 Output: Urine 1825 1450 Stool 1 Other: Voiding Method Urinal Urinal ABP, PAP, CO, CI - Last Documented Arterial Blood Pressure 112/99 Pulmonary Artery Pressure 36/14 Cardiac Output 7.9 Cardiac Index 3.3 - Exam CONSTITUTIONAL: Appears comfortable, cooperative, no acute distress RESPIRATORY: Lungs sounds diminished bilaterally. Respirations even, nonlabored. Currently on room air with oxygen saturation 92%. Able to achieve 1000 mL on incentive spirometry. Strong cough. CARDIOVASCULAR: S1, S2 present. Regular rate and rhythm, sinus rhythm on telemetry. Sternum stable. Palpable peripheral pulses bilaterally. Trace generalized edema present. No calf pain or tenderness noted. Heart hugger in place with patient demonstrating appropriate use. Antiembolism stockings, SCDs present. GASTROINTESTINAL: Abdomen soft, nontender, nondistended. Active bowel sounds present 4 quadrants. Tolerating diet. Positive bowel movement 07/02 GENITOURINARY: Continues to void, output 2375 mL in the last 24 hours INTEGUMENTARY: Skin is warm and dry with evidence of good perfusion. Anterior chest incision well approximated and covered with dry intact dressing. Left radial artery harvest site well approximated without redness or drainage. NEUROLOGIC: Cranial nerves II through XII intact MUSKULOSKELETAL: Able to move all extremities, strength equal bilaterally, gait normal PSYCHIATRIC: Alert and oriented to person place and time, appropriate affect, intact judgment and insight - Allied health notes Allied health notes reviewed: nursing - Labs CBC & Chem 7: 07/03/23 06:51 07/03/23 06:51 Labs: Abnormal Lab Results - Last 24 Hours (Table) 07/02/23 07/02/23 07/02/23 Range/Units 11:41 17:00 20:17 WBC (3.8-10.6) k/uL RBC (4.30-5.90) m/uL Hgb (13.0-17.5) gm/dL Plt Count (150-450) k/uL Chloride (98-107) mmol/L Carbon Dioxide (22-30) mmol/L BUN (9-20) mg/dL POC Glucose (mg/dL) 115 H 151 H 161 H (70-110) mg/dL 07/03/23 07/03/23 Range/Units 06:51 06:51 WBC 21.4 H (3.8-10.6) k/uL RBC 4.25 L (4.30-5.90) m/uL Hgb 12.8 L (13.0-17.5) gm/dL Plt Count 772 H (150-450) k/uL Chloride 97 L (98-107) mmol/L Carbon Dioxide 32 H (22-30) mmol/L BUN 25 H (9-20) mg/dL POC Glucose (mg/dL) (70-110) mg/dL - Imaging and Cardiology Chest x-ray: report reviewed, image reviewed Assessment and Plan Assessment: Triple-vessel coronary artery disease, non-STEMI this admission, status post three-vessel CABG Acute heart failure with reduced ejection fraction 35-40%, mild MR and TR Epistaxis Shortness of breath, chest pain secondary to above Hypertension Left internal carotid artery stenosis 50 to 69% Previous tobacco dependence Severe COPD with preoperative FEV1 41% of predicted although not the best effort Previous EtOH use Occasional marijuana use History of kidney stones Obesity Family history of cancer Postoperative acute blood loss anemia, expected Postoperative paroxysmal atrial fibrillation, status post ligation of the left atrial appendage, currently sinus Plan: Continue to maximize medical therapy with aspirin, statin, Plavix, and beta- mari. Will increase his beta-mari as tolerated, increased to 100 mg twice daily today Continue losartan 50 mg p.o. daily for afterload reduction Encourage incentive spirometry use 10 times every hour while awake. Bronchodilators per pulmonology. Continue amiodarone 400 mg p.o. twice daily for atrial fibrillation prophylaxis, will taper weekly Will monitor daily labs and chest x-rays. Electrolyte replacement per protocol. Increase activity as tolerated. PT/OT and cardiac rehab following. Insulin management per internal medicine. Preoperative hemoglobin A1c 5.1%. Pain control with current medication regimen. GI/DVT prophylaxis. Continue record strict accurate intake and output Daily weights. Shower daily. Continue Flomax 0.4 mg p.o. daily. Discharge planning is in place, anticipate discharge home with home health care today More recommendations to follow based on patient's clinical course.
[2023-07-03] MEDS: METOPROLOL TARTRATE 50 MG TAB PO SCH (08:52)
[2023-07-03] MEDS: predniSONE 20 MG TAB PO SCH (08:52)
[2023-07-03 10:09] VITALS: BP 162/84; PULSE 95; RESP 18; TEMP 98
[2023-07-03 11:41] LABS: Glucose,Whole Blood 119 mg/dL (70-110)
--- NOTE | 2023-07-03 12:11 | P.PN ---
Subjective Progress Note Date: 07/03/23 The patient is a 58-year-old male who is currently admitted with non-ST elevated myocardial infarction. The patient was found to have triple-vessel coronary artery disease and underwent bypass surgery. Postoperative echocardiogram shows EF of 40%. The patient was interviewed and examined on the cardiac stepdown unit. Patient states he is feeling well today. No chest pain. He states he is being dis charged home today. No dizziness or lightheadedness upon ambulation. GENERAL: Ill-appearing, well-nourished and in no distress NECK: Supple without JVD or thyromegaly. LUNGS: Breath sounds diminished to auscultation bilaterally. Respiration equal. No wheezes, rales or rhonchi. HEART: Regular rate and rhythm without murmurs, rubs or gallops. S1 and S2 heard. Heart hugger in place EXTREMITIES: Normal range of motion, no edema. No clubbing or cyanosis. Peripheral pulses intact and strong. TELEMETRY: Sinus rhythm overnight. Average heart rate in the 80-90's, blood pressure 162/84 IMPRESSION: triple-vessel coronary artery disease Status post on pump coronary bypass Ischemic cardiomyopathy, EF 35-40% Postoperative atrial fibrillation Hypertension Dyslipidemia PLAN: Continue supportive treatment Patient is cleared for discharge from cardiology and may follow-up in the office in 1 to 2 weeks. I am dictating on behalf of Dr Andi Alfaro's history/physical and assessment/plan. Objective - Vital Signs Vital signs: Vital Signs Temp 98.2 F 07/02/23 16:00 Pulse 86 07/03/23 02:00 Resp 22 07/03/23 02:00 BP 139/84 07/02/23 16:00 Pulse Ox 92 L 07/03/23 08:04 FiO2 40 07/02/23 04:03 Intake & Output 07/02/23 07/03/23 07/03/23 18:59 06:59 18:59 Intake Total 935 480 458 Output Total 1825 1451 Balance -890 -971 458 Weight 120.5 kg Intake: Oral 935 480 458 Output: Urine 1825 1450 Stool 1 Other: Voiding Method Urinal Urinal ABP, PAP, CO, CI - Last Documented Arterial Blood Pressure 112/99 Pulmonary Artery Pressure 36/14 Cardiac Output 7.9 Cardiac Index 3.3 - Labs CBC & Chem 7: 07/03/23 06:51 04/12/24 06:51 Labs: Abnormal Lab Results - Last 24 Hours (Table) 07/02/23 07/02/23 07/02/23 Range/Units 11:41 17:00 20:17 WBC (3.8-10.6) k/uL RBC (4.30-5.90) m/uL Hgb (13.0-17.5) gm/dL Plt Count (150-450) k/uL Chloride (98-107) mmol/L Carbon Dioxide (22-30) mmol/L BUN (9-20) mg/dL POC Glucose (mg/dL) 115 H 151 H 161 H (70-110) mg/dL 07/03/23 07/03/23 Range/Units 06:51 06:51 WBC 21.4 H (3.8-10.6) k/uL RBC 4.25 L (4.30-5.90) m/uL Hgb 12.8 L (13.0-17.5) gm/dL Plt Count 772 H (150-450) k/uL Chloride 97 L (98-107) mmol/L Carbon Dioxide 32 H (22-30) mmol/L BUN 25 H (9-20) mg/dL POC Glucose (mg/dL) (70-110) mg/dL
--- NOTE | 2023-07-03 12:17 | P.DS ---
Providers Date of admission: 06/19/23 07:40 Expected date of discharge: 07/03/23 Attending physician: Misbah Aly MD Consults: 06/19/23 07:40 Consult Physician Urgent Consulting Provider: [facility] Consult Reason/Comments: acute chest pain, nstemi Do you want consulting provider notified?: Yes 06/22/23 10:05 Consult Physician Routine Consulting Provider: Misbah Aly Consult Reason/Comments: CTS eval, PIT INSPECTOR RCA, PIT INSPECTOR LCx, 90% LAD, cardiomyopathy Do you want consulting provider notified?: Yes 06/23/23 09:11 Consult Physician Routine Consulting Provider: José Miguel Phan Consult Reason/Comments: pulm clearance Do you want consulting provider notified?: Already Contacted 06/25/23 16:03 Consult to Anesthesia Routine Consulting Provider: Anesthesia,Services Consult Reason/Comments: Cardiac Surgery Pre-Op 06/26/23 14:47 Consult Physician Routine Consulting Provider: Trinity Posada Consult Reason/Comments: med mgmt Do you want consulting provider notified?: Already Contacted Primary care physician: Stated None Hospital Course: FINAL DIAGNOSIS: Triple-vessel coronary artery disease, non-STEMI this admission Acute heart failure with reduced ejection fraction 35-40%, mild MR and TR Epistaxis Shortness of breath, chest pain secondary to above Hypertension Left internal carotid artery stenosis 50 to 69% Previous tobacco dependence Severe COPD with preoperative FEV1 41% of predicted although not the best effort Previous EtOH use Occasional marijuana use History of kidney stones Obesity Family history of cancer Postoperative acute blood loss anemia, expected Postoperative paroxysmal atrial fibrillation, status post ligation of the left atrial appendage, currently sinus PRINCIPAL PROCEDURE: On Pump All Arterial Coronary Artery Bypass Grafting x 3, left internal thoracic artery (in-situ) sequential to first diagonal artery and left anterior descending coronary artery, free right internal thoracic artery from aorta to ramus intermedius coronary artery Left atrial appendage ligation using #35 AtriClip Endoscopic left radial artery harvest Graft flow measurements using the [employer] Flow Meter System Intraoperative transesophageal echocardiogram performed by anesthesia Insertion of right common femoral arterial line using ultrasound-guided micropuncture technique HISTORY OF PRESENT ILLNESS: This is a 58-year-old obese gentleman who does not follow with a primary care physician on a regular basis, he does not take any medications at home. This gentleman has had intermittent chest pain and progressive shortness of breath over the previous few months. He endorsed the symptoms mostly with activity however he had not sought medical attention. He stated he was having a harder time being able to do what he wanted to do. He developed a significant nosebleed so he presented to [facility] for evaluation and treatment. He was found to be hypertensive. Troponins and BNP were elevated, he was given IV Lasix and transferred to [facility] for further evaluation and treatment. EKG demonstrated sinus rhythm nonspecific ST changes. Chest CTA demonstrated no pulmonary embolism, however there were gr oundglass pulmonary opacities consistent with atypical pulmonary infection. Lab work was unremarkable except for elevated troponins. The patient was admitted for evaluation and treatment. Echocardiogram was completed demonstrating moderately reduced global left ventricular systolic function with EF 35 to 40%, trace to mild mitral regurgitation, and mild tricuspid regurgitation. He was recommended to undergo heart catheterization which demonstrated significant triple-vessel coronary artery disease with PIT INSPECTOR of the proximal RCA, PIT INSPECTOR of the proximal left circumflex with collaterals feeding the left PDA and PL branches, 90% proximal LAD disease, and 90% diffuse ramus disease. Due to these findings consultation was placed to cardiothoracic surgery for surgical revascularization recommendations. He was recommended to undergo coronary artery bypass surgery. The usual perioperative course was discussed in detail with the patient and his family, all risks and benefits were explained, all questions were answered, and consent was obtained to proceed with surgery. The patient was kept inpatient due to the nature of his disease process. HOSPITAL COURSE: The patient was brought to the preoperative area 06/26/23, prepared in the usual fashion, and subsequently taken to the operating room where Dr. Aly performed 3 vessel CABG. Upon completion of surgery the patient was transferred to the cardiovascular intensive care unit where he was recovered and monitored hemodynamically. He was extubated, all lines, tubes, and drips were discontinued when appropriate, and he was transferred to [facility] cardiac stepdown unit for further monitoring and rehabilitation. He did experience brief paroxysmal atrial fibrillation which was successfully treated with amiodarone. His oxygen was titrated down, he continued to work with physical and occupational therapy, he was tolerating oral diet, his pain was controlled, and he was ready to be discharged to home with [facility] care on postoperative day #7. He received written and verbal instruction regarding his medications, activity restrictions, signs and symptoms requiring physician notification, and follow-up appointments. Patient Condition at Discharge: Serious Plan - Discharge Summary Discharge Rx Participant: No New Discharge Prescriptions: New Aspirin 325 mg PO DAILY #30 tab Amiodarone [Cordarone] 400 mg PO BID #32 tab Losartan [Cozaar] 50 mg PO DAILY@1200 #30 tab Tamsulosin [Flomax] 0.4 mg PO HS #30 cap Furosemide [Lasix] 20 mg PO DAILY #7 tab Clopidogrel [Plavix] 75 mg PO DAILY #30 tab Sennosides-Docusate Sodium [Senokot-S] 2 each PO HS PRN tab PRN Reason: Constipation Budesonide-Formot 160-4.5 Mcg [Symbicort 160-4.5 Mcg Inhaler] 2 puff INHALATION RT-BID #1 each Albuterol Inhaler [Ventolin Hfa Inhaler] 2 puff INHALATION RT-QID #1 each predniSONE [Deltasone] 20 mg PO DAILY #7 tab Atorvastatin [Lipitor] 40 mg PO DAILY #30 tab Metoprolol Tartrate [Lopressor] 100 mg PO BID #60 tab Acetaminophen Tab [Tylenol] 1,000 mg PO Q6HR PRN tab PRN Reason: Fever And/ Or Pain Continue Ibuprofen [Motrin Ib] 400 mg PO Q4H PRN PRN Reason: Fever And/ Or Pain Discontinued [id number]-[id number] [id number] [Excedrin] 2 tab PO Q4H PRN PRN Reason: Fever And/ Or Pain Discharge Medication List Ibuprofen [Motrin Ib] 400 mg PO Q4H PRN 06/19/23 [History] Acetaminophen Tab [Tylenol] 1,000 mg PO Q6HR PRN tab 07/03/23 [Rx] Albuterol Inhaler [Ventolin Hfa Inhaler] 2 puff INHALATION RT-QID #1 each 07/03/23 [Rx] Amiodarone [Cordarone] 400 mg PO BID #32 tab 07/03/23 [Rx] Aspirin 325 mg PO DAILY #30 tab 07/03/23 [Rx] Atorvastatin [Lipitor] 40 mg PO DAILY #30 tab 07/03/23 [Rx] Budesonide-Formot 160-4.5 Mcg [Symbicort 160-4.5 Mcg Inhaler] 2 puff INHALATION RT-BID #1 each 07/03/23 [Rx] Clopidogrel [Plavix] 75 mg PO DAILY #30 tab 07/03/23 [Rx] Furosemide [Lasix] 20 mg PO DAILY #7 tab 07/03/23 [Rx] Losartan [Cozaar] 50 mg PO DAILY@1200 #30 tab 07/03/23 [Rx] Metoprolol Tartrate [Lopressor] 100 mg PO BID #60 tab 07/03/23 [Rx] Sennosides-Docusate Sodium [Senokot-S] 2 each PO HS PRN tab 07/03/23 [Rx] Tamsulosin [Flomax] 0.4 mg PO HS #30 cap 07/03/23 [Rx] predniSONE [Deltasone] 20 mg PO DAILY #7 tab 07/03/23 [Rx] Follow up Appointment(s)/Referral(s): Abril Shepherd NPC [Nurse Practitioner] - 07/08/23 11:30 am (You will be seen in the surgeon's office behind the hospital in [facility], [address] Office phone number is ) Gabriela Bonilla MD [STAFF PHYSICIAN] - 2 Weeks (office will call with appointment) [facility] ,Cardiac [NON-STAFF] - 4 Weeks (You will receive a phone call in approximately 4-6 weeks for evaluation for cardiac rehab) José Miguel Phan DO [Doctor of Osteopathic Medicine] - 07/23/23 1:30 pm [facility], [NON-STAFF] - 1-2 Days (To be seen the day after discharge, then 2-3 times per week until you start cardiac rehab) None,Stated [Primary Care Provider] - 1-2 days Misbah Aly MD [STAFF PHYSICIAN] - 07/16/23 12:00 pm Ambulatory/Diagnostic Orders: Complete Blood Count w/diff [LAB.AMB] Time Frame: 3 Days, Location: None Selected Comprehensive Metabolic Panel [LAB.AMB] Time Frame: 3 Days, Location: None Selected Activity/Diet/Wound Care/Special Instructions: DISCHARGE INSTRUCTIONS: 1. No driving for 4 weeks, or until physician gives their ok. 2. The patient should sleep in their own bed, no medical bed needed. 3. Stairs are not an issue. If the bedroom is upstairs, it is advised that the patient go up at night and down in the morning for the first week. Go slowly, using handrail and take 1 step at a time. 4. SUNSHINE hose are to be worn for 30 days post surgery or until physician discontinues. 5. Heart hugger is to be worn 100% of the time until physician discontinues.(except when showering) 6. No lifting, pushing, or pulling more than 10 pounds for 12 weeks. The physician will advise of any restriction changes. 7. The patient is expected to continue the prescribed walking program. 8. Continue pain control per as needed orders. 9. Continue with incentive spirometry and splinting/heart hugger until otherwise directed by the physician. 10. Must shower daily using liquid antibacterial soap 11. Routine sternal incision care. No powders, lotions, ointments on incisions. No dressings are necessary on incisions unless they are draining. Dermabond tape is to remain on sternal incision until surgeon follow-up. 12. Please call surgeon/SENIOR DATA MODELER for temp greater than 101 F or purulent drainage from incisions. 13. You should weigh yourself daily, record and bring log with you to follow up appointments. 14. All prescriptions given by surgeon for 30 days. Refills need to be filled through metalizer field operation/primary care physician. 15. A Red armband has been placed on the patient. It should be worn for 30 days post discharge from surgery and will be removed by the cardiac surgeons. If an ER visit is necessary, please make sure the number on the Red armband is called before going to ER. 16. You have been referred to and are expected to begin Cardiac Rehab in approximately 4-6 weeks. 17. Quitting smoking is the most important step you can take to improve your health. For additional information and assistance to quit smoking, please call the [place] tobacco quit line (5-028-JMJK-NOW/ ) or online: [email or web address]:/ [email or web address] prevention health educator HOME HEALTH SERVICES TO PROVIDE: RN SKILLED HOME CARE SERVICES FOR POST-OP SURGICAL PATIENTS WITH THE FOLLOWING: Coronary Artery Bypass Surgery (CABG), Mitral Valve Replacement/Repair ( MVR), Aortic Valve Replacement/Repair (AVR) RN TO CONTINUE EDUCATION FROM ``ROAD TO A HEALTH HEART PATIENT EDUCATION MANUAL (GIVEN TO PATIENT IN THE HOSPITAL) MEDICATION RECONCILIATION WITH EDUCATION NEEDED ON FIRST HOME VISIT EMPHASIZE IMPORTANCE OF WEARING BREAST SUPPORT/HEART HUGGER ENCOURAGE USE OF INCENTIVE SPIROMETER 10 X EVERY HOUR WHILE AWAKE ENCOURAGE UTILIZATION OF LOWER EXTREMITY COMPRESSION STOCKINGS/SUNSHINE HOSE and ELEVATE LEGS ABOVE LEVEL OF HEART WHILE AT REST. ENCOURAGE AMBULATION 3-5x/day INCREASING TOLERATES, WHILE AVOIDING EXTREMES IN TEMPERATURE FREQUENCY: RN TO OPEN THE PATIENT WITHIN 24 HOURS OF DISCHARGE FROM THE HOSPITAL WITH [place] [facility] [place]ISIT 2-3 X A WEEK FOR 4 WEEKS ESTABLISHED BY PATIENT NEEDS. LABORATORY: CBC, CMP TO BE DRAWN ON THE THIRD DAY HOME, (RAN STAT) FAX RESULTS TO [phone]. TELEHEALTH PARAMETERS: WEIGHT: NOTIFY MD OF WEIGHT GAIN OF 2 LBS IN 24 HOURS OR 5 LBS IN ONE WEEK HR: NOTIFY MD OF HR <55 BPM OR HR>100 BPM BP: NOTIFY MD IF BP <90/55 OR BP>140/100 O2 SAT: NOTIFY MD IF PO2<93% ON ROOM AIR SEND TELEHEALTH REPORT TO HOUSEKEEPING SUPERVISOR AND CARDIOVASCULAR SURGEON THE FIRST WEEK OF CARE AND THEN BI-WEEKLY. PLEASE ADDITIONALLY COMMUNICATE ANY ABNORMALS AND NEW FINDINGS TO THE SURGEONS OFFICE. Discharge Disposition: HOME WITH HOME HEALTH SERVICES
--- NOTE | 2023-07-03 14:19 | P.PN ---
Subjective Progress Note Date: 07/03/23 Patient is a 58-year-old white male with past medical history significant for hypertension, coronary artery disease, previous tobacco dependence and current marijuana use, alcoholism, and anxiety. He does not currently follow with a primary care provider. Over the last couple months, the patient has had intermittent chest pain that radiates to his back and is associated with some left arm numbness. There is associated shortness of breath. His usually last for 15 minutes, and subsides with rest. The symptoms have significantly limited his activity level, he can no longer do activities such as go to the grocery store without symptoms. He went to [facility] earlier in the week, actually for a nosebleed. He was found to be hypertensive. He had some abnormal labs including an elevated troponins. He was diagnosed with a non-ST elevation [place]. For this reason he was transferred to [facility] for further evaluation and treatment on 06/19/2023. He did have a heart ca theterization on 06/22/2023 which showed severe multivessel coronary artery disease including 100% proximal RCA stenosis, 100% LCx stenosis, 90% proximal LAD stenosis, and 90% diffuse ramus disease. There was recommendation for surgical revascularization, and cardiothoracic services were consulted. He is currently undergoing an extensive preoperative workup. Echocardiogram done this admission shows a reduced left ventricular ejection fraction of 35 to 40% along with some moderate concentric LVH. No observed significant valvular disease. He did have a preoperative bedside spirometry, at that time he had just learned some test results, he was anxious and uncooperative. His FEV1 was 1.58 L or 41%. Likely not best result and of limited value. He does have a significant smoking history, smoking 1.5 packs/day for many years. Quit smoking in 2020. Continues to recreationally smoke marijuana weekly. He denies ever being diagnosed with any kind of lung disease such as COPD or asthma. He is currently sitting up in bed, on room air, in no acute distress. We are asked to see this patient for preoperative pulmonary clearance for possible surgical revascularization. Chest CTA done at our facility did not show any evidence of pulmonary embolism. There was peripheral dependent groundglass opacities concerning for pulmonary venous congestion, atypical pneumonia was an alternative differential. Most recent CBC and BMP from 2 days ago were unremarkable. He was previously on a heparin drip, which has since been discontinued. Patient currently denies any chest pain. Denies any shortness of breath, coughing, sputum production. Afebrile. Incentive spirometer is at bedside. Patient was initially hesitant to undergo open heart, however, is leaning towards surgery. Patient continues to undergo extensive preoperative workup. STS score is being calculated. Progress note dated June 25, 2023. The patient was seen yesterday in consultation. He has a history of hypertension, coronary artery disease, previous tobacco dependence, alcoholism, anxiety, and marijuana use. The patient was recently evaluated, and found to have multivessel coronary disease, and is scheduled to have revascularization surgery tomorrow. The patient is practicing with his incentive spirometer. He is currently on room air. No IV fluids. Laboratory data includes a white count 10.3, hemoglobin 12.7, hematocrit 40.3, and a normal platelet count. Coagulation studies are normal. Sodium 137, potassium 4.1, chlorides 103, CO2 25, BUN 10, creatinine 0.83. Glucose is 95. Calcium is 9.4. Nasal screen was positive for Staph aureus, not MRSA. Progress note dated June 27, 2023. 58-year-old male postop day #1, status post three-vessel bypass surgery. The patient was not seen yesterday as he was in the operating room. The patient was extubated on June 25. He is currently on 6 L nasal cannula. He is getting lactated Ringer's at 20 cc an hour. He is also on Primacor 0.125 mcg/kg/min. Insulin drip has been weaned off. The patient is not really taking deep breaths, and we encouraged him to deep breathe, cough, clear secretions, as well as using the incentive spirometer, every hour. Current labs include a white count of 13.7, hemoglobin 11.4, hematocrit 35.5, and a normal platelet count. Sodium 137, potassium 4.4, chlorides 107, CO2 26, BUN 14, creatinine 0.86. Glucose is 123. Calcium 7.8. Albumin 2.9. Chest x-ray shows some postsurgical changes, and some basilar atelectasis. Progress note dated June 28, 2023. 58-year-old male, postop day #2, status post three-vessel bypass surgery. The patient is currently on oxygen at 6 L by nasal cannula. He is not receiving any IV fluids. The patient is getting 700 cc on his incentive spirometry. White count is 14.7, hemoglobin 11.1, hematocrit 34.2, platelet count 227,000. Sodium 139, potassium 4.5, chlorides 107, CO2 21, BUN 13, creatinine 0.83. Glucose is 125. Calcium is 8.3. The patient's nasopharyngeal swab was positive for oxacillin sensitive Staph aureus. The patient's chest x-ray showed cardiomegaly, and bilateral infiltrates, with small effusions. On today's evaluation on 06/29/2023, the patient is being seen for a follow-up. The patient is calm and comfortable. The patient remains on 3 days of oxygen by nasal cannula. Using incentive spirometer and pulling approximately 750 on his incentive spirometer. Cardiac rhythm is sinus. No hemodynamic instability. No chest pain. Surgical wound site is dry clean and intact. The patient had an episode of atrial fibrillation overnight and the patient subsequently was given IV amiodarone bolus and drip and he converted to normal sinus rhythm and the patient is currently being transitioned to oral amiodarone. Monitor coagulations have been utilized. Chest x-ray is noted bilateral pleural effusion. On today's blood work, the white cell count of 12.3 with a hemoglobin 10.8 and a platelet count of 258. BUN is at 16 with a creatinine of 0.8 and a sodium level is at 138 with a potassium level of 4.2. Awake and alert and communicating. No altered mentation. The patient is postop day #4 and the patient underwent three-vessel bypass surgery. The patient has systolic heart failure with reduced ejection fraction of 35 to 40% preoperatively. He has hypertension and is post acute non-ST segment elevation myocardial infarction due to his underlying coronary artery disease. 06/30/2023, I am seeing the patient for a follow-up. It was noted that the patient is experiencing some increased shortness of breath. Based on that, the patient was given a dose of Lasix by the cardiothoracic team. Cardiac rhythm remains sinus and the patient remains on oxygen on 2 L with a pulse ox of 99 to 100%. Follow-up chest x-ray from this morning shows scattered infiltrates/atelectatic change in lower lung fajardo bilaterally. The patient also has postthoracotomy changes. Remains on bronchodilators. He was noted to have some increased bronchospasm wheezing and based on that the patient will be started on IV Solu-Medrol 60 mg every 12 hours. The labs from today shows a WBC of S 14, hemoglobin is 11 with a platelet count of 314. BUN is 19 with a creatinine of 0.8 and sodium levels at 139. Awake and alert. Ambulating. Neurologically intact. No other significant events overnight. The patient is currently postop day #5 and the patient underwent a three-vessel bypass surgery. He had a impaired LV function with an ejection fraction of 35 to 40% preoperatively. On 07/01/2023, the patient is feeling better compared to yesterday. Less bronchospastic and wheezing less shortness of breath. The patient is on 1 L of O2 nasal cannula. No chest pain. The repeat chest x-ray from today shows some small bilateral pleural effusion and some atelectatic change in lung base bilaterally and is consistent with postop changes. The patient remains on Symbicort. The patient remains on DuoNeb updrafts. The patient is on IV Solu- Medrol 60 mg every 12 hours. Diuretics are being managed by the cardiothoracic team and the patient is a negative fluid balance of at least 1.7 L over the past 24 hours. The white cell count is 15.6 with a hemoglobin of 11, platelet count is 500, BUN is 24 with a creatinine of 0.9 and a sodium levels at 139. Alert and awake. Ambulating. Cardiac rhythm is sinus. No other significant events otherwise for now. The patient remains on aspirin and Plavix. The patient is also on metoprolol 75 mg p.o. twice a day. The patient is on subcu heparin for DVT prophylaxis. The patient remains on Lipitor 40 mg p.o. daily. Patient is also on Cozaar 50 mg p.o. daily. On today's evaluation of 07/02/2023, the patient is being seen for a follow-up. No new complaints. Chest x-ray from today shows some atelectatic change in the right lung base and there may be some pleural effusion versus elevation of the right hemidiaphragm. Ultrasound of the chest is to be obtained. Meanwhile, the patient is using the incentive spirometer. He is currently on 1 L of O2 nasal cannula with a pulse ox of 92%. WBC count at 18.7 with a hemoglobin of 11.3, BUN is 27 with a creatinine of 0.7. Cardiac rhythm is sinus. Cardiac medications are essentially unchanged and the patient remains on aspirin and Plavix. The patient is also on metoprolol 75 mg p.o. twice a day. The patient is on losartan 50 mg p.o. daily. The patient is on oral amiodarone 4 mg p.o. twice a day. Cardiac rhythm is sinus. The patient is also on IV Solu-Medrol in combination with bronchodilators. Less bronchospastic and wheezy on today's evaluation. We should be able to gradually wean off his steroids. No other significant events overnight. On 07/03/2023, the patient is being seen for a follow-up. The patient is doing extremely well. He is on room air oxygen. Using incentive spirometer. Ultrasound of the chest was done and the pleural fluid was minimal at this point in time and no thoracentesis was performed accordingly. The patient has no chest pain. His blood work shows a WBC count of 21.4 with a hemoglobin of 12.8 and a platelet count of 772. BUN is 25 with a creatinine of 0.9 and a sodium levels at 139. The patient otherwise has no specific complaints. The patient is currently on aspirin and Plavix. The patient amiodarone 4 mg p.o. twice a day. The patient on metoprolol milligrams p.o. twice daily. He was also given Lasix 20 mg p.o. per day Cozaar 50 mg p.o. daily for blood pressure control. He remains on Lipitor. He will be completing a prednisone burst taper on outpatient basis. Objective - Vital Signs Vital signs: Vital Signs Temp 98.0 F 07/03/23 08:00 Pulse 95 07/03/23 08:00 Resp 18 07/03/23 08:00 BP 162/84 07/03/23 08:00 Pulse Ox 92 L 07/03/23 08:04 FiO2 40 07/02/23 04:03 Intake & Output 07/02/23 07/03/23 07/03/23 18:59 06:59 18:59 Intake Total 935 480 458 Output Total 1825 1451 Balance -890 -971 458 Weight 120.5 kg Intake: Oral 935 480 458 Output: Urine 1825 1450 Stool 1 Other: Voiding Method Urinal Urinal Urinal ABP, PAP, CO, CI - Last Documented Arterial Blood Pressure 112/99 Pulmonary Artery Pressure 36/14 Cardiac Output 7.9 Cardiac Index 3.3 - Exam CONSTITUTIONAL: Sitting up to the bedside chair in the intensive care unit, appears comfortable, cooperative, no apparent acute distress. The patient is currently on room air oxygen. HEENT: Neck is supple, no JVD, no lymphadenopathy. RESPIRATORY: Lungs sounds essentially clear throughout, diminished to his bilateral bases. Respirations symmetrical and nonlabored. CARDIOVASCULAR: Regular rhythm and rate. S1 and S2 present, negative for S3, gallop or murmur. Sternum is stable. Palpable peripheral pulses bilaterally. No calf pain or tenderness noted. Heart hugger in place with patient demonstrating appropriate use. Knee-high SUNSHINE hose and sequential compression devices in place to his bilateral lower extremities. GASTROINTESTINAL: Abdomen soft, nontender, nondistended. Active bowel sounds present 4 quadrants. Tolerating diet. Passing flatus. No guarding or rigidity. GENITOURINARY: Continues to void, urine output 700 in the last 8 hours. INTEGUMENTARY: Skin is warm and dry with no evidence of clubbing or cyanosis. Midline sternal incision clean dry and well approximated, covered with dry intact dressing. Left arm radial artery harvest sites clean, dry and approximated. No drainage or redness is present. NEUROLOGIC: Cranial nerves II through XII intact. No focal deficits. MUSKULOSKELETAL: Able to move all extremities, strength equal bilaterally, generalized weakness. PSYCHIATRIC: Alert and oriented to person place and time, appropriate affect, intact judgment and insight. - Labs CBC & Chem 7: 07/03/23 06:51 07/03/23 06:51 Labs: Abnormal Lab Results - Last 24 Hours (Table) 07/02/23 07/02/23 07/02/23 Range/Units 11:41 17:00 20:17 WBC (3.8-10.6) k/uL RBC (4.30-5.90) m/uL Hgb (13.0-17.5) gm/dL Plt Count (150-450) k/uL Chloride (98-107) mmol/L Carbon Dioxide (22-30) mmol/L BUN (9-20) mg/dL POC Glucose (mg/dL) 115 H 151 H 161 H (70-110) mg/dL 07/03/23 07/03/23 Range/Units 06:51 06:51 WBC 21.4 H (3.8-10.6) k/uL RBC 4.25 L (4.30-5.90) m/uL Hgb 12.8 L (13.0-17.5) gm/dL Plt Count 772 H (150-450) k/uL Chloride 97 L (98-107) mmol/L Carbon Dioxide 32 H (22-30) mmol/L BUN 25 H (9-20) mg/dL POC Glucose (mg/dL) (70-110) mg/dL Assessment and Plan Plan: Postop day # 7, status post three-vessel bypass surgery. Postthoracotomy, the patient's chest tubes are removed and the patient has postop changes with small atelectatic changes and small effusion lung base bilaterally, the right hemidiaphragm seems to be slightly elevated. No significant signs of effusion for thoracentesis based on the ultrasound find ings. Acute hypoxic respiratory failure, expected outcome of surgery and the patient is currently on room air oxygen and there is no significant bronchospasm or wheezing and the patient is currently on 20 mg of prednisone as part of burst taper in addition to bronchodilators [id number]. New onset atrial fibrillation converted to normal sinus rhythm treated with amiodarone. Currently in sinus rhythm and the patient is hemodynamically stable Multivessel coronary artery disease and the patient is status post Non-ST elevation [place] Severe multivessel coronary artery disease, heart catheterization on 06/22/2023 which showed severe multivessel coronary artery disease including 100% proximal RCA stenosis, 100% LCx stenosis, 90% LAD stenosis, and 90% diffuse ramus disease. chronic obstructive pulmonary disease, patient has an extensive smoking history. Bedside spirometry was technically a poor study, as the patient was anxious and uncooperative at that time. Likely not good effort. FEV1 was 1.58 L or 41% of predicted. Former tobacco dependence, over [id number] history, quitting in 2020. Current marijuana use, weekly. Left internal carotid artery stenosis, estimated at 50 to 69%. Epistaxis, resolved. Anxiety . History of alcoholism. Hypertension. Obesity, with a BMI of 37 kg/m. Plan: Encouraged use of incentive spirometer The patient will have increase mobility prednisone on outpatient basis milligrams for 4 days and 10 mg for 4 days and this can be stopped following that. obtain ultrasound of the chest, results were noted and there is no sizable effusion for thoracentesis Diuretics per cardiothoracic surgery, the patient is a negative fluid balance, the patient will be discharged home on Lasix Current cardiac rhythm is sinus and the patient will be started on metoprolol 50 mg twice a day and dose has been modified. The patient will be also given a miodarone maintenance 400 mg p.o. twice a day for A-fib prophylaxis. No need for anticoagulants at this point in time. Continue metoprolol. Continue Cozaar. The epicardial pacemaker wires were removed Possible discharge today. Monitor white cell count and hemoglobin on outpatient basis.
== END 2023-07-03 14:08 | disposition home health service (06) | DRG 165 ==
LOC: EC 05:18 → 3SCARD 07:40 → 2SICU 06-26 06:05 → 3SCARD 07-02 18:38
PROVIDERS: ADMIT Thoracic Surgery (Cardiothoracic Vascular Surgery); ATTEND Thoracic Surgery (Cardiothoracic Vascular Surgery)
PROC: B2111ZZ Fluoroscopy of Multiple Coronary Arteries using Low Osmolar Contrast (ICD-10-PCS; 2023-06-22)
PROC: 4A023N7 Measurement of Cardiac Sampling and Pressure, Left Heart, Percutaneous Approach (ICD-10-PCS; 2023-06-22)
PROC: 5A1221Z Performance of Cardiac Output, Continuous (ICD-10-PCS; principal; 2023-06-26 08:00)
PROC: 03BB3ZZ Excision of Right Radial Artery, Percutaneous Approach (ICD-10-PCS; principal; 2023-06-26 08:00)
PROC: 021109W Bypass Coronary Artery, Two Arteries from Aorta with Autologous Venous Tissue, Open Approach (ICD-10-PCS; principal; 2023-06-26 08:00)
PROC: 02100Z9 Bypass Coronary Artery, One Artery from Left Internal Mammary, Open Approach (ICD-10-PCS; principal; 2023-06-26 08:00)
PROC: B246ZZ4 Ultrasonography of Right and Left Heart, Transesophageal (ICD-10-PCS; principal; 2023-06-26 08:00)
PROC: 02L70CK Occlusion of Left Atrial Appendage with Extraluminal Device, Open Approach (ICD-10-PCS; principal; 2023-06-26 08:00)
PROC: 02HV33Z Insertion of Infusion Device into Superior Vena Cava, Percutaneous Approach (ICD-10-PCS; 2023-06-28)
PROC: 02HQ32Z Insertion of Monitoring Device into Right Pulmonary Artery, Percutaneous Approach (ICD-10-PCS; 2023-06-28)
PROC: 4A1239Z Monitoring of Cardiac Output, Percutaneous Approach (ICD-10-PCS; 2023-06-28)
PROC: 4A133B3 Monitoring of Arterial Pressure, Pulmonary, Percutaneous Approach (ICD-10-PCS; 2023-06-28)
DX: I21.4 Non-ST elevation (NSTEMI) myocardial infarction (principal); I25.10 Atherosclerotic heart disease of native coronary artery without angina pectoris; I11.0 Hypertensive heart disease with heart failure; Z87.891 Personal history of nicotine dependence; D62 Acute posthemorrhagic anemia; E66.01 Morbid (severe) obesity due to excess calories; E78.5 Hyperlipidemia, unspecified; I48.91 Unspecified atrial fibrillation; I25.5 Ischemic cardiomyopathy; J96.01 Acute respiratory failure with hypoxia; M79.602 Pain in left arm; I95.9 Hypotension, unspecified; F41.9 Anxiety disorder, unspecified; I48.0 Paroxysmal atrial fibrillation; I50.23 Acute on chronic systolic (congestive) heart failure; I65.22 Occlusion and stenosis of left carotid artery; J98.11 Atelectasis; T38.0X5A Adverse effect of glucocorticoids and synthetic analogues, initial encounter; D72.829 Elevated white blood cell count, unspecified; Z68.37 Body mass index [BMI] 37.0-37.9, adult; Z79.02 Long term (current) use of antithrombotics/antiplatelets; Z79.82 Long term (current) use of aspirin; Z79.899 Other long term (current) drug therapy; Z82.49 Family history of ischemic heart disease and other diseases of the circulatory system; Z87.442 Personal history of urinary calculi; Z91.199 Patient's noncompliance with other medical treatment and regimen due to unspecified reason; Z28.310 Unvaccinated for COVID-19; Z28.21 Immunization not carried out because of patient refusal
CPT/HCPCS: 36415; 36600; 71045; 71046; 71275; 76604; 76937; 80048; 80053; 80061; 80074; 82330; 82805; 83036; 83605; 83735; 84443; 84484; 85025; 85027; 85384; 85610; 85730; 86850; 86891; 86900; 86901; 86920; 87070; 87635; 93005; 93306; 93308; 93458; 93880; 93922; 93970; 94002; 94150; 94640; 94660; 94760; 96361; 96374; 96375; 96376; 99285